=== PATIENT | male | born 1975 | race American Indian/Alaskan Native ===

== ENCOUNTER 2019-08-07 18:35 | Inpatient (IN) | payer OTHER ==
--- NOTE | 2019-08-07 18:54 | Emergency Department Report ---
Blank Doc - Documentation Documentation: 43-year-old male that presents with weakness and dizziness with hypoglycemia. Stated was in the 50s at home. This initial assessment/diagnostic orders/clinical plan/treatment(s) is/are subject to change based on patient's health status, clinical progression and re- assessment by fellow clinical providers in the ED. Further treatment and workup at subsequent clinical providers discretion. Patient/guardians urged not to elope from the ED as their condition may be serious if not clinically assessed and managed. Initial orders include: 1- Patient sent to [facility] for further evaluation and treatment 2- labs 3- UA
[2019-08-07 19:36] LABS: Calcium 8.4 mg/dL (8.4-10.2)
[2019-08-07 19:47] LABS: Hematocrit 33.4 % (35.5-45.6); Mean Corpuscular HGB Conc 33 % (32-34); Mean Corpuscular Volume 84 fl (84-94); Red Blood Count 3.96 M/mm3 (3.65-5.03); Red Cell Distribution Width 13.7 % (13.2-15.2)
[2019-08-07 19:52] LABS: Platelet Count 461 K/mm3 (140-440)
[2019-08-07 20:37] LABS: Band Neutrophils # (Manual) 0.4 K/mm3; Basophils % (Manual) 0 % (0.0-1.8); Eosinophils % (Manual) 0 % (0.0-4.3); Total Cells Counted 100
[2019-08-07 20:38] LABS: Anisocytosis 1+; Large Platelets Few; Platelet Estimate Consistent w Auto; Toxic Vacuolation 3+
[2019-08-07 20:47] LABS: Bilirubin,Urine NEG (Negative); Blood,Urine MOD (Negative); Color,Urine Amber (Yellow)
[2019-08-07] MEDS ORDERED: SODIUM CHLORIDE 0.9% 1000 ML IV SOLN IV ONE (21:31)
[2019-08-07] MEDS ORDERED: metroNIDAZOLE/NS 500 MG/100 ML 500 MG/100 ML BAG IV ONE (21:31)
[2019-08-07] MEDS ORDERED: PIPERACIL/TAZOBACTA 4.5/NS 100 4.5 GM/100 ML VIAL IV ONE (21:31)
--- NOTE | 2019-08-07 21:37 | Emergency Department Report ---
ED General Adult HPI - General Chief complaint: Hypoglycemia Stated complaint: LOW GLUCOSE Time Seen by Provider: 08/07/19 18:53 Source: patient, RN notes reviewed Mode of arrival: Ambulatory Limitations: Physical Limitation - History of Present Illness Initial comments: The patient is a 43-year-old gentleman. This patient is not known to this provider previously. He does not have a primary care doctor, and he has a history of diabetes. He presents to the ER with chronic left-sided lateral plantar foot pain and swelling. This has been going on for 2 weeks. He also states that he had episodes of hypoglycemia yesterday, indicating that his sugar was in the 50s. It is typically in the mid 100s. There is a cough, there is no headache, no neck pain, no chest pain, question shortness of breath, no abdominal pain. On review of systems, he also endorses exercise and occasional rest claudication. Left lower extremity foot pain, swelling and discharge present for 2 weeks. Symptoms constant, pain increases with palpation, decreases with rest, does not radiate anywhere. There is no endorsement of extremity weakness and arm numbness. -: Gradual Location: left, lower extremity Quality: other Consistency: other Improves with: other Worsens with: other - Related Data Home Medications Medication Instructions Recorded Confirmed Last Taken NovoLIN N 30 unit SUB-Q BID 08/07/19 08/07/19 Unknown Novolin R 12 unit SUB-Q BID 08/07/19 08/07/19 Unknown Allergies Allergy/AdvReac Type Severity Reaction Status Date / Time No Known Allergies Allergy Verified 05/26/13 04:48 ED Review of Systems ROS: Stated complaint: LOW GLUCOSE Other details as noted in HPI Constitutional: malaise, weakness Eyes: denies: eye discharge ENT: denies: dental pain Respiratory: denies: wheezing Cardiovascular: denies: chest pain, syncope Gastrointestinal: denies: abdominal pain Genitourinary: denies: dysuria Musculoskeletal: joint swelling, arthralgia, myalgia Skin: rash, lesions Neurological: weakness Hematological/Lymphatic: denies: easy bleeding ED Past Medical Hx - Past Medical History Previous Medical History?: Yes Hx Hypertension: Yes Hx Diabetes: Yes Additional medical history: GERD - Surgical History Past Surgical History?: Yes Additional Surgical History: Surgery on appendix or Pancreas 2004, patient is unsure. - Social History Smoking Status: Never Smoker Substance Use Type: None - Medications Home Medications: Home Medications Medication Instructions Recorded Confirmed Last Taken Type NovoLIN N 30 unit SUB-Q BID 08/07/19 08/07/19 Unknown History Novolin R 12 unit SUB-Q BID 08/07/19 08/07/19 Unknown History ED Physical Exam - General Limitations: No Limitations, Physical Limitation General appearance: alert, anxious - Head Head exam: Present: atraumatic, normocephalic - Eye Eye exam: Present: normal appearance, EOMI. Absent: nystagmus - ENT ENT exam: Present: normal exam, mucous membranes dry, normal external ear exam - Neck Neck exam: Present: normal inspection, full ROM. Absent: tenderness, meningismus - Respiratory Respiratory exam: Present: normal lung sounds bilaterally. Absent: respiratory distress - Cardiovascular Cardiovascular Exam: Present: normal rhythm, tachycardia, normal heart sounds. Absent: systolic murmur, diastolic murmur, rubs, gallop - GI/Abdominal GI/Abdominal exam: Present: soft. Absent: distended, tenderness, guarding, rebound, rigid, pulsatile mass - Rectal Rectal exam: Present: deferred - Extremities Exam Extremities exam: Present: other (2+ pulses noted in the bilateral upper extre mities. The right lower extremity is warm and well perfused. Pulses are difficult to appreciate. There is right lower extremity edema. The left lower extremity, there is edema. The left lateral aspect of the foot has cavernous lesion with what appears to be wet gangrene. Macerated tissue is noted. Uncertain of crepitus is present. Pulses are difficult to appreciate. Sensation is intact to pinch and light touch. There is no sniffing and pain with passive motion of the great toe. The left anterior distal tibial region is tender.). Absent: normal inspection - Back Exam Back exam: Present: normal inspection. Absent: tenderness, CVA tenderness (R), CVA tenderness (L), paraspinal tenderness, vertebral tenderness - Neurological Exam Neurological exam: Present: alert, other (there is no facial droop. Tongue is midline. Extraocular movements are intact bilaterally. Walking with a steady gait. Speaking in full sentences. Normal appropriate thought content. 5 out of 5 strength in 4 extremities. Sensation is intact to light touch in 4 extremities.) - Psychiatric Psychiatric exam: Present: anxious - Skin Skin exam: Present: warm, erythema ED Course Vital Signs 01/08/07/19 08/07/19 18:53 21:37 21:46 Temperature 99.2 F Pulse Rate 104 H 109 H 108 H Respiratory 20 38 H 33 H Rate Blood Pressure 136/90 O2 Sat by Pulse 100 99 100 Oximetry 08/07/19 08/07/19 08/07/19 22:00 22:22 22:30 Temperature Pulse Rate 105 H 104 H 104 H Respiratory 33 H 32 H 27 H Rate Blood Pressure O2 Sat by Pulse 97 99 99 Oximetry 08/07/19 08/07/19 08/07/19 22:46 23:00 23:16 Temperature Pulse Rate 102 H 99 H 99 H Respiratory 35 H 31 H 30 H Rate Blood Pressure O2 Sat by Pulse 98 97 97 Oximetry 08/07/19 08/07/19 08/08/19 23:30 23:46 00:00 Temperature Pulse Rate 99 H 98 H 101 H Respiratory 29 H 32 H 19 Rate Blood Pressure O2 Sat by Pulse 99 97 96 Oximetry 08/08/19 08/08/19 08/08/19 00:15 00:30 00:45 Temperature Pulse Rate 99 H 99 H 98 H Respiratory 30 H 30 H 28 H Rate Blood Pressure 117/80 120/82 119/83 O2 Sat by Pulse Oximetry 08/08/19 01:00 Temperature Pulse Rate Respiratory Rate Blood Pressure 119/83 O2 Sat by Pulse 98 Oximetry - Reevaluation(s) Reevaluation #1: 08/07/19 22:51 Differential diagnosis, including but not limited to: Wet gangrene, myositis, osteomyelitis, cellulitis, hypoglycemia secondary to infection, secondary to sepsis, peripheral artery disease, peripheral artery insufficiency Assessment and plan: 43-year-old gentleman with obviously infected left lower extremity, meeting sepsis criteria, manifest by clinical infection, leukocyto sis, tachycardia, and renal insufficiency. He also endorses claudication on review of systems. Pulses are not able to be appreciated to my direct physical examination. Doppler ultrasonography is performed, and dorsalis pedis and posterior tibial monophasic waveforms are obtained of the left lower extremity. The right lower extremity is not symptomatic. These lesions in the left foot have been present for 2 weeks and they're getting worse. Discussed with general surgery, Dr. Harris, and vascular surgery, Dr. Minor, who agreed to follow in consultation. Patient requires aggressive medical resuscitation, every 1 hour Accu-Cheks, IV fluids, and medical optimization. Discussed plan of care with patient and family, who verbalized understanding, and whom are amenable to hospitalization and admission. Case presented to Hospital physician, , who has accepted the patient to the medical service. Reevaluation #2: 08/07/19 22:55 Both general surgery and vascular surgery aware of gas in the left foot demonstrated on CT scan. Likely to receive open amputation tomorrow, as per vascular surgery. ED Medical Decision Making - Lab Data Result diagrams: 08/07/19 19:02 08/07/19 19:02 Vital Signs 08/07/19 18:53 Temperature 99.2 F Pulse Rate 104 H Respiratory 20 Rate Blood Pressure 136/90 O2 Sat by Pulse 100 Oximetry Lab Results 08/07/19 08/07/19 08/07/19 Range/Units 18:51 19:02 19:02 WBC 41.3 H* (4.5-11.0) K/mm3 RBC 3.96 (3.65-5.03) M/mm3 Hgb 11.0 L (11.8-15.2) gm/dl Hct 33.4 L (35.5-45.6) % MCV 84 (84-94) fl MCH 28 (28-32) pg MCHC 33 (32-34) % RDW 13.7 (13.2-15.2) % Plt Count 461 H (140-440) K/mm3 Add Manual Diff Complete Total Counted 100 Seg Neuts % (Manual) 91.0 H (40.0-70.0) % Band Neutrophils % 1.0 % Lymphocytes % (Manual) 5.0 L (13.4-35.0) % Reactive Lymphs % (Man) 0 % Monocytes % (Manual) 3.0 (0.0-7.3) % Eosinophils % (Manual) 0 (0.0-4.3) % Basophils % (Manual) 0 (0.0-1.8) % Metamyelocytes % 0 % Myelocytes % 0 % Promyelocytes % 0 % Blast Cells % 0 % Nucleated RBC % Not Reportable Seg Neutrophils # Man 37.6 H (1.8-7.7) K/mm3 Band Neutrophils # 0.4 K/mm3 Lymphocytes # (Manual) 2.1 (1.2-5.4) K/mm3 Abs React Lymphs (Man) 0.0 K/mm3 Monocytes # (Manual) 1.2 H (0.0-0.8) K/mm3 Eosinophils # (Manual) 0.0 (0.0-0.4) K/mm3 Basophils # (Manual) 0.0 (0.0-0.1) K/mm3 Metamyelocytes # 0.0 K/mm3 Myelocytes # 0.0 K/mm3 Promyelocytes # 0.0 K/mm3 Blast Cells # 0.0 K/mm3 WBC Morphology Not Reportable Hypersegmented Neuts Not Reportable Hyposegmented Neuts Not Reportable Hypogranular Neuts Not Reportable Smudge Cells Not Reportable Toxic Granulation Not Reportable Toxic Vacuolation 3+ Dohle Bodies Not Reportable Pelger-Huet Anomaly Not Reportable Arlene Rods Not Reportable Platelet Estimate Consistent w auto Clumped Platelets Not Reportable Plt Clumps, EDTA Not Reportable Large Platelets Few Giant Platelets Not Reportable Platelet Satelliting Not Reportable Plt Morphology Comment Not Reportable RBC Morphology Not Reportable Dimorphic RBCs Not Reportable Polychromasia Not Reportable Hypochromasia Not Reportable Poikilocytosis Not Reportable Anisocytosis 1+ Microcytosis Not Reportable Macrocytosis Not Reportable Spherocytes Not Reportable Pappenheimer Bodies Not Reportable Sickle Cells Not Reportable Target Cells Not Reportable Tear Drop Cells Not Reportable Ovalocytes Not Reportable Helmet Cells Not Reportable [place] Bodies Not Reportable [place] Rings Not Reportable Negra Cells Not Reportable Bite Cells Not Reportable Crenated Cell Not Reportable Elliptocytes Not Reportable Acanthocytes (Spur) Not Reportable Rouleaux Not Reportable Hemoglobin C Crystals Not Reportable Schistocytes Not Reportable Malaria parasites Not Reportable Ramos Bodies Not Reportable Hem Pathologist Commnt No PT (12.2-14.9) Sec. INR (0.87-1.13) APTT (24.2-36.6) Sec. Sodium 129 L (137-145) mmol/L Potassium 3.7 (3.6-5.0) mmol/L Chloride 91.3 L (98-107) mmol/L Carbon Dioxide 16 L (22-30) mmol/L Anion Gap 25 mmol/L BUN 33 H (9-20) mg/dL Creatinine 1.8 H (0.8-1.5) mg/dL Estimated GFR 50 ml/min BUN/Creatinine Ratio 18 % Glucose 165 H (75-100) mg/dL POC Glucose 148 H (70-105) Lactic Acid (0.7-2.0) mmol/L Calcium 8.4 (8.4-10.2) mg/dL Total Bilirubin (0.1-1.2) mg/dL Direct Bilirubin (0-0.2) mg/dL Indirect Bilirubin mg/dL AST (5-40) units/L ALT (7-56) units/L Alkaline Phosphatase (35-129) units/L Total Creatine Kinase (55-170) units/L Total Protein (6.3-8.2) g/dL Albumin (3.9-5) g/dL Albumin/Globulin Ratio % Urine Color (Yellow) Urine Turbidity (Clear) Urine pH (5.0-7.0) Ur Specific Leslie (1.003-1.030) Urine Protein (Negative) mg/dL Urine Glucose (UA) (Negative) mg/dL Urine Ketones (Negative) mg/dL Urine Blood (Negative) Urine Nitrite (Negative) Urine Bilirubin (Negative) Urine Urobilinogen (<2.0) mg/dL Ur Leukocyte Esterase (Negative) Urine WBC (Auto) (0.0-6.0) /HPF Urine RBC (Auto) (0.0-6.0) /HPF U Epithel Cells (Auto) (0-13.0) /HPF 08/07/19 08/07/19 08/07/19 Range/Units 20:05 21:45 21:45 WBC (4.5-11.0) K/mm3 RBC (3.65-5.03) M/mm3 Hgb (11.8-15.2) gm/dl Hct (35.5-45.6) % MCV (84-94) fl MCH (28-32) pg MCHC (32-34) % RDW (13.2-15.2) % Plt Count (140-440) K/mm3 Add Manual Diff Total Counted Seg Neuts % (Manual) (40.0-70.0) % Band Neutrophils % % Lymphocytes % (Manual) (13.4-35.0) % Reactive Lymphs % (Man) % Monocytes % (Manual) (0.0-7.3) % Eosinophils % (Manual) (0.0-4.3) % Basophils % (Manual) (0.0-1.8) % Metamyelocytes % % Myelocytes % % Promyelocytes % % Blast Cells % % Nucleated RBC % Seg Neutrophils # Man (1.8-7.7) K/mm3 Band Neutrophils # K/mm3 Lymphocytes # (Manual) (1.2-5.4) K/mm3 Abs React Lymphs (Man) K/mm3 Monocytes # (Manual) (0.0-0.8) K/mm3 Eosinophils # (Manual) (0.0-0.4) K/mm3 Basophils # (Manual) (0.0-0.1) K/mm3 Metamyelocytes # K/mm3 Myelocytes # K/mm3 Promyelocytes # K/mm3 Blast Cells # K/mm3 WBC Morphology Hypersegmented Neuts Hyposegmented Neuts Hypogranular Neuts Smudge Cells Toxic Granulation Toxic Vacuolation Dohle Bodies Pelger-Huet Anomaly Arlene Rods Platelet Estimate Clumped Platelets Plt Clumps, EDTA Large Platelets Giant Platelets Platelet Satelliting Plt Morphology Comment RBC Morphology Dimorphic RBCs Polychromasia Hypochromasia Poikilocytosis Anisocytosis Microcytosis Macrocytosis Spherocytes Pappenheimer Bodies Sickle Cells Target Cells Tear Drop Cells Ovalocytes Helmet Cells [place] Bodies [place] Rings [place] Cells Bite Cells Crenated Cell Elliptocytes Acanthocytes (Spur) Rouleaux Hemoglobin C Crystals Schistocytes Malaria parasites Ramos Bodies Hem Pathologist Commnt PT 18.0 H (12.2-14.9) Sec. INR 1.46 H (0.87-1.13) APTT 39.0 H (24.2-36.6) Sec. Sodium (137-145) mmol/L Potassium (3.6-5.0) mmol/L Chloride (98-107) mmol/L Carbon Dioxide (22-30) mmol/L Anion Gap mmol/L BUN (9-20) mg/dL Creatinine (0.8-1.5) mg/dL Estimated GFR ml/min BUN/Creatinine Ratio % Glucose (75-100) mg/dL POC Glucose (70-105) Lactic Acid (0.7-2.0) mmol/L Calcium (8.4-10.2) mg/dL Total Bilirubin 0.60 (0.1-1.2) mg/dL Direct Bilirubin 0.4 H (0-0.2) mg/dL Indirect Bilirubin 0.2 mg/dL AST 21 (5-40) units/L ALT 16 (7-56) units/L Alkaline Phosphatase 128 (35-129) units/L Total Creatine Kinase 38 L (55-170) units/L Total Protein 6.2 L (6.3-8.2) g/dL Albumin 2.5 L (3.9-5) g/dL Albumin/Globulin Ratio 0.7 % Urine Color Veronika (Yellow) Urine Turbidity Slightly cloudy (Clear) Urine pH 5.0 (5.0-7.0) Ur Specific Leslie 1.018 (1.003-1.030) Urine Protein 100 mg/dl (Negative) mg/dL Urine Glucose (UA) Neg (Negative) mg/dL Urine Ketones Neg (Negative) mg/dL Urine Blood Mod (Negative) Urine Nitrite Neg (Negative) Urine Bilirubin Neg (Negative) Urine Urobilinogen 4.0 (<2.0) mg/dL Ur Leukocyte Esterase Neg (Negative) Urine WBC (Auto) 20.0 H (0.0-6.0) /HPF Urine RBC (Auto) 18.0 (0.0-6.0) /HPF U Epithel Cells (Auto) 2.0 (0-13.0) /HPF 08/07/19 Range/Units 21:45 WBC (4.5-11.0) K/mm3 RBC (3.65-5.03) M/mm3 Hgb (11.8-15.2) gm/dl Hct (35.5-45.6) % MCV (84-94) fl MCH (28-32) pg MCHC (32-34) % RDW (13.2-15.2) % Plt Count (140-440) K/mm3 Add Manual Diff Total Counted Seg Neuts % (Manual) (40.0-70.0) % Band Neutrophils % % Lymphocytes % (Manual) (13.4-35.0) % Reactive Lymphs % (Man) % Monocytes % (Manual) (0.0-7.3) % Eosinophils % (Manual) (0.0-4.3) % Basophils % (Manual) (0.0-1.8) % Metamyelocytes % % Myelocytes % % Promyelocytes % % Blast Cells % % Nucleated RBC % Seg Neutrophils # Man (1.8-7.7) K/mm3 Band Neutrophils # K/mm3 Lymphocytes # (Manual) (1.2-5.4) K/mm3 Abs React Lymphs (Man) K/mm3 Monocytes # (Manual) (0.0-0.8) K/mm3 Eosinophils # (Manual) (0.0-0.4) K/mm3 Basophils # (Manual) (0.0-0.1) K/mm3 Metamyelocytes # K/mm3 Myelocytes # K/mm3 Promyelocytes # K/mm3 Blast Cells # K/mm3 WBC Morphology Hypersegmented Neuts Hyposegmented Neuts Hypogranular Neuts Smudge Cells Toxic Granulation Toxic Vacuolation Dohle Bodies Pelger-Huet Anomaly Arlene Rods Platelet Estimate Clumped Platelets Plt Clumps, EDTA Large Platelets Giant Platelets Platelet Satelliting Plt Morphology Comment RBC Morphology Dimorphic RBCs Polychromasia Hypochromasia Poikilocytosis Anisocytosis Microcytosis Macrocytosis Spherocytes Pappenheimer Bodies Sickle Cells Target Cells Tear Drop Cells Ovalocytes Helmet Cells [place] Bodies [place] Rings Negra Cells Bite Cells Crenated Cell Elliptocytes Acanthocytes (Spur) Rouleaux Hemoglobin C Crystals Schistocytes Malaria parasites Ramos Bodies Hem Pathologist Commnt PT (12.2-14.9) Sec. INR (0.87-1.13) APTT (24.2-36.6) Sec. Sodium (137-145) mmol/L Potassium (3.6-5.0) mmol/L Chloride (98-107) mmol/L Carbon Dioxide (22-30) mmol/L Anion Gap mmol/L BUN (9-20) mg/dL Creatinine (0.8-1.5) mg/dL Estimated GFR ml/min BUN/Creatinine Ratio % Glucose (75-100) mg/dL POC Glucose (70-105) Lactic Acid 2.40 H* (0.7-2.0) mmol/L Calcium (8.4-10.2) mg/dL Total Bilirubin (0.1-1.2) mg/dL Direct Bilirubin (0-0.2) mg/dL Indirect Bilirubin mg/dL AST (5-40) units/L ALT (7-56) units/L Alkaline Phosphatase (35-129) units/L Total Creatine Kinase (55-170) units/L Total Protein (6.3-8.2) g/dL Albumin (3.9-5) g/dL Albumin/Globulin Ratio % Urine Color (Yellow) Urine Turbidity (Clear) Urine pH (5.0-7.0) Ur Specific Leslie (1.003-1.030) Urine Protein (Negative) mg/dL Urine Glucose (UA) (Negative) mg/dL Urine Ketones (Negative) mg/dL Urine Blood (Negative) Urine Nitrite (Negative) Urine Bilirubin (Negative) Urine Urobilinogen (<2.0) mg/dL Ur Leukocyte Esterase (Negative) Urine WBC (Auto) (0.0-6.0) /HPF Urine RBC (Auto) (0.0-6.0) /HPF U Epithel Cells (Auto) (0-13.0) /HPF - EKG Data -: EKG Interpreted by Me EKG shows normal: sinus rhythm Rate: normal - EKG Data 08/07/19 23:20 sinus 99 bpm, normal axis normal intervals qtc 490 not a stemi - Radiology Data Radiology results: pending, report reviewed, image reviewed interpreted by me: X-ray of the chest is negative for acute disease. I do not appreciate an obvious infiltrate. X-ray of the fibula/tibia negative for acute disease. X-ray of the left foot shows question osteomyelitis, obvious gas. Noncontrast CT scan of the foot: Gases noted in the foot, may be associated with the wound. Print Report Referring Physician: SARITA PUGH Patient Name: JOSÉ LUIS REYES Date of : 1975 Sex: Male Report Date: 2019-08-07 Report Status: Finalized Findings [facility] [address] [place] [address] Cat Scan Report Signed Patient: JOSÉ LUIS REYES MR#: [id number] : 1975 Acct:[id number] Age/Sex: 43 / M ADM Date: 08/07/19 Loc: 4A A457-[address]: DONAL EDMONDSON MD Ordering Physician: SARITA PUGH MD Date of Service: 08/07/19 Procedure(s): CT lower extremity LT wo con Accession Number(s): [id number] cc: SARITA PUGH MD CT lower extremity LT wo con INDICATION: lle pain swelling infection. TECHNIQUE: All CT scans at this location are performed using the following dose modulation technique: Automated exposure control. Helical slices were obtained through the left extremity. No contrast is administered. Coronal and sagittal reformatted images were obtained. COMPARISON: None available. FINDINGS: No acute osseous abnormality is seen in the pelvis, femur, knee, and lower leg. There is soft tissue gas noted extensively in the left foot. There is some cortical destruction in air within the proximal phalanx of the fifth toe and the distal aspect of the fifth metatarsal indicating osteomyelitis. There is soft tissue swelling throughout the foot and there is a soft tissue wound in the lateral left foot. There is a fracture of the mid fifth metatarsal with air in the fracture site as well. There is some mild cortical irregularity in the cuboid bone with adjacent air raising possibility of osteomyelitis in this location as well. There is soft tissue swelling in the left lower leg. No discrete fluid collections are seen. Atherosclerotic calcifications are noted in the runoff vessels in the superficial femoral artery and popliteal artery IMPRESSION: 1. There is soft tissue gas and soft tissue wound in the left foot. There is fracture of the mid left fifth metatarsal with air in the fracture site. There is some cortical destruction and air in the distal aspect of the fifth metatarsal and the proximal aspect of the proximal phalanx of the fifth toe indicative of osteomyelitis. There is some mild cortical irregularity of the cuboid bone with adjacent air raising the possibility of osteomyelitis in this location as well. There is atherosclerotic disease. There is soft tissue swelling in the left lower leg and in the left foot.. Signer Name: Milind Harris MD Signed: 08/07/2019 11:32 PM Workstation Name: [id number] Transcribed By: SS Dictated By: Milind Harris MD Electronically Authenticated By: Milind Harris MD Signed Date/Time: 08/07/19 7102 Critical Care Time: Yes Critical care time in (mins) excluding proc time.: 35 Critical care attestation.: If time is entered above; I have spent that time in minutes in the direct care of this critically ill patient, excluding procedure time. ED Disposition Clinical Impression: Sepsis, Diabetic infection of left foot Disposition: [id number] OP ADMIT IP TO THIS HOSP Is pt being admited?: Yes Condition: Serious
[2019-08-07] MEDS ORDERED: VANCOMYCIN 1,500 MG in SODIUM CHLORIDE 0.9% 500 ML 500 ML IV ONE (22:15)
[2019-08-07 22:28] LABS: Albumin 2.5 g/dL (3.9-5); Bilirubin,Direct 0.4 mg/dL (0-0.2); INR 1.46 (0.87-1.13)
--- NOTE | 2019-08-07 23:06 | XRay Report ---
LEFT FOOT 2 VIEWS 2142 INDICATION: lle pain swelling sepsis COMPARISON: None available. FINDINGS: Prominent ulceration is seen in the left lateral mid foot ventrally. Soft tissue gas is ext ensive in the midfoot ventrally extending distally to the level of the metatarsophalangeal joints. Luis ny irregularity is seen in the proximal portions of the fifth metatarsal likely representing osteomye litis and possible irregularity seen in the proximal portion of the third metatarsal. There appears t o be some fracture and fragmentation of the proximal fifth metatarsal but without displacement. Mild medial angulation is noted. No foreign bodies are seen. Arterial calcifications are noted. Moderate t arsal degenerative changes are seen. IMPRESSION: Large soft tissue ulcer with extensive soft tissue gas and probable osteomyelitis as abov e. MR is suggested. LEFT TIBIA FIBULA 2 VIEWS 2141 INDICATION: lle pain swelling sepsis COMPARISON: None available. FINDINGS: No fractures or dislocations are seen. Arterial calcifications are noted. No soft tissue ga s is seen. Diffuse edema is seen at the ankle. Signer Name: Ronn Galvez MD Signed: 08/07/2019 11:01 PM Workstation Name: [id number]
--- NOTE | 2019-08-07 23:17 | XRay Report ---
CHEST 1 VIEW 705 INDICATION / CLINICAL INFORMATION: cough weak sepsis. COMPARISON: None available. FINDINGS: SUPPORT DEVICES: None HEART / MEDIASTINUM: No significant abnormality. LUNGS / PLEURA: Mild asymmetric density is seen in the right base. This may be atelectatic but early pneumonitis is not excluded and follow-up and clinical correlation are suggested. Left lung field is clear. No pneumothorax. ADDITIONAL FINDINGS: No significant additional findings. IMPRESSION: Right basilar density as above Signer Name: Ronn Galvez MD Signed: 08/07/2019 11:13 PM Workstation Name: [id number]
[2019-08-07] MEDS ORDERED: ONDANSETRON 4 MG/2 ML INJ IV PRN (23:29)
[2019-08-07] MEDS ORDERED: MAGNESIUM HYDROXIDE (MOM) ORAL LIQD UDC PO PRN (23:29)
--- NOTE | 2019-08-07 23:36 | Cat Scan Report ---
CT lower extremity LT wo con INDICATION: lle pain swelling infection. TECHNIQUE: All CT scans at this location are performed using the following dose modulation technique: Automated exposure control. Helical slices were obtained through the left extremity. No contrast is administere d. Coronal and sagittal reformatted images were obtained. COMPARISON: None available. FINDINGS: No acute osseous abnormality is seen in the pelvis, femur, knee, and lower leg. There is soft tissue gas noted extensively in the left foot. There is some cortical destruction in ai r within the proximal phalanx of the fifth toe and the distal aspect of the fifth metatarsal indicati ng osteomyelitis. There is soft tissue swelling throughout the foot and there is a soft tissue wound in the lateral left foot. There is a fracture of the mid fifth metatarsal with air in the fracture si te as well. There is some mild cortical irregularity in the cuboid bone with adjacent air raising possibility of osteomyelitis in this location as well. There is soft tissue swelling in the left lower leg. No discr ete fluid collections are seen. Atherosclerotic calcifications are noted in the runoff vessels in the superficial femoral artery and popliteal artery IMPRESSION: 1. There is soft tissue gas and soft tissue wound in the left foot. There is fracture of the mid left fifth metatarsal with air in the fracture site. There is some cortical destruction and air in the di stal aspect of the fifth metatarsal and the proximal aspect of the proximal phalanx of the fifth toe indicative of osteomyelitis. There is some mild cortical irregularity of the cuboid bone with adjacen t air raising the possibility of osteomyelitis in this location as well. There is atherosclerotic disease. There is soft tissue swelling in the left lower leg and in the left foot.. Signer Name: Milind Harris MD Signed: 08/07/2019 11:32 PM Workstation Name: [id number]
--- NOTE | 2019-08-07 23:49 | History and Physical Report ---
History of Present Illness Date of examination: 08/07/19 Date of admission: 08/07/2019 Chief complaint: Left foot wound and swelling History of present illness: 43-year-old -[place] male with known history of diabetes mellitus presenting to the emergency room today complaining of left foot swelling and wound which has been ongoing for about 4 weeks. Patient states that he has had a wound on the left foot and has been dressing the wound over the past few weeks and admits that he has not seek any medical attention for the left foot wound. 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 He denies any fever denies any chills, no chest pain no shortness of breath, no nausea vomiting. States he was not feeling quite well today and felt his sugar was low and decided to check into the emergency room. Upon evaluation in the emergency room patient was found to be tachycardic, work- up reveals dehydration, left foot ulcer with possible gangrene and accompanying sepsis. Patient started on empiric IV antibiotics, general surgeon and vascular surgeon has been consulted by the ER physician. Past History Past Medical History: diabetes Past Surgical History: bowel surgery Social history: alcohol abuse (Drinks alcohol occasionally). denies: smoking Family history: no significant family history Medications and Allergies Allergies Allergy/AdvReac Type Severity Reaction Status Date / Time No Known Allergies Allergy Verified 05/26/13 04:48 Home Medications Medication Instructions Recorded Confirmed Last Taken Type NovoLIN N 30 unit SUB-Q BID 08/07/19 08/07/19 Unknown History Novolin R 12 unit SUB-Q BID 08/07/19 08/07/19 Unknown History Active Meds: Active Medications Acetaminophen (Tylenol) 650 mg PO Q4H PRN PRN Reason: Pain MILD(1-3)/Fever >100.5/MIRANDA Dextrose (D50w (25gm) Syringe) 50 ml IV Q30MIN PRN; Protocol PRN Reason: Hypoglycemia Heparin Sodium (Porcine) (Heparin) 5,000 unit SUB-Q Q8HR [facility] Vancomycin HCl 1,500 mg/ (Sodium Chloride) 530 mls @ 333 mls/hr IV ONCE ONE; Protocol Stop: 08/07/19 23:50 Last Admin: 08/07/19 22:30 Dose: 333 mls/hr Documented by: Sodium Chloride (Nacl 0.9% 1000 Ml) 1,000 mls @ 125 mls/hr IV DIRECT [facility] Piperacillin Sod/Tazobactam Sod (Zosyn/Ns 4.5gm/100ml) 4.5 gm in 100 mls @ 200 mls/hr IV Q8HR [facility]; Protocol Metronidazole (Flagyl 500 Mg/100 Ml) 500 mg in 100 mls @ 100 mls/hr IV Q8HR [facility]; Protocol Insulin Human Lispro (Humalog) 0 unit SUB-Q ACHS [facility]; Protocol Magnesium Hydroxide (Milk Of Magnesia) 30 ml PO Q4H PRN PRN Reason: Constipation Morphine Sulfate (Morphine) 2 mg IV Q4H PRN PRN Reason: Pain, Moderate (4-6) Ondansetron HCl (Zofran) 4 mg IV Q8H PRN PRN Reason: Nausea And Vomiting Sodium Chloride (Sodium Chloride Flush Syringe 10 Ml) 10 ml IV BID [facility] Sodium Chloride (Sodium Chloride Flush Syringe 10 Ml) 10 ml IV PRN PRN PRN Reason: LINE FLUSH Review of Systems Constitutional: chills, no fever, no weakness Ears, nose, mouth and throat: no tinnitis, no nasal congestion Cardiovascular: no chest pain, no palpitations Respiratory: no cough, no shortness of breath Gastrointestinal: no nausea, no vomiting, no diarrhea Genitourinary Male: no dysuria, no hematuria Musculoskeletal: no neck pain, no low back pain Integumentary: wounds (Left foot wound,), darkening of skin (Discoloration of skin over left foot and surrounding wound) Neurological: no headaches, no change in mentation Exam - Constitutional Vitals: Temp Pulse Resp BP Pulse Ox 99.2 F 104 H 20 136/90 100 08/07/19 18:53 08/07/19 18:53 08/07/19 18:53 08/07/19 18:53 08/07/19 18:53 General appearance: Present: no acute distress, well-nourished - EENT Eyes: Present: PERRL, EOM intact ENT: hearing intact, clear oral mucosa, dentition normal - Neck Neck: Present: supple, normal ROM - Respiratory Respiratory effort: normal Respiratory: bilateral: CTA - Cardiovascular Rhythm: regular Heart Sounds: Present: S1 & S2 - Extremities Extremities: no ischemia, Full ROM Extremity abnormal: edema (2+ edema on the left lower extremity), ulceration (Ulcer on the lateral aspect of the left foot, also on the plantar aspect of the left foot, wound is foul-smelling with no obvious discharge), tenderness (Tenderness over left foot) Peripheral Pulses: abnormal (Right foot pedal pulses palpable but faint, left foot pedal pulse not palpable) - Abdominal General gastrointestinal: Present: soft, non-tender, normal bowel sounds, other (Scar of old surgery in the midline) - Integumentary Integumentary: Present: clear, warm, dry - Musculoskeletal Musculoskeletal: strength equal bilaterally - Psychiatric Psychiatric: appropriate mood/affect, intact judgment & insight, cooperative - Neurologic Neurologic: CNII-XII intact, moves all extremities Results - Labs CBC & Chem 7: 08/07/19 19:02 08/07/19 19:02 Labs: Abnormal lab results 08/07/19 08/07/19 08/07/19 Range/Units 18:51 19:02 19:02 WBC 41.3 H* (4.5-11.0) K/mm3 Hgb 11.0 L (11.8-15.2) gm/dl Hct 33.4 L (35.5-45.6) % Plt Count 461 H (140-440) K/mm3 Seg Neuts % (Manual) 91.0 H (40.0-70.0) % Lymphocytes % (Manual) 5.0 L (13.4-35.0) % Seg Neutrophils # Man 37.6 H (1.8-7.7) K/mm3 Monocytes # (Manual) 1.2 H (0.0-0.8) K/mm3 PT (12.2-14.9) Sec. INR (0.87-1.13) APTT (24.2-36.6) Sec. Sodium 129 L (137-145) mmol/L Chloride 91.3 L (98-107) mmol/L Carbon Dioxide 16 L (22-30) mmol/L BUN 33 H (9-20) mg/dL Creatinine 1.8 H (0.8-1.5) mg/dL Glucose 165 H (75-100) mg/dL POC Glucose 148 H (70-105) Lactic Acid (0.7-2.0) mmol/L Direct Bilirubin (0-0.2) mg/dL Total Creatine Kinase (55-170) units/L Total Protein (6.3-8.2) g/dL Albumin (3.9-5) g/dL Urine WBC (Auto) (0.0-6.0) /HPF 08/07/19 08/07/19 08/07/19 Range/Units 20:05 21:45 21:45 WBC (4.5-11.0) K/mm3 Hgb (11.8-15.2) gm/dl Hct (35.5-45.6) % Plt Count (140-440) K/mm3 Seg Neuts % (Manual) (40.0-70.0) % Lymphocytes % (Manual) (13.4-35.0) % Seg Neutrophils # Man (1.8-7.7) K/mm3 Monocytes # (Manual) (0.0-0.8) K/mm3 PT 18.0 H (12.2-14.9) Sec. INR 1.46 H (0.87-1.13) APTT 39.0 H (24.2-36.6) Sec. Sodium (137-145) mmol/L Chloride (98-107) mmol/L Carbon Dioxide (22-30) mmol/L BUN (9-20) mg/dL Creatinine (0.8-1.5) mg/dL Glucose (75-100) mg/dL POC Glucose (70-105) Lactic Acid (0.7-2.0) mmol/L Direct Bilirubin 0.4 H (0-0.2) mg/dL Total Creatine Kinase 38 L (55-170) units/L Total Protein 6.2 L (6.3-8.2) g/dL Albumin 2.5 L (3.9-5) g/dL Urine WBC (Auto) 20.0 H (0.0-6.0) /HPF 08/07/19 08/07/19 Range/Units 21:45 22:48 WBC (4.5-11.0) K/mm3 Hgb (11.8-15.2) gm/dl Hct (35.5-45.6) % Plt Count (140-440) K/mm3 Seg Neuts % (Manual) (40.0-70.0) % Lymphocytes % (Manual) (13.4-35.0) % Seg Neutrophils # Man (1.8-7.7) K/mm3 Monocytes # (Manual) (0.0-0.8) K/mm3 PT (12.2-14.9) Sec. INR (0.87-1.13) APTT (24.2-36.6) Sec. Sodium (137-145) mmol/L Chloride (98-107) mmol/L Carbon Dioxide (22-30) mmol/L BUN (9-20) mg/dL Creatinine (0.8-1.5) mg/dL Glucose (75-100) mg/dL POC Glucose (70-105) Lactic Acid 2.40 H* 2.70 H* (0.7-2.0) mmol/L Direct Bilirubin (0-0.2) mg/dL Total Creatine Kinase (55-170) units/L Total Protein (6.3-8.2) g/dL Albumin (3.9-5) g/dL Urine WBC (Auto) (0.0-6.0) /HPF Assessment and Plan - Patient Problems (1) Diabetic infection of left foot Current Visit: Yes Status: Acute Plan to address problem: Patient started on empiric IV antibiotics. Consult has been placed to general surgeon, vascular surgeon for evaluation and recommendation. We also place consult to wound care team for recommendations. (2) Sepsis Current Visit: Yes Status: Acute Plan to address problem: Patient placed on empiric IV antibiotics and IV fluids. We will await blood culture results. (3) Diabetes mellitus Current Visit: Yes Status: Acute Plan to address problem: We will monitor Accu-Cheks closely. We will resume routine home medications once reconciled. (4) Dehydration Current Visit: No Status: Acute Plan to address problem: Patient placed on IV fluid normal saline. Will monitor BUN and creatinine. (5) DVT prophylaxis Current Visit: Yes Status: Resolved Plan to address problem: Patient placed on subcutaneous heparin. (6) Full code status Current Visit: Yes Status: Acute
[2019-08-08] MEDS: ACETAMINOPHEN 325 MG TAB PO PRN ×2 (01:45→22:18)
[2019-08-08] MEDS: MORPHINE 2 MG/1 ML INJ IV PRN (01:48)
[2019-08-08] MEDS: SODIUM CHLORIDE 0.9% 1000 ML 1,000 ML IV SCH ×2 (04:30→17:29)
[2019-08-08] MEDS: PIPERACIL/TAZOBACTA 4.5/NS 100 4.5 GM/100 ML VIAL IV SCH ×3 (06:00→22:20)
[2019-08-08] MEDS ORDERED: metroNIDAZOLE/NS 500 MG/100 ML 500 MG/100 ML BAG IV SCH (06:00)
[2019-08-08] MEDS ORDERED: HEPARIN 5,000 UNIT/1 ML VIAL SUB-Q SCH (06:00)
[2019-08-08 08:15] LABS: Basophils # (Auto) 0.1 K/mm3 (0.0-0.1); Basophils % (Auto) 0.6 % (0.0-1.8); Eosinophils % (Auto) 0.1 % (0.0-4.3); Lymphocytes # (Auto) 1.1 K/mm3 (1.2-5.4); Lymphocytes % (Auto) 5.6 % (13.4-35.0); Mean Corpuscular HGB Conc 33 % (32-34); Mean Corpuscular Volume 83 fl (84-94); Monocytes # (Auto) 1.6 K/mm3 (0.0-0.8); Monocytes % (Auto) 7.8 % (0.0-7.3); Platelet Count 300 K/mm3 (140-440); Red Blood Count 2.82 M/mm3 (3.65-5.03); Red Cell Distribution Width 13.3 % (13.2-15.2)
[2019-08-08 08:21] LABS: Hematocrit 23.3 % (35.5-45.6); Hemoglobin 7.8 gm/dl (11.8-15.2); INR 1.43 (0.87-1.13)
[2019-08-08 08:22] LABS: Partial Thromboplastin Time 43.4 Sec. (24.2-36.6)
[2019-08-08 08:37] LABS: Calcium 7.5 mg/dL (8.4-10.2)
[2019-08-08] MEDS ORDERED: VANCOMYCIN PHARMACY TO DOSE IV SCH (09:00)
[2019-08-08] MEDS ORDERED: HYDROGEN PEROXIDE 118 ML SOLUTION ONE (09:22)
[2019-08-08] MEDS ORDERED: BUPIVACAINE/PF (0.5%) 5 MG/1 ML 30 ML VIAL INFILTRATI ONE ×2 (09:22→12:53)
--- NOTE | 2019-08-08 09:59 | Consultation ---
History of Present Illness - Reason for Consult Consult date: 08/08/19 - History of Present Illness HPI: 43yo male with IDDM currently hospitalized with bilateral non-healing foot wounds that have been present for the past 4 weeks. The patient denies lower extremity claudication or issues with ambulation prior to this hospitalization. The patient has never smoked. ROS: as per HPI PE: NAD, A&Ox3 RRR non-labored respirations palpable femoral pulses bilat both feet warm, motor/sensory intact wounds on both feet noted Arterial studies reviewed Plan: patient with non-healing wounds to both feet likely related to poorly controlled DM arterial studies reviewed which demonstrate normal perfusion to the right foot with good healing potential the left leg with significant medial wall calcifications with decreased waveforms to the great toe patient likely with small vessel disease below the ankle but would benefit from diagnostic angiogram to confirm given extensive wound will plan for angio today patient explained the risks/benefits and wishes to proceed Past History Past Medical History: diabetes Past Surgical History: bowel surgery Social history: alcohol abuse (Drinks alcohol occasionally). denies: smoking Family history: no significant family history Medications and Allergies Allergies Allergy/AdvReac Type Severity Reaction Status Date / Time No Known Allergies Allergy Verified 05/26/13 04:48 Home Medications Medication Instructions Recorded Confirmed Last Taken Type NovoLIN N 30 unit SUB-Q BID 08/07/19 08/07/19 Unknown History Novolin R 12 unit SUB-Q BID 08/07/19 08/07/19 Unknown History Active Meds: Active Medications Acetaminophen (Tylenol) 650 mg PO Q4H PRN PRN Reason: Pain MILD(1-3)/Fever >100.5/MIRANDA Last Admin: 08/08/19 01:45 Dose: 650 mg Documented by: Dextrose (D50w (25gm) Syringe) 0 ml IV Q30MIN PRN; Protocol PRN Reason: Hypoglycemia Heparin Sodium (Porcine) (Heparin) 5,000 unit SUB-Q Q8HR [facility] Last Admin: 08/08/19 05:06 Dose: 5,000 unit Documented by: Sodium Chloride (Nacl 0.9% 1000 Ml) 1,000 mls @ 125 mls/hr IV DIRECT [facility] Last Admin: 08/08/19 04:30 Dose: 125 mls/hr Documented by: Piperacillin Sod/Tazobactam Sod (Zosyn/Ns 4.5gm/100ml) 4.5 gm in 100 mls @ 200 mls/hr IV Q8HR [facility]; Protocol Last Infusion: 08/08/19 08:14 Dose: Infused Documented by: Metronidazole (Flagyl 500 Mg/100 Ml) 500 mg in 100 mls @ 100 mls/hr IV Q8HR [facility]; Protocol Last Admin: 08/08/19 05:03 Dose: 100 mls/hr Documented by: Insulin Human Lispro (Humalog) 0 unit SUB-Q ACHS [facility]; Protocol Magnesium Hydroxide (Milk Of Magnesia) 30 ml PO Q4H PRN PRN Reason: Constipation Morphine Sulfate (Morphine) 2 mg IV Q4H PRN PRN Reason: Pain, Moderate (4-6) Last Admin: 08/08/19 01:48 Dose: 2 mg Documented by: Ondansetron HCl (Zofran) 4 mg IV Q8H PRN PRN Reason: Nausea And Vomiting Sodium Chloride (Sodium Chloride Flush Syringe 10 Ml) 10 ml IV BID [facility] Sodium Chloride (Sodium Chloride Flush Syringe 10 Ml) 10 ml IV PRN PRN PRN Reason: LINE FLUSH Exam - Constitutional Vitals: Temp Pulse Resp BP Pulse Ox 98.1 F 92 H 20 122/87 94 08/08/19 07:58 08/08/19 07:58 08/08/19 07:58 08/08/19 07:58 08/08/19 07:58 Results - Labs CBC & Chem 7: 08/08/19 06:59 08/08/19 06:59 Labs: Abnormal lab results 08/07/19 08/07/19 08/07/19 Range/Units 18:51 19:02 19:02 WBC 41.3 H* (4.5-11.0) K/mm3 RBC (3.65-5.03) M/mm3 Hgb 11.0 L (11.8-15.2) gm/dl Hct 33.4 L (35.5-45.6) % MCV (84-94) fl Plt Count 461 H (140-440) K/mm3 Lymph % (Auto) (13.4-35.0) % Peach % (Auto) (0.0-7.3) % Lymph # (1.2-5.4) K/mm3 Peach # (0.0-0.8) K/mm3 Seg Neutrophils % (40.0-70.0) % Seg Neuts % (Manual) 91.0 H (40.0-70.0) % Lymphocytes % (Manual) 5.0 L (13.4-35.0) % Seg Neutrophils # (1.8-7.7) K/mm3 Seg Neutrophils # Man 37.6 H (1.8-7.7) K/mm3 Monocytes # (Manual) 1.2 H (0.0-0.8) K/mm3 PT (12.2-14.9) Sec. INR (0.87-1.13) APTT (24.2-36.6) Sec. Sodium 129 L (137-145) mmol/L Chloride 91.3 L (98-107) mmol/L Carbon Dioxide 16 L (22-30) mmol/L BUN 33 H (9-20) mg/dL Creatinine 1.8 H (0.8-1.5) mg/dL Glucose 165 H (75-100) mg/dL POC Glucose 148 H (70-105) Hemoglobin A1c (4-6) % Lactic Acid (0.7-2.0) mmol/L Calcium (8.4-10.2) mg/dL Direct Bilirubin (0-0.2) mg/dL Total Creatine Kinase (55-170) units/L Total Protein (6.3-8.2) g/dL Albumin (3.9-5) g/dL Prealbumin (0.200-0.400) g/L Urine WBC (Auto) (0.0-6.0) /HPF 08/07/19 08/07/19 08/07/19 Range/Units 20:05 21:45 21:45 WBC (4.5-11.0) K/mm3 RBC (3.65-5.03) M/mm3 Hgb (11.8-15.2) gm/dl Hct (35.5-45.6) % MCV (84-94) fl Plt Count (140-440) K/mm3 Lymph % (Auto) (13.4-35.0) % Peach % (Auto) (0.0-7.3) % Lymph # (1.2-5.4) K/mm3 Peach # (0.0-0.8) K/mm3 Seg Neutrophils % (40.0-70.0) % Seg Neuts % (Manual) (40.0-70.0) % Lymphocytes % (Manual) (13.4-35.0) % Seg Neutrophils # (1.8-7.7) K/mm3 Seg Neutrophils # Man (1.8-7.7) K/mm3 Monocytes # (Manual) (0.0-0.8) K/mm3 PT 18.0 H (12.2-14.9) Sec. INR 1.46 H (0.87-1.13) APTT 39.0 H (24.2-36.6) Sec. Sodium (137-145) mmol/L Chloride (98-107) mmol/L Carbon Dioxide (22-30) mmol/L BUN (9-20) mg/dL Creatinine (0.8-1.5) mg/dL Glucose (75-100) mg/dL POC Glucose (70-105) Hemoglobin A1c (4-6) % Lactic Acid (0.7-2.0) mmol/L Calcium (8.4-10.2) mg/dL Direct Bilirubin 0.4 H (0-0.2) mg/dL Total Creatine Kinase 38 L (55-170) units/L Total Protein 6.2 L (6.3-8.2) g/dL Albumin 2.5 L (3.9-5) g/dL Prealbumin (0.200-0.400) g/L Urine WBC (Auto) 20.0 H (0.0-6.0) /HPF 08/07/19 08/07/19 08/07/19 Range/Units 21:45 22:48 23:54 WBC (4.5-11.0) K/mm3 RBC (3.65-5.03) M/mm3 Hgb (11.8-15.2) gm/dl Hct (35.5-45.6) % MCV (84-94) fl Plt Count (140-440) K/mm3 Lymph % (Auto) (13.4-35.0) % Peach % (Auto) (0.0-7.3) % Lymph # (1.2-5.4) K/mm3 Peach # (0.0-0.8) K/mm3 Seg Neutrophils % (40.0-70.0) % Seg Neuts % (Manual) (40.0-70.0) % Lymphocytes % (Manual) (13.4-35.0) % Seg Neutrophils # (1.8-7.7) K/mm3 Seg Neutrophils # Man (1.8-7.7) K/mm3 Monocytes # (Manual) (0.0-0.8) K/mm3 PT (12.2-14.9) Sec. INR (0.87-1.13) APTT (24.2-36.6) Sec. Sodium (137-145) mmol/L Chloride (98-107) mmol/L Carbon Dioxide (22-30) mmol/L BUN (9-20) mg/dL Creatinine (0.8-1.5) mg/dL Glucose (75-100) mg/dL POC Glucose (70-105) Hemoglobin A1c 9.6 H (4-6) % Lactic Acid 2.40 H* 2.70 H* (0.7-2.0) mmol/L Calcium (8.4-10.2) mg/dL Direct Bilirubin (0-0.2) mg/dL Total Creatine Kinase (55-170) units/L Total Protein (6.3-8.2) g/dL Albumin (3.9-5) g/dL Prealbumin (0.200-0.400) g/L Urine WBC (Auto) (0.0-6.0) /HPF 08/08/19 08/08/19 08/08/19 Range/Units 06:59 06:59 06:59 WBC 20.1 H (4.5-11.0) K/mm3 RBC 2.82 L (3.65-5.03) M/mm3 Hgb 7.8 L D (11.8-15.2) gm/dl Hct 23.3 L D (35.5-45.6) % MCV 83 L (84-94) fl Plt Count (140-440) K/mm3 Lymph % (Auto) 5.6 L (13.4-35.0) % Peach % (Auto) 7.8 H (0.0-7.3) % Lymph # 1.1 L (1.2-5.4) K/mm3 Peach # 1.6 H (0.0-0.8) K/mm3 Seg Neutrophils % 85.9 H (40.0-70.0) % Seg Neuts % (Manual) (40.0-70.0) % Lymphocytes % (Manual) (13.4-35.0) % Seg Neutrophils # 17.3 H (1.8-7.7) K/mm3 Seg Neutrophils # Man (1.8-7.7) K/mm3 Monocytes # (Manual) (0.0-0.8) K/mm3 PT 17.7 H (12.2-14.9) Sec. INR 1.43 H (0.87-1.13) APTT 43.4 H (24.2-36.6) Sec. Sodium 135 L (137-145) mmol/L Chloride (98-107) mmol/L Carbon Dioxide 16 L (22-30) mmol/L BUN 35 H (9-20) mg/dL Creatinine 1.9 H (0.8-1.5) mg/dL Glucose 182 H (75-100) mg/dL POC Glucose (70-105) Hemoglobin A1c (4-6) % Lactic Acid (0.7-2.0) mmol/L Calcium 7.5 L (8.4-10.2) mg/dL Direct Bilirubin (0-0.2) mg/dL Total Creatine Kinase (55-170) units/L Total Protein (6.3-8.2) g/dL Albumin (3.9-5) g/dL Prealbumin (0.200-0.400) g/L Urine WBC (Auto) (0.0-6.0) /HPF 08/08/19 Range/Units 06:59 WBC (4.5-11.0) K/mm3 RBC (3.65-5.03) M/mm3 Hgb (11.8-15.2) gm/dl Hct (35.5-45.6) % MCV (84-94) fl Plt Count (140-440) K/mm3 Lymph % (Auto) (13.4-35.0) % Peach % (Auto) (0.0-7.3) % Lymph # (1.2-5.4) K/mm3 Peach # (0.0-0.8) K/mm3 Seg Neutrophils % (40.0-70.0) % Seg Neuts % (Manual) (40.0-70.0) % Lymphocytes % (Manual) (13.4-35.0) % Seg Neutrophils # (1.8-7.7) K/mm3 Seg Neutrophils # Man (1.8-7.7) K/mm3 Monocytes # (Manual) (0.0-0.8) K/mm3 PT (12.2-14.9) Sec. INR (0.87-1.13) APTT (24.2-36.6) Sec. Sodium (137-145) mmol/L Chloride (98-107) mmol/L Carbon Dioxide (22-30) mmol/L BUN (9-20) mg/dL Creatinine (0.8-1.5) mg/dL Glucose (75-100) mg/dL POC Glucose (70-105) Hemoglobin A1c (4-6) % Lactic Acid (0.7-2.0) mmol/L Calcium (8.4-10.2) mg/dL Direct Bilirubin (0-0.2) mg/dL Total Creatine Kinase (55-170) units/L Total Protein (6.3-8.2) g/dL Albumin (3.9-5) g/dL Prealbumin 0.030 L (0.200-0.400) g/L Urine WBC (Auto) (0.0-6.0) /HPF
--- NOTE | 2019-08-08 10:00 | Consultation ---
History of Present Illness Consult date: 08/08/19 Chief complaint: wound - History of present illness History of present illness: 43 yo M with hx of DM who presents with wound of left foot for the last 1 month. The patient states the wound was worse than it is now and he self treated with peroxide to the wound and wraps. He states that he has never had wounds like this before. He has been able to ambulate. He has minimal pain in the foot. His DM is managed by a clinic on [facility]. He states he is on insulin. No f/c, cp, sob, n/v, abd pain, c/d. Past History Past Medical History: diabetes Past Surgical History: bowel surgery Social history: alcohol abuse (Drinks alcohol occasionally). denies: smoking Family history: no significant family history Medications and Allergies Allergies Allergy/AdvReac Type Severity Reaction Status Date / Time No Known Allergies Allergy Verified 05/26/13 04:48 Home Medications Medication Instructions Recorded Confirmed Last Taken Type NovoLIN N 30 unit SUB-Q BID 08/07/19 08/07/19 Unknown History Novolin R 12 unit SUB-Q BID 08/07/19 08/07/19 Unknown History Active Meds: Active Medications Acetaminophen (Tylenol) 650 mg PO Q4H PRN PRN Reason: Pain MILD(1-3)/Fever >100.5/MIRANDA Last Admin: 08/08/19 01:45 Dose: 650 mg Documented by: Dextrose (D50w (25gm) Syringe) 0 ml IV Q30MIN PRN; Protocol PRN Reason: Hypoglycemia Heparin Sodium (Porcine) (Heparin) 5,000 unit SUB-Q Q8HR WILMER Last Admin: 08/08/19 05:06 Dose: 5,000 unit Documented by: Sodium Chloride (Nacl 0.9% 1000 Ml) 1,000 mls @ 125 mls/hr IV DIRECT WILMER Last Admin: 08/08/19 04:30 Dose: 125 mls/hr Documented by: Piperacillin Sod/Tazobactam Sod (Zosyn/Ns 4.5gm/100ml) 4.5 gm in 100 mls @ 200 mls/hr IV Q8HR WILMER; Protocol Last Infusion: 08/08/19 08:14 Dose: Infused Documented by: Metronidazole (Flagyl 500 Mg/100 Ml) 500 mg in 100 mls @ 100 mls/hr IV Q8HR WILMER; Protocol Last Admin: 08/08/19 05:03 Dose: 100 mls/hr Documented by: Insulin Human Lispro (Humalog) 0 unit SUB-Q ACHS [facility]; Protocol Magnesium Hydroxide (Milk Of Magnesia) 30 ml PO Q4H PRN PRN Reason: Constipation Morphine Sulfate (Morphine) 2 mg IV Q4H PRN PRN Reason: Pain, Moderate (4-6) Last Admin: 08/08/19 01:48 Dose: 2 mg Documented by: Ondansetron HCl (Zofran) 4 mg IV Q8H PRN PRN Reason: Nausea And Vomiting Sodium Chloride (Sodium Chloride Flush Syringe 10 Ml) 10 ml IV BID WILMER Sodium Chloride (Sodium Chloride Flush Syringe 10 Ml) 10 ml IV PRN PRN PRN Reason: LINE FLUSH Review of Systems All systems: negative (10 pt ROS performed and negative except for that listed in HPI) Exam Vital Signs Temp Pulse Resp BP Pulse Ox 99.2 F 104 H 20 136/90 100 08/07/19 18:53 08/07/19 18:53 08/07/19 18:53 08/07/19 18:53 08/07/19 18:53 Narrative exam: Gen: AAOx3. NAD ENT: no scleral icterus or conjunctival pallor CV: s1, S2+ Resp: even and unlabored Ext: B/L LE warm. RLE with callus to plantar aspect of great toe without surrounding cellulitis, or underlying induration/fluctuance. R foot with edema to ankle and necrotic, foul smelling wound to lateral aspect of foot. Distal pulses are not palpable. L foot dressing with serous drainage Results - Labs 08/08/19 06:59 08/08/19 06:59 Abnormal lab results 08/07/19 08/07/19 08/07/19 Range/Units 18:51 19:02 19:02 WBC 41.3 H* (4.5-11.0) K/mm3 RBC (3.65-5.03) M/mm3 Hgb 11.0 L (11.8-15.2) gm/dl Hct 33.4 L (35.5-45.6) % MCV (84-94) fl Plt Count 461 H (140-440) K/mm3 Lymph % (Auto) (13.4-35.0) % Churchill % (Auto) (0.0-7.3) % Lymph # (1.2-5.4) K/mm3 Churchill # (0.0-0.8) K/mm3 Seg Neutrophils % (40.0-70.0) % Seg Neuts % (Manual) 91.0 H (40.0-70.0) % Lymphocytes % (Manual) 5.0 L (13.4-35.0) % Seg Neutrophils # (1.8-7.7) K/mm3 Seg Neutrophils # Man 37.6 H (1.8-7.7) K/mm3 Monocytes # (Manual) 1.2 H (0.0-0.8) K/mm3 PT (12.2-14.9) Sec. INR (0.87-1.13) APTT (24.2-36.6) Sec. Sodium 129 L (137-145) mmol/L Chloride 91.3 L (98-107) mmol/L Carbon Dioxide 16 L (22-30) mmol/L BUN 33 H (9-20) mg/dL Creatinine 1.8 H (0.8-1.5) mg/dL Glucose 165 H (75-100) mg/dL POC Glucose 148 H (70-105) Hemoglobin A1c (4-6) % Lactic Acid (0.7-2.0) mmol/L Calcium (8.4-10.2) mg/dL Direct Bilirubin (0-0.2) mg/dL Total Creatine Kinase (55-170) units/L Total Protein (6.3-8.2) g/dL Albumin (3.9-5) g/dL Prealbumin (0.200-0.400) g/L Urine WBC (Auto) (0.0-6.0) /HPF 08/07/19 08/07/19 08/07/19 Range/Units 20:05 21:45 21:45 WBC (4.5-11.0) K/mm3 RBC (3.65-5.03) M/mm3 Hgb (11.8-15.2) gm/dl Hct (35.5-45.6) % MCV (84-94) fl Plt Count (140-440) K/mm3 Lymph % (Auto) (13.4-35.0) % Churchill % (Auto) (0.0-7.3) % Lymph # (1.2-5.4) K/mm3 Churchill # (0.0-0.8) K/mm3 Seg Neutrophils % (40.0-70.0) % Seg Neuts % (Manual) (40.0-70.0) % Lymphocytes % (Manual) (13.4-35.0) % Seg Neutrophils # (1.8-7.7) K/mm3 Seg Neutrophils # Man (1.8-7.7) K/mm3 Monocytes # (Manual) (0.0-0.8) K/mm3 PT 18.0 H (12.2-14.9) Sec. INR 1.46 H (0.87-1.13) APTT 39.0 H (24.2-36.6) Sec. Sodium (137-145) mmol/L Chloride (98-107) mmol/L Carbon Dioxide (22-30) mmol/L BUN (9-20) mg/dL Creatinine (0.8-1.5) mg/dL Glucose (75-100) mg/dL POC Glucose (70-105) Hemoglobin A1c (4-6) % Lactic Acid (0.7-2.0) mmol/L Calcium (8.4-10.2) mg/dL Direct Bilirubin 0.4 H (0-0.2) mg/dL Total Creatine Kinase 38 L (55-170) units/L Total Protein 6.2 L (6.3-8.2) g/dL Albumin 2.5 L (3.9-5) g/dL Prealbumin (0.200-0.400) g/L Urine WBC (Auto) 20.0 H (0.0-6.0) /HPF 08/07/19 08/07/19 08/07/19 Range/Units 21:45 22:48 23:54 WBC (4.5-11.0) K/mm3 RBC (3.65-5.03) M/mm3 Hgb (11.8-15.2) gm/dl Hct (35.5-45.6) % MCV (84-94) fl Plt Count (140-440) K/mm3 Lymph % (Auto) (13.4-35.0) % Churchill % (Auto) (0.0-7.3) % Lymph # (1.2-5.4) K/mm3 Churchill # (0.0-0.8) K/mm3 Seg Neutrophils % (40.0-70.0) % Seg Neuts % (Manual) (40.0-70.0) % Lymphocytes % (Manual) (13.4-35.0) % Seg Neutrophils # (1.8-7.7) K/mm3 Seg Neutrophils # Man (1.8-7.7) K/mm3 Monocytes # (Manual) (0.0-0.8) K/mm3 PT (12.2-14.9) Sec. INR (0.87-1.13) APTT (24.2-36.6) Sec. Sodium (137-145) mmol/L Chloride (98-107) mmol/L Carbon Dioxide (22-30) mmol/L BUN (9-20) mg/dL Creatinine (0.8-1.5) mg/dL Glucose (75-100) mg/dL POC Glucose (70-105) Hemoglobin A1c 9.6 H (4-6) % Lactic Acid 2.40 H* 2.70 H* (0.7-2.0) mmol/L Calcium (8.4-10.2) mg/dL Direct Bilirubin (0-0.2) mg/dL Total Creatine Kinase (55-170) units/L Total Protein (6.3-8.2) g/dL Albumin (3.9-5) g/dL Prealbumin (0.200-0.400) g/L Urine WBC (Auto) (0.0-6.0) /HPF 08/08/19 08/08/19 08/08/19 Range/Units 06:59 06:59 06:59 WBC 20.1 H (4.5-11.0) K/mm3 RBC 2.82 L (3.65-5.03) M/mm3 Hgb 7.8 L D (11.8-15.2) gm/dl Hct 23.3 L D (35.5-45.6) % MCV 83 L (84-94) fl Plt Count (140-440) K/mm3 Lymph % (Auto) 5.6 L (13.4-35.0) % Churchill % (Auto) 7.8 H (0.0-7.3) % Lymph # 1.1 L (1.2-5.4) K/mm3 Churchill # 1.6 H (0.0-0.8) K/mm3 Seg Neutrophils % 85.9 H (40.0-70.0) % Seg Neuts % (Manual) (40.0-70.0) % Lymphocytes % (Manual) (13.4-35.0) % Seg Neutrophils # 17.3 H (1.8-7.7) K/mm3 Seg Neutrophils # Man (1.8-7.7) K/mm3 Monocytes # (Manual) (0.0-0.8) K/mm3 PT 17.7 H (12.2-14.9) Sec. INR 1.43 H (0.87-1.13) APTT 43.4 H (24.2-36.6) Sec. Sodium 135 L (137-145) mmol/L Chloride (98-107) mmol/L Carbon Dioxide 16 L (22-30) mmol/L BUN 35 H (9-20) mg/dL Creatinine 1.9 H (0.8-1.5) mg/dL Glucose 182 H (75-100) mg/dL POC Glucose (70-105) Hemoglobin A1c (4-6) % Lactic Acid (0.7-2.0) mmol/L Calcium 7.5 L (8.4-10.2) mg/dL Direct Bilirubin (0-0.2) mg/dL Total Creatine Kinase (55-170) units/L Total Protein (6.3-8.2) g/dL Albumin (3.9-5) g/dL Prealbumin (0.200-0.400) g/L Urine WBC (Auto) (0.0-6.0) /HPF 08/08/19 Range/Units 06:59 WBC (4.5-11.0) K/mm3 RBC (3.65-5.03) M/mm3 Hgb (11.8-15.2) gm/dl Hct (35.5-45.6) % MCV (84-94) fl Plt Count (140-440) K/mm3 Lymph % (Auto) (13.4-35.0) % Churchill % (Auto) (0.0-7.3) % Lymph # (1.2-5.4) K/mm3 Churchill # (0.0-0.8) K/mm3 Seg Neutrophils % (40.0-70.0) % Seg Neuts % (Manual) (40.0-70.0) % Lymphocytes % (Manual) (13.4-35.0) % Seg Neutrophils # (1.8-7.7) K/mm3 Seg Neutrophils # Man (1.8-7.7) K/mm3 Monocytes # (Manual) (0.0-0.8) K/mm3 PT (12.2-14.9) Sec. INR (0.87-1.13) APTT (24.2-36.6) Sec. Sodium (137-145) mmol/L Chloride (98-107) mmol/L Carbon Dioxide (22-30) mmol/L BUN (9-20) mg/dL Creatinine (0.8-1.5) mg/dL Glucose (75-100) mg/dL POC Glucose (70-105) Hemoglobin A1c (4-6) % Lactic Acid (0.7-2.0) mmol/L Calcium (8.4-10.2) mg/dL Direct Bilirubin (0-0.2) mg/dL Total Creatine Kinase (55-170) units/L Total Protein (6.3-8.2) g/dL Albumin (3.9-5) g/dL Prealbumin 0.030 L (0.200-0.400) g/L Urine WBC (Auto) (0.0-6.0) /HPF Diabetes panel 08/07/19 08/07/19 08/07/19 Range/Units 19:02 21:45 23:54 Sodium 129 L (137-145) mmol/L Potassium 3.7 (3.6-5.0) mmol/L Chloride 91.3 L (98-107) mmol/L Carbon Dioxide 16 L (22-30) mmol/L BUN 33 H (9-20) mg/dL Creatinine 1.8 H (0.8-1.5) mg/dL Glucose 165 H (75-100) mg/dL Hemoglobin A1c 9.6 H (4-6) % Calcium 8.4 (8.4-10.2) mg/dL AST 21 (5-40) units/L ALT 16 (7-56) units/L Alkaline Phosphatase 128 (35-129) units/L Total Protein 6.2 L (6.3-8.2) g/dL Albumin 2.5 L (3.9-5) g/dL 08/08/19 Range/Units 06:59 Sodium 135 L (137-145) mmol/L Potassium 3.6 (3.6-5.0) mmol/L Chloride 100.2 (98-107) mmol/L Carbon Dioxide 16 L (22-30) mmol/L BUN 35 H (9-20) mg/dL Creatinine 1.9 H (0.8-1.5) mg/dL Glucose 182 H (75-100) mg/dL Hemoglobin A1c (4-6) % Calcium 7.5 L (8.4-10.2) mg/dL AST (5-40) units/L ALT (7-56) units/L Alkaline Phosphatase (35-129) units/L Total Protein (6.3-8.2) g/dL Albumin (3.9-5) g/dL Calcium panel 08/07/19 08/07/19 08/08/19 Range/Units 19:02 21:45 06:59 Calcium 8.4 7.5 L (8.4-10.2) mg/dL Albumin 2.5 L (3.9-5) g/dL Pituitary panel 08/07/19 08/08/19 Range/Units 19:02 06:59 Sodium 129 L 135 L (137-145) mmol/L Potassium 3.7 3.6 (3.6-5.0) mmol/L Chloride 91.3 L 100.2 (98-107) mmol/L Carbon Dioxide 16 L 16 L (22-30) mmol/L BUN 33 H 35 H (9-20) mg/dL Creatinine 1.8 H 1.9 H (0.8-1.5) mg/dL Glucose 165 H 182 H (75-100) mg/dL Calcium 8.4 7.5 L (8.4-10.2) mg/dL Adrenal panel 08/07/19 08/07/19 08/08/19 Range/Units 19:02 21:45 06:59 Sodium 129 L 135 L (137-145) mmol/L Potassium 3.7 3.6 (3.6-5.0) mmol/L Chloride 91.3 L 100.2 (98-107) mmol/L Carbon Dioxide 16 L 16 L (22-30) mmol/L BUN 33 H 35 H (9-20) mg/dL Creatinine 1.8 H 1.9 H (0.8-1.5) mg/dL Glucose 165 H 182 H (75-100) mg/dL Calcium 8.4 7.5 L (8.4-10.2) mg/dL Total Bilirubin 0.60 (0.1-1.2) mg/dL AST 21 (5-40) units/L ALT 16 (7-56) units/L Alkaline Phosphatase 128 (35-129) units/L Total Protein 6.2 L (6.3-8.2) g/dL Albumin 2.5 L (3.9-5) g/dL - Imaging Additional studies: CT scan LLE Assessment and Plan 43 yo M with 1. infected diabetic foot wound on LEFT with osteomyelitis 2. poorly controlled DM - Hb A1C 9.6 3. Malnutrition - Prealb 0.03, Albumin 2.5 Plan: 1. NPO 2. IVF 3. IV abx 4. strict glucose control 5. vascular studies pending 6. vascular surgery consulted in ER - plan for angio today 7. Recommend debridement of L foot wound. All risks, benefits, alternatives to surgery discussed with patient and questions answered. Consent obtained. Added to OR schedule for today. 8. ID consult for osteomyelitis and abx recs 9. Pt will likely benefit from HBOT therapy as outpatient. Will discuss this will him prior to dc. 10. pillowcase folder consult for malnutrition 11. offloading! 12. 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
--- NOTE | 2019-08-08 10:15 | Vascular Lab Report ---
DUPLEX DOPPLER LOWER EXTREMITY ARTERIAL, BILATERAL INDICATION: pad with gangrene. Left lower extremity pain with reported ulcers and gangrene, history of diabetes a nd hypertension TECHNIQUE: Arterial duplex examination of both lower extremities performed using B-mode, color flow and spectral Doppler assessment. FINDINGS: RIGHT: Common Femoral Artery: PSV 103 cm/sec. Triphasic waveform. Proximal SFA: PSV 96 cm/sec. Triphasic waveform. Mid SFA: PSV 88 cm/sec. Triphasic waveform. Distal SFA: PSV 96 cm/sec. Triphasic waveform. Popliteal artery: PSV 74 cm/sec. Triphasic waveform. Posterior tibial artery: PSV 86 cm/sec. Triphasic waveform. Dorsalis Pedis Artery: PSV 55 cm/sec. Triphasic waveform. LEFT: Common Femoral Artery: PSV 122 cm/sec. Monophasic waveform. Proximal SFA: PSV 112 cm/sec. Monophasic waveform. Mid SFA: PSV 112 cm/sec. Monophasic waveform. Distal SFA: PSV 88 cm/sec. Monophasic waveform. Popliteal artery: PSV 98 cm/sec. Monophasic waveform. Posterior tibial artery: PSV 111 cm/sec. Monophasic waveform. Dorsalis Pedis Artery: PSV 107 cm/sec. Monophasic waveform. Right YULY: 1.3. Left YULY: Not obtained because of overlying bandaging. IMPRESSION: 1. Grossly abnormal waveforms throughout the entire left lower extremity as outlined above. 2. Left-sided YULY was not obtained because of patient's overlying bandaging. Ankle-Brachial Index (YULY): * Calcified arteries > 1.4 * Normal = 0.9-1.4 * Mild PAD = 0.7-0.89 * Moderate PAD = 0.51-0.69 * Severe PAD < 0.5 Doppler Waveform: * Triphasic is normal. * Biphasic is abnormal if clear transition from triphasic signal along vascular tree. * Monophasic is abnormal. Signer Name: Estiven Rojo MD Signed: 08/08/2019 10:10 AM Workstation Name: [id number]
[2019-08-08] MEDS ORDERED: HEPARIN 10,000 UNITS/10 ML VIAL ONE (10:29)
[2019-08-08] MEDS ORDERED: HEPARIN/NS 5000 UNIT/500ML 1,000 ML IR ONE (10:29)
[2019-08-08] MEDS ORDERED: fentaNYL 100 MCG/2 ML INJ ONE (10:30)
[2019-08-08] MEDS ORDERED: LIDOCAINE (2%) 20 MG/1 ML VIAL 20 ML MDV INFILTRATI ONE (10:30)
[2019-08-08] MEDS ORDERED: MIDAZOLAM 2 MG/2 ML INJ ONE ×2 (10:30→12:32)
--- NOTE | 2019-08-08 10:52 | Progress Note ---
Assessment and Plan Assessment and plan: 43-year-old man with history of diabetes who presents with left foot wound x1 month. He initially tried to self treat with peroxide and wraps. But the wounds only became worse, he has minimal pain in the affected foot, but admits to poor sensation. Vitals, had fever of 100.7 overnight. Labs hemoglobin 7.8, white count is elevated at 20 but reduced from 41 yesterday. Platelet count 300 BUN 35, creatinine 1.9, baseline creatinine unknown, A1c 9.6, lactic acid 2.7, UA had 20 white blood cells and 18 red blood cells. YULY; grossly abnormal waveforms through the entire left lower extremity Chest x-ray right basilar density Duplex scan arterial, lower extremity bilateral Grossly abnormal waveforms through the entire left lower extremity Foot x-ray, left; large soft tissue ulcer with extensive soft tissue gas and probable osteomyelitis, MRI is suggested Lower extremity CT, soft tissue gas and soft tissue wound to the left foot, fracture of the mid left fifth metatarsal with air in the fracture sites. Cortical destruction of distal aspect of fifth metatarsal and proximal aspect of the proximal phalanx of the fifth toe indicative of osteomyelitis. There is also cortical irregularity of the cuboid bone with adjacent area raising the possibility of osteomyelitis in this location as well. Tibia/fibula x-ray; large soft tissue also with extensive soft tissue gas and probable osteomyelitis. Cellulitis/osteomyelitis of left lower extremity with open wound/sepsis Surgery input appreciated, for debridement of the wound today, empiric antibiotics, ID consults For possible HBOT therapy as outpatient per general surgeon Peripheral arterial disease Vascular surgery consult appreciated. "patient likely with small vessel disease below the ankle but would benefit from diagnostic angiogram to confirm given extensive wound will plan for angio today" Uncontrolled diabetes, insulin dependence Consistent carbohydrate diet, sliding scale insulin, A1c 9.6 Suspect chronic kidney failure stage III Presentation is not consistent with DULCE, baseline creatinine is unknown. Nephrology consult, avoid nephrotoxins Severe malnutrition; dietitian consult Dehydration; IV fluids DVT prophylaxis; Lovenox History Interval history: Continues to complain of bilateral lower extremity wounds. With the worse on the left side which is swollen Review of systems Constitutional: No fevers, no malaise, no joint pains CVS: No chest pain, no orthopnea, GI: No abdominal pain, no diarrhea, no vomiting, no constipation Respiratory: , no wheezing, no coughing Hospitalist Physical - Physical exam Narrative exam: General.: Appears well, no distress, nontoxic HEENT: Moist mucous membranes, extraocular muscles intact, no lymphadenopathy Neck: supple Cardiac: S1-S2 heard Lungs: clear to auscultation bilaterally Abdomen: soft , nontender, nondistended, bowel sounds positive Extremities: B/L LE warm. RLE with callus to plantar aspect of great toe without surrounding cellulitis, or underlying induration/fluctuance. R foot with edema to ankle and necrotic, foul smelling wound to lateral aspect of foot. Distal pulses are not palpable. L foot dressing with serous drainage Skin: no rash or lesions Neurologic: no gross focal deficits Psych: calm, and cooperative - Constitutional Vitals: Temp Pulse Resp BP Pulse Ox 98.1 F 92 H 20 122/87 94 08/08/19 07:58 08/08/19 07:58 08/08/19 07:58 08/08/19 07:58 08/08/19 07:58 General appearance: Present: no acute distress, well-nourished Results - Labs CBC & Chem 7: 08/08/19 06:59 08/08/19 06:59 Labs: Laboratory Last Values WBC 20.1 K/mm3 (4.5-11.0) H 08/08/19 06:59 RBC 2.82 M/mm3 (3.65-5.03) L 08/08/19 06:59 Hgb 7.8 gm/dl (11.8-15.2) L D 08/08/19 06:59 Hct 23.3 % (35.5-45.6) L D 08/08/19 06:59 MCV 83 fl (84-94) L 08/08/19 06:59 MCH 28 pg (28-32) 08/08/19 06:59 MCHC 33 % (32-34) 08/08/19 06:59 RDW 13.3 % (13.2-15.2) 08/08/19 06:59 Plt Count 300 K/mm3 (140-440) 08/08/19 06:59 Lymph % (Auto) 5.6 % (13.4-35.0) L 08/08/19 06:59 [place] % (Auto) 7.8 % (0.0-7.3) H 01/27/20 06:59 Eos % (Auto) 0.1 % (0.0-4.3) 08/08/19 06:59 Baso % (Auto) 0.6 % (0.0-1.8) 08/08/19 06:59 Lymph # 1.1 K/mm3 (1.2-5.4) L 08/08/19 06:59 [place] # 1.6 K/mm3 (0.0-0.8) H 08/08/19 06:59 Eos # 0.0 K/mm3 (0.0-0.4) 08/08/19 06:59 Baso # 0.1 K/mm3 (0.0-0.1) 08/08/19 06:59 Add Manual Diff Complete 08/07/19 19:02 Total Counted 100 08/07/19 19:02 Seg Neutrophils % 85.9 % (40.0-70.0) H 08/08/19 06:59 Seg Neuts % (Manual) 91.0 % (40.0-70.0) H 08/07/19 19:02 Band Neutrophils % 1.0 % 08/07/19 19:02 Lymphocytes % (Manual) 5.0 % (13.4-35.0) L 08/07/19 19:02 Reactive Lymphs % (Man) 0 % 08/07/19 19:02 Monocytes % (Manual) 3.0 % (0.0-7.3) 08/07/19 19:02 Eosinophils % (Manual) 0 % (0.0-4.3) 08/07/19 19:02 Basophils % (Manual) 0 % (0.0-1.8) 08/07/19 19:02 Metamyelocytes % 0 % 08/07/19 19:02 Myelocytes % 0 % 08/07/19 19:02 Promyelocytes % 0 % 08/07/19 19:02 Blast Cells % 0 % 08/07/19 19:02 Nucleated RBC % Not Reportable 08/07/19 19:02 Seg Neutrophils # 17.3 K/mm3 (1.8-7.7) H 08/08/19 06:59 Seg Neutrophils # Man 37.6 K/mm3 (1.8-7.7) H 08/07/19 19:02 Band Neutrophils # 0.4 K/mm3 08/07/19 19:02 Lymphocytes # (Manual) 2.1 K/mm3 (1.2-5.4) 08/07/19 19:02 Abs React Lymphs (Man) 0.0 K/mm3 08/07/19 19:02 Monocytes # (Manual) 1.2 K/mm3 (0.0-0.8) H 08/07/19 19:02 Eosinophils # (Manual) 0.0 K/mm3 (0.0-0.4) 08/07/19 19:02 Basophils # (Manual) 0.0 K/mm3 (0.0-0.1) 08/07/19 19:02 Metamyelocytes # 0.0 K/mm3 08/07/19 19:02 Myelocytes # 0.0 K/mm3 08/07/19 19:02 Promyelocytes # 0.0 K/mm3 08/07/19 19:02 Blast Cells # 0.0 K/mm3 08/07/19 19:02 WBC Morphology Not Reportable 08/07/19 19:02 Hypersegmented Neuts Not Reportable 08/07/19 19:02 Hyposegmented Neuts Not Reportable 08/07/19 19:02 Hypogranular Neuts Not Reportable 08/07/19 19:02 Smudge Cells Not Reportable 08/07/19 19:02 Toxic Granulation Not Reportable 08/07/19 19:02 Toxic Vacuolation 3+ 08/07/19 19:02 Dohle Bodies Not Reportable 08/07/19 19:02 Pelger-Huet Anomaly Not Reportable 08/07/19 19:02 Arlene Rods Not Reportable 08/07/19 19:02 Platelet Estimate Consistent w auto 08/07/19 19:02 Clumped Platelets Not Reportable 08/07/19 19:02 Plt Clumps, EDTA Not Reportable 08/07/19 19:02 Large Platelets Few 08/07/19 19:02 Giant Platelets Not Reportable 08/07/19 19:02 Platelet Satelliting Not Reportable 08/07/19 19:02 Plt Morphology Comment Not Reportable 08/07/19 19:02 RBC Morphology Not Reportable 08/07/19 19:02 Dimorphic RBCs Not Reportable 08/07/19 19:02 Polychromasia Not Reportable 08/07/19 19:02 Hypochromasia Not Reportable 08/07/19 19:02 Poikilocytosis Not Reportable 08/07/19 19:02 Anisocytosis 1+ 08/07/19 19:02 Microcytosis Not Reportable 08/07/19 19:02 Macrocytosis Not Reportable 08/07/19 19:02 Spherocytes Not Reportable 08/07/19 19:02 Pappenheimer Bodies Not Reportable 08/07/19 19:02 Sickle Cells Not Reportable 08/07/19 19:02 Target Cells Not Reportable 08/07/19 19:02 Tear Drop Cells Not Reportable 08/07/19 19:02 Ovalocytes Not Reportable 08/07/19 19:02 Helmet Cells Not Reportable 08/07/19 19:02 [place] Bodies Not Reportable 08/07/19 19:02 [place] Rings Not Reportable 08/07/19 19:02 [place]ra Cells Not Reportable 08/07/19 19:02 Bite Cells Not Reportable 08/07/19 19:02 Crenated Cell Not Reportable 08/07/19 19:02 Elliptocytes Not Reportable 08/07/19 19:02 Acanthocytes (Spur) Not Reportable 08/07/19 19:02 Rouleaux Not Reportable 08/07/19 19:02 Hemoglobin C Crystals Not Reportable 08/07/19 19:02 Schistocytes Not Reportable 08/07/19 19:02 Malaria parasites Not Reportable 08/07/19 19:02 Ramos Bodies Not Reportable 08/07/19 19:02 Hem Pathologist Commnt No 08/07/19 19:02 PT 17.7 Sec. (12.2-14.9) H 08/08/19 06:59 INR 1.43 (0.87-1.13) H 08/08/19 06:59 APTT 43.4 Sec. (24.2-36.6) H 08/08/19 06:59 Sodium 135 mmol/L (137-145) L 08/08/19 06:59 Potassium 3.6 mmol/L (3.6-5.0) 08/08/19 06:59 Chloride 100.2 mmol/L (98-107) 08/08/19 06:59 Carbon Dioxide 16 mmol/L (22-30) L 08/08/19 06:59 Anion Gap 22 mmol/L 08/08/19 06:59 BUN 35 mg/dL (9-20) H 08/08/19 06:59 Creatinine 1.9 mg/dL (0.8-1.5) H 08/08/19 06:59 Estimated GFR 47 ml/min 08/08/19 06:59 BUN/Creatinine Ratio 18 % 08/08/19 06:59 Glucose 182 mg/dL (75-100) H 08/08/19 06:59 POC Glucose 162 (70-105) H 08/08/19 09:54 Hemoglobin A1c 9.6 % (4-6) H 08/07/19 23:54 Lactic Acid 2.70 mmol/L (0.7-2.0) H* 08/07/19 22:48 Calcium 7.5 mg/dL (8.4-10.2) L 08/08/19 06:59 Total Bilirubin 0.60 mg/dL (0.1-1.2) 08/07/19 21:45 Direct Bilirubin 0.4 mg/dL (0-0.2) H 08/07/19 21:45 Indirect Bilirubin 0.2 mg/dL 08/07/19 21:45 AST 21 units/L (5-40) 08/07/19 21:45 ALT 16 units/L (7-56) 08/07/19 21:45 Alkaline Phosphatase 128 units/L (35-129) 08/07/19 21:45 Total Creatine Kinase 38 units/L (55-170) L 08/07/19 21:45 Total Protein 6.2 g/dL (6.3-8.2) L 08/07/19 21:45 Albumin 2.5 g/dL (3.9-5) L 08/07/19 21:45 Albumin/Globulin Ratio 0.7 % 08/07/19 21:45 Prealbumin 0.030 g/L (0.200-0.400) L 08/08/19 06:59 Urine Color [place]ika (Yellow) 08/07/19 20:05 Urine Turbidity Slightly cloudy (Clear) 08/07/19 20:05 Urine pH 5.0 (5.0-7.0) 08/07/19 20:05 Ur Specific [place] 1.018 (1.003-1.030) 08/07/19 20:05 Urine Protein 100 mg/dl mg/dL (Negative) 08/07/19 20:05 Urine Glucose (UA) Neg mg/dL (Negative) 08/07/19 20:05 Urine Ketones Neg mg/dL (Negative) 08/07/19 20:05 Urine Blood Mod (Negative) 08/07/19 20:05 Urine Nitrite Neg (Negative) 08/07/19 20:05 Urine Bilirubin Neg (Negative) 08/07/19 20:05 Urine Urobilinogen 4.0 mg/dL (<2.0) 08/07/19 20:05 Ur Leukocyte Esterase Neg (Negative) 08/07/19 20:05 Urine WBC (Auto) 20.0 /HPF (0.0-6.0) H 08/07/19 20:05 Urine RBC (Auto) 18.0 /HPF (0.0-6.0) 08/07/19 20:05 U Epithel Cells (Auto) 2.0 /HPF (0-13.0) 08/07/19 20:05 Blood Type O POSITIVE 08/07/19 00:01 Antibody Screen Negative 08/07/19 00:01 Active Medications - Current Medications Current Medications: Generic Name Dose Route Start Last Admin Trade Name Freq PRN Reason Stop Dose Admin Acetaminophen 650 mg 08/07/19 23:29 08/08/19 01:45 Tylenol PO 650 mg Q4H PRN Administration Pain MILD(1-3)/Fever >100.5/MIRANDA Dextrose 0 ml 08/07/19 23:29 D50w (25gm) Syringe IV Q30MIN PRN Hypoglycemia Protocol Heparin Sodium (Porcine) 5,000 unit 08/08/19 06:00 08/08/19 05:06 Heparin SUB-Q 5,000 unit Q8HR WIL[facility] Administration Sodium Chloride 1,000 mls @ 125 mls/hr 08/07/19 23:30 08/08/19 04:30 Nacl 0.9% 1000 Ml IV 125 mls/hr DIRECT WILMER Administration Piperacillin Sod/Tazobactam Sod 4.5 gm in 100 mls @ 200 mls/hr 08/08/19 06:00 08/08/19 08:14 Zosyn/Ns 4.5gm/100ml IV Infused Q8HR [facility] Infusion Protocol Vancomycin HCl 1,250 mg/ 275 mls @ 166.667 mls/hr 08/08/19 12:00 Sodium Chloride IV Q24H [facility] Insulin Human Lispro 0 unit 08/08/19 07:30 Humalog SUB-Q ACHS [facility] Protocol Magnesium Hydroxide 30 ml 08/07/19 23:29 Milk Of Magnesia PO Q4H PRN Constipation Morphine Sulfate 2 mg 08/07/19 23:29 08/08/19 01:48 Morphine IV 2 mg Q4H PRN Administration Pain, Moderate (4-6) Ondansetron HCl 4 mg 08/07/19 23:29 Zofran IV Q8H PRN Nausea And Vomiting Sodium Chloride 10 ml 08/08/19 10:00 Sodium Chloride Flush Syringe 10 Ml IV BID [facility] Sodium Chloride 10 ml 08/07/19 23:29 Sodium Chloride Flush Syringe 10 Ml IV PRN PRN LINE FLUSH
--- NOTE | 2019-08-08 11:27 | Consultation ---
History of Present Illness - Reason for Consult Consult date: 08/08/19 acute renal failure, chronic renal failure, metabolic acidosis Requesting physician: JAYCE BURNHAM - History of Present Illness The patient is a 43-year-old gentleman. This patient is not known to this provider previously. He does not have a primary care doctor, and he has a history of diabetes. He presents to the ER with chronic left-sided lateral plantar foot pain and swelling. This has been going on for 2 weeks. He also states that he had episodes of hypoglycemia yesterday, indicating that his sugar was in the 50s. It is typically in the mid 100s. There is a cough, there is no headache, no neck pain, no chest pain, question shortness of breath, no abdominal pain. On review of systems, he also endorses exercise and occasional rest claudication. Left lower extremity foot pain, swelling and discharge present for 2 weeks. Symptoms constant, pain increases with palpation, decreases with rest, does not radiate anywhere. There is no endorsement of extremity weakness and arm numbness. ROS: Stated complaint: LOW GLUCOSE Other details as noted in HPI Constitutional: malaise, weakness Eyes: denies: eye discharge ENT: denies: dental pain Respiratory: denies: wheezing Cardiovascular: denies: chest pain, syncope Gastrointestinal: denies: abdominal pain Genitourinary: denies: dysuria Musculoskeletal: joint swelling, arthralgia, myalgia Skin: rash, lesions Neurological: weakness Hematological/Lymphatic: denies: easy bleeding - Past Medical History Previous Medical History?: Yes Hx Hypertension: Yes Hx Diabetes: Yes Additional medical history: GERD - Surgical History Past Surgical History?: Yes Additional Surgical History: Surgery on appendix or Pancreas 2004, patient is unsure. - Social History Smoking Status: Never Smoker Substance Use Type: None Past History Past Medical History: diabetes Past Surgical History: bowel surgery Social history: alcohol abuse (Drinks alcohol occasionally). denies: smoking Family history: no significant family history Medications and Allergies Allergies Allergy/AdvReac Type Severity Reaction Status Date / Time No Known Allergies Allergy Verified 05/26/13 04:48 Home Medications Medication Instructions Recorded Confirmed Last Taken Type NovoLIN N 30 unit SUB-Q BID 08/07/19 08/07/19 Unknown History Novolin R 12 unit SUB-Q BID 08/07/19 08/07/19 Unknown History Active Meds: Active Medications Acetaminophen (Tylenol) 650 mg PO Q4H PRN PRN Reason: Pain MILD(1-3)/Fever >100.5/MIRANDA Last Admin: 08/08/19 01:45 Dose: 650 mg Documented by: Dextrose (D50w (25gm) Syringe) 0 ml IV Q30MIN PRN; Protocol PRN Reason: Hypoglycemia Enoxaparin Sodium (Enoxaparin) 40 mg SUB-Q QDAY@2200 WILMER Sodium Chloride (Nacl 0.9% 1000 Ml) 1,000 mls @ 125 mls/hr IV DIRECT WILMER Last Admin: 08/08/19 04:30 Dose: 125 mls/hr Documented by: Piperacillin Sod/Tazobactam Sod (Zosyn/Ns 4.5gm/100ml) 4.5 gm in 100 mls @ 200 mls/hr IV Q8HR WILMER; Protocol Last Infusion: 08/08/19 08:14 Dose: Infused Documented by: Vancomycin HCl 1,250 mg/ (Sodium Chloride) 275 mls @ 166.667 mls/hr IV Q24H [facility] Insulin Human Isoph/Insulin Regular (Humulin 70/30) 30 unit SUB-Q BIDDIAB [facility] Insulin Human Lispro (Humalog) 0 unit SUB-Q ACHS [facility]; Protocol Magnesium Hydroxide (Milk Of Magnesia) 30 ml PO Q4H PRN PRN Reason: Constipation Morphine Sulfate (Morphine) 2 mg IV Q4H PRN PRN Reason: Pain, Moderate (4-6) Last Admin: 08/08/19 01:48 Dose: 2 mg Documented by: Ondansetron HCl (Zofran) 4 mg IV Q8H PRN PRN Reason: Nausea And Vomiting Sodium Chloride (Sodium Chloride Flush Syringe 10 Ml) 10 ml IV BID [facility] Sodium Chloride (Sodium Chloride Flush Syringe 10 Ml) 10 ml IV PRN PRN PRN Reason: LINE FLUSH Exam - Vital Signs Vital signs: Vital Signs Temp Pulse Resp BP Pulse Ox 99.2 F 104 H 20 136/90 100 08/07/19 18:53 08/07/19 18:53 08/07/19 18:53 08/07/19 18:53 08/07/19 18:53 - Physical Exam Narrative exam: - General Limitations: No Limitations, Physical Limitation General appearance: alert, anxious - Head Head exam: Present: atraumatic, normocephalic - Eye Eye exam: Present: normal appearance, EOMI. Absent: nystagmus - ENT ENT exam: Present: normal exam, mucous membranes dry, normal external ear exam - Neck Neck exam: Present: normal inspection, full ROM. Absent: tenderness, meningismus - Respiratory Respiratory exam: Present: normal lung sounds bilaterally. Absent: respiratory distress - Cardiovascular Cardiovascular Exam: Present: normal rhythm, tachycardia, normal heart sounds. Absent: systolic murmur, diastolic murmur, rubs, gallop - GI/Abdominal GI/Abdominal exam: Present: soft. Absent: distended, tenderness, guarding, rebound, rigid, pulsatile mass - Rectal Rectal exam: Present: deferred - Extremities Exam Extremities exam: Present: other (2+ pulses noted in the bilateral upper extremities. The right lower extremity is warm and well perfused. Pulses are difficult to appreciate. There is right lower extremity edema. The left lower extremity, there is edema. The left lateral aspect of the foot has cavernous lesion with what appears to be wet gangrene. Macerated tissue is noted. Uncertain of crepitus is present. Pulses are difficult to appreciate. Sensation is intact to pinch and light touch. There is no sniffing and pain with passive motion of the great toe. The left anterior distal tibial region is tender.). Absent: normal inspection - Back Exam Back exam: Present: normal inspection. Absent: tenderness, CVA tenderness (R), CVA tenderness (L), paraspinal tenderness, vertebral tenderness - Neurological Exam Neurological exam: Present: alert, other (there is no facial droop. Tongue is midline. Extraocular movements are intact bilaterally. Walking with a steady gait. Speaking in full sentences. Normal appropriate thought content. 5 out of 5 strength in 4 extremities. Sensation is intact to light touch in 4 extremities.) - Psychiatric Psychiatric exam: Present: anxious - Skin Skin exam: Present: warm, erythema Results - Lab Results 08/08/19 06:59 08/08/19 06:59 Most recent lab results Calcium 7.5 mg/dL (8.4-10.2) L 08/08/19 06:59 Assessment and Plan Impression: * DULCE on likely CKD due to HTN/DM * DM foot ulcer * acidosis * Pyuria * Microscopic hematuria * HTN * TYpe 2 DM Plan: * agree with ivfs, continue * vascular plans noted, iv contrast exposure plans noted * vasculitis workup with hematuria * iv abx per primary team, follow up vanco levels * daily lytes * strict i/os * renal us with pvr * no indication for assurance 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
[2019-08-08] MEDS ORDERED: VANCOMYCIN 1,250 MG in SODIUM CHLORIDE 0.9% 250ML 250 ML IV SCH (12:00)
[2019-08-08] MEDS ORDERED: SODIUM HYPOCHLORITE, DAKIN'S 1/2 STRENGTH (0.25%) 473 ML TOPICAL SOLN ONE (12:01)
--- NOTE | 2019-08-08 12:11 | Anesthesia Consultation ---
Anesthesia Consult and Med Hx Date of service: 08/08/19 - Airway Anesthetic Teeth Evaluation: Good ROM Head & Neck: Adequate Mental/Hyoid Distance: Adequate Mallampati Class: Class II Intubation Access Assessment: Probably Good - Pulmonary Exam CTA: Yes - Cardiac Exam Cardiac Exam: RRR - Pre-Operative Health Status ASA Pre-Surgery Classification: ASA3 Proposed Anesthetic Plan: MAC - Cardiovascular System Hx Hypertension: Yes - Gastrointestinal Hx Gastroesophageal Reflux Disease: Yes - Endocrine Hx Insulin Dependent Diabetes: Yes - Additional Comments Anesthesia Medical History Comments: Pt has WBC 20,000 but decreasing with lactic acid greater than 2. Will use ankle block with sedation.
--- NOTE | 2019-08-08 12:12 | Anesthesia Day of Surgery ---
Anesthesia Day of Surgery - Day of Surgery Patient Examined: Yes Patient H&P Reviewed: Yes Patient is NPO: Yes
[2019-08-08] MEDS ORDERED: KETAMINE/STERILE WATER 50 MG/ML SYRINGE ONE (12:36)
[2019-08-08] MEDS ORDERED: PROPOFOL 200 MG/20 ML VIAL IV ONE (12:36)
[2019-08-08] MEDS ORDERED: SODIUM CHLORIDE 0.9% IRRIG SOLN 2000 ML IR ONE (12:53)
--- NOTE | 2019-08-08 13:17 | Post Operative Note ---
Date of procedure: 08/08/19 Pre-op diagnosis: infected diabetic foot wound LEFT Post-op diagnosis: other (necrotizing fasciitis of left foot) Findings: 1. Large amount of necrotic subcutaneous tissue, fascia extending deep to fascia and to bone 2. Bony destruction of 5th metatarsal Procedure: Debridement of necrotizing fasciitis of left foot Anesthesia: MAC, local Surgeon: HERBERT GARCES Estimated blood loss: minimal Pathology: list (deep wound cultures) Specimen disposition: to lab Condition: stable Disposition: PACU
[2019-08-08] MEDS ORDERED: SODIUM HYPOCHLORITE, DAKIN'S 1/2 STRENGTH (0.25%) 473 ML TOPICAL SOLN TP PRN (13:19)
--- NOTE | 2019-08-08 13:30 | Post Operative Note ---
Pre-op diagnosis: Left Lower Extremity Critical Limb Ischemia Post-op diagnosis: same Findings: Aorto-iliac widely patent bilaterally, Left Common femoral, superficial femoral, profunda femoral and popliteal artery all widely patent, Origin of the Anterior Tibial and TP Trunk widely patent, the AT, PT and peroneal all widely patent to the ankle with complete occlusions of the AT and PT without reconstitution in the foot, multiple small collaterals noted in the foot Procedure: 1. Right Common Femoral Arterial Access under ultrasound guidance 2. Diagnostic Aortogram with Radiologic Supervision and Interpretation 3. Left Lower Extremity Diagnostic Angiogram with 3rd Order Catheter Cannulation 4. Radiologic Supervision and Interpretation 5. Monitored Conscious Sedation for 15 minutes Anesthesia: MAC, local Surgeon: VÍCTOR CORRIGAN Estimated blood loss: minimal Pathology: none Condition: stable Disposition: floor
--- NOTE | 2019-08-08 14:10 | Post Anesthesia Evaluation ---
- Post Anesthesia Evaluation Patient Participated: Yes Airway Patent: Yes Stable Respiratory Function: Yes Nausea/Vomiting: No Temp > 96.8F: Yes Pain Manageable: Yes Adequeate Hydration: Yes Anesthesia Complications: No Block Receding Appropriately: Not Applicable Patient on Ventilator: No
--- NOTE | 2019-08-08 14:19 | Operative Report ---
STAFF SURGEON: Dr. Antonio Rodriguez. PREOPERATIVE DIAGNOSIS: Left lower extremity critical limb ischemia. POSTOPERATIVE DIAGNOSIS: Left lower extremity critical limb ischemia. PROCEDURE PERFORMED: 1. Percutaneous access of the right common femoral artery under ultrasound guidance. 2. Diagnostic aortogram with radiologic supervision and interpretation. 3. Left lower extremity diagnostic angiogram with third order catheter cannulation. 4. Radiologic supervision and interpretation. 5. Monitored conscious sedation for 15 minutes. COMPLICATIONS: None. ESTIMATED BLOOD LOSS: Less than 10 mL. ANESTHESIA: Local MAC. ANGIOGRAPHIC FINDINGS: The aortoiliac system was widely patent bilaterally. Left common femoral, superficial femoral, profunda femoral and popliteal arteries were all widely patent. The origin of the anterior tibial and tibioperoneal trunk was also widely patent. The anterior tibial, posterior tibial and peroneal arteries were widely patent to the ankle with complete occlusion of the anterior tibial and posterior tibial arteries at the ankle without reconstitution in the foot. Multiple small collaterals were noted in the foot. INDICATIONS FOR PROCEDURE: This is a 43-year-old gentleman with insulin-dependent diabetes mellitus who presented with nonhealing wounds to the left foot. The patient had noninvasive testing that demonstrated evidence of arterial insufficiency. Therefore, it was felt benefit to perform diagnostic imaging to determine ability for limb salvage. The patient was explained the risks, benefits and alternatives to the procedure, expressed understanding and wished to proceed. DESCRIPTION OF THE PROCEDURE: After appropriate consent was obtained, the patient was brought back to the engineer geophysical laboratory, placed on table in supine position. Both groins were prepped and draped in the usual sterile fashion with ChloraPrep. Appropriate time-out performed indicating correct patient, procedure, and site of procedure. I then began the intervention by obtaining percutaneous access of the right common femoral artery using micropuncture technique under ultrasound guidance. Once we obtained access, needle was exchanged for a micropuncture sheath. Using Seldinger technique, then proceeded to upsize to a 5-British sheath over a stiff J wire. An Omniflush catheter was then advanced into the infrarenal aorta. A diagnostic aortogram was performed, which demonstrated the findings noted above. With this, we then proceeded to cannulate the left iliac system. With a combination of the Omniflush catheter and Glidewire, we then proceeded to advance. Due to the patient's angulation of the aortic bifurcation, a vertebral catheter was used to be advanced over the bifurcation into the distal external iliac artery. Once complete, a series of diagnostic imaging of the left lower extremity was performed, which demonstrated the findings noted above. To get better imaging of the patient's tibial runoff, Glidewire and vertebral catheter were advanced into the P3 segment of the popliteal artery and then again a series of diagnostic imaging of the left lower extremity were performed, which demonstrated the findings noted above. With this, the vertebral catheter was removed over the Glidewire and 5-British sheath was removed and digital compression was held at the access site for hemostasis. Once we were satisfied with hemostasis, appropriate dressing was placed. The patient tolerated the procedure well, emerged from the conscious sedation and was sent to recovery in stable condition. JOB# [id number] HUMBLE/GÉNESIS WEEKS
[2019-08-08] MEDS ORDERED: SODIUM CHLORIDE 0.9% 1000 ML 1,000 ML ONE (14:21)
[2019-08-08] MEDS ORDERED: LIDOCAINE MPF (2%) 20 MG/1 ML VIAL 5 ML ONE (14:30)
[2019-08-08] MEDS: INSULIN LISPRO 100 UNIT/ML SUB-Q SCH ×3 (16:21→22:19)
[2019-08-08] MEDS: SODIUM BICARBONATE 650 MG TAB PO SCH ×2 (16:22→22:15)
--- NOTE | 2019-08-08 16:41 | Event Note ---
Date: 08/08/19 Received consult for infected foot, osteomyelitis. Patient off the floor. Continue empiric broad spectrum abx. Will try to see him again tomorrow.
[2019-08-08] MEDS: INSULIN NPH/REGULAR 70/30 INJ SUB-Q SCH (17:31)
[2019-08-08] MEDS: ENOXAPARIN 40 MG/0.4 ML INJ SUB-Q SCH (22:15)
[2019-08-08] MEDS ORDERED: hydrALAZINE 20 MG/1 ML INJ IV ONE (22:30)
[2019-08-09 05:09] LABS: Basophils # (Auto) 0.1 K/mm3 (0.0-0.1); Basophils % (Auto) 0.7 % (0.0-1.8); Eosinophils # (Auto) 0.1 K/mm3 (0.0-0.4); Eosinophils % (Auto) 0.6 % (0.0-4.3); Hematocrit 27.1 % (35.5-45.6); Hemoglobin 8.9 gm/dl (11.8-15.2); Lymphocytes # (Auto) 1.2 K/mm3 (1.2-5.4); Lymphocytes % (Auto) 7.1 % (13.4-35.0); Mean Corpuscular HGB Conc 33 % (32-34); Mean Corpuscular Volume 82 fl (84-94); Monocytes # (Auto) 1.1 K/mm3 (0.0-0.8); Monocytes % (Auto) 6.4 % (0.0-7.3); Platelet Count 344 K/mm3 (140-440); Red Blood Count 3.31 M/mm3 (3.65-5.03); Red Cell Distribution Width 13.8 % (13.2-15.2)
[2019-08-09 05:29] LABS: Calcium 7.6 mg/dL (8.4-10.2)
[2019-08-09] MEDS: SODIUM CHLORIDE 0.9% 1000 ML 1,000 ML IV SCH (06:13)
[2019-08-09] MEDS: PIPERACIL/TAZOBACTA 4.5/NS 100 4.5 GM/100 ML VIAL IV SCH (06:13)
[2019-08-09] MEDS: ACETAMINOPHEN 325 MG TAB PO PRN (06:13)
--- NOTE | 2019-08-09 08:11 | Operative Report ---
PREOPERATIVE DIAGNOSIS: Infected diabetic foot wound, left. POSTOPERATIVE DIAGNOSIS: Necrotizing fasciitis of the left foot. FINDINGS: 1. Large amount of necrotic subcutaneous tissue and fascia extending deep to the fascia and to the bone. 2. Bony destruction of the fifth metatarsal. PROCEDURE: Debridement of necrotizing fasciitis of left foot. ANESTHESIA: MAC local. SURGEON: Kristine Harris DO ESTIMATED BLOOD LOSS: Minimal. PATHOLOGY: Deep wound culture. SPECIMEN DISPOSITION: To lab. CONDITION ON DISCHARGE: The patient is stable to PACU. HISTORY OF PRESENT ILLNESS AND INDICATION: The patient is a 43-year-old male with a past medical history of poorly controlled diabetes, presented to the Emergency Room with a 1-month history of a progressively worsening left-sided foot wound. The patient was found to have a white blood cell count of 40 and foul smelling necrotic wound of his left foot. He was admitted for IV antibiotics and further management. The patient did undergo a vascular workup, which included vascular ultrasound and angiography. Left lower extremity angiography showed that there was adequate blood flow to the ankle; however, only multiple small collaterals noted in the foot in the area of the wound. It was recommended the patient undergo debridement of his wound. All risks, benefits, alternatives to surgery were discussed with the patient and questions answered. Consent was obtained. PROCEDURE IN DETAIL: The patient was identified in the preoperative area, taken back to the operating room and placed on the operating room table in supine position. After anesthesia was induced, the left foot was prepped and draped in the usual sterile fashion. A timeout performed. Local anesthetic was infiltrated into the skin and subcutaneous tissue around the wound. A nerve block was also performed in the fifth webspace as well as at the ankle at the lateral malleolus. All necrotic skin, subcutaneous tissue and fascia was debrided using a combination of electrocautery, forceps, scissors and a #10 blade. There was a large amount of necrotic tissue and some purulent drainage. There were subcutaneous tunnels with necrotic subcutaneous tissue that were unroofed and debrided. Deep wound cultures were obtained. The total wound measured approximately 12 x 10 x 2.5 cm at the end of the debridement. There was evidence of bony destruction and erosion of the fifth metatarsal. Ligament, tendon and fascia were exposed on the plantar and lateral aspect of the foot. The wound extended deep to the fascia and to the bones of the plantar foot. There was very minimal bleeding seen from the wound bed. The wound was then irrigated with saline and hemostasis carefully ensured with a combination of pressure, electrocautery and 2-0 Vicryl suture LigaSure. Once hemostasis was ensured, the wound was packed with 1 piece of Dakin moistened Kerlix. This was covered with dry 4 x 4 gauze, ABD pads, and wrapped with Kerlix. At the end of the case, all sponge, instrument, sharp counts were correct x 2. The patient was awoken from anesthesia and taken to PACU in stable condition. JOB# [id number] JAVIER/GÉNESIS WEEKS
[2019-08-09] MEDS: INSULIN LISPRO 100 UNIT/ML SUB-Q SCH ×4 (09:49→21:24)
[2019-08-09] MEDS: INSULIN NPH/REGULAR 70/30 INJ SUB-Q SCH (09:49)
[2019-08-09] MEDS: SODIUM BICARBONATE 650 MG TAB PO SCH ×2 (09:50→21:24)
[2019-08-09] MEDS ORDERED: VANCOMYCIN 1,250 MG in SODIUM CHLORIDE 0.9% 250ML 250 ML IV SCH (10:00)
--- NOTE | 2019-08-09 10:34 | Progress Note ---
Assessment and Plan 43 yo M s/p Debridement of necrotizing fasciitis of left foot POD 1 1. infected diabetic foot wound on LEFT with osteomyelitis 2. poorly controlled DM - Hb A1C 9.6 3. Malnutrition - Prealb 0.03, Albumin 2.5 4. PAD Plan: 1. continue broad spectrum abx 2. ID consult pending 3. cultures pending 4. strict glucose control 5. local wound care with dakins BID 6. optimize nutrition 7. I had a long discussion with the patient. I explained to him the condition of his wound and the extent of the infection. I explained that there is very low likelihood that his wound will heal due to poor blood flow to the foot, severity of the infection, malnutrition. I strongly recommend that he consider below the knee amputation which will improve his overall outcome. 8. Vascular surgery on board - Discussed with Dr. Minor. Will follow. Thank you, please call with questions. Subjective Date of service: 08/09/19 Narrative: Patient seen and examined. No acute complaints. No overnight events. Objective Vital Signs - 12hr 08/08/19 08/08/19 08/08/19 23:00 23:29 23:45 Temperature 101.7 F H 101.7 F H Pulse Rate 108 H 108 H 119 H Respiratory 18 18 Rate Blood Pressure 119/69 Blood Pressure 119/69 [Left] O2 Sat by Pulse 96 96 Oximetry 08/09/19 08/09/19 03:56 07:47 Temperature 100.8 F H 99.1 F Pulse Rate 101 H 95 H Respiratory 18 18 Rate Blood Pressure 139/88 99/65 Blood Pressure [Left] O2 Sat by Pulse 98 98 Oximetry - General physical appearance Narrative Exam: General: Awake, alert, oriented 3. No apparent distress CV: S1, S2 present Respiratory: No audible wheezes Extremities: Left lower extremity with 4+ pitting edema. L Foot dressing removed and all packing removed from wound. The wound bed is largely covered in necrotic tissue with foul smelling drainage. There is exposed bone, tendon, and fascia. The 5th metatarsal is fractured. There is minimal sensation in the foot. The dorsal aspect of the foot is erythematous. Wound cleansed and packed with dakins moistened gauze. Covered with ABD pads and wrapped with kerlex - Labs 08/09/19 04:09 08/09/19 04:09 Diabetes panel 08/09/19 Range/Units 04:09 Sodium 138 (137-145) mmol/L Potassium 3.2 L (3.6-5.0) mmol/L Chloride 103.0 (98-107) mmol/L Carbon Dioxide 17 L (22-30) mmol/L BUN 37 H (9-20) mg/dL Creatinine 1.9 H (0.8-1.5) mg/dL Glucose 101 H (75-100) mg/dL Calcium 7.6 L (8.4-10.2) mg/dL Calcium panel 08/09/19 Range/Units 04:09 Calcium 7.6 L (8.4-10.2) mg/dL Pituitary panel 08/09/19 Range/Units 04:09 Sodium 138 (137-145) mmol/L Potassium 3.2 L (3.6-5.0) mmol/L Chloride 103.0 (98-107) mmol/L Carbon Dioxide 17 L (22-30) mmol/L BUN 37 H (9-20) mg/dL Creatinine 1.9 H (0.8-1.5) mg/dL Glucose 101 H (75-100) mg/dL Calcium 7.6 L (8.4-10.2) mg/dL Adrenal panel 08/09/19 Range/Units 04:09 Sodium 138 (137-145) mmol/L Potassium 3.2 L (3.6-5.0) mmol/L Chloride 103.0 (98-107) mmol/L Carbon Dioxide 17 L (22-30) mmol/L BUN 37 H (9-20) mg/dL Creatinine 1.9 H (0.8-1.5) mg/dL Glucose 101 H (75-100) mg/dL Calcium 7.6 L (8.4-10.2) mg/dL
--- NOTE | 2019-08-09 10:48 | Progress Note ---
Assessment and Plan Impression: * DULCE on likely CKD due to HTN/DM * DM foot ulcer * acidosis * Pyuria * Microscopic hematuria * HTN * TYpe 2 DM Plan: * agree with ivfs, continue * vascular intervention noted, iv contrast exposure noted * vasculitis workup with hematuria * iv abx per primary team, follow up vanco levels * daily lytes * strict i/os * renal us with pvr * no indication for shelter case manager today * added sodium bicarb Subjective Date of service: 08/09/19 Principal diagnosis: pvd Interval history: resting well in bed today Objective - Exam Narrative Exam: - General Limitations: No Limitations, Physical Limitation General appearance: alert, anxious - Head Head exam: Present: atraumatic, normocephalic - Eye Eye exam: Present: normal appearance, EOMI. Absent: nystagmus - ENT ENT exam: Present: normal exam, mucous membranes dry, normal external ear exam - Neck Neck exam: Present: normal inspection, full ROM. Absent: tenderness, meningismus - Respiratory Respiratory exam: Present: normal lung sounds bilaterally. Absent: respiratory distress - Cardiovascular Cardiovascular Exam: Present: normal rhythm, tachycardia, normal heart sounds. Absent: systolic murmur, diastolic murmur, rubs, gallop - GI/Abdominal GI/Abdominal exam: Present: soft. Absent: distended, tenderness, guarding, rebound, rigid, pulsatile mass - Rectal Rectal exam: Present: deferred - Extremities Exam Extremities exam: Present: other (2+ pulses noted in the bilateral upper extremities. The right lower extremity is warm and well perfused. Pulses are difficult to appreciate. There is right lower extremity edema. The left lower extremity, there is edema. The left lateral aspect of the foot has cavernous lesion with what appears to be wet gangrene. Macerated tissue is noted. Uncertain of crepitus is present. Pulses are difficult to appreciate. Sensation is intact to pinch and light touch. There is no sniffing and pain with passive motion of the great toe. The left anterior distal tibial region is tender.). Absent: normal inspection - Back Exam Back exam: Present: normal inspection. Absent: tenderness, CVA tenderness (R), CVA tenderness (L), paraspinal tenderness, vertebral tenderness - Neurological Exam Neurological exam: Present: alert, other (there is no facial droop. Tongue is midline. Extraocular movements are intact bilaterally. Walking with a steady gait. Speaking in full sentences. Normal appropriate thought content. 5 out of 5 strength in 4 extremities. Sensation is intact to light touch in 4 extremities.) - Psychiatric Psychiatric exam: Present: anxious - Skin Skin exam: Present: warm, erythema - Vital Signs Vital signs: Vital Signs - 12hr 08/08/19 08/08/19 08/08/19 23:00 23:29 23:45 Temperature 101.7 F H 101.7 F H Pulse Rate 108 H 108 H 119 H Respiratory 18 18 Rate Blood Pressure 119/69 Blood Pressure 119/69 [Left] O2 Sat by Pulse 96 96 Oximetry 08/09/19 08/09/19 03:56 07:47 Temperature 100.8 F H 99.1 F Pulse Rate 101 H 95 H Respiratory 18 18 Rate Blood Pressure 139/88 99/65 Blood Pressure [Left] O2 Sat by Pulse 98 98 Oximetry - Lab 08/09/19 04:09 08/09/19 04:09 Most recent lab results Calcium 7.6 mg/dL (8.4-10.2) L 08/09/19 04:09 Medications & Allergies - Medications Allergies/Adverse Reactions: Allergies No Known Allergies Allergy (Verified 05/26/13 04:48) Home Medications: Home Medications Medication Instructions Recorded Confirmed Last Taken Type NovoLIN N 30 unit SUB-Q BID 08/07/19 08/07/19 Unknown History Novolin R 12 unit SUB-Q BID 08/07/19 08/07/19 Unknown History Active Medications: Generic Name Dose Route Start Last Admin Trade Name Freq PRN Reason Stop Dose Admin Acetaminophen 650 mg 08/07/19 23:29 08/09/19 06:13 Tylenol PO 650 mg Q4H PRN Administration Pain MILD(1-3)/Fever >100.5/MIRANDA Dextrose 0 ml 08/07/19 23:29 D50w (25gm) Syringe IV Q30MIN PRN Hypoglycemia Protocol Enoxaparin Sodium 40 mg 08/08/19 22:00 08/08/19 22:15 Enoxaparin SUB-Q 40 mg QDAY@2200 WILMER Administration Sodium Chloride 1,000 mls @ 125 mls/hr 08/07/19 23:30 08/09/19 06:13 Nacl 0.9% 1000 Ml IV 125 mls/hr DIRECT WILMER Administration Piperacillin Sod/Tazobactam Sod 4.5 gm in 100 mls @ 200 mls/hr 08/08/19 06:00 08/09/19 09:49 Zosyn/Ns 4.5gm/100ml IV Infused Q8HR [facility] Infusion Protocol Vancomycin HCl 1,250 mg/ 275 mls @ 166.667 mls/hr 08/09/19 10:00 Sodium Chloride IV Q24HR [facility] Insulin Human Isoph/Insulin Regular 30 unit 08/08/19 17:00 08/09/19 09:49 Humulin 70/30 SUB-Q Not Given BIDDIAB [facility] Insulin Human Lispro 0 unit 08/08/19 07:30 08/09/19 09:49 Humalog SUB-Q Not Given ACHS [facility] Protocol Morphine Sulfate 2 mg 08/07/19 23:29 08/08/19 01:48 Morphine IV 2 mg Q4H PRN Administration Pain, Moderate (4-6) Ondansetron HCl 4 mg 08/07/19 23:29 Zofran IV Q8H PRN Nausea And Vomiting Sodium Bicarbonate 1,300 mg 08/08/19 12:00 08/09/19 09:50 Sodium Bicarbonate PO 1,300 mg BID WILMER Administration Sodium Chloride 10 ml 08/08/19 10:00 08/09/19 09:50 Sodium Chloride Flush Syringe 10 Ml IV 10 ml BID WILMER Administration Sodium Chloride 10 ml 08/07/19 23:29 Sodium Chloride Flush Syringe 10 Ml IV PRN PRN LINE FLUSH Sodium Hypochlorite 1 applic 08/08/19 13:19 Dakin's Half Strength TP Q12H PRN Wound Care
[2019-08-09] MEDS ORDERED: POTASSIUM CHLORIDE ER 20 MEQ TAB PO SCH (11:00)
--- NOTE | 2019-08-09 14:10 | Progress Note ---
Assessment and Plan 43 year old male with PVD and necrotizing fascitis of left foot with significant tissue loss and poor salvagability. Discussed with Dr. Harris about the wound. Explained the situation to the patient and how it appears the foot is not salvagable. Recommended BKA if not salvageable. Patient may be agreeable to procedures tomorrow. Explained the right foot has a significant deep tissue injury and toe has a focal lesion. Recommend need for diabetic shoewear and offloading the injury. Explained if need for diabetic management and PCP management and how these issues are related to diabetic neuropathy. Patient understands. Subjective Date of service: 08/09/19 Principal diagnosis: pvd Interval history: Neuropathy of the feet. Has significant neuropathic deep tissue injuries to the right foot. Showed patient. Explained need for diabetic shoewear. Left foot dressing intact. Discussed with Dr. Mendiola. Right DP palpable, Right PT nonpalpable. Objective - Constitutional Vitals: Vital Signs - 12hr 08/09/19 08/09/19 03:56 07:47 Temperature 100.8 F H 99.1 F Pulse Rate 101 H 95 H Respiratory 18 18 Rate Blood Pressure 139/88 99/65 O2 Sat by Pulse 98 98 Oximetry General appearance: Present: no acute distress - EENT Eyes: EOM intact ENT: hearing intact - Respiratory Respiratory effort: normal Extremities: abnormal (see subjective) - Gastrointestinal General gastrointestinal: Present: soft - Psychiatric Psychiatric: appropriate mood/affect, cooperative - Labs CBC & Chem 7: 08/09/19 04:09 08/09/19 04:09 Labs: Abnormal lab results 08/08/19 08/08/19 08/08/19 Range/Units 12:29 14:13 16:30 WBC (4.5-11.0) K/mm3 RBC (3.65-5.03) M/mm3 Hgb (11.8-15.2) gm/dl Hct (35.5-45.6) % MCV (84-94) fl MCH (28-32) pg Lymph % (Auto) (13.4-35.0) % Kendall # (0.0-0.8) K/mm3 Seg Neutrophils % (40.0-70.0) % Seg Neutrophils # (1.8-7.7) K/mm3 Potassium (3.6-5.0) mmol/L Carbon Dioxide (22-30) mmol/L BUN (9-20) mg/dL Creatinine (0.8-1.5) mg/dL Glucose (75-100) mg/dL POC Glucose 205 H 187 H 189 H (70-105) Calcium (8.4-10.2) mg/dL 08/08/19 08/09/19 08/09/19 Range/Units 20:33 04:09 04:09 WBC 17.4 H (4.5-11.0) K/mm3 RBC 3.31 L (3.65-5.03) M/mm3 Hgb 8.9 L (11.8-15.2) gm/dl Hct 27.1 L (35.5-45.6) % MCV 82 L (84-94) fl MCH 27 L (28-32) pg Lymph % (Auto) 7.1 L (13.4-35.0) % Kendall # 1.1 H (0.0-0.8) K/mm3 Seg Neutrophils % 85.2 H (40.0-70.0) % Seg Neutrophils # 14.8 H (1.8-7.7) K/mm3 Potassium 3.2 L (3.6-5.0) mmol/L Carbon Dioxide 17 L (22-30) mmol/L BUN 37 H (9-20) mg/dL Creatinine 1.9 H (0.8-1.5) mg/dL Glucose 101 H (75-100) mg/dL POC Glucose 303 H (70-105) Calcium 7.6 L (8.4-10.2) mg/dL 08/09/19 08/09/19 Range/Units 08:01 12:06 WBC (4.5-11.0) K/mm3 RBC (3.65-5.03) M/mm3 Hgb (11.8-15.2) gm/dl Hct (35.5-45.6) % MCV (84-94) fl MCH (28-32) pg Lymph % (Auto) (13.4-35.0) % Kendall # (0.0-0.8) K/mm3 Seg Neutrophils % (40.0-70.0) % Seg Neutrophils # (1.8-7.7) K/mm3 Potassium (3.6-5.0) mmol/L Carbon Dioxide (22-30) mmol/L BUN (9-20) mg/dL Creatinine (0.8-1.5) mg/dL Glucose (75-100) mg/dL POC Glucose 115 H 220 H (70-105) Calcium (8.4-10.2) mg/dL Medications & Allergies - Medications Allergies/Adverse Reactions: Allergies No Known Allergies Allergy (Verified 05/26/13 04:48) Home Medications: Home Medications Medication Instructions Recorded Confirmed Last Taken Type NovoLIN N 30 unit SUB-Q BID 08/07/19 08/07/19 Unknown History Novolin R 12 unit SUB-Q BID 08/07/19 08/07/19 Unknown History Active Medications: Generic Name Dose Route Start Last Admin Trade Name Freq PRN Reason Stop Dose Admin Acetaminophen 650 mg 08/07/19 23:29 08/09/19 06:13 Tylenol PO 650 mg Q4H PRN Administration Pain MILD(1-3)/Fever >100.5/MIRANDA Dextrose 0 ml 08/07/19 23:29 D50w (25gm) Syringe IV Q30MIN PRN Hypoglycemia Protocol Enoxaparin Sodium 40 mg 08/08/19 22:00 08/08/19 22:15 Enoxaparin SUB-Q 40 mg QDAY@2200 WILMER Administration Sodium Chloride 1,000 mls @ 125 mls/hr 08/07/19 23:30 08/09/19 06:13 Nacl 0.9% 1000 Ml IV 125 mls/hr DIRECT WILMER Administration Piperacillin Sod/Tazobactam Sod 4.5 gm in 100 mls @ 200 mls/hr 08/08/19 06:00 08/09/19 09:49 Zosyn/Ns 4.5gm/100ml IV Infused Q8HR [facility] Infusion Protocol Vancomycin HCl 1,250 mg/ 275 mls @ 166.667 mls/hr 08/09/19 10:00 08/09/19 11:33 Sodium Chloride IV 166.667 mls/hr Q24HR [facility] Administration Insulin Human Isoph/Insulin Regular 30 unit 08/08/19 17:00 08/09/19 09:49 Humulin 70/30 SUB-Q Not Given BIDDIAB [facility] Insulin Human Lispro 0 unit 08/08/19 07:30 08/09/19 09:49 Humalog SUB-Q Not Given ACHS [facility] Protocol Morphine Sulfate 2 mg 08/07/19 23:29 08/08/19 01:48 Morphine IV 2 mg Q4H PRN Administration Pain, Moderate (4-6) Ondansetron HCl 4 mg 08/07/19 23:29 Zofran IV Q8H PRN Nausea And Vomiting Potassium Chloride 40 meq 08/09/19 11:00 K-Dur PO 08/09/19 15:00 ONCE WILMER Sodium Bicarbonate 1,300 mg 08/08/19 12:00 08/09/19 09:50 Sodium Bicarbonate PO 1,300 mg BID WILMER Administration Sodium Chloride 10 ml 08/08/19 10:00 08/09/19 09:50 Sodium Chloride Flush Syringe 10 Ml IV 10 ml BID WILMER Administration Sodium Chloride 10 ml 08/07/19 23:29 Sodium Chloride Flush Syringe 10 Ml IV PRN PRN LINE FLUSH Sodium Hypochlorite 1 applic 08/08/19 13:19 Dakin's Half Strength TP Q12H PRN Wound Care
--- NOTE | 2019-08-09 15:29 | Consultation ---
History of Present Illness - Reason for Consult Consult date: 08/09/19 Left diabetic foot Requesting physician: HERBERT GARCES - History of Present Illness The patient is a 43-year-old male with diabetes mellitus since the 1980s came into the emergency room with complaints of left foot swelling and wound that has been present since [place]. It was getting worse over time and hence he was admitted. Was noted to have severe diabetic left foot infection with necrotic areas. Empiric antibiotics were started and surgical consults were obtained. CT showed soft tissue gas and 5th metatarsal destruction. On 08/08/2019, he underwent a I&D by general surgery which included debridement of a large amount of necrotic subcutaneous tissue and fascia extended deep to the fascia and to the bone. Also was found to have bony destruction of the fifth metatarsal. Patient was also seen by vascular surgery. His left foot does not appear to be salvageable and BKA was recommended which he is currently agreeable to. Continues to have low grade fevers, pain and hiccups. Review of Systems: General: fever HEENT: no new visual disturbance Respiratory: No cough, sputum, hemoptysis or shortness of breath Cardiovascular: No chest pain, syncope Gastrointestinal: nausea +, no vomiting or diarrhea Genitourinary: No dysuria or hematuria Musculoskeletal: No new or worsening neck pain or back pain Neurologic: No headaches, seizures Hematologic: No easy bruising or bleeding Endocrine: No night sweats or acute weight loss Skin: negative for rash, jaundice Psychiatric: No suicidal or homicidal ideation Past History Past Medical History: diabetes Past Surgical History: bowel surgery Social history: alcohol abuse (Drinks alcohol occasionally). denies: smoking Family history: no significant family history Medications and Allergies Allergies Allergy/AdvReac Type Severity Reaction Status Date / Time No Known Allergies Allergy Verified 05/26/13 04:48 Home Medications Medication Instructions Recorded Confirmed Last Taken Type NovoLIN N 30 unit SUB-Q BID 08/07/19 08/07/19 Unknown History Novolin R 12 unit SUB-Q BID 08/07/19 08/07/19 Unknown History Active Meds: Active Medications Acetaminophen (Tylenol) 650 mg PO Q4H PRN PRN Reason: Pain MILD(1-3)/Fever >100.5/MIRANDA Last Admin: 08/09/19 06:13 Dose: 650 mg Documented by: Dextrose (D50w (25gm) Syringe) 0 ml IV Q30MIN PRN; Protocol PRN Reason: Hypoglycemia Enoxaparin Sodium (Enoxaparin) 40 mg SUB-Q QDAY@2200 [facility] Last Admin: 08/08/19 22:15 Dose: 40 mg Documented by: Sodium Chloride (Nacl 0.9% 1000 Ml) 1,000 mls @ 125 mls/hr IV DIRECT [facility] Last Admin: 08/09/19 06:13 Dose: 125 mls/hr Documented by: Piperacillin Sod/Tazobactam Sod (Zosyn/Ns 4.5gm/100ml) 4.5 gm in 100 mls @ 200 mls/hr IV Q8HR [facility]; Protocol Last Infusion: 08/09/19 09:49 Dose: Infused Documented by: Vancomycin HCl 1,250 mg/ (Sodium Chloride) 275 mls @ 166.667 mls/hr IV Q24HR [facility] Last Infusion: 08/09/19 15:25 Dose: Infused Documented by: Insulin Human Isoph/Insulin Regular (Humulin 70/30) 30 unit SUB-Q BIDDIAB [facility] Last Admin: 08/09/19 09:49 Dose: Not Given Documented by: Insulin Human Lispro (Humalog) 0 unit SUB-Q ACHS [facility]; Protocol Last Admin: 08/09/19 09:49 Dose: Not Given Documented by: Morphine Sulfate (Morphine) 2 mg IV Q4H PRN PRN Reason: Pain, Moderate (4-6) Last Admin: 08/08/19 01:48 Dose: 2 mg Documented by: Ondansetron HCl (Zofran) 4 mg IV Q8H PRN PRN Reason: Nausea And Vomiting Sodium Bicarbonate (Sodium Bicarbonate) 1,300 mg PO BID [facility] Last Admin: 08/09/19 09:50 Dose: 1,300 mg Documented by: Sodium Chloride (Sodium Chloride Flush Syringe 10 Ml) 10 ml IV BID [facility] Last Admin: 08/09/19 09:50 Dose: 10 ml Documented by: Sodium Chloride (Sodium Chloride Flush Syringe 10 Ml) 10 ml IV PRN PRN PRN Reason: LINE FLUSH Sodium Hypochlorite (Dakin's Half Strength) 1 applic TP Q12H PRN PRN Reason: Wound Care Physical Examination - Physical Exam Narrative exam: Physical Exam: Constitutional: Alert, cooperative. No acute distress Head, Ears, Nose: Normocephalic, atraumatic. External ears, nose normal Eyes: Conjunctivae/corneas clear. No icterus. No ptosis. Neck: Supple, no meningeal signs Oral: no thrush Cardiovascular: S1, S2 normal. Respiratory: Good air entry, clear to auscultation bilaterally GI: Soft, non-tender; bowel sounds normal. No peritoneal signs Musculoskeletal: left leg with swelling, foul smell, dressing +. Right foot with superficial wounds on 2nd toe and a plantar callus at the ball of the great toe. Skin: No rash or abscess Hem/Lymphatic: No palpable cervical or supraclavicular nodes. No lymphangitis Psych: Mood ok. Affect normal Neurological: Awake, alert, oriented. No gross abnormality - Constitutional Vitals: Vital Signs Temp Pulse Resp BP Pulse Ox 99.1 F 95 H 18 99/65 98 08/09/19 07:47 08/09/19 07:47 08/09/19 07:47 08/09/19 07:47 08/09/19 07:47 Temperature -Last 24 Hours Temperature 99.1 F Temperature 100.8 F Temperature 101.7 F Temperature 101.7 F Temperature 102.5 F Temperature 100.0 F Results - Labs CBC & Chem 7: 08/09/19 04:09 08/09/19 04:09 Labs: Abnormal lab results 08/08/19 08/08/19 08/08/19 Range/Units 12:29 16:30 20:33 WBC (4.5-11.0) K/mm3 RBC (3.65-5.03) M/mm3 Hgb (11.8-15.2) gm/dl Hct (35.5-45.6) % MCV (84-94) fl MCH (28-32) pg Lymph % (Auto) (13.4-35.0) % [place] # (0.0-0.8) K/mm3 Seg Neutrophils % (40.0-70.0) % Seg Neutrophils # (1.8-7.7) K/mm3 Potassium (3.6-5.0) mmol/L Carbon Dioxide (22-30) mmol/L BUN (9-20) mg/dL Creatinine (0.8-1.5) mg/dL Glucose (75-100) mg/dL POC Glucose 205 H 189 H 303 H (70-105) Calcium (8.4-10.2) mg/dL 08/09/19 08/09/19 08/09/19 Range/Units 04:09 04:09 08:01 WBC 17.4 H (4.5-11.0) K/mm3 RBC 3.31 L (3.65-5.03) M/mm3 Hgb 8.9 L (11.8-15.2) gm/dl Hct 27.1 L (35.5-45.6) % MCV 82 L (84-94) fl MCH 27 L (28-32) pg Lymph % (Auto) 7.1 L (13.4-35.0) % [place] # 1.1 H (0.0-0.8) K/mm3 Seg Neutrophils % 85.2 H (40.0-70.0) % Seg Neutrophils # 14.8 H (1.8-7.7) K/mm3 Potassium 3.2 L (3.6-5.0) mmol/L Carbon Dioxide 17 L (22-30) mmol/L BUN 37 H (9-20) mg/dL Creatinine 1.9 H (0.8-1.5) mg/dL Glucose 101 H (75-100) mg/dL POC Glucose 115 H (70-105) Calcium 7.6 L (8.4-10.2) mg/dL 08/09/19 Range/Units 12:06 WBC (4.5-11.0) K/mm3 RBC (3.65-5.03) M/mm3 Hgb (11.8-15.2) gm/dl Hct (35.5-45.6) % MCV (84-94) fl MCH (28-32) pg Lymph % (Auto) (13.4-35.0) % [place] # (0.0-0.8) K/mm3 Seg Neutrophils % (40.0-70.0) % Seg Neutrophils # (1.8-7.7) K/mm3 Potassium (3.6-5.0) mmol/L Carbon Dioxide (22-30) mmol/L BUN (9-20) mg/dL Creatinine (0.8-1.5) mg/dL Glucose (75-100) mg/dL POC Glucose 220 H (70-105) Calcium (8.4-10.2) mg/dL - Imaging and Cardiology Chest x-ray: report reviewed, image reviewed (no pneumonia) Assessment and Plan Cultures: 08/07/2019 urine culture: In progress 08/07/2019 blood culture: No growth 08/08/2019 surgical culture: In process A/P: 43-year-old male with longstanding diabetes mellitus admitted with: #Sepsis, leukemoid reaction, secondary to left foot necrotic wound and underlying osteomyelitis: s/p debridement of soft tissue. #Diabetes mellitus type 2, uncontrolled #Peripheral vascular disease: vascular following. #DULCE on CKD Recs: avoid zosyn, vancomycin combination in the setting of DULCE Zosyn switched to Cefepime, Flagyl continue IV Vancomycin till MRSA is ruled out from surgical cultures agree with plans for amputation, plan to d/c abx 48 hours post amputation Moustapha Caicedo MD, FACP [facility] ([facility] C: [phone] O: [phone] F: [phone]
--- NOTE | 2019-08-09 16:31 | Ultrasound Report ---
ULTRASOUND RENAL INDICATION / CLINICAL INFORMATION: renal failure. COMPARISON: No recent comparison available FINDINGS: RIGHT KIDNEY: Length = 9.5 cm. [normal > 9 cm] - Parenchymal Thickness = 1.6 cm. [normal > 1.5 cm] - Echogenicity: Increased - Hydronephrosis: None. - Cyst or mass: No significant abnormality. - Stones: None seen. LEFT KIDNEY: Length = 11.7 cm. [normal > 9 cm] - Parenchymal Thickness = 2.0 cm. [normal > 1.5 cm] - Echogenicity: None. - Hydronephrosis: None. - Cyst or mass: No significant abnormality. - Stones: None seen. URINARY BLADDER: Prevoid bladder volume is 155 mL and post void volume is 14 mL. No appreciable bladd er wall thickening or focal mass. FREE FLUID: None. ADDITIONAL FINDINGS: There is a small left-sided pleural effusion. IMPRESSION: 1. Size discrepancy involving the kidneys as outlined above but otherwise nothing acute. There is mil dly increased echogenicity in the right kidney which can be seen with medical renal disease. 2. No significant post void residual in the bladder. 3. Small left-sided pleural effusion. Signer Name: Estiven Rojo MD Signed: 08/09/2019 4:26 PM Workstation Name: [id number]
--- NOTE | 2019-08-09 20:22 | Progress Note ---
Assessment and Plan Assessment and plan: 43-year-old man with history of diabetes was admitted with nonhealing left foot wound . Patient was evaluated by surgery , underwent surgical debridement evaluated by vascular , osteomyelitis of the left lower extremity , sepsis on IV antibiotics . Scheduled for left BKA for tomorrow --Hypokalemia; replenish per protocol and monitor electrolytes --Leukocytosis; secondary to sepsis due to osteomyelitis --Cellulitis/osteomyelitis left lower extremity/sepsis Status post surgical debridement, vascular evaluated, IV Vanco cefepime and Flagyl ID following, wound care, evaluated by general surgeon Recommended left BKA, possible surgery tomorrow if patient is willing --Peripheral arterial disease; Vascular following, continue current management --Type 2 diabetes mellitus; uncontrolled Secondary to sepsis, Accu-Chek sliding scale coverage ADA diet Adjust insulin dose as needed. A1c 9.6 Diabetic education, nutrition consult --Acute on chronic kidney disease stage III; Vasomotor nephropathy, closely monitor renal function Avoid nephrotoxins, nephrology following --Severe malnutrition; nutrition supplements Nutrition consult, supportive care --DVT prophylaxis; Lovenox Monitor closely and adjust management as needed Possible left BKA tomorrow Plan of care reviewed with the patient and his nurse Discussed with surgeon Dr. Harris, possible left BKA if patient is willing. History Interval history: Patient seen and examined medical records reviewed Patient is concerned about his left leg BKA tomorrow Patient states that he is still deciding to undergo the procedure Alert awake oriented Vital signs reviewed Hospitalist Physical - Constitutional Vitals: Temp Pulse Resp BP Pulse Ox 101.1 F H 108 H 18 148/91 93 08/09/19 19:00 08/09/19 19:00 08/09/19 19:00 08/09/19 19:00 08/09/19 19:00 General appearance: Present: no acute distress, well-nourished - EENT Eyes: Present: PERRL, EOM intact - Neck Neck: Present: supple, normal ROM - Respiratory Respiratory effort: normal Respiratory: bilateral: diminished, negative: rales, rhonchi, wheezing - Cardiovascular Rhythm: regular Heart Sounds: Present: S1 & S2 - Extremities Extremities: No edema, abnormal (Surgical dressing in place left foot) - Abdominal General gastrointestinal: soft, non-tender, non-distended, normal bowel sounds - Integumentary Integumentary: Present: clear, warm - Psychiatric Psychiatric: appropriate mood/affect, cooperative - Neurologic Neurologic: CNII-XII intact, moves all extremities Results - Labs CBC & Chem 7: 08/09/19 04:09 08/09/19 04:09 Labs: Laboratory Last Values WBC 17.4 K/mm3 (4.5-11.0) H 08/09/19 04:09 RBC 3.31 M/mm3 (3.65-5.03) L 08/09/19 04:09 Hgb 8.9 gm/dl (11.8-15.2) L 08/09/19 04:09 Hct 27.1 % (35.5-45.6) L 08/09/19 04:09 MCV 82 fl (84-94) L 08/09/19 04:09 MCH 27 pg (28-32) L 08/09/19 04:09 MCHC 33 % (32-34) 08/09/19 04:09 RDW 13.8 % (13.2-15.2) 08/09/19 04:09 Plt Count 344 K/mm3 (140-440) 08/09/19 04:09 Lymph % (Auto) 7.1 % (13.4-35.0) L 08/09/19 04:09 [place] % (Auto) 6.4 % (0.0-7.3) 08/09/19 04:09 Eos % (Auto) 0.6 % (0.0-4.3) 08/09/19 04:09 Baso % (Auto) 0.7 % (0.0-1.8) 08/09/19 04:09 Lymph # 1.2 K/mm3 (1.2-5.4) 08/09/19 04:09 [place] # 1.1 K/mm3 (0.0-0.8) H 08/09/19 04:09 Eos # 0.1 K/mm3 (0.0-0.4) 08/09/19 04:09 Baso # 0.1 K/mm3 (0.0-0.1) 08/09/19 04:09 Add Manual Diff Complete 08/07/19 19:02 Total Counted 100 08/07/19 19:02 Seg Neutrophils % 85.2 % (40.0-70.0) H 08/09/19 04:09 Seg Neuts % (Manual) 91.0 % (40.0-70.0) H 08/07/19 19:02 Band Neutrophils % 1.0 % 08/07/19 19:02 Lymphocytes % (Manual) 5.0 % (13.4-35.0) L 08/07/19 19:02 Reactive Lymphs % (Man) 0 % 08/07/19 19:02 Monocytes % (Manual) 3.0 % (0.0-7.3) 08/07/19 19:02 Eosinophils % (Manual) 0 % (0.0-4.3) 08/07/19 19:02 Basophils % (Manual) 0 % (0.0-1.8) 08/07/19 19:02 Metamyelocytes % 0 % 08/07/19 19:02 Myelocytes % 0 % 08/07/19 19:02 Promyelocytes % 0 % 08/07/19 19:02 Blast Cells % 0 % 08/07/19 19:02 Nucleated RBC % Not Reportable 08/07/19 19:02 Seg Neutrophils # 14.8 K/mm3 (1.8-7.7) H 08/09/19 04:09 Seg Neutrophils # Man 37.6 K/mm3 (1.8-7.7) H 08/07/19 19:02 Band Neutrophils # 0.4 K/mm3 08/07/19 19:02 Lymphocytes # (Manual) 2.1 K/mm3 (1.2-5.4) 08/07/19 19:02 Abs React Lymphs (Man) 0.0 K/mm3 08/07/19 19:02 Monocytes # (Manual) 1.2 K/mm3 (0.0-0.8) H 08/07/19 19:02 Eosinophils # (Manual) 0.0 K/mm3 (0.0-0.4) 08/07/19 19:02 Basophils # (Manual) 0.0 K/mm3 (0.0-0.1) 08/07/19 19:02 Metamyelocytes # 0.0 K/mm3 08/07/19 19:02 Myelocytes # 0.0 K/mm3 08/07/19 19:02 Promyelocytes # 0.0 K/mm3 08/07/19 19:02 Blast Cells # 0.0 K/mm3 08/07/19 19:02 WBC Morphology Not Reportable 08/07/19 19:02 Hypersegmented Neuts Not Reportable 08/07/19 19:02 Hyposegmented Neuts Not Reportable 08/07/19 19:02 Hypogranular Neuts Not Reportable 08/07/19 19:02 Smudge Cells Not Reportable 08/07/19 19:02 Toxic Granulation Not Reportable 08/07/19 19:02 Toxic Vacuolation 3+ 08/07/19 19:02 Dohle Bodies Not Reportable 08/07/19 19:02 Pelger-Huet Anomaly Not Reportable 08/07/19 19:02 Arlene Rods Not Reportable 08/07/19 19:02 Platelet Estimate Consistent w auto 08/07/19 19:02 Clumped Platelets Not Reportable 08/07/19 19:02 Plt Clumps, EDTA Not Reportable 08/07/19 19:02 Large Platelets Few 08/07/19 19:02 Giant Platelets Not Reportable 08/07/19 19:02 Platelet Satelliting Not Reportable 08/07/19 19:02 Plt Morphology Comment Not Reportable 08/07/19 19:02 RBC Morphology Not Reportable 08/07/19 19:02 Dimorphic RBCs Not Reportable 08/07/19 19:02 Polychromasia Not Reportable 08/07/19 19:02 Hypochromasia Not Reportable 08/07/19 19:02 Poikilocytosis Not Reportable 08/07/19 19:02 Anisocytosis 1+ 08/07/19 19:02 Microcytosis Not Reportable 08/07/19 19:02 Macrocytosis Not Reportable 08/07/19 19:02 Spherocytes Not Reportable 08/07/19 19:02 Pappenheimer Bodies Not Reportable 08/07/19 19:02 Sickle Cells Not Reportable 08/07/19 19:02 Target Cells Not Reportable 08/07/19 19:02 Tear Drop Cells Not Reportable 08/07/19 19:02 Ovalocytes Not Reportable 08/07/19 19:02 Helmet Cells Not Reportable 08/07/19 19:02 [place] Bodies Not Reportable 08/07/19 19:02 [place] Rings Not Reportable 08/07/19 19:02 [place] Cells Not Reportable 08/07/19 19:02 Bite Cells Not Reportable 08/07/19 19:02 Crenated Cell Not Reportable 08/07/19 19:02 Elliptocytes Not Reportable 08/07/19 19:02 Acanthocytes (Spur) Not Reportable 08/07/19 19:02 Rouleaux Not Reportable 08/07/19 19:02 Hemoglobin C Crystals Not Reportable 08/07/19 19:02 Schistocytes Not Reportable 08/07/19 19:02 Malaria parasites Not Reportable 08/07/19 19:02 Ramos Bodies Not Reportable 08/07/19 19:02 Hem Pathologist Commnt No 08/07/19 19:02 PT 17.7 Sec. (12.2-14.9) H 08/08/19 06:59 INR 1.43 (0.87-1.13) H 08/08/19 06:59 APTT 43.4 Sec. (24.2-36.6) H 08/08/19 06:59 Sodium 138 mmol/L (137-145) 08/09/19 04:09 Potassium 3.2 mmol/L (3.6-5.0) L 08/09/19 04:09 Chloride 103.0 mmol/L (98-107) 08/09/19 04:09 Carbon Dioxide 17 mmol/L (22-30) L 08/09/19 04:09 Anion Gap 21 mmol/L 08/09/19 04:09 BUN 37 mg/dL (9-20) H 08/09/19 04:09 Creatinine 1.9 mg/dL (0.8-1.5) H 08/09/19 04:09 Estimated GFR 47 ml/min 08/09/19 04:09 BUN/Creatinine Ratio 19 % 08/09/19 04:09 Glucose 101 mg/dL (75-100) H 08/09/19 04:09 POC Glucose 164 (70-105) H 08/09/19 16:53 Hemoglobin A1c 9.6 % (4-6) H 08/07/19 23:54 Lactic Acid 2.70 mmol/L (0.7-2.0) H* 08/07/19 22:48 Calcium 7.6 mg/dL (8.4-10.2) L 08/09/19 04:09 Total Bilirubin 0.60 mg/dL (0.1-1.2) 08/07/19 21:45 Direct Bilirubin 0.4 mg/dL (0-0.2) H 08/07/19 21:45 Indirect Bilirubin 0.2 mg/dL 08/07/19 21:45 AST 21 units/L (5-40) 08/07/19 21:45 ALT 16 units/L (7-56) 08/07/19 21:45 Alkaline Phosphatase 128 units/L (35-129) 08/07/19 21:45 Total Creatine Kinase 38 units/L (55-170) L 08/07/19 21:45 Total Protein 6.2 g/dL (6.3-8.2) L 08/07/19 21:45 Albumin 2.5 g/dL (3.9-5) L 08/07/19 21:45 Albumin/Globulin Ratio 0.7 % 08/07/19 21:45 Prealbumin 0.030 g/L (0.200-0.400) L 08/08/19 06:59 Urine Color [place] (Yellow) 08/07/19 20:05 Urine Turbidity Slightly cloudy (Clear) 08/07/19 20:05 Urine pH 5.0 (5.0-7.0) 08/07/19 20:05 Ur Specific [place] 1.018 (1.003-1.030) 08/07/19 20:05 Urine Protein 100 mg/dl mg/dL (Negative) 08/07/19 20:05 Urine Glucose (UA) Neg mg/dL (Negative) 08/07/19 20:05 Urine Ketones Neg mg/dL (Negative) 08/07/19 20:05 Urine Blood Mod (Negative) 08/07/19 20:05 Urine Nitrite Neg (Negative) 08/07/19 20:05 Urine Bilirubin Neg (Negative) 08/07/19 20:05 Urine Urobilinogen 4.0 mg/dL (<2.0) 08/07/19 20:05 Ur Leukocyte Esterase Neg (Negative) 08/07/19 20:05 Urine WBC (Auto) 20.0 /HPF (0.0-6.0) H 08/07/19 20:05 Urine RBC (Auto) 18.0 /HPF (0.0-6.0) 08/07/19 20:05 U Epithel Cells (Auto) 2.0 /HPF (0-13.0) 08/07/19 20:05 Hep Bs Antigen Non-reactive (Negative) 08/08/19 16:13 Hepatitis C Antibody Non-reactive (NonReactive) 08/08/19 16:13 Blood Type O POSITIVE 08/07/19 00:01 Antibody Screen Negative 08/07/19 00:01 Active Medications - Current Medications Current Medications: Generic Name Dose Route Start Last Admin Trade Name Freq PRN Reason Stop Dose Admin Acetaminophen 650 mg 08/07/19 23:29 08/09/19 06:13 Tylenol PO 650 mg Q4H PRN Administration Pain MILD(1-3)/Fever >100.5/MIRANDA Dextrose 0 ml 08/07/19 23:29 D50w (25gm) Syringe IV Q30MIN PRN Hypoglycemia Protocol Enoxaparin Sodium 40 mg 08/08/19 22:00 08/08/19 22:15 Enoxaparin SUB-Q 40 mg QDAY@2200 [facility] Administration Sodium Chloride 1,000 mls @ 125 mls/hr 08/07/19 23:30 08/09/19 06:13 Nacl 0.9% 1000 Ml IV 125 mls/hr DIRECT [facility] Administration Vancomycin HCl 1,250 mg/ 275 mls @ 166.667 mls/hr 08/09/19 10:00 08/09/19 15:25 Sodium Chloride IV Infused Q24HR [facility] Infusion Cefepime HCl 1 gm in 100 mls @ 200 mls/hr 08/09/19 16:00 Cefepime/Ns 1 Gm/100 Ml IV Q12HR [facility] Protocol Metronidazole 500 mg in 100 mls @ 100 mls/hr 08/09/19 16:00 Flagyl 500 Mg/100 Ml IV Q8HR [facility] Protocol Insulin Human Isoph/Insulin Regular 30 unit 08/08/19 17:00 08/09/19 09:49 Humulin 70/30 SUB-Q Not Given BIDDIAB [facility] Insulin Human Lispro 0 unit 08/08/19 07:30 08/09/19 18:34 Humalog SUB-Q 2 unit ACHS [facility] Administration Protocol Morphine Sulfate 2 mg 08/07/19 23:29 08/08/19 01:48 Morphine IV 2 mg Q4H PRN Administration Pain, Moderate (4-6) Ondansetron HCl 4 mg 08/07/19 23:29 Zofran IV Q8H PRN Nausea And Vomiting Sodium Bicarbonate 1,300 mg 08/08/19 12:00 08/09/19 09:50 Sodium Bicarbonate PO 1,300 mg BID [facility] Administration Sodium Chloride 10 ml 08/08/19 10:00 08/09/19 09:50 Sodium Chloride Flush Syringe 10 Ml IV 10 ml BID [facility] Administration Sodium Chloride 10 ml 08/07/19 23:29 Sodium Chloride Flush Syringe 10 Ml IV PRN PRN LINE FLUSH Sodium Hypochlorite 1 applic 08/08/19 13:19 Dakin's Half Strength TP Q12H PRN Wound Care Nutrition/Malnutrition Assess - Dietary Evaluation Nutrition/Malnutrition Findings: Nutrition Notes Start: 08/09/19 11:59 Freq: Status: Active Protocol: Document 08/09/19 11:59 AP (Rec: 08/09/19 12:32 AP [email or web address]) Co-Sign 08/09/19 11:59 LP Nutrition Notes Need for Assessment generated from: MD Order,MST Current Diagnosis Acute Kidney Injury,CKD(stage I-IV),Diabetes,Sepsis, Hypertension Other Pertinent Diagnosis GERD Current Diet Renal Labs/Tests K 3.2 Cr 1.9 BUN 37 BG 101 A1c 9.6 Pertinent Medications NS at 125ml/hr Humalog, insulin Height 5 ft 8 in Weight 79.9 kg [place] Body Weight (kg) 70.00 BMI 26.7 Intake Prior to Admission Good Weight Status Overweight Subjective/Other Information MD consult for MST. Pt states has been diabetic since the s. Pt kindly expressed not needing DM education, however discussed the 1515 rule for pt in regards to hypoglycemia. Noted pt drank half of a glucerna this am. Pt chart states pt eats 70-100% of meals, pt states no recent weight loss and good appetite. Burn Absent Trauma Absent GI Symptoms None Current % PO Good (75-100%) Minimum of two criteria No physical signs of malnutrition #2 Nutrition Diagnosis Increased nutrient needs ( specify in comment below) Comments: PRO Etiology Pt in need of wound healing As Evidenced by Signs and Symptoms Bilat foot wounds. #1 Nutrition Diagnosis Limited adherence to nutrition -related recommendations Etiology Pt noncompliant w/previous DM education. Not interested in further DM education/ counseling. As Evidenced by Signs and Symptoms Pt has DM infection left foot w/wounds and wounds on right foot. Is patient on ventilator? No Is Patient Ambulatory and/or Out of Bed Yes REE-([facility]-ambulatory/OOB) [ 2156.050 [id number]] Calculation Used for Recommendations [facility] Additional Notes PRO needs: 63-99 g/day (0.8-1. 25g) CKD/Wound healing Fluid needs: 1ml/kcal or per MD Nutrition Intervention Change Diet Order: Continue current Teaching Recipient Patient Learning Readiness Poor Teaching Methods Discussion,Handout Response to Teaching Reinforcement needed Education Handouts Provided Hypoglycemia, consistent carb Barriers to Learning Motivation RD phone number provided Yes Patient aware of follow up options Yes Goal #1 Wound healing Goal #2 Pt follow renal diet Anticipated Discharge Needs: Renal/CC diet Follow-Up By: 08/11/19 Additional Comments F/U for PO intakes.
[2019-08-09] MEDS: metroNIDAZOLE/NS 500 MG/100 ML 500 MG/100 ML BAG IV SCH ×2 (21:22→22:43)
[2019-08-09] MEDS: CEFEPIME/NS 1 GM/100 ML 1 GM/100 ML BAG IV SCH ×2 (21:22→22:42)
[2019-08-09] MEDS: ENOXAPARIN 40 MG/0.4 ML INJ SUB-Q SCH (21:23)
[2019-08-10] MEDS: ACETAMINOPHEN 325 MG TAB PO PRN ×4 (00:05→21:49)
[2019-08-10] MEDS: metroNIDAZOLE/NS 500 MG/100 ML 500 MG/100 ML BAG IV SCH ×3 (06:26→21:51)
[2019-08-10] MEDS: SODIUM CHLORIDE 0.9% 1000 ML 1,000 ML IV SCH (06:27)
[2019-08-10 06:47] LABS: Hematocrit 25.4 % (35.5-45.6); Hemoglobin 8.3 gm/dl (11.8-15.2); Mean Corpuscular HGB Conc 33 % (32-34); Mean Corpuscular Volume 84 fl (84-94); Platelet Count 335 K/mm3 (140-440); Red Blood Count 3.04 M/mm3 (3.65-5.03); Red Cell Distribution Width 13.9 % (13.2-15.2)
[2019-08-10 07:16] LABS: Calcium 7.8 mg/dL (8.4-10.2)
[2019-08-10 07:50] LABS: Basophils % (Manual) 0 % (0.0-1.8); Total Cells Counted 100
[2019-08-10 07:51] LABS: Anisocytosis Few; Large Platelets Rare; Platelet Estimate Consistent w Auto
[2019-08-10] MEDS: INSULIN NPH/REGULAR 70/30 INJ SUB-Q SCH ×3 (08:25→17:09)
[2019-08-10] MEDS: INSULIN LISPRO 100 UNIT/ML SUB-Q SCH ×4 (08:41→21:51)
[2019-08-10] MEDS: CEFEPIME/NS 1 GM/100 ML 1 GM/100 ML BAG IV SCH ×2 (10:06→21:50)
[2019-08-10] MEDS: SODIUM BICARBONATE 650 MG TAB PO SCH ×2 (10:07→21:50)
--- NOTE | 2019-08-10 10:36 | Progress Note ---
Assessment and Plan Impression: * DULCE on likely CKD due to HTN/DM * DM foot ulcer * acidosis * sepsis * Pyuria * Microscopic hematuria * HTN * metabolic acidosis * TYpe 2 DM Plan: * agree with ivfs, add bicarb and kcl * appears septic with worsening acidosis * vascular intervention noted, iv contrast exposure noted * plans for bka noted * vasculitis workup with hematuria * iv abx per primary team, follow up vanco levels * daily lytes * strict i/os * renal us with pvr noted * no indication for kettle firer today * added sodium bicarb Subjective Date of service: 08/10/19 Principal diagnosis: pvd Interval history: resting well in bed today Objective - Exam Narrative Exam: - General Limitations: No Limitations, Physical Limitation General appearance: alert, anxious - Head Head exam: Present: atraumatic, normocephalic - Eye Eye exam: Present: normal appearance, EOMI. Absent: nystagmus - ENT ENT exam: Present: normal exam, mucous membranes dry, normal external ear exam - Neck Neck exam: Present: normal inspection, full ROM. Absent: tenderness, meningismus - Respiratory Respiratory exam: Present: normal lung sounds bilaterally. Absent: respiratory distress - Cardiovascular Cardiovascular Exam: Present: normal rhythm, tachycardia, normal heart sounds. Absent: systolic murmur, diastolic murmur, rubs, gallop - GI/Abdominal GI/Abdominal exam: Present: soft. Absent: distended, tenderness, guarding, rebound, rigid, pulsatile mass - Rectal Rectal exam: Present: deferred - Extremities Exam Extremities exam: Present: other (2+ pulses noted in the bilateral upper extremities. The right lower extremity is warm and well perfused. Pulses are difficult to appreciate. There is right lower extremity edema. The left lower extremity, there is edema. The left lateral aspect of the foot has cavernous lesion with what appears to be wet gangrene. Macerated tissue is noted. Uncertain of crepitus is present. Pulses are difficult to appreciate. Sensation is intact to pinch and light touch. There is no sniffing and pain with passive motion of the great toe. The left anterior distal tibial region is tender.). Absent: normal inspection - Back Exam Back exam: Present: normal inspection. Absent: tenderness, CVA tenderness (R), CVA tenderness (L), paraspinal tenderness, vertebral tenderness - Neurological Exam Neurological exam: Present: alert, other (there is no facial droop. Tongue is midline. Extraocular movements are intact bilaterally. Walking with a steady gait. Speaking in full sentences. Normal appropriate thought content. 5 out of 5 strength in 4 extremities. Sensation is intact to light touch in 4 extremities.) - Psychiatric Psychiatric exam: Present: anxious - Skin Skin exam: Present: warm, erythema - Vital Signs Vital signs: Vital Signs - 12hr 08/09/19 08/09/19 08/10/19 23:00 23:11 03:56 Temperature 101.7 F H 99.3 F Pulse Rate 102 H 104 H 94 H Respiratory 18 19 Rate Blood Pressure 144/85 142/90 Blood Pressure [Left] O2 Sat by Pulse 96 97 Oximetry 08/10/19 08/10/19 08:07 08:11 Temperature 99.1 F 99.1 F Pulse Rate 95 H 90 Respiratory 20 18 Rate Blood Pressure 139/90 Blood Pressure 129/90 [Left] O2 Sat by Pulse 95 100 Oximetry - Lab 08/10/19 05:29 08/10/19 05:29 Most recent lab results Calcium 7.8 mg/dL (8.4-10.2) L 08/10/19 05:29 Medications & Allergies - Medications Allergies/Adverse Reactions: Allergies No Known Allergies Allergy (Verified 05/26/13 04:48) Home Medications: Home Medications Medication Instructions Recorded Confirmed Last Taken Type NovoLIN N 30 unit SUB-Q BID 08/07/19 08/07/19 Unknown History Novolin R 12 unit SUB-Q BID 08/07/19 08/07/19 Unknown History Active Medications: Generic Name Dose Route Start Last Admin Trade Name Freq PRN Reason Stop Dose Admin Acetaminophen 650 mg 08/07/19 23:29 08/10/19 06:27 Tylenol PO 650 mg Q4H PRN Administration Pain MILD(1-3)/Fever >100.5/MIRANDA Dextrose 0 ml 08/07/19 23:29 D50w (25gm) Syringe IV Q30MIN PRN Hypoglycemia Protocol Enoxaparin Sodium 40 mg 08/08/19 22:00 08/09/19 21:23 Enoxaparin SUB-Q 40 mg QDAY@2200 WILMER Administration Sodium Chloride 1,000 mls @ 125 mls/hr 08/07/19 23:30 08/10/19 06:27 Nacl 0.9% 1000 Ml IV 125 mls/hr DIRECT WILMER Administration Cefepime HCl 1 gm in 100 mls @ 200 mls/hr 08/09/19 16:00 08/10/19 10:06 Cefepime/Ns 1 Gm/100 Ml IV 200 mls/hr Q12HR WILMER Administration Protocol Metronidazole 500 mg in 100 mls @ 100 mls/hr 08/09/19 16:00 08/10/19 06:26 Flagyl 500 Mg/100 Ml IV 100 mls/hr Q8HR WILMER Administration Protocol Insulin Human Isoph/Insulin Regular 30 unit 08/08/19 17:00 08/10/19 10:07 Humulin 70/30 SUB-Q 30 unit BIDDIAB WILMER Administration Insulin Human Lispro 0 unit 08/08/19 07:30 08/10/19 08:41 Humalog SUB-Q Not Given ACHS WILMER Protocol Morphine Sulfate 2 mg 08/07/19 23:29 08/08/19 01:48 Morphine IV 2 mg Q4H PRN Administration Pain, Moderate (4-6) Ondansetron HCl 4 mg 08/07/19 23:29 08/09/19 21:34 Zofran IV 4 mg Q8H PRN Administration Nausea And Vomiting Sodium Bicarbonate 1,300 mg 08/08/19 12:00 08/10/19 10:07 Sodium Bicarbonate PO 1,300 mg BID WILMER Administration Sodium Chloride 10 ml 08/08/19 10:00 08/10/19 10:07 Sodium Chloride Flush Syringe 10 Ml IV 10 ml BID WILMER Administration Sodium Chloride 10 ml 08/07/19 23:29 Sodium Chloride Flush Syringe 10 Ml IV PRN PRN LINE FLUSH Sodium Hypochlorite 1 applic 08/08/19 13:19 Dakin's Half Strength TP Q12H PRN Wound Care
--- NOTE | 2019-08-10 10:55 | Progress Note ---
Assessment and Plan 43 yo M s/p Debridement of necrotizing fasciitis of left foot POD 2 1. infected diabetic foot wound on LEFT with osteomyelitis 2. poorly controlled DM - Hb A1C 9.6 3. Malnutrition - Prealb 0.03, Albumin 2.5 4. PAD Plan: 1. continue broad spectrum abx 2. ID on board 3. cultures pending 4. strict glucose control 5. local wound care with dakins BID 6. optimize nutrition 7. I had a long discussion with the patient yesterday regarding continued aggressive wound care/debridements vs amputation. Due to the poor blood flow to the foot, severity of the infection, malnutrition, and poorly controlled diabetes there is a low likelihood that the wound will heal. I strongly recommend that he consider below the knee amputation which will improve his overall outcome. 8. Patient requests second opinion re: amputation. I have consulted Dr. Juares and discussed the case with him. If patient agrees to BKA, will defer to vascula r surgery and Dr. Juares 8. Vascular surgery on board - Discussed with Dr. Minor. Thank you, please call with questions. Subjective Date of service: 08/10/19 Narrative: Pt seen and examined. No acute complaints or overnight events. Objective Vital Signs - 12hr 08/09/19 08/09/19 08/10/19 23:00 23:11 03:56 Temperature 101.7 F H 99.3 F Pulse Rate 102 H 104 H 94 H Respiratory 18 19 Rate Blood Pressure 144/85 142/90 Blood Pressure [Left] O2 Sat by Pulse 96 97 Oximetry 08/10/19 08/10/19 08/10/19 07:00 08:07 08:11 Temperature 99.1 F 99.1 F Pulse Rate 91 H 95 H 90 Respiratory 20 18 Rate Blood Pressure 139/90 Blood Pressure 129/90 [Left] O2 Sat by Pulse 95 100 Oximetry - General physical appearance Narrative Exam: Gen: AAOx3. NAD CV: s1, S2+ Resp: even and unlabored Ext: LLE with dressing in place - Labs 08/10/19 05:29 08/10/19 05:29 Diabetes panel 08/10/19 Range/Units 05:29 Sodium 136 L (137-145) mmol/L Potassium 3.4 L (3.6-5.0) mmol/L Chloride 104.0 (98-107) mmol/L Carbon Dioxide 13 L (22-30) mmol/L BUN 34 H (9-20) mg/dL Creatinine 2.1 H (0.8-1.5) mg/dL Glucose 149 H (75-100) mg/dL Calcium 7.8 L (8.4-10.2) mg/dL Calcium panel 08/10/19 Range/Units 05:29 Calcium 7.8 L (8.4-10.2) mg/dL Pituitary panel 08/10/19 Range/Units 05:29 Sodium 136 L (137-145) mmol/L Potassium 3.4 L (3.6-5.0) mmol/L Chloride 104.0 (98-107) mmol/L Carbon Dioxide 13 L (22-30) mmol/L BUN 34 H (9-20) mg/dL Creatinine 2.1 H (0.8-1.5) mg/dL Glucose 149 H (75-100) mg/dL Calcium 7.8 L (8.4-10.2) mg/dL Adrenal panel 08/10/19 Range/Units 05:29 Sodium 136 L (137-145) mmol/L Potassium 3.4 L (3.6-5.0) mmol/L Chloride 104.0 (98-107) mmol/L Carbon Dioxide 13 L (22-30) mmol/L BUN 34 H (9-20) mg/dL Creatinine 2.1 H (0.8-1.5) mg/dL Glucose 149 H (75-100) mg/dL Calcium 7.8 L (8.4-10.2) mg/dL
[2019-08-10] MEDS ORDERED: POTASSIUM CHLORIDE IV SCH (11:00)
[2019-08-10] MEDS ORDERED: DEXTROSE 5% IV SCH (11:00)
[2019-08-10] MEDS ORDERED: WATER IV SCH (11:00)
[2019-08-10] MEDS ORDERED: SODIUM BICARBONATE IV SCH (11:00)
--- NOTE | 2019-08-10 11:32 | Consultation ---
History of Present Illness Consult date: 08/10/19 - History of present illness History of present illness: 43 yo diabetic male with a severe infection of his left foot. This was debrided by Dr. Mendiola. Angiogram reveals occluded AT and PT arteries below the ankle with distal fill only by collaterals. CT of left foot reveals osteo of the left 5th metatarsal. BKA has been rec'd by Dr.'s Mendiola and Iván. Pt requests a 3rd opinion. Past History Past Medical History: diabetes Past Surgical History: bowel surgery Social history: alcohol abuse (Drinks alcohol occasionally). denies: smoking Family history: no significant family history Medications and Allergies Allergies Allergy/AdvReac Type Severity Reaction Status Date / Time No Known Allergies Allergy Verified 05/26/13 04:48 Home Medications Medication Instructions Recorded Confirmed Last Taken Type NovoLIN N 30 unit SUB-Q BID 08/07/19 08/07/19 Unknown History Novolin R 12 unit SUB-Q BID 08/07/19 08/07/19 Unknown History Active Meds: Active Medications Acetaminophen (Tylenol) 650 mg PO Q4H PRN PRN Reason: Pain MILD(1-3)/Fever >100.5/MIRANDA Last Admin: 08/10/19 06:27 Dose: 650 mg Documented by: Dextrose (D50w (25gm) Syringe) 0 ml IV Q30MIN PRN; Protocol PRN Reason: Hypoglycemia Enoxaparin Sodium (Enoxaparin) 40 mg SUB-Q QDAY@2200 WILMER Last Admin: 08/09/19 21:23 Dose: 40 mg Documented by: Cefepime HCl (Cefepime/Ns 1 Gm/100 Ml) 1 gm in 100 mls @ 200 mls/hr IV Q12HR WILMER; Protocol Last Admin: 08/10/19 10:06 Dose: 200 mls/hr Documented by: Metronidazole (Flagyl 500 Mg/100 Ml) 500 mg in 100 mls @ 100 mls/hr IV Q8HR WILMER; Protocol Last Admin: 08/10/19 06:26 Dose: 100 mls/hr Documented by: Sodium Bicarbonate 150 meq/Potassium Chloride 40 meq/Dextrose 1,170 mls @ 84 mls/hr IV DIRECT WILMER Insulin Human Isoph/Insulin Regular (Humulin 70/30) 30 unit SUB-Q BIDDIAB WILMER Last Admin: 08/10/19 10:07 Dose: 30 unit Documented by: Insulin Human Lispro (Humalog) 0 unit SUB-Q ACHS [facility]; Protocol Last Admin: 08/10/19 08:41 Dose: Not Given Documented by: Morphine Sulfate (Morphine) 2 mg IV Q4H PRN PRN Reason: Pain, Moderate (4-6) Last Admin: 08/08/19 01:48 Dose: 2 mg Documented by: Ondansetron HCl (Zofran) 4 mg IV Q8H PRN PRN Reason: Nausea And Vomiting Last Admin: 08/09/19 21:34 Dose: 4 mg Documented by: Sodium Bicarbonate (Sodium Bicarbonate) 1,300 mg PO BID [facility] Last Admin: 08/10/19 10:07 Dose: 1,300 mg Documented by: Sodium Chloride (Sodium Chloride Flush Syringe 10 Ml) 10 ml IV BID [facility] Last Admin: 08/10/19 10:07 Dose: 10 ml Documented by: Sodium Chloride (Sodium Chloride Flush Syringe 10 Ml) 10 ml IV PRN PRN PRN Reason: LINE FLUSH Sodium Hypochlorite (Dakin's Half Strength) 1 applic TP Q12H PRN PRN Reason: Wound Care Review of Systems All systems: negative (none) Exam Vital Signs Temp Pulse Resp BP Pulse Ox 99.2 F 104 H 20 136/90 100 08/07/19 18:53 08/07/19 18:53 08/07/19 18:53 08/07/19 18:53 08/07/19 18:53 - General physical appearance Positive: well developed, well nourished, no distress - Eyes Positive: PERRL, normal occular movement - ENT Positive: normal pinna, normal nares, normal mucosa, no hearing loss, no congestion - Neck Positive: no masses, no bruits, trachea midline, no venous distension - Respiratory Positive: normal expansion, normal respiratory effort, clear to auscultation - Cardiovascular Rhythm: regular Heart Sounds: Present: S1 & S2. Absent: rub, click - Extremities Extremity abnormal: other (Left foot exam reveals an extensive deep wound secondary to his debridement. The left 5th metarsal shaft is exposed and fractured. The remaining left foot soft tissue appears ischemic.) - Breasts Breasts: deferred - Abdomen Abdomen: Present: soft, bowel sounds normal. Absent: tender, distended Hernia: none - Genitourinary Male Genitourinary: deferred - Neurologic Neurologic: alert and oriented to time, place and person, motor strength and sensation are grossly intact - Psychiatric Psychiatric: appropriate mood/affect, intact judgment & insight Results - Labs 08/10/19 05:29 08/10/19 05:29 Abnormal lab results 08/09/19 08/09/19 08/09/19 Range/Units 12:06 16:53 20:47 WBC (4.5-11.0) K/mm3 RBC (3.65-5.03) M/mm3 Hgb (11.8-15.2) gm/dl Hct (35.5-45.6) % MCH (28-32) pg Seg Neuts % (Manual) (40.0-70.0) % Lymphocytes % (Manual) (13.4-35.0) % Seg Neutrophils # Man (1.8-7.7) K/mm3 Monocytes # (Manual) (0.0-0.8) K/mm3 Sodium (137-145) mmol/L Potassium (3.6-5.0) mmol/L Carbon Dioxide (22-30) mmol/L BUN (9-20) mg/dL Creatinine (0.8-1.5) mg/dL Glucose (75-100) mg/dL POC Glucose 220 H 164 H 260 H (70-105) Calcium (8.4-10.2) mg/dL 08/10/19 08/10/19 08/10/19 Range/Units 05:29 05:29 08:16 WBC 17.5 H (4.5-11.0) K/mm3 RBC 3.04 L (3.65-5.03) M/mm3 Hgb 8.3 L (11.8-15.2) gm/dl Hct 25.4 L (35.5-45.6) % MCH 27 L (28-32) pg Seg Neuts % (Manual) 85.0 H (40.0-70.0) % Lymphocytes % (Manual) 8.0 L (13.4-35.0) % Seg Neutrophils # Man 14.9 H (1.8-7.7) K/mm3 Monocytes # (Manual) 1.1 H (0.0-0.8) K/mm3 Sodium 136 L (137-145) mmol/L Potassium 3.4 L (3.6-5.0) mmol/L Carbon Dioxide 13 L (22-30) mmol/L BUN 34 H (9-20) mg/dL Creatinine 2.1 H (0.8-1.5) mg/dL Glucose 149 H (75-100) mg/dL POC Glucose 140 H (70-105) Calcium 7.8 L (8.4-10.2) mg/dL Diabetes panel 08/10/19 Range/Units 05:29 Sodium 136 L (137-145) mmol/L Potassium 3.4 L (3.6-5.0) mmol/L Chloride 104.0 (98-107) mmol/L Carbon Dioxide 13 L (22-30) mmol/L BUN 34 H (9-20) mg/dL Creatinine 2.1 H (0.8-1.5) mg/dL Glucose 149 H (75-100) mg/dL Calcium 7.8 L (8.4-10.2) mg/dL Calcium panel 08/10/19 Range/Units 05:29 Calcium 7.8 L (8.4-10.2) mg/dL Pituitary panel 08/10/19 Range/Units 05:29 Sodium 136 L (137-145) mmol/L Potassium 3.4 L (3.6-5.0) mmol/L Chloride 104.0 (98-107) mmol/L Carbon Dioxide 13 L (22-30) mmol/L BUN 34 H (9-20) mg/dL Creatinine 2.1 H (0.8-1.5) mg/dL Glucose 149 H (75-100) mg/dL Calcium 7.8 L (8.4-10.2) mg/dL Adrenal panel 08/10/19 Range/Units 05:29 Sodium 136 L (137-145) mmol/L Potassium 3.4 L (3.6-5.0) mmol/L Chloride 104.0 (98-107) mmol/L Carbon Dioxide 13 L (22-30) mmol/L BUN 34 H (9-20) mg/dL Creatinine 2.1 H (0.8-1.5) mg/dL Glucose 149 H (75-100) mg/dL Calcium 7.8 L (8.4-10.2) mg/dL - Imaging Additional studies: Recent A1c was 9.6. See recent angio and CT of LLE. Assessment and Plan - Patient Problems (1) Diabetic infection of left foot Current Visit: Yes Status: Acute Plan to address problem: 1) Left BKA. Pt agrees. He is on the schedule for 1:30 tomorrow. 2) Continue Cefipime and Flagyl 3) Hold insulin per Hospitalist 4) NPO after MN
--- NOTE | 2019-08-10 12:28 | Event Note ---
Date: 08/10/19 Dr. Juares's consult note reviewed, recommendations discussed and greatly appreciated. Patient is agreeable to L BKA which has been scheduled with Dr. Juares for tomorrow 08/11/19. I will defer further surgical management of wound to Dr. Juares. Will s/o Thank you, please call with questions.
--- NOTE | 2019-08-10 13:23 | Progress Note ---
Assessment and Plan Cultures: 08/07/2019 urine culture: In progress 08/07/2019 blood culture: No growth 08/08/2019 surgical culture: In process A/P: 43-year-old male with longstanding diabetes mellitus admitted with: #Sepsis, leukemoid reaction, secondary to left foot necrotic wound and underlying osteomyelitis: s/p debridement of soft tissue. #Diabetes mellitus type 2, uncontrolled #Peripheral vascular disease: vascular following. #DULCE on CKD Recs: continue Cefepime, Flagyl, IV Vancomycin till MRSA is ruled out from surgical cultures agree with plans for amputation, plan to d/c abx 48 hours post amputation Moustapha Caicedo MD, FACP [facility] ([facility]) C: [phone] O: [phone] F: [phone] Subjective Date of service: 08/10/19 Principal diagnosis: pvd Interval history: Denies any complaints. Awaiting surgery tomorrow. Objective - Exam Narrative Exam: Physical Exam: Constitutional: Alert, cooperative. No acute distress Head, Ears, Nose: Normocephalic, atraumatic. External ears, nose normal Eyes: Conjunctivae/corneas clear. No icterus. No ptosis. Neck: Supple, no meningeal signs Oral: no thrush Cardiovascular: S1, S2 normal Respiratory: Good air entry, clear to auscultation bilaterally GI: Soft, non-tender; bowel sounds normal. No peritoneal signs Musculoskeletal: left leg with swelling, foul smell, dressing +. Right foot with superficial wounds on 2nd toe and a plantar callus at the ball of the great toe. Skin: No rash or abscess Hem/Lymphatic: No palpable cervical or supraclavicular nodes. No lymphangitis. Psych: Mood ok. Affect normal Neurological: Awake, alert, oriented. No gross abnormality - Constitutional Vitals: Vital Signs Temp Pulse Resp BP Pulse Ox 98.9 F 93 H 20 142/90 95 08/10/19 11:16 08/10/19 11:16 08/10/19 11:16 08/10/19 11:16 08/10/19 11:16 Temperature -Last 24 Hours Temperature 98.9 F Temperature 99.1 F Temperature 99.1 F Temperature 99.3 F Temperature 101.7 F Temperature 101.1 F Temperature 98.6 F - Labs CBC & Chem 7: 08/10/19 05:29 08/10/19 05:29 Labs: Abnormal lab results 08/09/19 08/09/19 08/10/19 Range/Units 16:53 20:47 05:29 WBC 17.5 H (4.5-11.0) K/mm3 RBC 3.04 L (3.65-5.03) M/mm3 Hgb 8.3 L (11.8-15.2) gm/dl Hct 25.4 L (35.5-45.6) % MCH 27 L (28-32) pg Seg Neuts % (Manual) 85.0 H (40.0-70.0) % Lymphocytes % (Manual) 8.0 L (13.4-35.0) % Seg Neutrophils # Man 14.9 H (1.8-7.7) K/mm3 Monocytes # (Manual) 1.1 H (0.0-0.8) K/mm3 Sodium (137-145) mmol/L Potassium (3.6-5.0) mmol/L Carbon Dioxide (22-30) mmol/L BUN (9-20) mg/dL Creatinine (0.8-1.5) mg/dL Glucose (75-100) mg/dL POC Glucose 164 H 260 H (70-105) Calcium (8.4-10.2) mg/dL 08/10/19 08/10/19 08/10/19 Range/Units 05:29 08:16 11:26 WBC (4.5-11.0) K/mm3 RBC (3.65-5.03) M/mm3 Hgb (11.8-15.2) gm/dl Hct (35.5-45.6) % MCH (28-32) pg Seg Neuts % (Manual) (40.0-70.0) % Lymphocytes % (Manual) (13.4-35.0) % Seg Neutrophils # Man (1.8-7.7) K/mm3 Monocytes # (Manual) (0.0-0.8) K/mm3 Sodium 136 L (137-145) mmol/L Potassium 3.4 L (3.6-5.0) mmol/L Carbon Dioxide 13 L (22-30) mmol/L BUN 34 H (9-20) mg/dL Creatinine 2.1 H (0.8-1.5) mg/dL Glucose 149 H (75-100) mg/dL POC Glucose 140 H 234 H (70-105) Calcium 7.8 L (8.4-10.2) mg/dL
--- NOTE | 2019-08-10 17:53 | Event Note ---
Date: 08/10/19 Patient scheduled for Left BKA tomorrow. He had a diagnostic arteriogram that revealed he has adequate flow to heal a BKA. No need for vascular surgery intervention.
--- NOTE | 2019-08-10 20:24 | Progress Note ---
Assessment and Plan Assessment and plan: 43-year-old -[place] male patient with history of diabetes was admitted with nonhealing left foot wound . Patient was evaluated by surgery , underwent surgical debridement evaluated by vascular , osteomyelitis of the left lower extremity , sepsis on IV antibiotics . Scheduled for left BKA for tomorrow --Cellulitis/osteomyelitis left lower extremity/sepsis Status post surgical debridement, vascular evaluated, IV Vanco cefepime and Flagyl ID following, wound care, evaluated by general surgeon Recommended left BKA, possible surgery tomorrow if patient is willing --Peripheral arterial disease; Vascular following, continue current management --Hypokalemia; replenish per protocol and monitor electrolytes --Leukocytosis; secondary to sepsis due to osteomyelitis --Type 2 diabetes mellitus; uncontrolled Secondary to sepsis, Accu-Chek sliding scale coverage ADA diet Adjust insulin dose as needed. A1c 9.6 Diabetic education, nutrition consult --Acute on chronic kidney disease stage III; Vasomotor nephropathy, closely monitor renal function Avoid nephrotoxins, nephrology following --Severe malnutrition; nutrition supplements Nutrition consult, supportive care --DVT prophylaxis; Lovenox Monitor closely and adjust management as needed Possible left BKA tomorrow Plan of care reviewed with the patient and his nurse Consults and recommendations noted and appreciated Left BKA tomorrow per surgery History Interval history: Patient seen and examined medical records reviewed Patient has no new complaints scheduled for left BKA tomorrow Vital signs noted Hospitalist Physical - Constitutional Vitals: Temp Pulse Resp BP Pulse Ox 101.0 F H 102 H 18 179/101 97 08/10/19 19:29 08/10/19 19:29 08/10/19 19:29 08/10/19 19:29 08/10/19 19:29 General appearance: Present: no acute distress, well-nourished - EENT Eyes: Present: PERRL, EOM intact - Neck Neck: Present: supple, normal ROM - Respiratory Respiratory effort: normal Respiratory: negative: rales, rhonchi, wheezing - Cardiovascular Rhythm: regular Heart Sounds: Present: S1 & S2 - Extremities Extremities: abnormal (Left foot infection) - Abdominal General gastrointestinal: soft, non-tender, non-distended, normal bowel sounds - Integumentary Integumentary: Present: clear, warm - Psychiatric Psychiatric: appropriate mood/affect, cooperative - Neurologic Neurologic: CNII-XII intact, moves all extremities Results - Labs CBC & Chem 7: 08/10/19 05:29 08/10/19 05:29 Labs: Laboratory Last Values WBC 17.5 K/mm3 (4.5-11.0) H 08/10/19 05:29 RBC 3.04 M/mm3 (3.65-5.03) L 08/10/19 05:29 Hgb 8.3 gm/dl (11.8-15.2) L 08/10/19 05:29 Hct 25.4 % (35.5-45.6) L 08/10/19 05:29 MCV 84 fl (84-94) 08/10/19 05: MCH 27 pg (28-32) L 08/10/19 05: MCHC 33 % (32-34) 08/10/19 05: RDW 13.9 % (13.2-15.2) 08/10/19 05:29 Plt Count 335 K/mm3 (140-440) 08/10/19 05:29 Lymph % (Auto) 7.1 % (13.4-35.0) L 08/09/19 04:09 [place] % (Auto) 6.4 % (0.0-7.3) 08/09/19 04:09 Eos % (Auto) 0.6 % (0.0-4.3) 08/09/19 04:09 Baso % (Auto) 0.7 % (0.0-1.8) 08/09/19 04:09 Lymph # 1.2 K/mm3 (1.2-5.4) 08/09/19 04:09 [place] # 1.1 K/mm3 (0.0-0.8) H 08/09/19 04:09 Eos # 0.1 K/mm3 (0.0-0.4) 08/09/19 04:09 Baso # 0.1 K/mm3 (0.0-0.1) 08/09/19 04:09 Add Manual Diff Complete 08/10/19 05:29 Total Counted 100 08/10/19 05:29 Seg Neutrophils % 85.2 % (40.0-70.0) H 08/09/19 04:09 Seg Neuts % (Manual) 85.0 % (40.0-70.0) H 08/10/19 05:29 Band Neutrophils % 0 % 08/10/19 05:29 Lymphocytes % (Manual) 8.0 % (13.4-35.0) L 08/10/19 05:29 Reactive Lymphs % (Man) 0 % 08/10/19 05:29 Monocytes % (Manual) 6.0 % (0.0-7.3) 08/10/19 05:29 Eosinophils % (Manual) 1.0 % (0.0-4.3) 08/10/19 05:29 Basophils % (Manual) 0 % (0.0-1.8) 08/10/19 05: Metamyelocytes % 0 % 08/10/19 05: Myelocytes % 0 % 08/10/19 05: Promyelocytes % 0 % 08/10/19 05: Blast Cells % 0 % 08/10/19 05:29 Nucleated RBC % Not Reportable 08/10/19 05:29 Seg Neutrophils # 14.8 K/mm3 (1.8-7.7) H 08/09/19 04:09 Seg Neutrophils # Man 14.9 K/mm3 (1.8-7.7) H 08/10/19 05:29 Band Neutrophils # 0.0 K/mm3 08/10/19 05:29 Lymphocytes # (Manual) 1.4 K/mm3 (1.2-5.4) 08/10/19 05:29 Abs React Lymphs (Man) 0.0 K/mm3 08/10/19 05:29 Monocytes # (Manual) 1.1 K/mm3 (0.0-0.8) H 08/10/19 05:29 Eosinophils # (Manual) 0.2 K/mm3 (0.0-0.4) 08/10/19 05:29 Basophils # (Manual) 0.0 K/mm3 (0.0-0.1) 08/10/19 05:29 Metamyelocytes # 0.0 K/mm3 08/10/19 05:29 Myelocytes # 0.0 K/mm3 08/10/19 05:29 Promyelocytes # 0.0 K/mm3 08/10/19 05:29 Blast Cells # 0.0 K/mm3 08/10/19 05:29 WBC Morphology Not Reportable 08/10/19 05:29 Hypersegmented Neuts Not Reportable 08/10/19 05:29 Hyposegmented Neuts Not Reportable 08/10/19 05:29 Hypogranular Neuts Not Reportable 08/10/19 05:29 Smudge Cells Not Reportable 08/10/19 05:29 Toxic Granulation Not Reportable 08/10/19 05:29 Toxic Vacuolation Not Reportable 08/10/19 05:29 Dohle Bodies Not Reportable 08/10/19 05:29 Pelger-Huet Anomaly Not Reportable 08/10/19 05:29 Arlene Rods Not Reportable 08/10/19 05:29 Platelet Estimate Consistent w auto 08/10/19 05:29 Clumped Platelets Not Reportable 08/10/19 05:29 Plt Clumps, EDTA Not Reportable 08/10/19 05:29 Large Platelets Rare 08/10/19 05:29 Giant Platelets Not Reportable 08/10/19 05:29 Platelet Satelliting Not Reportable 08/10/19 05:29 Plt Morphology Comment Not Reportable 08/10/19 05:29 RBC Morphology Not Reportable 08/10/19 05:29 Dimorphic RBCs Not Reportable 08/10/19 05:29 Polychromasia Not Reportable 08/10/19 05:29 Hypochromasia Not Reportable 08/10/19 05:29 Poikilocytosis Not Reportable 08/10/19 05:29 Anisocytosis Few 08/10/19 05:29 Microcytosis Not Reportable 08/10/19 05:29 Macrocytosis Not Reportable 08/10/19 05:29 Spherocytes Not Reportable 08/10/19 05:29 Pappenheimer Bodies Not Reportable 08/10/19 05:29 Sickle Cells Not Reportable 08/10/19 05:29 Target Cells Not Reportable 08/10/19 05:29 Tear Drop Cells Not Reportable 08/10/19 05:29 Ovalocytes Not Reportable 08/10/19 05:29 Helmet Cells Not Reportable 08/10/19 05:29 [place] Bodies Not Reportable 08/10/19 05:29 Jay Rings Not Reportable 08/10/19 05:29 [place] Cells Not Reportable 08/10/19 05:29 Bite Cells Not Reportable 08/10/19 05:29 Crenated Cell Not Reportable 08/10/19 05:29 Elliptocytes Not Reportable 08/10/19 05:29 Acanthocytes (Spur) Not Reportable 08/10/19 05:29 Rouleaux Not Reportable 08/10/19 05:29 Hemoglobin C Crystals Not Reportable 08/10/19 05:29 Schistocytes Not Reportable 08/10/19 05:29 Malaria parasites Not Reportable 08/10/19 05:29 Ramos Bodies Not Reportable 08/10/19 05:29 Hem Pathologist Commnt No 08/10/19 05:29 PT 17.7 Sec. (12.2-14.9) H 08/08/19 06:59 INR 1.43 (0.87-1.13) H 08/08/19 06:59 APTT 43.4 Sec. (24.2-36.6) H 08/08/19 06:59 Sodium 136 mmol/L (137-145) L 08/10/19 05:29 Potassium 3.4 mmol/L (3.6-5.0) L 08/10/19 05:29 Chloride 104.0 mmol/L (98-107) 08/10/19 05:29 Carbon Dioxide 13 mmol/L (22-30) L 08/10/19 05:29 Anion Gap 22 mmol/L 08/10/19 05:29 BUN 34 mg/dL (9-20) H 08/10/19 05:29 Creatinine 2.1 mg/dL (0.8-1.5) H 08/10/19 05:29 Estimated GFR 42 ml/min 08/10/19 05:29 BUN/Creatinine Ratio 16 % 08/10/19 05:29 Glucose 149 mg/dL (75-100) H 08/10/19 05:29 POC Glucose 169 (70-105) H 08/10/19 16:16 Hemoglobin A1c 9.6 % (4-6) H 08/07/19 23:54 Lactic Acid 2.70 mmol/L (0.7-2.0) H* 08/07/19 22:48 Calcium 7.8 mg/dL (8.4-10.2) L 08/10/19 05:29 Total Bilirubin 0.60 mg/dL (0.1-1.2) 08/07/19 21:45 Direct Bilirubin 0.4 mg/dL (0-0.2) H 08/07/19 21:45 Indirect Bilirubin 0.2 mg/dL 08/07/19 21:45 AST 21 units/L (5-40) 08/07/19 21:45 ALT 16 units/L (7-56) 08/07/19 21:45 Alkaline Phosphatase 128 units/L (35-129) 08/07/19 21:45 Total Creatine Kinase 38 units/L (55-170) L 08/07/19 21:45 Total Protein 6.2 g/dL (6.3-8.2) L 08/07/19 21:45 Albumin 2.5 g/dL (3.9-5) L 08/07/19 21:45 Albumin/Globulin Ratio 0.7 % 08/07/19 21:45 Prealbumin 0.030 g/L (0.200-0.400) L 08/08/19 06:59 Urine Color Veronika (Yellow) 08/07/19 20:05 Urine Turbidity Slightly cloudy (Clear) 08/07/19 20:05 Urine pH 5.0 (5.0-7.0) 08/07/19 20:05 Ur Specific [place] 1.018 (1.003-1.030) 08/07/19 20:05 Urine Protein 100 mg/dl mg/dL (Negative) 08/07/19 20:05 Urine Glucose (UA) Neg mg/dL (Negative) 08/07/19 20:05 Urine Ketones Neg mg/dL (Negative) 08/07/19 20:05 Urine Blood Mod (Negative) 08/07/19 20:05 Urine Nitrite Neg (Negative) 08/07/19 20:05 Urine Bilirubin Neg (Negative) 08/07/19 20:05 Urine Urobilinogen 4.0 mg/dL (<2.0) 08/07/19 20:05 Ur Leukocyte Esterase Neg (Negative) 08/07/19 20:05 Urine WBC (Auto) 20.0 /HPF (0.0-6.0) H 08/07/19 20:05 Urine RBC (Auto) 18.0 /HPF (0.0-6.0) 08/07/19 20:05 U Epithel Cells (Auto) 2.0 /HPF (0-13.0) 08/07/19 20:05 Hep Bs Antigen Non-reactive (Negative) 08/08/19 16:13 Hepatitis C Antibody Non-reactive (NonReactive) 08/08/19 16:13 Blood Type O POSITIVE 08/07/19 00:01 Antibody Screen Negative 08/07/19 00:01 Active Medications - Current Medications Current Medications: Generic Name Dose Route Start Last Admin Trade Name Freq PRN Reason Stop Dose Admin Acetaminophen 650 mg 08/07/19 23:29 08/10/19 17:08 Tylenol PO 650 mg Q4H PRN Administration Pain MILD(1-3)/Fever >100.5/MIRANDA Dextrose 0 ml 08/07/19 23:29 D50w (25gm) Syringe IV Q30MIN PRN Hypoglycemia Protocol Enoxaparin Sodium 40 mg 08/08/19 22:00 08/09/19 21:23 Enoxaparin SUB-Q 40 mg QDAY@2200 WILMER Administration Cefepime HCl 1 gm in 100 mls @ 200 mls/hr 08/09/19 16:00 08/10/19 10:06 Cefepime/Ns 1 Gm/100 Ml IV 200 mls/hr Q12HR WILMER Administration Protocol Metronidazole 500 mg in 100 mls @ 100 mls/hr 08/09/19 16:00 08/10/19 15:09 Flagyl 500 Mg/100 Ml IV 100 mls/hr Q8HR WILMER Administration Protocol Sodium Bicarbonate 150 meq/ 1,170 mls @ 84 mls/hr 08/10/19 11:00 Potassium Chloride 40 meq/ IV Dextrose DIRECT WILMER Insulin Human Isoph/Insulin Regular 30 unit 08/08/19 17:00 08/10/19 17:09 Humulin 70/30 SUB-Q 30 unit BIDDIAB WILMER Administration Insulin Human Lispro 0 unit 08/08/19 07:30 08/10/19 17:09 Humalog SUB-Q 2 unit ACHS WILMER Administration Protocol Morphine Sulfate 2 mg 08/07/19 23:29 08/08/19 01:48 Morphine IV 2 mg Q4H PRN Administration Pain, Moderate (4-6) Ondansetron HCl 4 mg 08/07/19 23:29 08/09/19 21:34 Zofran IV 4 mg Q8H PRN Administration Nausea And Vomiting Sodium Bicarbonate 1,300 mg 08/08/19 12:00 08/10/19 10:07 Sodium Bicarbonate PO 1,300 mg BID WILMER Administration Sodium Chloride 10 ml 08/08/19 10:00 08/10/19 10:07 Sodium Chloride Flush Syringe 10 Ml IV 10 ml BID WILMER Administration Sodium Chloride 10 ml 08/07/19 23:29 Sodium Chloride Flush Syringe 10 Ml IV PRN PRN LINE FLUSH Sodium Hypochlorite 1 applic 08/08/19 13:19 Dakin's Half Strength TP Q12H PRN Wound Care Nutrition/Malnutrition Assess - Dietary Evaluation Nutrition/Malnutrition Findings: Nutrition Notes Start: 08/09/19 11:59 Freq: Status: Active Protocol: Document 08/09/19 11:59 AP (Rec: 08/09/19 12:32 AP [email or web address]) Co-Sign 08/09/19 11:59 LP Nutrition Notes Need for Assessment generated from: MD Order,MST Current Diagnosis Acute Kidney Injury,CKD(stage I-IV),Diabetes,Sepsis, Hypertension Other Pertinent Diagnosis GERD Current Diet Renal Labs/Tests K 3.2 Cr 1.9 BUN 37 BG 101 A1c 9.6 Pertinent Medications NS at 125ml/hr Humalog, insulin Height 5 ft 8 in Weight 79.9 kg [place] Body Weight (kg) 70.00 BMI 26.7 Intake Prior to Admission Good Weight Status Overweight Subjective/Other Information MD consult for MST. Pt states has been diabetic since the s. Pt kindly expressed not needing DM education, however discussed the 1515 rule for pt in regards to hypoglycemia. Noted pt drank half of a glucerna this am. Pt chart states pt eats 70-100% of meals, pt states no recent weight loss and good appetite. Burn Absent Trauma Absent GI Symptoms None Current % PO Good (75-100%) Minimum of two criteria No physical signs of malnutrition #2 Nutrition Diagnosis Increased nutrient needs ( specify in comment below) Comments: PRO Etiology Pt in need of wound healing As Evidenced by Signs and Symptoms Bilat foot wounds. #1 Nutrition Diagnosis Limited adherence to nutrition -related recommendations Etiology Pt noncompliant w/previous DM education. Not interested in further DM education/ counseling. As Evidenced by Signs and Symptoms Pt has DM infection left foot w/wounds and wounds on right foot. Is patient on ventilator? No Is Patient Ambulatory and/or Out of Bed Yes [facility] [ 2426.050 [id number]] Calculation Used for Recommendations Suellen Steele Additional Notes PRO needs: 63-99 g/day (0.8-1. 25g) CKD/Wound healing Fluid needs: 1ml/kcal or per MD Nutrition Intervention Change Diet Order: Continue current Teaching Recipient Patient Learning Readiness Poor Teaching Methods Discussion,Handout Response to Teaching Reinforcement needed Education Handouts Provided Hypoglycemia, consistent carb Barriers to Learning Motivation RD phone number provided Yes Patient aware of follow up options Yes Goal #1 Wound healing Goal #2 Pt follow renal diet Anticipated Discharge Needs: Renal/CC diet Follow-Up By: 08/11/19 Additional Comments F/U for PO intakes.
[2019-08-10] MEDS: ENOXAPARIN 40 MG/0.4 ML INJ SUB-Q SCH (21:49)
[2019-08-11 05:30] LABS: Hematocrit 25.6 % (35.5-45.6); Hemoglobin 8.4 gm/dl (11.8-15.2); Mean Corpuscular HGB Conc 33 % (32-34); Mean Corpuscular Volume 83 fl (84-94); Platelet Count 362 K/mm3 (140-440); Red Blood Count 3.09 M/mm3 (3.65-5.03); Red Cell Distribution Width 14.2 % (13.2-15.2)
[2019-08-11 05:58] LABS: Calcium 7.7 mg/dL (8.4-10.2)
[2019-08-11] MEDS: ACETAMINOPHEN 325 MG TAB PO PRN (06:38)
[2019-08-11] MEDS: metroNIDAZOLE/NS 500 MG/100 ML 500 MG/100 ML BAG IV SCH ×3 (06:38→22:17)
--- NOTE | 2019-08-11 06:38 | Event Note ---
Date: 08/11/19 Potassium 2.9 this a.m. ordered IV potassium 20 mEq. Patient is on sodium bicarb with 10 mEq of potassium. Continue to follow up on potassium labs
[2019-08-11 06:54] LABS: Anisocytosis 1+; Basophils % (Manual) 0 % (0.0-1.8); Total Cells Counted 100
[2019-08-11 06:55] LABS: Platelet Estimate Consistent w Auto
[2019-08-11] MEDS: INSULIN LISPRO 100 UNIT/ML SUB-Q SCH ×4 (08:04→22:18)
[2019-08-11] MEDS: INSULIN NPH/REGULAR 70/30 INJ SUB-Q SCH (08:04)
[2019-08-11] MEDS: DEXTROSE 50% IN WATER (25GM) 50 ML SYRINGE IV PRN ×3 (09:06→12:20)
[2019-08-11] MEDS: POTASSIUM CHLORIDE 10 MEQ 10 MEQ/100 ML BAG IV SCH ×4 (09:07→15:29)
--- NOTE | 2019-08-11 10:31 | Progress Note ---
Assessment and Plan Impression: * DULCE on likely CKD due to HTN/DM * DM foot ulcer * acidosis * sepsis * hypokalemia * Pyuria * Microscopic hematuria * HTN * metabolic acidosis * TYpe 2 DM Plan: * agree with ivfs * will need to increase kcl, hold iv bicarb until k corrected * appears septic with worsening acidosis, likely related to inf and ischemia * vascular intervention noted, iv contrast exposure noted * plans for bka noted * vasculitis workup with hematuria * iv abx per primary team, follow up vanco levels * daily lytes * strict i/os * renal us with pvr noted * no indication for tile presser today * continue po sodium bicarb Subjective Date of service: 08/11/19 Principal diagnosis: pvd Interval history: resting well in bed today Objective - Exam Narrative Exam: - General Limitations: No Limitations, Physical Limitation General appearance: alert, anxious - Head Head exam: Present: atraumatic, normocephalic - Eye Eye exam: Present: normal appearance, EOMI. Absent: nystagmus - ENT ENT exam: Present: normal exam, mucous membranes dry, normal external ear exam - Neck Neck exam: Present: normal inspection, full ROM. Absent: tenderness, meningismus - Respiratory Respiratory exam: Present: normal lung sounds bilaterally. Absent: respiratory distress - Cardiovascular Cardiovascular Exam: Present: normal rhythm, tachycardia, normal heart sounds. Absent: systolic murmur, diastolic murmur, rubs, gallop - GI/Abdominal GI/Abdominal exam: Present: soft. Absent: distended, tenderness, guarding, rebound, rigid, pulsatile mass - Rectal Rectal exam: Present: deferred - Extremities Exam Extremities exam: Present: other (2+ pulses noted in the bilateral upper extremities. The right lower extremity is warm and well perfused. Pulses are difficult to appreciate. There is right lower extremity edema. The left lower extremity, there is edema. The left lateral aspect of the foot has cavernous lesion with what appears to be wet gangrene. Macerated tissue is noted. Uncertain of crepitus is present. Pulses are difficult to appreciate. Sensation is intact to pinch and light touch. There is no sniffing and pain with passive motion of the great toe. The left anterior distal tibial region is tender.). Absent: normal inspection - Back Exam Back exam: Present: normal inspection. Absent: tenderness, CVA tenderness (R), CVA tenderness (L), paraspinal tenderness, vertebral tenderness - Neurological Exam Neurological exam: Present: alert, other (there is no facial droop. Tongue is midline. Extraocular movements are intact bilaterally. Walking with a steady gait. Speaking in full sentences. Normal appropriate thought content. 5 out of 5 strength in 4 extremities. Sensation is intact to light touch in 4 extremities.) - Psychiatric Psychiatric exam: Present: anxious - Skin Skin exam: Present: warm, erythema - Vital Signs Vital signs: Vital Signs - 12hr 08/10/19 08/11/19 08/11/19 23:10 04:06 07:51 Temperature 99.4 F 101.3 F H 99.8 F H Pulse Rate 111 H 96 H 97 H Respiratory 18 18 18 Rate Blood Pressure 142/86 153/93 150/91 O2 Sat by Pulse 95 95 97 Oximetry - Lab 08/11/19 04:24 08/11/19 04:24 Most recent lab results Calcium 7.7 mg/dL (8.4-10.2) L 08/11/19 04:24 Medications & Allergies - Medications Allergies/Adverse Reactions: Allergies No Known Allergies Allergy (Verified 05/26/13 04:48) Home Medications: Home Medications Medication Instructions Recorded Confirmed Last Taken Type NovoLIN N 30 unit SUB-Q BID 08/07/19 08/07/19 Unknown History Novolin R 12 unit SUB-Q BID 08/07/19 08/07/19 Unknown History Active Medications: Generic Name Dose Route Start Last Admin Trade Name Freq PRN Reason Stop Dose Admin Acetaminophen 650 mg 08/07/19 23:29 08/11/19 06:38 Tylenol PO 650 mg Q4H PRN Administration Pain MILD(1-3)/Fever >100.5/MIRANDA Dextrose 0 ml 08/07/19 23:29 08/11/19 09:06 D50w (25gm) Syringe IV 15 ml Q30MIN PRN Administration Hypoglycemia Protocol Enoxaparin Sodium 40 mg 08/08/19 22:00 08/10/19 21:49 Enoxaparin SUB-Q 40 mg QDAY@2200 WILMER Administration Cefepime HCl 1 gm in 100 mls @ 200 mls/hr 08/09/19 16:00 08/10/19 21:50 Cefepime/Ns 1 Gm/100 Ml IV 200 mls/hr Q12HR WILMER Administration Protocol Metronidazole 500 mg in 100 mls @ 100 mls/hr 08/09/19 16:00 08/11/19 08:05 Flagyl 500 Mg/100 Ml IV Infused Q8HR WILMER Infusion Protocol Sodium Bicarbonate 150 meq/ 1,170 mls @ 84 mls/hr 08/10/19 11:00 08/10/19 21:50 Potassium Chloride 40 meq/ IV 84 mls/hr Dextrose DIRECT WILMER Administration Insulin Human Isoph/Insulin Regular 30 unit 08/08/19 17:00 08/11/19 08:04 Humulin 70/30 SUB-Q Not Given BIDDIAB WILMER Insulin Human Lispro 0 unit 08/08/19 07:30 08/11/19 08:04 Humalog SUB-Q Not Given ACHS [facility] Protocol Morphine Sulfate 2 mg 08/07/19 23:29 08/08/19 01:48 Morphine IV 2 mg Q4H PRN Administration Pain, Moderate (4-6) Ondansetron HCl 4 mg 08/07/19 23:29 08/09/19 21:34 Zofran IV 4 mg Q8H PRN Administration Nausea And Vomiting Sodium Bicarbonate 1,300 mg 08/08/19 12:00 08/10/19 21:50 Sodium Bicarbonate PO 1,300 mg BID WILMER Administration Sodium Chloride 10 ml 08/08/19 10:00 08/10/19 21:51 Sodium Chloride Flush Syringe 10 Ml IV 10 ml BID WILMER Administration Sodium Chloride 10 ml 08/07/19 23:29 Sodium Chloride Flush Syringe 10 Ml IV PRN PRN LINE FLUSH Sodium Hypochlorite 1 applic 08/08/19 13:19 Dakin's Half Strength TP Q12H PRN Wound Care
[2019-08-11] MEDS ORDERED: MAGNESIUM SULFATE 2 GM/50 ML BAG IV ONE (10:32)
[2019-08-11] MEDS: SODIUM BICARBONATE 650 MG TAB PO SCH ×2 (10:50→22:17)
[2019-08-11] MEDS ORDERED: DEXTROSE 10% IN WATER 1,000 ML IV SCH (11:00)
[2019-08-11] MEDS ORDERED: hydrALAZINE 20 MG/1 ML INJ IV ONE (12:19)
[2019-08-11] MEDS ORDERED: hydrALAZINE 20 MG/1 ML INJ ONE (12:20)
[2019-08-11] MEDS ORDERED: VANCOMYCIN 1,250 MG in SODIUM CHLORIDE 0.9% 250ML 250 ML IV ONE (13:00)
--- NOTE | 2019-08-11 13:11 | Progress Note ---
Assessment and Plan - Patient Problems (1) Diabetic infection of left foot Current Visit: Yes Status: Acute Plan to address problem: 1) Unfortunately, I will be out of town until late August 15. I asked the pt if he would like me to ask the Vascular surgeons or even orthopedics if they could do his left BKA tomorrow or maybe Thursday. He and his responded that they would rather wait until I return and can do his surgery. I have there fore put the pt as an "add on" for Friday, August 16, 2019 with a requested time of 12:00. I will go ahead and order a regular diabetic diet. Subjective Date of service: 08/11/19 Patient Reports: Positive: no new complaints (Surgery cancelled today b/o hypoglycemia, hypokalemia and no IV access.) Objective Vital Signs - 12hr 08/11/19 08/11/19 08/11/19 04:06 07:51 12:15 Temperature 101.3 F H 99.8 F H 99.1 F Pulse Rate 96 H 97 H 103 H Respiratory 18 18 18 Rate Blood Pressure 153/93 150/91 209/109 O2 Sat by Pulse 95 97 96 Oximetry 08/11/19 12:28 Temperature Pulse Rate 103 H Respiratory Rate Blood Pressure 209/109 O2 Sat by Pulse Oximetry - Labs 08/11/19 04:24 08/11/19 04:24 Diabetes panel 08/11/19 Range/Units 04:24 Sodium 135 L (137-145) mmol/L Potassium 2.9 L* (3.6-5.0) mmol/L Chloride 103.7 (98-107) mmol/L Carbon Dioxide 15 L (22-30) mmol/L BUN 31 H (9-20) mg/dL Creatinine 1.9 H (0.8-1.5) mg/dL Glucose 76 (75-100) mg/dL Calcium 7.7 L (8.4-10.2) mg/dL Calcium panel 08/11/19 Range/Units 04:24 Calcium 7.7 L (8.4-10.2) mg/dL Pituitary panel 08/11/19 Range/Units 04:24 Sodium 135 L (137-145) mmol/L Potassium 2.9 L* (3.6-5.0) mmol/L Chloride 103.7 (98-107) mmol/L Carbon Dioxide 15 L (22-30) mmol/L BUN 31 H (9-20) mg/dL Creatinine 1.9 H (0.8-1.5) mg/dL Glucose 76 (75-100) mg/dL Calcium 7.7 L (8.4-10.2) mg/dL Adrenal panel 08/11/19 Range/Units 04:24 Sodium 135 L (137-145) mmol/L Potassium 2.9 L* (3.6-5.0) mmol/L Chloride 103.7 (98-107) mmol/L Carbon Dioxide 15 L (22-30) mmol/L BUN 31 H (9-20) mg/dL Creatinine 1.9 H (0.8-1.5) mg/dL Glucose 76 (75-100) mg/dL Calcium 7.7 L (8.4-10.2) mg/dL
[2019-08-11] MEDS ORDERED: hydrALAZINE 20 MG/1 ML INJ IV SCH (14:00)
--- NOTE | 2019-08-11 15:08 | Progress Note ---
Assessment and Plan Cultures: 08/07/2019 urine culture: no growth 08/07/2019 blood culture: GPC in 1 set 08/08/2019 surgical culture: in process, no growth thus far A/P: 43-year-old male with longstanding diabetes mellitus admitted with: #Sepsis, leukemoid reaction, secondary to left foot necrotic wound and underlying osteomyelitis: s/p debridement of soft tissue. #GPC bacteremia: 1/2 sets positive. #Diabetes mellitus type 2, uncontrolled #Peripheral vascular disease: vascular following. #DULCE on CKD Recs: repeat blood cultures and TTE orderd continue Cefepime, Flagyl, IV Vancomycin awaiting amputation Moustapha Caicedo MD, FACP [facility] ([facility]) C: [phone] O: [phone] F: [phone] Subjective Date of service: 08/11/19 Principal diagnosis: pvd Interval history: Fevers +. Surgery delayed to early next week. No other complaints. Tolerating abx well. Objective - Exam Narrative Exam: Physical Exam: Constitutional: Alert, cooperative. No acute distress Head, Ears, Nose: Normocephalic, atraumatic. External ears, nose normal Eyes: Conjunctivae/corneas clear. No icterus. No ptosis. Neck: Supple, no meningeal signs Oral: no thrush Cardiovascular: S1, S2 normal Respiratory: Good air entry, clear to auscultation bilaterally GI: Soft, non-tender; bowel sounds normal. No peritoneal signs Musculoskeletal: left leg with swelling, foul smell, dressing +. Skin: No rash or abscess Hem/Lymphatic: No palpable cervical or supraclavicular nodes. No lymphangitis. Psych: Mood ok. Affect normal Neurological: Awake, alert, oriented. No gross abnormality - Constitutional Vitals: Vital Signs Temp Pulse Resp BP Pulse Ox 99.1 F 103 H 18 209/109 96 08/11/19 12:15 08/11/19 12:28 08/11/19 12:15 08/11/19 12:28 08/11/19 12:15 Temperature -Last 24 Hours Temperature 99.1 F Temperature 99.8 F Temperature 101.3 F Temperature 99.4 F Temperature 101.0 F Temperature 101.1 F - Labs CBC & Chem 7: 08/11/19 04:24 08/11/19 13:33 Labs: Abnormal lab results 08/08/19 08/10/19 08/10/19 Range/Units 16:13 16:16 20:42 WBC (4.5-11.0) K/mm3 RBC (3.65-5.03) M/mm3 Hgb (11.8-15.2) gm/dl Hct (35.5-45.6) % MCV (84-94) fl MCH (28-32) pg Seg Neuts % (Manual) (40.0-70.0) % Lymphocytes % (Manual) (13.4-35.0) % Seg Neutrophils # Man (1.8-7.7) K/mm3 Monocytes # (Manual) (0.0-0.8) K/mm3 Sodium (137-145) mmol/L Potassium (3.6-5.0) mmol/L Carbon Dioxide (22-30) mmol/L BUN (9-20) mg/dL Creatinine (0.8-1.5) mg/dL POC Glucose 169 H 47 L (70-105) Calcium (8.4-10.2) mg/dL Magnesium (1.7-2.3) mg/dL Complement C3 206 H (82-185) mg/dL 08/10/19 08/10/19 08/11/19 Range/Units 21:24 23:26 04:24 WBC 19.8 H (4.5-11.0) K/mm3 RBC 3.09 L (3.65-5.03) M/mm3 Hgb 8.4 L (11.8-15.2) gm/dl Hct 25.6 L (35.5-45.6) % MCV 83 L (84-94) fl MCH 27 L (28-32) pg Seg Neuts % (Manual) 81.0 H (40.0-70.0) % Lymphocytes % (Manual) 11.0 L (13.4-35.0) % Seg Neutrophils # Man 16.0 H (1.8-7.7) K/mm3 Monocytes # (Manual) 1.2 H (0.0-0.8) K/mm3 Sodium (137-145) mmol/L Potassium (3.6-5.0) mmol/L Carbon Dioxide (22-30) mmol/L BUN (9-20) mg/dL Creatinine (0.8-1.5) mg/dL POC Glucose 67 L 112 H (70-105) Calcium (8.4-10.2) mg/dL Magnesium (1.7-2.3) mg/dL Complement C3 (82-185) mg/dL 08/11/19 08/11/19 08/11/19 Range/Units 04:24 04:24 08:00 WBC (4.5-11.0) K/mm3 RBC (3.65-5.03) M/mm3 Hgb (11.8-15.2) gm/dl Hct (35.5-45.6) % MCV (84-94) fl MCH (28-32) pg Seg Neuts % (Manual) (40.0-70.0) % Lymphocytes % (Manual) (13.4-35.0) % Seg Neutrophils # Man (1.8-7.7) K/mm3 Monocytes # (Manual) (0.0-0.8) K/mm3 Sodium 135 L (137-145) mmol/L Potassium 2.9 L* (3.6-5.0) mmol/L Carbon Dioxide 15 L (22-30) mmol/L BUN 31 H (9-20) mg/dL Creatinine 1.9 H (0.8-1.5) mg/dL POC Glucose 64 L (70-105) Calcium 7.7 L (8.4-10.2) mg/dL Magnesium 1.30 L (1.7-2.3) mg/dL Complement C3 (82-185) mg/dL 08/11/19 08/11/19 08/11/19 Range/Units 10:49 12:21 13:33 WBC (4.5-11.0) K/mm3 RBC (3.65-5.03) M/mm3 Hgb (11.8-15.2) gm/dl Hct (35.5-45.6) % MCV (84-94) fl MCH (28-32) pg Seg Neuts % (Manual) (40.0-70.0) % Lymphocytes % (Manual) (13.4-35.0) % Seg Neutrophils # Man (1.8-7.7) K/mm3 Monocytes # (Manual) (0.0-0.8) K/mm3 Sodium (137-145) mmol/L Potassium 3.4 L (3.6-5.0) mmol/L Carbon Dioxide (22-30) mmol/L BUN (9-20) mg/dL Creatinine (0.8-1.5) mg/dL POC Glucose 65 L 52 L (70-105) Calcium (8.4-10.2) mg/dL Magnesium (1.7-2.3) mg/dL Complement C3 (82-185) mg/dL
[2019-08-11] MEDS: CEFEPIME/NS 1 GM/100 ML 1 GM/100 ML BAG IV SCH ×2 (16:11→20:59)
--- NOTE | 2019-08-11 16:16 | Progress Note ---
Assessment and Plan Assessment and plan: --Mild hypoglycemia; Patient received D50, if no improvement Start D10 W, close monitoring blood sugars every hour was 4 --Hypokalemia; replenished per protocol IV KCl. KCl and IV fluids, monitor levels Nephrology following --Hypomagnesemia; Magnesium sulfate, monitor electrolytes --Cellulitis/osteomyelitis left lower extremity/sepsis Possible left BKA today, patient is status Status post surgical debridement, vascular evaluated, IV Vanco cefepime and Flagyl ID following, wound care, surgery following --Peripheral arterial disease; Vascular following, continue current management --Leukocytosis; secondary to sepsis due to osteomyelitis --Type 2 diabetes mellitus; uncontrolled Secondary to sepsis, Accu-Chek sliding scale coverage ADA diet Adjust insulin dose as needed. A1c 9.6 Diabetic education, nutrition consult --Acute on chronic kidney disease stage III; Vasomotor nephropathy, closely monitor renal function Avoid nephrotoxins, nephrology following --Severe malnutrition; nutrition supplements Nutrition consult, supportive care --DVT prophylaxis; Lovenox Monitor closely and adjust management as needed Possible left BKA tomorrow Plan of care reviewed with the patient and his nurse Consults and recommendations noted and appreciated Left BKA tomorrow per surgery History Interval history: Patient seen and examined this morning medical records reviewed Patient was scheduled for left BKA today Patient has mild hypoglycemia, hypokalemia, hypomagnesemia Patient has no new complaints Anxious Visit signs reviewed Hospitalist Physical - Constitutional Vitals: Temp Pulse Resp BP Pulse Ox 99.1 F 113 H 18 178/92 97 08/11/19 12:15 08/11/19 16:05 08/11/19 12:42 08/11/19 16:05 08/11/19 12:42 General appearance: Present: no acute distress, well-nourished - EENT Eyes: Present: PERRL, EOM intact - Neck Neck: Present: supple, normal ROM - Respiratory Respiratory effort: normal Respiratory: bilateral: diminished, negative: rales, rhonchi, wheezing - Cardiovascular Rhythm: regular Heart Sounds: Present: S1 & S2 - Extremities Extremities: abnormal (left diabetic foot wound) - Abdominal General gastrointestinal: soft, non-tender, non-distended, normal bowel sounds - Integumentary Integumentary: Present: clear, warm - Psychiatric Psychiatric: appropriate mood/affect, cooperative - Neurologic Neurologic: CNII-XII intact, moves all extremities Results - Labs CBC & Chem 7: 08/11/19 04:24 08/11/19 13:33 Labs: Laboratory Last Values WBC 19.8 K/mm3 (4.5-11.0) H 08/11/19 04:24 RBC 3.09 M/mm3 (3.65-5.03) L 08/11/19 04:24 Hgb 8.4 gm/dl (11.8-15.2) L 08/11/19 04:24 Hct 25.6 % (35.5-45.6) L 08/11/19 04:24 MCV 83 fl (84-94) L 08/11/19 04:24 MCH 27 pg (28-32) L 08/11/19 04:24 MCHC 33 % (32-34) 08/11/19 04:24 RDW 14.2 % (13.2-15.2) 08/11/19 04:24 Plt Count 362 K/mm3 (140-440) 08/11/19 04:24 Lymph % (Auto) 7.1 % (13.4-35.0) L 08/09/19 04:09 [place] % (Auto) 6.4 % (0.0-7.3) 08/09/19 04:09 Eos % (Auto) 0.6 % (0.0-4.3) 08/09/19 04:09 Baso % (Auto) 0.7 % (0.0-1.8) 08/09/19 04:09 Lymph # 1.2 K/mm3 (1.2-5.4) 08/09/19 04:09 [place] # 1.1 K/mm3 (0.0-0.8) H 08/09/19 04:09 Eos # 0.1 K/mm3 (0.0-0.4) 08/09/19 04:09 Baso # 0.1 K/mm3 (0.0-0.1) 08/09/19 04:09 Add Manual Diff Complete 08/11/19 04:24 Total Counted 100 08/11/19 04:24 Seg Neutrophils % 85.2 % (40.0-70.0) H 08/09/19 04:09 Seg Neuts % (Manual) 81.0 % (40.0-70.0) H 08/11/19 04:24 Band Neutrophils % 0 % 08/11/19 04:24 Lymphocytes % (Manual) 11.0 % (13.4-35.0) L 08/11/19 04:24 Reactive Lymphs % (Man) 0 % 08/11/19 04:24 Monocytes % (Manual) 6.0 % (0.0-7.3) 08/11/19 04:24 Eosinophils % (Manual) 2.0 % (0.0-4.3) 08/11/19 04:24 Basophils % (Manual) 0 % (0.0-1.8) 08/11/19 04:24 Metamyelocytes % 0 % 08/11/19 04:24 Myelocytes % 0 % 08/11/19 04:24 Promyelocytes % 0 % 08/11/19 04:24 Blast Cells % 0 % 08/11/19 04:24 Nucleated RBC % Not Reportable 08/11/19 04:24 Seg Neutrophils # 14.8 K/mm3 (1.8-7.7) H 08/09/19 04:09 Seg Neutrophils # Man 16.0 K/mm3 (1.8-7.7) H 08/11/19 04:24 Band Neutrophils # 0.0 K/mm3 08/11/19 04:24 Lymphocytes # (Manual) 2.2 K/mm3 (1.2-5.4) 08/11/19 04:24 Abs React Lymphs (Man) 0.0 K/mm3 08/11/19 04:24 Monocytes # (Manual) 1.2 K/mm3 (0.0-0.8) H 08/11/19 04:24 Eosinophils # (Manual) 0.4 K/mm3 (0.0-0.4) 08/11/19 04:24 Basophils # (Manual) 0.0 K/mm3 (0.0-0.1) 08/11/19 04:24 Metamyelocytes # 0.0 K/mm3 08/11/19 04:24 Myelocytes # 0.0 K/mm3 08/11/19 04:24 Promyelocytes # 0.0 K/mm3 08/11/19 04:24 Blast Cells # 0.0 K/mm3 08/11/19 04:24 WBC Morphology Not Reportable 08/11/19 04:24 Hypersegmented Neuts Not Reportable 08/11/19 04:24 Hyposegmented Neuts Not Reportable 08/11/19 04:24 Hypogranular Neuts Not Reportable 08/11/19 04:24 Smudge Cells Not Reportable 08/11/19 04:24 Toxic Granulation Not Reportable 08/11/19 04:24 Toxic Vacuolation Not Reportable 08/11/19 04:24 Dohle Bodies Not Reportable 08/11/19 04:24 Pelger-Huet Anomaly Not Reportable 08/11/19 04:24 Arlene Rods Not Reportable 08/11/19 04:24 Platelet Estimate Consistent w auto 08/11/19 04:24 Clumped Platelets Not Reportable 08/11/19 04:24 Plt Clumps, EDTA Not Reportable 08/11/19 04:24 Large Platelets Not Reportable 08/11/19 04:24 Giant Platelets Not Reportable 08/11/19 04:24 Platelet Satelliting Not Reportable 08/11/19 04:24 Plt Morphology Comment Not Reportable 08/11/19 04:24 RBC Morphology Not Reportable 08/11/19 04:24 Dimorphic RBCs Not Reportable 08/11/19 04:24 Polychromasia Not Reportable 08/11/19 04:24 Hypochromasia Not Reportable 08/11/19 04:24 Poikilocytosis Not Reportable 08/11/19 04:24 Anisocytosis 1+ 08/11/19 04:24 Microcytosis Not Reportable 08/11/19 04:24 Macrocytosis Not Reportable 08/11/19 04:24 Spherocytes Not Reportable 08/11/19 04:24 Pappenheimer Bodies Not Reportable 08/11/19 04:24 Sickle Cells Not Reportable 08/11/19 04:24 Target Cells Not Reportable 08/11/19 04:24 Tear Drop Cells Not Reportable 08/11/19 04:24 Ovalocytes Not Reportable 08/11/19 04:24 Helmet Cells Not Reportable 08/11/19 04:24 [place] Bodies Not Reportable 08/11/19 04:24 [place] Rings Not Reportable 08/11/19 04:24 [place] Cells Not Reportable 08/11/19 04:24 Bite Cells Not Reportable 08/11/19 04:24 Crenated Cell Not Reportable 08/11/19 04:24 Elliptocytes Not Reportable 08/11/19 04:24 Acanthocytes (Spur) Not Reportable 08/11/19 04:24 Rouleaux Not Reportable 08/11/19 04:24 Hemoglobin C Crystals Not Reportable 08/11/19 04:24 Schistocytes Not Reportable 08/11/19 04:24 Malaria parasites Not Reportable 08/11/19 04:24 [place] Bodies Not Reportable 08/11/19 04:24 Hem Pathologist Commnt No 08/11/19 04:24 PT 17.7 Sec. (12.2-14.9) H 08/08/19 06:59 INR 1.43 (0.87-1.13) H 08/08/19 06:59 APTT 43.4 Sec. (24.2-36.6) H 08/08/19 06:59 Sodium 135 mmol/L (137-145) L 08/11/19 04:24 Potassium 3.4 mmol/L (3.6-5.0) L 08/11/19 13:33 Chloride 103.7 mmol/L (98-107) 08/11/19 04:24 Carbon Dioxide 15 mmol/L (22-30) L 08/11/19 04:24 Anion Gap 19 mmol/L 08/11/19 04:24 BUN 31 mg/dL (9-20) H 08/11/19 04:24 Creatinine 1.9 mg/dL (0.8-1.5) H 08/11/19 04:24 Estimated GFR 47 ml/min 08/11/19 04:24 BUN/Creatinine Ratio 16 % 08/11/19 04:24 Glucose 76 mg/dL (75-100) 08/11/19 04:24 POC Glucose 101 (70-105) 08/11/19 12:52 Hemoglobin A1c 9.6 % (4-6) H 08/07/19 23:54 Lactic Acid 2.70 mmol/L (0.7-2.0) H* 08/07/19 22:48 Calcium 7.7 mg/dL (8.4-10.2) L 08/11/19 04:24 Magnesium 1.30 mg/dL (1.7-2.3) L 08/11/19 04:24 Total Bilirubin 0.60 mg/dL (0.1-1.2) 08/07/19 21:45 Direct Bilirubin 0.4 mg/dL (0-0.2) H 08/07/19 21:45 Indirect Bilirubin 0.2 mg/dL 08/07/19 21:45 AST 21 units/L (5-40) 08/07/19 21:45 ALT 16 units/L (7-56) 08/07/19 21:45 Alkaline Phosphatase 128 units/L (35-129) 08/07/19 21:45 Total Creatine Kinase 38 units/L (55-170) L 08/07/19 21:45 Total Protein 6.2 g/dL (6.3-8.2) L 08/07/19 21:45 Albumin 2.5 g/dL (3.9-5) L 08/07/19 21:45 Albumin/Globulin Ratio 0.7 % 08/07/19 21:45 Prealbumin 0.030 g/L (0.200-0.400) L 08/08/19 06:59 Urine Color [place] (Yellow) 08/07/19 20:05 Urine Turbidity Slightly cloudy (Clear) 08/07/19 20:05 Urine pH 5.0 (5.0-7.0) 08/07/19 20:05 Ur Specific [place] 1.018 (1.003-1.030) 08/07/19 20:05 Urine Protein 100 mg/dl mg/dL (Negative) 08/07/19 20:05 Urine Glucose (UA) Neg mg/dL (Negative) 08/07/19 20:05 Urine Ketones Neg mg/dL (Negative) 08/07/19 20:05 Urine Blood Mod (Negative) 08/07/19 20:05 Urine Nitrite Neg (Negative) 08/07/19 20:05 Urine Bilirubin Neg (Negative) 08/07/19 20:05 Urine Urobilinogen 4.0 mg/dL (<2.0) 08/07/19 20:05 Ur Leukocyte Esterase Neg (Negative) 08/07/19 20:05 Urine WBC (Auto) 20.0 /HPF (0.0-6.0) H 08/07/19 20:05 Urine RBC (Auto) 18.0 /HPF (0.0-6.0) 08/07/19 20:05 U Epithel Cells (Auto) 2.0 /HPF (0-13.0) 08/07/19 20:05 Random Vancomycin 9.7 ug/mL (0-40.0) 08/11/19 04:24 Complement C3 206 mg/dL (82-185) H 08/08/19 16:13 Complement C4 46 mg/dL (15-53) 08/08/19 16:13 Hep Bs Antigen Non-reactive (Negative) 08/08/19 16:13 Hepatitis C Antibody Non-reactive (NonReactive) 08/08/19 16:13 Blood Type O POSITIVE 08/07/19 00:01 Antibody Screen Negative 08/07/19 00:01 Active Medications - Current Medications Current Medications: Generic Name Dose Route Start Last Admin Trade Name Freq PRN Reason Stop Dose Admin Acetaminophen 650 mg 08/07/19 23:29 08/11/19 06:38 Tylenol PO 650 mg Q4H PRN Administration Pain MILD(1-3)/Fever >100.5/MIRANDA Dextrose 0 ml 08/07/19 23:29 08/11/19 12:20 D50w (25gm) Syringe IV 20 ml Q30MIN PRN Administration Hypoglycemia Protocol Enoxaparin Sodium 40 mg 08/08/19 22:00 08/10/19 21:49 Enoxaparin SUB-Q 40 mg QDAY@2200 WILMER Administration Hydralazine HCl 20 mg 08/11/19 14:00 08/11/19 16:05 Apresoline IV 20 mg Q4HR WILMER Administration Cefepime HCl 1 gm in 100 mls @ 200 mls/hr 08/09/19 16:00 08/11/19 16:11 Cefepime/Ns 1 Gm/100 Ml IV 200 mls/hr Q12HR WILMER Administration Protocol Metronidazole 500 mg in 100 mls @ 100 mls/hr 08/09/19 16:00 08/11/19 08:05 Flagyl 500 Mg/100 Ml IV Infused Q8HR WILMER Infusion Protocol Potassium Chloride 20 meq/ 1,010 mls @ 84 mls/hr 08/11/19 10:45 Sodium Chloride IV DIRECT WILMER Insulin Human Lispro 0 unit 08/08/19 07:30 08/11/19 12:52 Humalog SUB-Q Not Given ACHS WILMER Protocol Morphine Sulfate 2 mg 08/07/19 23:29 08/08/19 01:48 Morphine IV 2 mg Q4H PRN Administration Pain, Moderate (4-6) Ondansetron HCl 4 mg 08/07/19 23:29 08/09/19 21:34 Zofran IV 4 mg Q8H PRN Administration Nausea And Vomiting Sodium Bicarbonate 1,300 mg 08/08/19 12:00 08/11/19 10:50 Sodium Bicarbonate PO Not Given BID WILMER Sodium Chloride 10 ml 08/08/19 10:00 08/11/19 12:48 Sodium Chloride Flush Syringe 10 Ml IV 10 ml BID WILMER Administration Sodium Chloride 10 ml 08/07/19 23:29 Sodium Chloride Flush Syringe 10 Ml IV PRN PRN LINE FLUSH Sodium Hypochlorite 1 applic 08/08/19 13:19 Dakin's Half Strength TP Q12H PRN Wound Care Nutrition/Malnutrition Assess - Dietary Evaluation Nutrition/Malnutrition Findings: Nutrition Notes Start: 08/09/19 11:5 9 Freq: Status: Active Protocol: Document 08/11/19 11:55 AP (Rec: 08/11/19 12:04 AP [id number]) Co-Sign 08/11/19 11:55 LP Nutrition Notes Need for Assessment generated from: MD Order,MST Initial or Follow up Reassessment Current Diagnosis Acute Kidney Injury,CKD(stage I-IV),Diabetes,Sepsis, Hypertension Other Pertinent Diagnosis GERD Current Diet NPO Labs/Tests K 2.9 BUN 31 Cr 1.9 Pertinent Medications zofran Height 5 ft 8 in Weight 80.3 kg [place] Body Weight (kg) 70.00 BMI 26.9 Intake Prior to Admission Good Weight Status Overweight Subjective/Other Information F/U for intakes. Pt currently NPO for LBKA. Burn Absent Trauma Absent GI Symptoms None Current % PO Negligible Minimum of two criteria No physical signs of malnutrition #2 Nutrition Diagnosis Increased nutrient needs ( specify in comment below) Diagnosis Progress(for reassessment Continues documentation) #1 Nutrition Diagnosis Limited adherence to nutrition -related recommendations Diagnosis Progress(for reassessment Continues documentation) Is patient on ventilator? No Is Patient Ambulatory and/or Out of Bed Yes REE-([place]-. or-ambulatory/OOB) [ [id number] [id number]] Calculation Used for Recommendations [facility] Additional Notes PRO needs: 63-99 g/day (0.8-1. 25g) CKD/Wound healing Fluid needs: 1ml/kcal or per MD Nutrition Intervention Change Diet Order: Advance diet when medically feasible Goal #1 Diet advancement Goal #2 wound healing Anticipated Discharge Needs: Renal/CC diet Follow-Up By: 08/12/19 Additional Comments F/U for diet advancement
--- NOTE | 2019-08-11 16:28 | Event Note ---
Date: 08/11/19 Surgeon evaluated the patient, Patient is not stable for surgical procedure And re scheduled Lt.BKA for Thursday08/16/19
[2019-08-11] MEDS: PANTOPRAZOLE 40 MG TAB PO SCH (20:51)
[2019-08-11] MEDS: SODIUM CHLORIDE 0.9% 1000 ML 1,000 ML with POTASSIUM CHLORIDE 20 MEQ IV SCH (22:15)
[2019-08-11] MEDS: hydrALAZINE 25 MG TAB PO SCH (22:17)
[2019-08-11] MEDS: ENOXAPARIN 40 MG/0.4 ML INJ SUB-Q SCH (22:18)
[2019-08-12] MEDS: ACETAMINOPHEN 325 MG TAB PO PRN ×3 (00:58→18:52)
[2019-08-12 05:08] LABS: Hemoglobin 8.3 gm/dl (11.8-15.2); Mean Corpuscular HGB Conc 33 % (32-34); Mean Corpuscular Volume 83 fl (84-94); Platelet Count 352 K/mm3 (140-440); Red Blood Count 3.03 M/mm3 (3.65-5.03); Red Cell Distribution Width 14.2 % (13.2-15.2)
[2019-08-12 05:32] LABS: Calcium 7.6 mg/dL (8.4-10.2)
[2019-08-12] MEDS: hydrALAZINE 25 MG TAB PO SCH ×3 (05:37→21:55)
[2019-08-12] MEDS: metroNIDAZOLE/NS 500 MG/100 ML 500 MG/100 ML BAG IV SCH ×3 (05:37→21:55)
[2019-08-12 06:28] LABS: Basophils % (Manual) 0 % (0.0-1.8); Total Cells Counted 100
[2019-08-12 06:29] LABS: Platelet Estimate Consistent w Auto; Schistocytes Rare
[2019-08-12] MEDS: INSULIN LISPRO 100 UNIT/ML SUB-Q SCH ×4 (08:55→22:05)
[2019-08-12] MEDS ORDERED: MAGNESIUM SULFATE 3 GM in SODIUM CHLORIDE 0.9% 100 ML IV ONE (09:30)
[2019-08-12] MEDS ORDERED: VANCOMYCIN 1,250 MG in SODIUM CHLORIDE 0.9% 250ML 250 ML IV SCH (10:00)
[2019-08-12] MEDS: SODIUM BICARBONATE 650 MG TAB PO SCH ×2 (10:22→21:54)
[2019-08-12] MEDS: CEFEPIME/NS 1 GM/100 ML 1 GM/100 ML BAG IV SCH (10:23)
[2019-08-12] MEDS: PANTOPRAZOLE 40 MG TAB PO SCH (10:23)
--- NOTE | 2019-08-12 11:05 | Progress Note ---
Assessment and Plan Impression: * DULCE on likely CKD due to HTN/DM * DM foot ulcer * acidosis * sepsis * hypokalemia * Pyuria * Microscopic hematuria * HTN * metabolic acidosis * TYpe 2 DM Plan: * agree with ivfs * cr is stable at this time * will need to increase kcl, hold iv bicarb until k corrected * appears septic with worsening acidosis, likely related to inf and ischemia * vascular intervention noted, iv contrast exposure noted * plans for bka noted * vasculitis workup with hematuria * iv abx per primary team, follow up vanco levels * daily lytes * strict i/os * renal us with pvr noted * 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 Absent: nystagmus - ENT ENT exam: Present: normal exam, mucous membranes dry, normal external ear exam - Neck Neck exam: Present: normal inspection, full ROM. Absent: tenderness, meningismus - Respiratory Respiratory exam: Present: normal lung sounds bilaterally. Absent: respiratory distress - Cardiovascular Cardiovascular Exam: Present: normal rhythm, tachycardia, normal heart sounds. Absent: systolic murmur, diastolic murmur, rubs, gallop - GI/Abdominal GI/Abdominal exam: Present: soft. Absent: distended, tenderness, guarding, rebound, rigid, pulsatile mass - Rectal Rectal exam: Present: deferred - Extremities Exam Extremities exam: Present: other (2+ pulses noted in the bilateral upper extremities. The right lower extremity is warm and well perfused. Pulses are difficult to appreciate. There is right lower extremity edema. The left lower extremity, there is edema. The left lateral aspect of the foot has cavernous lesion with what appears to be wet gangrene. Macerated tissue is noted. Uncertain of crepitus is present. Pulses are difficult to appreciate. Sensation is intact to pinch and light touch. There is no sniffing and pain with passive motion of the great toe. The left anterior distal tibial region is tender.). Absent: normal inspection - Back Exam Back exam: Present: normal inspection. Absent: tenderness, CVA tenderness (R), CVA tenderness (L), paraspinal tenderness, vertebral tenderness - Neurological Exam Neurological exam: Present: alert, other (there is no facial droop. Tongue is midline. Extraocular movements are intact bilaterally. Walking with a steady gait. Speaking in full sentences. Normal appropriate thought content. 5 out of 5 strength in 4 extremities. Sensation is intact to light touch in 4 extremities.) - Psychiatric Psychiatric exam: Present: anxious - Skin Skin exam: Present: warm, erythema - Vital Signs Vital signs: Vital Signs - 12hr 08/12/19 08/12/19 08/12/19 00:06 03:39 05:38 Temperature 100.3 F H 101.2 F H 99.4 F Pulse Rate 113 H 97 H Respiratory 18 20 Rate Blood Pressure 125/78 110/69 O2 Sat by Pulse 99 97 Oximetry 08/12/19 08/12/19 07:38 08:49 Temperature 99.8 F H Pulse Rate 101 H 97 H Respiratory 18 Rate Blood Pressure 117/77 O2 Sat by Pulse 98 Oximetry - Lab 08/12/19 04:03 08/12/19 04:03 Most recent lab results Calcium 7.6 mg/dL (8.4-10.2) L 08/12/19 04:03 Magnesium 1.40 mg/dL (1.7-2.3) L 08/12/19 04:03 Medications & Allergies - Medications Allergies/Adverse Reactions: Allergies No Known Allergies Allergy (Verified 05/26/13 04:48) Home Medications: Home Medications Medication Instructions Recorded Confirmed Last Taken Type NovoLIN N 30 unit SUB-Q BID 08/07/19 08/07/19 Unknown History Novolin R 12 unit SUB-Q BID 08/07/19 08/07/19 Unknown History Active Medications: Generic Name Dose Route Start Last Admin Trade Name Freq PRN Reason Stop Dose Admin Acetaminophen 650 mg 08/07/19 23:29 08/12/19 10:22 Tylenol PO 650 mg Q4H PRN Administration Pain MILD(1-3)/Fever >100.5/MIRANDA Chlorpromazine HCl 10 mg 08/11/19 16:34 08/11/19 22:16 Thorazine PO 10 mg Q4H PRN Administration Hiccups Dextrose 0 ml 08/07/19 23:29 08/11/19 12:20 D50w (25gm) Syringe IV 20 ml Q30MIN PRN Administration Hypoglycemia Protocol Enoxaparin Sodium 40 mg 08/08/19 22:00 08/11/19 22:18 Enoxaparin SUB-Q 40 mg QDAY@2200 WILMER Administration Hydralazine HCl 25 mg 08/11/19 22:00 08/12/19 05:37 Apresoline PO 25 mg Q8HR WILMER Administration Hydralazine HCl 20 mg 08/11/19 16:31 Apresoline IV Q4HR PRN Hypertension Cefepime HCl 1 gm in 100 mls @ 200 mls/hr 08/09/19 16:00 08/12/19 10:23 Cefepime/Ns 1 Gm/100 Ml IV 200 mls/hr Q12HR WILMER Administration Protocol Metronidazole 500 mg in 100 mls @ 100 mls/hr 08/09/19 16:00 08/12/19 05:37 Flagyl 500 Mg/100 Ml IV 100 mls/hr Q8HR WILMER Administration Protocol Potassium Chloride 20 meq/ 1,010 mls @ 84 mls/hr 08/11/19 10:45 08/11/19 22:15 Sodium Chloride IV 84 mls/hr DIRECT WILMER Administration Vancomycin HCl 1,250 mg/ 275 mls @ 166.667 mls/hr 08/12/19 10:00 Sodium Chloride IV Q24HR WILMER Magnesium Sulfate 3 gm/ Sodium 106 mls @ 35.333 mls/hr 08/12/19 09:30 08/12/19 10:31 Chloride IV 08/12/19 12:29 35.333 mls/hr ONCE ONE Administration Insulin Human Lispro 0 unit 08/08/19 07:30 08/12/19 08:55 Humalog SUB-Q Not Given ACHS [facility] Protocol Morphine Sulfate 2 mg 08/07/19 23:29 08/08/19 01:48 Morphine IV 2 mg Q4H PRN Administration Pain, Moderate (4-6) Ondansetron HCl 4 mg 08/07/19 23:29 08/09/19 21:34 Zofran IV 4 mg Q8H PRN Administration Nausea And Vomiting Pantoprazole Sodium 40 mg 08/11/19 20:00 08/12/19 10:23 Protonix PO 40 mg QDAY WILMER Administration Sodium Bicarbonate 1,300 mg 08/08/19 12:00 08/12/19 10:22 Sodium Bicarbonate PO 1,300 mg BID WILMER Administration Sodium Chloride 10 ml 08/08/19 10:00 08/11/19 21:01 Sodium Chloride Flush Syringe 10 Ml IV 10 ml BID WILMER Administration Sodium Chloride 10 ml 08/07/19 23:29 Sodium Chloride Flush Syringe 10 Ml IV PRN PRN LINE FLUSH Sodium Hypochlorite 1 applic 08/08/19 13:19 Dakin's Half Strength TP Q12H PRN Wound Care
[2019-08-12] MEDS ORDERED: POTASSIUM CHLORIDE 10 MEQ 10 MEQ/100 ML BAG IV SCH (12:00)
--- NOTE | 2019-08-12 14:31 | Progress Note ---
Assessment and Plan Cultures: 08/07/2019 urine culture: no growth 08/07/2019 blood culture: Streptococcus anginosus 08/08/2019 surgical culture: in process, no growth thus far 08/11/2019 blood culture: in process A/P: 43-year-old male with longstanding diabetes mellitus admitted with: #Sepsis, leukemoid reaction, secondary to left foot necrotic wound and underlying osteomyelitis: s/p debridement of soft tissue. #Streptococcus anginosus bacteremia: secondary to above. TTE unremarkable for vegetations. Follow up repeat cultures. #Diabetes mellitus type 2, uncontrolled #Peripheral vascular disease: vascular following. #DULCE on CKD Recs: discontinued Cefepime and Vancomycin started IV Ceftriaxone 2 gm daily continue Flagyl awaiting amputation, plan to d/c Flagyl post amputation. Continue Ceftriaxone to complete total 14 days Moustapha Caicedo MD, FACP [facility] C: [phone] O: [phone] F: [phone] Subjective Date of service: 08/12/19 Principal diagnosis: pvd Interval history: Remains febrile. No new complaints. Objective - Exam Narrative Exam: Physical Exam: Constitutional: Alert, cooperative. No acute distress Head, Ears, Nose: Normocephalic, atraumatic. External ears, nose normal Eyes: Conjunctivae/corneas clear. No icterus. No ptosis. Cardiovascular: S1, S2 normal Respiratory: Good air entry, clear to auscultation bilaterally GI: Soft, non-tender; bowel sounds normal. No peritoneal signs Musculoskeletal: left leg with swelling, foul smell, dressing +. Skin: No rash or abscess Hem/Lymphatic: No palpable cervical or supraclavicular nodes. No lymphangitis. Psych: Mood ok. Affect normal Neurological: Awake, alert, oriented. No gross abnormality - Constitutional Vitals: Vital Signs Temp Pulse Resp BP Pulse Ox 97.6 F 99 H 18 110/66 96 08/12/19 11:59 08/12/19 11:59 08/12/19 11:59 08/12/19 11:59 08/12/19 11:59 Temperature -Last 24 Hours Temperature 97.6 F Temperature 99.8 F Temperature 99.4 F Temperature 101.2 F Temperature 100.3 F Temperature 99.6 F Temperature 102.2 F - Labs CBC & Chem 7: 08/12/19 04:03 08/12/19 04:03 Labs: Abnormal lab results 08/11/19 08/11/19 08/12/19 Range/Units 13:33 15:51 04:03 WBC 22.1 H (4.5-11.0) K/mm3 RBC 3.03 L (3.65-5.03) M/mm3 Hgb 8.3 L (11.8-15.2) gm/dl Hct 25.0 L (35.5-45.6) % MCV 83 L (84-94) fl MCH 27 L (28-32) pg Seg Neuts % (Manual) 82.0 H (40.0-70.0) % Lymphocytes % (Manual) 7.0 L (13.4-35.0) % Seg Neutrophils # Man 18.1 H (1.8-7.7) K/mm3 Monocytes # (Manual) 1.5 H (0.0-0.8) K/mm3 Sodium (137-145) mmol/L Potassium 3.4 L (3.6-5.0) mmol/L Carbon Dioxide (22-30) mmol/L BUN (9-20) mg/dL Creatinine (0.8-1.5) mg/dL Glucose (75-100) mg/dL POC Glucose 176 H (70-105) Calcium (8.4-10.2) mg/dL Magnesium (1.7-2.3) mg/dL 08/12/19 Range/Units 04:03 WBC (4.5-11.0) K/mm3 RBC (3.65-5.03) M/mm3 Hgb (11.8-15.2) gm/dl Hct (35.5-45.6) % MCV (84-94) fl MCH (28-32) pg Seg Neuts % (Manual) (40.0-70.0) % Lymphocytes % (Manual) (13.4-35.0) % Seg Neutrophils # Man (1.8-7.7) K/mm3 Monocytes # (Manual) (0.0-0.8) K/mm3 Sodium 134 L (137-145) mmol/L Potassium 3.2 L (3.6-5.0) mmol/L Carbon Dioxide 15 L (22-30) mmol/L BUN 28 H (9-20) mg/dL Creatinine 1.9 H (0.8-1.5) mg/dL Glucose 117 H (75-100) mg/dL POC Glucose (70-105) Calcium 7.6 L (8.4-10.2) mg/dL Magnesium 1.40 L (1.7-2.3) mg/dL
--- NOTE | 2019-08-12 15:55 | Progress Note ---
Assessment and Plan Assessment and plan: --Mild hypoglycemia; resolved Accu-Chek sliding scale coverage ADA diet Avoid hypoglycemia, D50 as needed Long-acting insulin --Hypokalemia; replenished per protocol Oral KCl and monitor the electrolytes --Hypomagnesemia; Will manage with IV Magnesium sulfate, monitor electrolytes --Cellulitis/osteomyelitis left lower extremity/sepsis Status post surgical debridement, vascular evaluated, IV Vanco cefepime DC'd by ID, continue Flagyl ID started Rocephin 2 g daily, total 14 days TTE, no vegitations, wound care, surgery following BKA is scheduled for Thursday08/16/19 --Peripheral arterial disease; Vascular following, continue current management --Leukocytosis; secondary to sepsis due to osteomyelitis --Type 2 diabetes mellitus; uncontrolled Secondary to sepsis, Accu-Chek sliding scale coverage ADA diet Adjust insulin dose as needed. A1c 9.6 Diabetic education, nutrition consult --Acute on chronic kidney disease stage III; Vasomotor nephropathy, closely monitor renal function Avoid nephrotoxins, nephrology following --Severe malnutrition; nutrition supplements Nutrition consult, supportive care --DVT prophylaxis; Lovenox Monitor closely and adjust management as needed Consults and recommendations noted and appreciated Left BKA on Thursday08/16/19 Plan of care reviewed with the patient and his nurse History Interval history: Patient examined exam and medical records reviewed Patient with diabetic foot, osteomyelitis, on multiple antibiotics Schedule for DKA on 08/16/19 Patient complains of some pain Febrile MAXIMUM TEMPERATURE 101.2F Vital Signs reviewed Hospitalist Physical - Constitutional Vitals: Temp Pulse Resp BP Pulse Ox 97.6 F 95 H 18 108/61 96 08/12/19 11:59 08/12/19 14:39 08/12/19 11:59 08/12/19 14:39 08/12/19 11:59 General appearance: Present: no acute distress, well-nourished, other (febrile) - EENT Eyes: Present: PERRL, EOM intact - Neck Neck: Present: supple, normal ROM - Respiratory Respiratory effort: normal Respiratory: bilateral: diminished, negative: rales, rhonchi, wheezing - Cardiovascular Rhythm: regular Heart Sounds: Present: S1 & S2 - Extremities Extremities: abnormal (left foot osteomyelitis swelling) - Abdominal General gastrointestinal: soft, non-tender, non-distended, normal bowel sounds - Integumentary Integumentary: Present: clear, warm - Psychiatric Psychiatric: appropriate mood/affect, cooperative - Neurologic Neurologic: moves all extremities Results - Labs CBC & Chem 7: 08/12/19 04:03 08/12/19 04:03 Labs: Laboratory Last Values WBC 22.1 K/mm3 (4.5-11.0) H 08/12/19 04:03 RBC 3.03 M/mm3 (3.65-5.03) L 08/12/19 04:03 Hgb 8.3 gm/dl (11.8-15.2) L 08/12/19 04:03 Hct 25.0 % (35.5-45.6) L 08/12/19 04:03 MCV 83 fl (84-94) L 08/12/19 04:03 MCH 27 pg (28-32) L 08/12/19 04:03 MCHC 33 % (32-34) 08/12/19 04:03 RDW 14.2 % (13.2-15.2) 08/12/19 04:03 Plt Count 352 K/mm3 (140-440) 08/12/19 04:03 Lymph % (Auto) 7.1 % (13.4-35.0) L 08/09/19 04:09 [place] % (Auto) 6.4 % (0.0-7.3) 08/09/19 04:09 Eos % (Auto) 0.6 % (0.0-4.3) 08/09/19 04:09 Baso % (Auto) 0.7 % (0.0-1.8) 08/09/19 04:09 Lymph # 1.2 K/mm3 (1.2-5.4) 08/09/19 04:09 [place] # 1.1 K/mm3 (0.0-0.8) H 08/09/19 04:09 Eos # 0.1 K/mm3 (0.0-0.4) 08/09/19 04:09 Baso # 0.1 K/mm3 (0.0-0.1) 08/09/19 04:09 Add Manual Diff Complete 08/12/19 04:03 Total Counted 100 08/12/19 04:03 Seg Neutrophils % 85.2 % (40.0-70.0) H 08/09/19 04:09 Seg Neuts % (Manual) 82.0 % (40.0-70.0) H 08/12/19 04:03 Band Neutrophils % 0 % 08/12/19 04:03 Lymphocytes % (Manual) 7.0 % (13.4-35.0) L 08/12/19 04:03 Reactive Lymphs % (Man) 0 % 08/12/19 04:03 Monocytes % (Manual) 7.0 % (0.0-7.3) 08/12/19 04:03 Eosinophils % (Manual) 2.0 % (0.0-4.3) 08/12/19 04:03 Basophils % (Manual) 0 % (0.0-1.8) 08/12/19 04:03 Metamyelocytes % 2.0 % 08/12/19 04:03 Myelocytes % 0 % 08/12/19 04:03 Promyelocytes % 0 % 08/12/19 04:03 Blast Cells % 0 % 08/12/19 04:03 Nucleated RBC % Not Reportable 08/12/19 04:03 Seg Neutrophils # 14.8 K/mm3 (1.8-7.7) H 08/09/19 04:09 Seg Neutrophils # Man 18.1 K/mm3 (1.8-7.7) H 08/12/19 04:03 Band Neutrophils # 0.0 K/mm3 08/12/19 04:03 Lymphocytes # (Manual) 1.5 K/mm3 (1.2-5.4) 08/12/19 04:03 Abs React Lymphs (Man) 0.0 K/mm3 08/12/19 04:03 Monocytes # (Manual) 1.5 K/mm3 (0.0-0.8) H 08/12/19 04:03 Eosinophils # (Manual) 0.4 K/mm3 (0.0-0.4) 08/12/19 04:03 Basophils # (Manual) 0.0 K/mm3 (0.0-0.1) 08/12/19 04:03 Metamyelocytes # 0.4 K/mm3 08/12/19 04:03 Myelocytes # 0.0 K/mm3 08/12/19 04:03 Promyelocytes # 0.0 K/mm3 08/12/19 04:03 Blast Cells # 0.0 K/mm3 08/12/19 04:03 WBC Morphology Not Reportable 08/12/19 04:03 Hypersegmented Neuts Not Reportable 08/12/19 04:03 Hyposegmented Neuts Not Reportable 08/12/19 04:03 Hypogranular Neuts Not Reportable 08/12/19 04:03 Smudge Cells Not Reportable 08/12/19 04:03 Toxic Granulation Not Reportable 08/12/19 04:03 Toxic Vacuolation Not Reportable 08/12/19 04:03 Dohle Bodies Not Reportable 08/12/19 04:03 Pelger-Huet Anomaly Not Reportable 08/12/19 04:03 Arlene Rods Not Reportable 08/12/19 04:03 Platelet Estimate Consistent w auto 08/12/19 04:03 Clumped Platelets Not Reportable 08/12/19 04:03 Plt Clumps, EDTA Not Reportable 08/12/19 04:03 Large Platelets Not Reportable 08/12/19 04:03 Giant Platelets Not Reportable 08/12/19 04:03 Platelet Satelliting Not Reportable 08/12/19 04:03 Plt Morphology Comment Not Reportable 08/12/19 04:03 RBC Morphology Not Reportable 08/12/19 04:03 Dimorphic RBCs Not Reportable 08/12/19 04:03 Polychromasia Not Reportable 08/12/19 04:03 Hypochromasia Not Reportable 08/12/19 04:03 Poikilocytosis Not Reportable 08/12/19 04:03 Anisocytosis Not Reportable 08/12/19 04:03 Microcytosis Not Reportable 08/12/19 04:03 Macrocytosis Not Reportable 08/12/19 04:03 Spherocytes Not Reportable 08/12/19 04:03 Pappenheimer Bodies Not Reportable 08/12/19 04:03 Sickle Cells Not Reportable 08/12/19 04:03 Target Cells Not Reportable 08/12/19 04:03 Tear Drop Cells Not Reportable 08/12/19 04:03 Ovalocytes Not Reportable 08/12/19 04:03 Helmet Cells Not Reportable 08/12/19 04:03 Del Valle-Towson Bodies Not Reportable 08/12/19 04:03 [place] Rings Not Reportable 08/12/19 04:03 Negra Cells Not Reportable 08/12/19 04:03 Bite Cells Not Reportable 08/12/19 04:03 Crenated Cell Not Reportable 08/12/19 04:03 Elliptocytes Not Reportable 08/12/19 04:03 Acanthocytes (Spur) Not Reportable 08/12/19 04:03 Rouleaux Not Reportable 08/12/19 04:03 Hemoglobin C Crystals Not Reportable 08/12/19 04:03 Schistocytes Rare 08/12/19 04:03 Malaria parasites Not Reportable 08/12/19 04:03 Ramos Bodies Not Reportable 08/12/19 04:03 Hem Pathologist Commnt No 08/12/19 04:03 PT 17.7 Sec. (12.2-14.9) H 08/08/19 06:59 INR 1.43 (0.87-1.13) H 08/08/19 06:59 APTT 43.4 Sec. (24.2-36.6) H 08/08/19 06:59 Sodium 134 mmol/L (137-145) L 08/12/19 04:03 Potassium 3.2 mmol/L (3.6-5.0) L 08/12/19 04:03 Chloride 104.5 mmol/L (98-107) 08/12/19 04:03 Carbon Dioxide 15 mmol/L (22-30) L 08/12/19 04:03 Anion Gap 18 mmol/L 08/12/19 04:03 BUN 28 mg/dL (9-20) H 08/12/19 04:03 Creatinine 1.9 mg/dL (0.8-1.5) H 08/12/19 04:03 Estimated GFR 47 ml/min 08/12/19 04:03 BUN/Creatinine Ratio 15 % 08/12/19 04:03 Glucose 117 mg/dL (75-100) H 08/12/19 04:03 POC Glucose 183 (70-105) H 08/12/19 12:07 Hemoglobin A1c 9.6 % (4-6) H 08/07/19 23:54 Lactic Acid 2.70 mmol/L (0.7-2.0) H* 08/07/19 22:48 Calcium 7.6 mg/dL (8.4-10.2) L 08/12/19 04:03 Magnesium 1.40 mg/dL (1.7-2.3) L 08/12/19 04:03 Total Bilirubin 0.60 mg/dL (0.1-1.2) 08/07/19 21:45 Direct Bilirubin 0.4 mg/dL (0-0.2) H 08/07/19 21:45 Indirect Bilirubin 0.2 mg/dL 08/07/19 21:45 AST 21 units/L (5-40) 08/07/19 21:45 ALT 16 units/L (7-56) 08/07/19 21:45 Alkaline Phosphatase 128 units/L (35-129) 08/07/19 21:45 Total Creatine Kinase 38 units/L (55-170) L 08/07/19 21:45 Total Protein 6.2 g/dL (6.3-8.2) L 08/07/19 21:45 Albumin 2.5 g/dL (3.9-5) L 08/07/19 21:45 Albumin/Globulin Ratio 0.7 % 08/07/19 21:45 Prealbumin 0.030 g/L (0.200-0.400) L 08/08/19 06:59 Urine Color [place] (Yellow) 08/07/19 20:05 Urine Turbidity Slightly cloudy (Clear) 08/07/19 20:05 Urine pH 5.0 (5.0-7.0) 08/07/19 20:05 Ur Specific [place] 1.018 (1.003-1.030) 08/07/19 20:05 Urine Protein 100 mg/dl mg/dL (Negative) 08/07/19 20:05 Urine Glucose (UA) Neg mg/dL (Negative) 08/07/19 20:05 Urine Ketones Neg mg/dL (Negative) 08/07/19 20:05 Urine Blood Mod (Negative) 08/07/19 20:05 Urine Nitrite Neg (Negative) 08/07/19 20:05 Urine Bilirubin Neg (Negative) 08/07/19 20:05 Urine Urobilinogen 4.0 mg/dL (<2.0) 08/07/19 20:05 Ur Leukocyte Esterase Neg (Negative) 08/07/19 20:05 Urine WBC (Auto) 20.0 /HPF (0.0-6.0) H 08/07/19 20:05 Urine RBC (Auto) 18.0 /HPF (0.0-6.0) 08/07/19 20:05 U Epithel Cells (Auto) 2.0 /HPF (0-13.0) 08/07/19 20:05 Random Vancomycin 9.7 ug/mL (0-40.0) 08/11/19 04:24 Complement C3 206 mg/dL (82-185) H 08/08/19 16:13 Complement C4 46 mg/dL (15-53) 08/08/19 16:13 Hep Bs Antigen Non-reactive (Negative) 08/08/19 16:13 Hepatitis C Antibody Non-reactive (NonReactive) 08/08/19 16:13 Blood Type O POSITIVE 08/07/19 00:01 Antibody Screen Negative 08/07/19 00:01 Active Medications - Current Medications Current Medications: Generic Name Dose Route Start Last Admin Trade Name Freq PRN Reason Stop Dose Admin Acetaminophen 650 mg 08/07/19 23:29 08/12/19 10:22 Tylenol PO 650 mg Q4H PRN Administration Pain MILD(1-3)/Fever >100.5/MIRANDA Chlorpromazine HCl 10 mg 08/11/19 16:34 08/11/19 22:16 Thorazine PO 10 mg Q4H PRN Administration Hiccups Dextrose 0 ml 08/07/19 23:29 08/11/19 12:20 D50w (25gm) Syringe IV 20 ml Q30MIN PRN Administration Hypoglycemia Protocol Enoxaparin Sodium 40 mg 08/08/19 22:00 08/11/19 22:18 Enoxaparin SUB-Q 40 mg QDAY@2200 WILMER Administration Hydralazine HCl 25 mg 08/11/19 22:00 08/12/19 14:39 Apresoline PO 25 mg Q8HR WILMER Administration Hydralazine HCl 20 mg 08/11/19 16:31 Apresoline IV Q4HR PRN Hypertension Metronidazole 500 mg in 100 mls @ 100 mls/hr 08/09/19 16:00 08/12/19 15:28 Flagyl 500 Mg/100 Ml IV 100 mls/hr Q8HR WILMER Administration Protocol Potassium Chloride 20 meq/ 1,010 mls @ 84 mls/hr 08/11/19 10:45 08/11/19 22:15 Sodium Chloride IV 84 mls/hr DIRECT WILMER Administration Potassium Chloride 10 meq in 100 mls @ 100 mls/hr 08/12/19 15:00 Kcl 10meq/100ml IV 08/12/19 16:59 Q1H WILMER Ceftriaxone Sodium 2 gm in 100 mls @ 200 mls/hr 08/12/19 15:00 Rocephin/Ns 2 Gm/100 Ml IV Q24HR WILMER Protocol Insulin Human Lispro 0 unit 08/08/19 07:30 08/12/19 12:58 Humalog SUB-Q 2 unit ACHS WILMER Administration Protocol Morphine Sulfate 2 mg 08/07/19 23:29 08/08/19 01:48 Morphine IV 2 mg Q4H PRN Administration Pain, Moderate (4-6) Ondansetron HCl 4 mg 08/07/19 23:29 08/09/19 21:34 Zofran IV 4 mg Q8H PRN Administration Nausea And Vomiting Pantoprazole Sodium 40 mg 08/11/19 20:00 08/12/19 10:23 Protonix PO 40 mg QDAY WILMER Administration Sodium Bicarbonate 1,300 mg 08/08/19 12:00 08/12/19 10:22 Sodium Bicarbonate PO 1,300 mg BID WILMER Administration Sodium Chloride 10 ml 08/08/19 10:00 08/12/19 11:09 Sodium Chloride Flush Syringe 10 Ml IV 10 ml BID WILMER Administration Sodium Chloride 10 ml 08/07/19 23:29 Sodium Chloride Flush Syringe 10 Ml IV PRN PRN LINE FLUSH Sodium Hypochlorite 1 applic 08/08/19 13:19 Dakin's Half Strength TP Q12H PRN Wound Care Nutrition/Malnutrition Assess - Dietary Evaluation Nutrition/Malnutrition Findings: Nutrition Notes Start: 08/09/19 11:59 Freq: Status: Active Protocol: Document 08/12/19 12:34 AP (Rec: 08/12/19 12:42 AP [id number]) Co-Sign 08/12/19 12:34 LP Nutrition Notes Initial or Follow up Reassessment Current Diagnosis Acute Kidney Injury,CKD(stage I-IV),Diabetes,Sepsis, Hypertension Other Pertinent Diagnosis GERD Current Diet Cardiac/CC Labs/Tests Na 134 Cr 1.9 BUN 28 Pertinent Medications Reviewed Height 5 ft 8 in Weight 85.3 kg [place] Body Weight (kg) 70.00 BMI 28.5 Intake Prior to Admission Good Weight change and time frame Wt change noted. Noted slight edema in leg in pt chart. Weight Status Overweight Subjective/Other Information F/U for intakes. Pt ate 50% of dinner and 50% bfast. Noted pt did not drink glucerna, asked for a different flavor. Percent of energy/protein needs met: 47%/53% Burn Absent Trauma Absent GI Symptoms None Current % PO Fair (50-74%) Minimum of two criteria No physical signs of malnutrition #2 Nutrition Diagnosis Increased nutrient needs ( specify in comment below) Diagnosis Progress(for reassessment Continues documentation) #1 Nutrition Diagnosis Limited adherence to nutrition -related recommendations Diagnosis Progress(for reassessment Continues documentation) Is patient on ventilator? No Is Patient Ambulatory and/or Out of Bed Yes REE-(Wilkinson-St. Jeor-ambulatory/OOB) [ 2226.250 [id number]] [facility] Additional Notes PRO needs: 63-99 g/day (0.8-1. 25g) CKD/Wound healing Fluid needs: 1ml/kcal or per MD Nutrition Intervention Change Diet Order: Continue cardiac/cc. Add Supplement/Snack (indicate name/kcal Glucerna chocolate once a day /protein ) Provides kCal: 220 Provides Protein (gm) 10 Goal #1 Pt meet >80% of kcal/PRO needs via PO/ONS. Goal #2 wound healing Anticipated Discharge Needs: Cardiac/CC Follow-Up By: 08/17/19 Additional Comments F/U for stable PO/ONS intakes.
[2019-08-12] MEDS: cefTRIAXone/NS 2 GM/100 ML 2 GM/100 ML BAG IV SCH (17:04)
[2019-08-12] MEDS: POTASSIUM CHLORIDE 10 MEQ 10 MEQ/100 ML BAG IV SCH ×2 (18:06→18:53)
[2019-08-12] MEDS: ENOXAPARIN 40 MG/0.4 ML INJ SUB-Q SCH (21:55)
[2019-08-13] MEDS: SODIUM CHLORIDE 0.9% 1000 ML 1,000 ML with POTASSIUM CHLORIDE 20 MEQ IV SCH (00:23)
[2019-08-13 05:17] LABS: Calcium 7.5 mg/dL (8.4-10.2)
[2019-08-13] MEDS: ACETAMINOPHEN 325 MG TAB PO PRN ×2 (05:22→21:42)
[2019-08-13] MEDS: hydrALAZINE 25 MG TAB PO SCH ×3 (05:22→21:42)
[2019-08-13] MEDS: metroNIDAZOLE/NS 500 MG/100 ML 500 MG/100 ML BAG IV SCH ×3 (05:23→21:42)
[2019-08-13] MEDS: INSULIN LISPRO 100 UNIT/ML SUB-Q SCH ×4 (08:02→21:49)
[2019-08-13] MEDS ORDERED: POTASSIUM CHLORIDE ER 10 MEQ TAB PO ONE (08:11)
--- NOTE | 2019-08-13 08:13 | Progress Note ---
Assessment and Plan Assessment and plan: --Cellulitis/osteomyelitis left lower extremity/sepsis Status post surgical debridement, vascular evaluated, IV Vanco cefepime DC'd by ID, continue Flagyl ID started Rocephin 2 g daily, total 14 days TTE, no vegitations, wound care, surgery following BKA is scheduled for Thursday08/16/19 --Hypokalemia; replenished per protocol Oral KCl and monitor the electrolytes --Hypomagnesemia; Will manage with IV Magnesium sulfate, monitor electrolytes --Peripheral arterial disease; Vascular following, continue current management --Leukocytosis; secondary to sepsis due to osteomyelitis --Type 2 diabetes mellitus; uncontrolled Secondary to sepsis, Accu-Chek sliding scale coverage ADA diet Novolin 70/30 insulin 8 units twice a day A1c 9.6 Diabetic education, nutrition consult --Acute on chronic kidney disease stage III; Vasomotor nephropathy, closely monitor renal function Avoid nephrotoxins, nephrology following --Severe malnutrition; nutrition supplements Nutrition consult, supportive care --DVT prophylaxis; Lovenox Monitor closely and adjust management as needed Consults and recommendations noted and appreciated Left BKA on Thursday08/16/19 Plan of care reviewed with the patient and his nurse History Interval history: Patient seen and examined medical records reviewed Patient has persistent fevers, on IV antibiotics, ID following Tolerating BKA on Thursday08/16/2019 Vital signs noted Hospitalist Physical - Constitutional Vitals: Temp Pulse Resp BP Pulse Ox 97.8 F 95 H 18 137/80 96 08/13/19 08:10 08/13/19 08:10 08/13/19 08:10 08/13/19 08:10 08/13/19 08:10 General appearance: Present: no acute distress, well-nourished, other (febrile) - EENT Eyes: Present: PERRL, EOM intact - Neck Neck: Present: supple, normal ROM - Respiratory Respiratory effort: normal Respiratory: bilateral: diminished, negative: rales, rhonchi, wheezing - Cardiovascular Rhythm: regular Heart Sounds: Present: S1 & S2 - Extremities Extremities: no ischemia, Full ROM (foot dressing in place) - Abdominal General gastrointestinal: soft, non-tender, non-distended - Integumentary Integumentary: Present: clear, warm - Psychiatric Psychiatric: appropriate mood/affect, cooperative - Neurologic Neurologic: CNII-XII intact, moves all extremities Results - Labs CBC & Chem 7: 08/12/19 04:03 08/13/19 04:36 Labs: Laboratory Last Values WBC 22.1 K/mm3 (4.5-11.0) H 08/12/19 04:03 RBC 3.03 M/mm3 (3.65-5.03) L 08/12/19 04:03 Hgb 8.3 gm/dl (11.8-15.2) L 08/12/19 04:03 Hct 25.0 % (35.5-45.6) L 08/12/19 04:03 MCV 83 fl (84-94) L 08/12/19 04:03 MCH 27 pg (28-32) L 08/12/19 04:03 MCHC 33 % (32-34) 08/12/19 04:03 RDW 14.2 % (13.2-15.2) 08/12/19 04:03 Plt Count 352 K/mm3 (140-440) 08/12/19 04:03 Lymph % (Auto) 7.1 % (13.4-35.0) L 08/09/19 04:09 [place] % (Auto) 6.4 % (0.0-7.3) 08/09/19 04:09 Eos % (Auto) 0.6 % (0.0-4.3) 08/09/19 04:09 Baso % (Auto) 0.7 % (0.0-1.8) 08/09/19 04:09 Lymph # 1.2 K/mm3 (1.2-5.4) 08/09/19 04:09 [place] # 1.1 K/mm3 (0.0-0.8) H 08/09/19 04:09 Eos # 0.1 K/mm3 (0.0-0.4) 08/09/19 04:09 Baso # 0.1 K/mm3 (0.0-0.1) 08/09/19 04:09 Add Manual Diff Complete 08/12/19 04:03 Total Counted 100 08/12/19 04:03 Seg Neutrophils % 85.2 % (40.0-70.0) H 08/09/19 04:09 Seg Neuts % (Manual) 82.0 % (40.0-70.0) H 08/12/19 04:03 Band Neutrophils % 0 % 08/12/19 04:03 Lymphocytes % (Manual) 7.0 % (13.4-35.0) L 08/12/19 04:03 Reactive Lymphs % (Man) 0 % 08/12/19 04:03 Monocytes % (Manual) 7.0 % (0.0-7.3) 08/12/19 04:03 Eosinophils % (Manual) 2.0 % (0.0-4.3) 08/12/19 04:03 Basophils % (Manual) 0 % (0.0-1.8) 08/12/19 04:03 Metamyelocytes % 2.0 % 08/12/19 04:03 Myelocytes % 0 % 08/12/19 04:03 Promyelocytes % 0 % 08/12/19 04:03 Blast Cells % 0 % 08/12/19 04:03 Nucleated RBC % Not Reportable 08/12/19 04:03 Seg Neutrophils # 14.8 K/mm3 (1.8-7.7) H 08/09/19 04:09 Seg Neutrophils # Man 18.1 K/mm3 (1.8-7.7) H 08/12/19 04:03 Band Neutrophils # 0.0 K/mm3 08/12/19 04:03 Lymphocytes # (Manual) 1.5 K/mm3 (1.2-5.4) 08/12/19 04:03 Abs React Lymphs (Man) 0.0 K/mm3 08/12/19 04:03 Monocytes # (Manual) 1.5 K/mm3 (0.0-0.8) H 08/12/19 04:03 Eosinophils # (Manual) 0.4 K/mm3 (0.0-0.4) 08/12/19 04:03 Basophils # (Manual) 0.0 K/mm3 (0.0-0.1) 08/12/19 04:03 Metamyelocytes # 0.4 K/mm3 08/12/19 04:03 Myelocytes # 0.0 K/mm3 08/12/19 04:03 Promyelocytes # 0.0 K/mm3 08/12/19 04:03 Blast Cells # 0.0 K/mm3 08/12/19 04:03 WBC Morphology Not Reportable 08/12/19 04:03 Hypersegmented Neuts Not Reportable 08/12/19 04:03 Hyposegmented Neuts Not Reportable 08/12/19 04:03 Hypogranular Neuts Not Reportable 08/12/19 04:03 Smudge Cells Not Reportable 08/12/19 04:03 Toxic Granulation Not Reportable 08/12/19 04:03 Toxic Vacuolation Not Reportable 08/12/19 04:03 Dohle Bodies Not Reportable 08/12/19 04:03 Pelger-Huet Anomaly Not Reportable 08/12/19 04:03 Arlene Rods Not Reportable 08/12/19 04:03 Platelet Estimate Consistent w auto 08/12/19 04:03 Clumped Platelets Not Reportable 08/12/19 04:03 Plt Clumps, EDTA Not Reportable 08/12/19 04:03 Large Platelets Not Reportable 08/12/19 04:03 Giant Platelets Not Reportable 08/12/19 04:03 Platelet Satelliting Not Reportable 08/12/19 04:03 Plt Morphology Comment Not Reportable 08/12/19 04:03 RBC Morphology Not Reportable 08/12/19 04:03 Dimorphic RBCs Not Reportable 08/12/19 04:03 Polychromasia Not Reportable 08/12/19 04:03 Hypochromasia Not Reportable 08/12/19 04:03 Poikilocytosis Not Reportable 08/12/19 04:03 Anisocytosis Not Reportable 08/12/19 04:03 Microcytosis Not Reportable 08/12/19 04:03 Macrocytosis Not Reportable 08/12/19 04:03 Spherocytes Not Reportable 08/12/19 04:03 Pappenheimer Bodies Not Reportable 08/12/19 04:03 Sickle Cells Not Reportable 08/12/19 04:03 Target Cells Not Reportable 08/12/19 04:03 Tear Drop Cells Not Reportable 08/12/19 04:03 Ovalocytes Not Reportable 08/12/19 04:03 Helmet Cells Not Reportable 08/12/19 04:03 [place] Bodies Not Reportable 08/12/19 04:03 [place] Rings Not Reportable 08/12/19 04:03 [place] Cells Not Reportable 08/12/19 04:03 Bite Cells Not Reportable 08/12/19 04:03 Crenated Cell Not Reportable 08/12/19 04:03 Elliptocytes Not Reportable 08/12/19 04:03 Acanthocytes (Spur) Not Reportable 08/12/19 04:03 Rouleaux Not Reportable 08/12/19 04:03 Hemoglobin C Crystals Not Reportable 08/12/19 04:03 Schistocytes Rare 08/12/19 04:03 Malaria parasites Not Reportable 08/12/19 04:03 Ramos Bodies Not Reportable 08/12/19 04:03 Hem Pathologist Commnt No 08/12/19 04:03 PT 17.7 Sec. (12.2-14.9) H 08/08/19 06:59 INR 1.43 (0.87-1.13) H 08/08/19 06:59 APTT 43.4 Sec. (24.2-36.6) H 08/08/19 06:59 Sodium 134 mmol/L (137-145) L 08/13/19 04:36 Potassium 3.5 mmol/L (3.6-5.0) L 08/13/19 04:36 Chloride 105.8 mmol/L (98-107) 08/13/19 04:36 Carbon Dioxide 14 mmol/L (22-30) L 08/13/19 04:36 Anion Gap 18 mmol/L 08/13/19 04:36 BUN 28 mg/dL (9-20) H 08/13/19 04:36 Creatinine 1.9 mg/dL (0.8-1.5) H 08/13/19 04:36 Estimated GFR 47 ml/min 08/13/19 04:36 BUN/Creatinine Ratio 15 % 08/13/19 04:36 Glucose 279 mg/dL (75-100) H 08/13/19 04:36 POC Glucose 265 (70-105) H 08/12/19 22:09 Hemoglobin A1c 9.6 % (4-6) H 08/07/19 23:54 Lactic Acid 2.70 mmol/L (0.7-2.0) H* 08/07/19 22:48 Calcium 7.5 mg/dL (8.4-10.2) L 08/13/19 04:36 Magnesium 1.40 mg/dL (1.7-2.3) L 08/12/19 04:03 Total Bilirubin 0.60 mg/dL (0.1-1.2) 08/07/19 21:45 Direct Bilirubin 0.4 mg/dL (0-0.2) H 08/07/19 21:45 Indirect Bilirubin 0.2 mg/dL 08/07/19 21:45 AST 21 units/L (5-40) 08/07/19 21:45 ALT 16 units/L (7-56) 08/07/19 21:45 Alkaline Phosphatase 128 units/L (35-129) 08/07/19 21:45 Total Creatine Kinase 38 units/L (55-170) L 08/07/19 21:45 Total Protein 6.2 g/dL (6.3-8.2) L 08/07/19 21:45 Albumin 2.5 g/dL (3.9-5) L 08/07/19 21:45 Albumin/Globulin Ratio 0.7 % 08/07/19 21:45 Prealbumin 0.030 g/L (0.200-0.400) L 08/08/19 06:59 Urine Color Veronika (Yellow) 08/07/19 20:05 Urine Turbidity Slightly cloudy (Clear) 08/07/19 20:05 Urine pH 5.0 (5.0-7.0) 08/07/19 20:05 Ur Specific [place] 1.018 (1.003-1.030) 08/07/19 20:05 Urine Protein 100 mg/dl mg/dL (Negative) 08/07/19 20:05 Urine Glucose (UA) Neg mg/dL (Negative) 08/07/19 20:05 Urine Ketones Neg mg/dL (Negative) 08/07/19 20:05 Urine Blood Mod (Negative) 08/07/19 20:05 Urine Nitrite Neg (Negative) 08/07/19 20:05 Urine Bilirubin Neg (Negative) 08/07/19 20:05 Urine Urobilinogen 4.0 mg/dL (<2.0) 08/07/19 20:05 Ur Leukocyte Esterase Neg (Negative) 08/07/19 20:05 Urine WBC (Auto) 20.0 /HPF (0.0-6.0) H 08/07/19 20:05 Urine RBC (Auto) 18.0 /HPF (0.0-6.0) 08/07/19 20:05 U Epithel Cells (Auto) 2.0 /HPF (0-13.0) 08/07/19 20:05 Random Vancomycin 9.7 ug/mL (0-40.0) 08/11/19 04:24 Complement C3 206 mg/dL (82-185) H 08/08/19 16:13 Complement C4 46 mg/dL (15-53) 08/08/19 16:13 Hep Bs Antigen Non-reactive (Negative) 08/08/19 16:13 Hepatitis C Antibody Non-reactive (NonReactive) 08/08/19 16:13 Blood Type O POSITIVE 08/07/19 00:01 Antibody Screen Negative 08/07/19 00:01 Active Medications - Current Medications Current Medications: Generic Name Dose Route Start Last Admin Trade Name Freq PRN Reason Stop Dose Admin Acetaminophen 650 mg 08/07/19 23:29 08/13/19 05:22 Tylenol PO 650 mg Q4H PRN Administration Pain MILD(1-3)/Fever >100.5/MIRANDA Chlorpromazine HCl 10 mg 08/11/19 16:34 08/11/19 22:16 Thorazine PO 10 mg Q4H PRN Administration Hiccups Dextrose 0 ml 08/07/19 23:29 08/11/19 12:20 D50w (25gm) Syringe IV 20 ml Q30MIN PRN Administration Hypoglycemia Protocol Enoxaparin Sodium 40 mg 08/08/19 22:00 08/12/19 21:55 Enoxaparin SUB-Q 40 mg QDAY@2200 WILMER Administration Hydralazine HCl 25 mg 08/11/19 22:00 08/13/19 05:22 Apresoline PO 25 mg Q8HR WILMER Administration Hydralazine HCl 20 mg 08/11/19 16:31 Apresoline IV Q4HR PRN Hypertension Metronidazole 500 mg in 100 mls @ 100 mls/hr 08/09/19 16:00 08/13/19 05:23 Flagyl 500 Mg/100 Ml IV 100 mls/hr Q8HR WILMER Administration Protocol Potassium Chloride 20 meq/ 1,010 mls @ 84 mls/hr 08/11/19 10:45 08/13/19 00:23 Sodium Chloride IV 84 mls/hr DIRECT WILMER Administration Ceftriaxone Sodium 2 gm in 100 mls @ 200 mls/hr 08/12/19 15:00 08/12/19 17:04 Rocephin/Ns 2 Gm/100 Ml IV 200 mls/hr Q24HR WILMER Administration Protocol Insulin Human Lispro 0 unit 08/08/19 07:30 08/12/19 22:05 Humalog SUB-Q 4 unit ACHS WILMER Administration Protocol Morphine Sulfate 2 mg 08/07/19 23:29 08/08/19 01:48 Morphine IV 2 mg Q4H PRN Administration Pain, Moderate (4-6) Ondansetron HCl 4 mg 08/07/19 23:29 08/09/19 21:34 Zofran IV 4 mg Q8H PRN Administration Nausea And Vomiting Pantoprazole Sodium 40 mg 08/11/19 20:00 08/12/19 10:23 Protonix PO 40 mg QDAY WILMER Administration Potassium Chloride 30 meq 08/13/19 08:11 K-Dur PO 08/13/19 08:12 ONCE ONE Sodium Bicarbonate 1,300 mg 08/08/19 12:00 08/12/19 21:54 Sodium Bicarbonate PO 1,300 mg BID WILMER Administration Sodium Chloride 10 ml 08/08/19 10:00 08/13/19 00:56 Sodium Chloride Flush Syringe 10 Ml IV Not Given BID WILMER Sodium Chloride 10 ml 08/07/19 23:29 Sodium Chloride Flush Syringe 10 Ml IV PRN PRN LINE FLUSH Sodium Hypochlorite 1 applic 08/08/19 13:19 Dakin's Half Strength TP Q12H PRN Wound Care Nutrition/Malnutrition Assess - Dietary Evaluation Nutrition/Malnutrition Findings: Nutrition Notes Start: 08/09/19 11:59 Freq: Status: Active Protocol: Document 08/12/19 12:34 AP (Rec: 08/12/19 12:42 AP [id number]) Co-Sign 08/12/19 12:34 LP Nutrition Notes Initial or Follow up Reassessment Current Diagnosis Acute Kidney Injury,CKD(stage I-IV),Diabetes,Sepsis, Hypertension Other Pertinent Diagnosis GERD Current Diet Cardiac/CC Labs/Tests Na 134 Cr 1.9 BUN 28 Pertinent Medications Reviewed Height 5 ft 8 in Weight 85.3 kg [place] Body Weight (kg) 70.00 BMI 28.5 Intake Prior to Admission Good Weight change and time frame Wt change noted. Noted slight edema in leg in pt chart. Weight Status Overweight Subjective/Other Information F/U for intakes. Pt ate 50% of dinner and 50% bfast. Noted pt did not drink glucerna, asked for a different flavor. Percent of energy/protein needs met: 47%/53% Burn Absent Trauma Absent GI Symptoms None Current % PO Fair (50-74%) Minimum of two criteria No physical signs of malnutrition #2 Nutrition Diagnosis Increased nutrient needs ( specify in comment below) Diagnosis Progress(for reassessment Continues documentation) #1 Nutrition Diagnosis Limited adherence to nutrition -related recommendations Diagnosis Progress(for reassessment Continues documentation) Is patient on ventilator? No Is Patient Ambulatory and/or Out of Bed Yes REE-([place]-St. Jeor-ambulatory/OOB) [ 2226.250 [id number]] Calculation Used for Recommendations [place]-St Jeor Additional Notes PRO needs: 63-99 g/day (0.8-1. 25g) CKD/Wound healing Fluid needs: 1ml/kcal or per MD Nutrition Intervention Change Diet Order: Continue cardiac/cc. Add Supplement/Snack (indicate name/kcal Glucerna chocolate once a day /protein ) Provides kCal: 220 Provides Protein (gm) 10 Goal #1 Pt meet >80% of kcal/PRO needs via PO/ONS. Goal #2 wound healing Anticipated Discharge Needs: Cardiac/CC Follow-Up By: 08/17/19 Additional Comments F/U for stable PO/ONS intakes.
[2019-08-13] MEDS: cefTRIAXone/NS 2 GM/100 ML 2 GM/100 ML BAG IV SCH (10:36)
[2019-08-13] MEDS: SODIUM BICARBONATE 650 MG TAB PO SCH ×2 (10:36→21:42)
[2019-08-13] MEDS: PANTOPRAZOLE 40 MG TAB PO SCH (10:36)
--- NOTE | 2019-08-13 12:51 | Progress Note ---
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 Absent: nystagmus - ENT ENT exam: Present: normal exam, mucous membranes dry, normal external ear exam - Neck Neck exam: Present: normal inspection, full ROM. Absent: tenderness, meningismus - Respiratory Respiratory exam: Present: normal lung sounds bilaterally. Absent: respiratory distress - Cardiovascular Cardiovascular Exam: Present: normal rhythm, tachycardia, normal heart sounds. Absent: systolic murmur, diastolic murmur, rubs, gallop - GI/Abdominal GI/Abdominal exam: Present: soft. Absent: distended, tenderness, guarding, rebound, rigid, pulsatile mass - Rectal Rectal exam: Present: deferred - Extremities Exam Extremities exam: Present: other (2+ pulses noted in the bilateral upper extremities. The right lower extremity is warm and well perfused. Pulses are difficult to appreciate. There is right lower extremity edema. The left lower extremity, there is edema. The left lateral aspect of the foot has cavernous lesion with what appears to be wet gangrene. Macerated tissue is noted. Uncertain of crepitus is present. Pulses are difficult to appreciate. Sensation is intact to pinch and light touch. There is no sniffing and pain with passive motion of the great toe. The left anterior distal tibial region is tender.). Absent: normal inspection - Back Exam Back exam: Present: normal inspection. Absent: tenderness, CVA tenderness (R), CVA tenderness (L), paraspinal tenderness, vertebral tenderness - Neurological Exam Neurological exam: Present: alert, other (there is no facial droop. Tongue is midline. Extraocular movements are intact bilaterally. Walking with a steady gait. Speaking in full sentences. Normal appropriate thought content. 5 out of 5 strength in 4 extremities. Sensation is intact to light touch in 4 extremities.) - Psychiatric Psychiatric exam: Present: anxious - Skin Skin exam: Present: warm, erythema - Vital Signs Vital signs: Vital Signs - 12hr 08/13/19 08/13/19 08/13/19 05:00 08:10 12:05 Temperature 100.1 F H 97.8 F 98.2 F Pulse Rate 98 H 95 H 100 H Respiratory 20 18 18 Rate Blood Pressure 136/86 137/80 155/91 O2 Sat by Pulse 96 96 95 Oximetry - Lab 08/12/19 04:03 08/13/19 04:36 Most recent lab results Calcium 7.5 mg/dL (8.4-10.2) L 08/13/19 04:36 Magnesium 1.90 mg/dL (1.7-2.3) 08/13/19 08:58 Medications & Allergies - Medications Allergies/Adverse Reactions: Allergies No Known Allergies Allergy (Verified 05/26/13 04:48) Home Medications: Home Medications Medication Instructions Recorded Confirmed Last Taken Type NovoLIN N 30 unit SUB-Q BID 08/07/19 08/07/19 Unknown History Novolin R 12 unit SUB-Q BID 08/07/19 08/07/19 Unknown History Active Medications: Generic Name Dose Route Start Last Admin Trade Name Freq PRN Reason Stop Dose Admin Acetaminophen 650 mg 08/07/19 23:29 08/13/19 05:22 Tylenol PO 650 mg Q4H PRN Administration Pain MILD(1-3)/Fever >100.5/MIRANDA Chlorpromazine HCl 10 mg 08/11/19 16:34 08/11/19 22:16 Thorazine PO 10 mg Q4H PRN Administration Hiccups Dextrose 0 ml 08/07/19 23:29 08/11/19 12:20 D50w (25gm) Syringe IV 20 ml Q30MIN PRN Administration Hypoglycemia Protocol Enoxaparin Sodium 40 mg 08/08/19 22:00 08/12/19 21:55 Enoxaparin SUB-Q 40 mg QDAY@2200 WILMER Administration Hydralazine HCl 25 mg 08/11/19 22:00 08/13/19 05:22 Apresoline PO 25 mg Q8HR WILMER Administration Hydralazine HCl 20 mg 08/11/19 16:31 Apresoline IV Q4HR PRN Hypertension Metronidazole 500 mg in 100 mls @ 100 mls/hr 08/09/19 16:00 08/13/19 05:23 Flagyl 500 Mg/100 Ml IV 100 mls/hr Q8HR WILMER Administration Protocol Potassium Chloride 20 meq/ 1,010 mls @ 84 mls/hr 08/11/19 10:45 08/13/19 00:23 Sodium Chloride IV 84 mls/hr DIRECT WILMER Administration Ceftriaxone Sodium 2 gm in 100 mls @ 200 mls/hr 08/12/19 15:00 08/13/19 10:36 Rocephin/Ns 2 Gm/100 Ml IV 200 mls/hr Q24HR WILMER Administration Protocol Insulin Human Lispro 0 unit 08/08/19 07:30 08/12/19 22:05 Humalog SUB-Q 4 unit ACHS WILMER Administration Protocol Morphine Sulfate 2 mg 08/07/19 23:29 08/08/19 01:48 Morphine IV 2 mg Q4H PRN Administration Pain, Moderate (4-6) Ondansetron HCl 4 mg 08/07/19 23:29 08/09/19 21:34 Zofran IV 4 mg Q8H PRN Administration Nausea And Vomiting Pantoprazole Sodium 40 mg 08/11/19 20:00 08/13/19 10:36 Protonix PO 40 mg QDAY WILMER Administration Sodium Bicarbonate 1,300 mg 08/08/19 12:00 08/13/19 10:36 Sodium Bicarbonate PO 1,300 mg BID WILMER Administration Sodium Chloride 10 ml 08/08/19 10:00 08/13/19 00:56 Sodium Chloride Flush Syringe 10 Ml IV Not Given BID WILMER Sodium Chloride 10 ml 08/07/19 23:29 Sodium Chloride Flush Syringe 10 Ml IV PRN PRN LINE FLUSH Sodium Hypochlorite 1 applic 08/08/19 13:19 Dakin's Half Strength TP Q12H PRN Wound Care
[2019-08-13] MEDS: DEXTROSE 5% IV SCH (14:55)
[2019-08-13] MEDS: SODIUM BICARBONATE IV SCH (14:55)
[2019-08-13] MEDS: POTASSIUM CHLORIDE IV SCH (14:55)
[2019-08-13] MEDS: WATER IV SCH (14:55)
[2019-08-13] MEDS: ENOXAPARIN 40 MG/0.4 ML INJ SUB-Q SCH (21:42)
[2019-08-14 01:45] LABS: Albumin 1.8 g/dL (3.8-4.8); Gamma Globulin 1.2 g/dL (0.8-1.7)
[2019-08-14] MEDS: ACETAMINOPHEN 325 MG TAB PO PRN ×2 (05:16→16:52)
[2019-08-14] MEDS: metroNIDAZOLE/NS 500 MG/100 ML 500 MG/100 ML BAG IV SCH ×3 (05:17→23:22)
[2019-08-14] MEDS: hydrALAZINE 25 MG TAB PO SCH ×3 (05:17→23:23)
[2019-08-14] MEDS: INSULIN NPH/REGULAR 70/30 INJ SUB-Q SCH ×2 (08:00→16:49)
[2019-08-14] MEDS: DEXTROSE 5% IV SCH ×2 (08:07→14:29)
[2019-08-14] MEDS: WATER IV SCH ×2 (08:07→14:29)
[2019-08-14] MEDS: POTASSIUM CHLORIDE IV SCH ×2 (08:07→14:29)
[2019-08-14] MEDS: SODIUM BICARBONATE IV SCH ×2 (08:07→14:29)
[2019-08-14] MEDS: INSULIN LISPRO 100 UNIT/ML SUB-Q SCH ×4 (08:08→23:24)
--- NOTE | 2019-08-14 10:44 | Progress Note ---
Assessment and Plan Impression: * DULCE on likely CKD due to HTN/DM * DM foot ulcer * acidosis * sepsis * hypokalemia * Pyuria * Microscopic hematuria * HTN * metabolic acidosis * TYpe 2 DM Plan: * agree with ivfs * cr is stable at this time * biacrb gtt with kcl, co2 is better today * acidosis, likely related to inf and ischemia * vascular intervention noted, iv contrast exposure noted * plans for bka noted on thursday * vasculitis workup with hematuria * iv abx per primary team, follow up vanco levels * daily lytes * strict i/os * renal us with pvr noted * no indication for pocket marker today * continue po sodium bicarb Subjective Date of service: 08/14/19 Principal diagnosis: pvd Interval history: resting well in bed today Objective - Exam Narrative Exam: - General Limitations: No Limitations, Physical Limitation General appearance: alert, anxious - Head Head exam: Present: atraumatic, normocephalic - Eye Eye exam: Present: normal appearance, EOMI. Absent: nystagmus - ENT ENT exam: Present: normal exam, mucous membranes dry, normal external ear exam - Neck Neck exam: Present: normal inspection, full ROM. Absent: tenderness, meningismus - Respiratory Respiratory exam: Present: normal lung sounds bilaterally. Absent: respiratory distress - Cardiovascular Cardiovascular Exam: Present: normal rhythm, tachycardia, normal heart sounds. Absent: systolic murmur, diastolic murmur, rubs, gallop - GI/Abdominal GI/Abdominal exam: Present: soft. Absent: distended, tenderness, guarding, rebound, rigid, pulsatile mass - Rectal Rectal exam: Present: deferred - Extremities Exam Extremities exam: Present: other (2+ pulses noted in the bilateral upper extremities. The right lower extremity is warm and well perfused. Pulses are difficult to appreciate. There is right lower extremity edema. The left lower extremity, there is edema. The left lateral aspect of the foot has cavernous lesion with what appears to be wet gangrene. Macerated tissue is noted. Uncertain of crepitus is present. Pulses are difficult to appreciate. Sensation is intact to pinch and light touch. There is no sniffing and pain with passive motion of the great toe. The left anterior distal tibial region is tender.). Absent: normal inspection - Back Exam Back exam: Present: normal inspection. Absent: tenderness, CVA tenderness (R), CVA tenderness (L), paraspinal tenderness, vertebral tenderness - Neurological Exam Neurological exam: Present: alert, other (there is no facial droop. Tongue is midline. Extraocular movements are intact bilaterally. Walking with a steady gait. Speaking in full sentences. Normal appropriate thought content. 5 out of 5 strength in 4 extremities. Sensation is intact to light touch in 4 extr emities.) - Psychiatric Psychiatric exam: Present: anxious - Skin Skin exam: Present: warm, erythema - Vital Signs Vital signs: Vital Signs - 12hr 08/14/19 08/14/19 08/14/19 00:04 04:57 06:00 Temperature 99.4 F 101.7 F H 99.4 F Pulse Rate 98 H 104 H Respiratory 18 18 Rate Blood Pressure 138/84 158/96 O2 Sat by Pulse 99 96 Oximetry 08/14/19 08:59 Temperature 99.3 F Pulse Rate 100 H Respiratory 18 Rate Blood Pressure 145/94 O2 Sat by Pulse 99 Oximetry - Lab 08/12/19 04:03 08/14/19 05:10 Most recent lab results Calcium 8.0 mg/dL (8.4-10.2) L 08/14/19 05:10 Magnesium 1.80 mg/dL (1.7-2.3) 08/14/19 05:10 Medications & Allergies - Medications Allergies/Adverse Reactions: Allergies No Known Allergies Allergy (Verified 05/26/13 04:48) Home Medications: Home Medications Medication Instructions Recorded Confirmed Last Taken Type NovoLIN N 30 unit SUB-Q BID 08/07/19 08/07/19 Unknown History Novolin R 12 unit SUB-Q BID 08/07/19 08/07/19 Unknown History Active Medications: Generic Name Dose Route Start Last Admin Trade Name Freq PRN Reason Stop Dose Admin Acetaminophen 650 mg 08/07/19 23:29 08/14/19 05:16 Tylenol PO 650 mg Q4H PRN Administration Pain MILD(1-3)/Fever >100.5/MIRANDA Chlorpromazine HCl 10 mg 08/11/19 16:34 08/11/19 22:16 Thorazine PO 10 mg Q4H PRN Administration Hiccups Dextrose 0 ml 08/07/19 23:29 08/11/19 12:20 D50w (25gm) Syringe IV 20 ml Q30MIN PRN Administration Hypoglycemia Protocol Enoxaparin Sodium 40 mg 08/08/19 22:00 08/13/19 21:42 Enoxaparin SUB-Q 40 mg QDAY@2200 WILMER Administration Hydralazine HCl 25 mg 08/11/19 22:00 08/14/19 05:17 Apresoline PO 25 mg Q8HR WILMER Administration Hydralazine HCl 20 mg 08/11/19 16:31 Apresoline IV Q4HR PRN Hypertension Metronidazole 500 mg in 100 mls @ 100 mls/hr 08/09/19 16:00 08/14/19 05:17 Flagyl 500 Mg/100 Ml IV 100 mls/hr Q8HR WILMER Administration Protocol Potassium Chloride 20 meq/ 1,010 mls @ 84 mls/hr 08/11/19 10:45 08/13/19 00:23 Sodium Chloride IV 84 mls/hr DIRECT WILMER Administration Ceftriaxone Sodium 2 gm in 100 mls @ 200 mls/hr 08/12/19 15:00 08/13/19 10:36 Rocephin/Ns 2 Gm/100 Ml IV 200 mls/hr Q24HR WILMER Administration Protocol Sodium Bicarbonate 75 meq/ 1,095 mls @ 75 mls/hr 08/13/19 14:00 08/14/19 08:07 Potassium Chloride 40 meq/ IV 75 mls/hr Dextrose DIRECT WILMER Administration Insulin Human Isoph/Insulin Regular 8 unit 08/14/19 08:00 08/14/19 08:00 Humulin 70/30 SUB-Q 8 unit BIDDIAB WILMER Administration Insulin Human Lispro 0 unit 08/08/19 07:30 08/14/19 08:08 Humalog SUB-Q Not Given ACHS [facility] Protocol Morphine Sulfate 2 mg 08/07/19 23:29 08/08/19 01:48 Morphine IV 2 mg Q4H PRN Administration Pain, Moderate (4-6) Ondansetron HCl 4 mg 08/07/19 23:29 08/09/19 21:34 Zofran IV 4 mg Q8H PRN Administration Nausea And Vomiting Pantoprazole Sodium 40 mg 08/11/19 20:00 08/13/19 10:36 Protonix PO 40 mg QDAY WILMER Administration Sodium Bicarbonate 1,300 mg 08/08/19 12:00 08/13/19 21:42 Sodium Bicarbonate PO 1,300 mg BID WILMER Administration Sodium Chloride 10 ml 08/08/19 10:00 08/13/19 21:49 Sodium Chloride Flush Syringe 10 Ml IV Not Given BID WILMER Sodium Chloride 10 ml 08/07/19 23:29 Sodium Chloride Flush Syringe 10 Ml IV PRN PRN LINE FLUSH Sodium Hypochlorite 1 applic 08/08/19 13:19 08/13/19 17:57 Dakin's Half Strength TP 1 applicatio Q12H PRN Administration Wound Care
[2019-08-14] MEDS: SODIUM BICARBONATE 650 MG TAB PO SCH ×2 (10:51→23:23)
[2019-08-14] MEDS: PANTOPRAZOLE 40 MG TAB PO SCH (10:52)
[2019-08-14] MEDS: MORPHINE 2 MG/1 ML INJ IV PRN ×3 (10:53→18:26)
--- NOTE | 2019-08-14 10:53 | Progress Note ---
Assessment and Plan Assessment and plan: --Osteomyelitis left foot; s/p surgical debridement on 08/08/2019 Antibiotics per ID, patient is on Flagyl and Rocephin Possible left BKA on 08/16/2019 TTE, no vegetation --Sepsis secondary to left foot osteomyelitis; Continue current antibiotics follow cultures --Hypokalemia; corrected --Hypomagnesemia; corrected --Peripheral arterial disease; Vascular following, continue current management --Leukocytosis; secondary to sepsis due to osteomyelitis --Type 2 diabetes mellitus; uncontrolled Secondary to sepsis, Accu-Chek sliding scale coverage ADA diet Novolin 70/30 insulin 8 units twice a day A1c 9.6 Diabetic education, nutrition consult --Acute on chronic kidney disease stage III; Vasomotor nephropathy, closely monitor renal function Avoid nephrotoxins, nephrology following --Severe malnutrition; nutrition supplements Nutrition consult, supportive care --DVT prophylaxis; Lovenox Monitor closely and adjust management as needed Consults and recommendations noted and appreciated Left BKA on Thursday08/16/19 Plan of care reviewed with the patient and his nurse History Interval history: I examined the patient this morning in his room Patient's chart, medications, overnight events reviewed Patient complains of some swelling in the leg and upper extremity Probably secondary to IV fluids as he is receiving for acute renal failure Patient denies any chest pain or shortness of breath Vital signs reviewed Hospitalist Physical - Constitutional Vitals: Temp Pulse Resp BP Pulse Ox 99.3 F 100 H 18 145/94 99 08/14/19 08:59 08/14/19 08:59 08/14/19 08:59 08/14/19 08:59 08/14/19 08:59 General appearance: Present: no acute distress, well-nourished, other (febrile) - EENT Eyes: Present: PERRL, EOM intact - Neck Neck: Present: supple, normal ROM - Respiratory Respiratory effort: normal Respiratory: bilateral: diminished, negative: rales, rhonchi, wheezing - Cardiovascular Rhythm: regular Heart Sounds: Present: S1 & S2 - Extremities Extremities: no ischemia, No edema - Abdominal General gastrointestinal: soft, non-tender, non-distended, normal bowel sounds - Integumentary Integumentary: Present: clear, warm - Psychiatric Psychiatric: appropriate mood/affect, cooperative - Neurologic Neurologic: moves all extremities Results - Labs CBC & Chem 7: 08/12/19 04:03 08/14/19 05:10 Labs: Laboratory Last Values WBC 22.1 K/mm3 (4.5-11.0) H 08/12/19 04:03 RBC 3.03 M/mm3 (3.65-5.03) L 08/12/19 04:03 Hgb 8.3 gm/dl (11.8-15.2) L 08/12/19 04:03 Hct 25.0 % (35.5-45.6) L 08/12/19 04:03 MCV 83 fl (84-94) L 08/12/19 04:03 MCH 27 pg (28-32) L 08/12/19 04:03 MCHC 33 % (32-34) 08/12/19 04:03 RDW 14.2 % (13.2-15.2) 08/12/19 04:03 Plt Count 352 K/mm3 (140-440) 08/12/19 04:03 Lymph % (Auto) 7.1 % (13.4-35.0) L 08/09/19 04:09 Glenn % (Auto) 6.4 % (0.0-7.3) 08/09/19 04:09 Eos % (Auto) 0.6 % (0.0-4.3) 08/09/19 04:09 Baso % (Auto) 0.7 % (0.0-1.8) 08/09/19 04:09 Lymph # 1.2 K/mm3 (1.2-5.4) 08/09/19 04:09 Glenn # 1.1 K/mm3 (0.0-0.8) H 08/09/19 04:09 Eos # 0.1 K/mm3 (0.0-0.4) 08/09/19 04:09 Baso # 0.1 K/mm3 (0.0-0.1) 08/09/19 04:09 Add Manual Diff Complete 08/12/19 04:03 Total Counted 100 08/12/19 04:03 Seg Neutrophils % 85.2 % (40.0-70.0) H 08/09/19 04:09 Seg Neuts % (Manual) 82.0 % (40.0-70.0) H 08/12/19 04:03 Band Neutrophils % 0 % 08/12/19 04:03 Lymphocytes % (Manual) 7.0 % (13.4-35.0) L 08/12/19 04:03 Reactive Lymphs % (Man) 0 % 08/12/19 04:03 Monocytes % (Manual) 7.0 % (0.0-7.3) 08/12/19 04:03 Eosinophils % (Manual) 2.0 % (0.0-4.3) 08/12/19 04:03 Basophils % (Manual) 0 % (0.0-1.8) 08/12/19 04:03 Metamyelocytes % 2.0 % 08/12/19 04:03 Myelocytes % 0 % 08/12/19 04:03 Promyelocytes % 0 % 08/12/19 04:03 Blast Cells % 0 % 08/12/19 04:03 Nucleated RBC % Not Reportable 08/12/19 04:03 Seg Neutrophils # 14.8 K/mm3 (1.8-7.7) H 08/09/19 04:09 Seg Neutrophils # Man 18.1 K/mm3 (1.8-7.7) H 08/12/19 04:03 Band Neutrophils # 0.0 K/mm3 08/12/19 04:03 Lymphocytes # (Manual) 1.5 K/mm3 (1.2-5.4) 08/12/19 04:03 Abs React Lymphs (Man) 0.0 K/mm3 08/12/19 04:03 Monocytes # (Manual) 1.5 K/mm3 (0.0-0.8) H 08/12/19 04:03 Eosinophils # (Manual) 0.4 K/mm3 (0.0-0.4) 08/12/19 04:03 Basophils # (Manual) 0.0 K/mm3 (0.0-0.1) 08/12/19 04:03 Metamyelocytes # 0.4 K/mm3 08/12/19 04:03 Myelocytes # 0.0 K/mm3 08/12/19 04:03 Promyelocytes # 0.0 K/mm3 08/12/19 04:03 Blast Cells # 0.0 K/mm3 08/12/19 04:03 WBC Morphology Not Reportable 08/12/19 04:03 Hypersegmented Neuts Not Reportable 08/12/19 04:03 Hyposegmented Neuts Not Reportable 08/12/19 04:03 Hypogranular Neuts Not Reportable 08/12/19 04:03 Smudge Cells Not Reportable 08/12/19 04:03 Toxic Granulation Not Reportable 08/12/19 04:03 Toxic Vacuolation Not Reportable 08/12/19 04:03 Dohle Bodies Not Reportable 08/12/19 04:03 Pelger-Huet Anomaly Not Reportable 08/12/19 04:03 Arlene Rods Not Reportable 08/12/19 04:03 Platelet Estimate Consistent w auto 08/12/19 04:03 Clumped Platelets Not Reportable 08/12/19 04:03 Plt Clumps, EDTA Not Reportable 08/12/19 04:03 Large Platelets Not Reportable 08/12/19 04:03 Giant Platelets Not Reportable 08/12/19 04:03 Platelet Satelliting Not Reportable 08/12/19 04:03 Plt Morphology Comment Not Reportable 08/12/19 04:03 RBC Morphology Not Reportable 08/12/19 04:03 Dimorphic RBCs Not Reportable 08/12/19 04:03 Polychromasia Not Reportable 08/12/19 04:03 Hypochromasia Not Reportable 08/12/19 04:03 Poikilocytosis Not Reportable 08/12/19 04:03 Anisocytosis Not Reportable 08/12/19 04:03 Microcytosis Not Reportable 08/12/19 04:03 Macrocytosis Not Reportable 08/12/19 04:03 Spherocytes Not Reportable 08/12/19 04:03 Pappenheimer Bodies Not Reportable 08/12/19 04:03 Sickle Cells Not Reportable 08/12/19 04:03 Target Cells Not Reportable 08/12/19 04:03 Tear Drop Cells Not Reportable 08/12/19 04:03 Ovalocytes Not Reportable 08/12/19 04:03 Helmet Cells Not Reportable 08/12/19 04:03 [place] Bodies Not Reportable 08/12/19 04:03 [place] Rings Not Reportable 08/12/19 04:03 [place] Cells Not Reportable 08/12/19 04:03 Bite Cells Not Reportable 08/12/19 04:03 Crenated Cell Not Reportable 08/12/19 04:03 Elliptocytes Not Reportable 08/12/19 04:03 Acanthocytes (Spur) Not Reportable 08/12/19 04:03 Rouleaux Not Reportable 08/12/19 04:03 Hemoglobin C Crystals Not Reportable 08/12/19 04:03 Schistocytes Rare 08/12/19 04:03 Malaria parasites Not Reportable 08/12/19 04:03 Ramos Bodies Not Reportable 08/12/19 04:03 Hem Pathologist Commnt No 08/12/19 04:03 PT 17.7 Sec. (12.2-14.9) H 08/08/19 06:59 INR 1.43 (0.87-1.13) H 08/08/19 06:59 APTT 43.4 Sec. (24.2-36.6) H 08/08/19 06:59 Sodium 135 mmol/L (137-145) L 08/14/19 05:10 Potassium 4.1 mmol/L (3.6-5.0) 08/14/19 05:10 Chloride 108.1 mmol/L (98-107) H 08/14/19 05:10 Carbon Dioxide 17 mmol/L (22-30) L 08/14/19 05:10 Anion Gap 14 mmol/L 08/14/19 05:10 BUN 23 mg/dL (9-20) H 08/14/19 05:10 Creatinine 1.6 mg/dL (0.8-1.5) H 08/14/19 05:10 Estimated GFR 57 ml/min 08/14/19 05:10 BUN/Creatinine Ratio 14 % 08/14/19 05:10 Glucose 237 mg/dL (75-100) H 08/14/19 05:10 POC Glucose 198 (70-105) H 08/14/19 08:01 Hemoglobin A1c 9.6 % (4-6) H 08/07/19 23:54 Lactic Acid 2.70 mmol/L (0.7-2.0) H* 08/07/19 22:48 Calcium 8.0 mg/dL (8.4-10.2) L 08/14/19 05:10 Magnesium 1.80 mg/dL (1.7-2.3) 08/14/19 05:10 Total Bilirubin 0.60 mg/dL (0.1-1.2) 08/07/19 21:45 Direct Bilirubin 0.4 mg/dL (0-0.2) H 08/07/19 21:45 Indirect Bilirubin 0.2 mg/dL 08/07/19 21:45 AST 21 units/L (5-40) 08/07/19 21:45 ALT 16 units/L (7-56) 08/07/19 21:45 Alkaline Phosphatase 128 units/L (35-129) 08/07/19 21:45 Total Creatine Kinase 38 units/L (55-170) L 08/07/19 21:45 Serum Total Protein 5.9 g/dL (6.1-8.1) L 08/08/19 16:13 Total Protein 6.2 g/dL (6.3-8.2) L 08/07/19 21:45 Albumin 1.8 g/dL (3.8-4.8) L 08/08/19 16:13 Albumin/Globulin Ratio 0.7 % 08/07/19 21:45 Prealbumin 0.030 g/L (0.200-0.400) L 08/08/19 06:59 Ahjyv-2-Drobxaqqt 0.8 g/dL (0.2-0.3) H 08/08/19 16:13 Fkiqu-2-Hfoufenvs 1.2 g/dL (0.5-0.9) H 08/08/19 16:13 Beta Globulins 0.5 g/dL (0.2-0.5) 08/08/19 16:13 Gamma Globulins 1.2 g/dL (0.8-1.7) 08/08/19 16:13 Abnorm Protein Band 1 see below 08/08/19 16:13 Abnorm Protein Band 2 see below 08/08/19 16:13 PEP Interpretation see below H 08/08/19 16:13 Urine Color Veronika (Yellow) 08/07/19 20:05 Urine Turbidity Slightly cloudy (Clear) 08/07/19 20:05 Urine pH 5.0 (5.0-7.0) 08/07/19 20:05 Ur Specific [place] 1.018 (1.003-1.030) 08/07/19 20:05 Urine Protein 100 mg/dl mg/dL (Negative) 08/07/19 20:05 Urine Glucose (UA) Neg mg/dL (Negative) 08/07/19 20:05 Urine Ketones Neg mg/dL (Negative) 08/07/19 20:05 Urine Blood Mod (Negative) 08/07/19 20:05 Urine Nitrite Neg (Negative) 08/07/19 20:05 Urine Bilirubin Neg (Negative) 08/07/19 20:05 Urine Urobilinogen 4.0 mg/dL (<2.0) 08/07/19 20:05 Ur Leukocyte Esterase Neg (Negative) 08/07/19 20:05 Urine WBC (Auto) 20.0 /HPF (0.0-6.0) H 08/07/19 20:05 Urine RBC (Auto) 18.0 /HPF (0.0-6.0) 08/07/19 20:05 U Epithel Cells (Auto) 2.0 /HPF (0-13.0) 08/07/19 20:05 Random Vancomycin 9.7 ug/mL (0-40.0) 08/11/19 04:24 Complement C3 206 mg/dL (82-185) H 08/08/19 16:13 Complement C4 46 mg/dL (15-53) 08/08/19 16:13 Hep Bs Antigen Non-reactive (Negative) 08/08/19 16:13 Hepatitis C Antibody Non-reactive (NonReactive) 08/08/19 16:13 Blood Type O POSITIVE 08/07/19 00:01 Antibody Screen Negative 08/07/19 00:01 Active Medications - Current Medications Current Medications: Generic Name Dose Route Start Last Admin Trade Name Freq PRN Reason Stop Dose Admin Acetaminophen 650 mg 08/07/19 23:29 08/14/19 05:16 Tylenol PO 650 mg Q4H PRN Administration Pain MILD(1-3)/Fever >100.5/MIRANDA Chlorpromazine HCl 10 mg 08/11/19 16:34 08/11/19 22:16 Thorazine PO 10 mg Q4H PRN Administration Hiccups Dextrose 0 ml 08/07/19 23:29 08/11/19 12:20 D50w (25gm) Syringe IV 20 ml Q30MIN PRN Administration Hypoglycemia Protocol Enoxaparin Sodium 40 mg 08/08/19 22:00 08/13/19 21:42 Enoxaparin SUB-Q 40 mg QDAY@2200 WILMER Administration Hydralazine HCl 25 mg 08/11/19 22:00 08/14/19 05:17 Apresoline PO 25 mg Q8HR WILMER Administration Hydralazine HCl 20 mg 08/11/19 16:31 Apresoline IV Q4HR PRN Hypertension Metronidazole 500 mg in 100 mls @ 100 mls/hr 08/09/19 16:00 08/14/19 05:17 Flagyl 500 Mg/100 Ml IV 100 mls/hr Q8HR WILMER Administration Protocol Potassium Chloride 20 meq/ 1,010 mls @ 84 mls/hr 08/11/19 10:45 08/13/19 00:23 Sodium Chloride IV 84 mls/hr DIRECT WILMER Administration Ceftriaxone Sodium 2 gm in 100 mls @ 200 mls/hr 08/12/19 15:00 08/13/19 10:36 Rocephin/Ns 2 Gm/100 Ml IV 200 mls/hr Q24HR WILMER Administration Protocol Sodium Bicarbonate 75 meq/ 1,095 mls @ 75 mls/hr 08/13/19 14:00 08/14/19 08:07 Potassium Chloride 40 meq/ IV 75 mls/hr Dextrose DIRECT WILMER Administration Insulin Human Isoph/Insulin Regular 8 unit 08/14/19 08:00 08/14/19 08:00 Humulin 70/30 SUB-Q 8 unit BIDDIAB WILMER Administration Insulin Human Lispro 0 unit 08/08/19 07:30 08/14/19 08:08 Humalog SUB-Q Not Given ACHS WILMER Protocol Morphine Sulfate 2 mg 08/07/19 23:29 08/08/19 01:48 Morphine IV 2 mg Q4H PRN Administration Pain, Moderate (4-6) Ondansetron HCl 4 mg 08/07/19 23:29 08/09/19 21:34 Zofran IV 4 mg Q8H PRN Administration Nausea And Vomiting Pantoprazole Sodium 40 mg 08/11/19 20:00 08/13/19 10:36 Protonix PO 40 mg QDAY WILMER Administration Sodium Bicarbonate 1,300 mg 08/08/19 12:00 08/13/19 21:42 Sodium Bicarbonate PO 1,300 mg BID WILMER Administration Sodium Chloride 10 ml 08/08/19 10:00 08/13/19 21:49 Sodium Chloride Flush Syringe 10 Ml IV Not Given BID WILMER Sodium Chloride 10 ml 08/07/19 23:29 Sodium Chloride Flush Syringe 10 Ml IV PRN PRN LINE FLUSH Sodium Hypochlorite 1 applic 08/08/19 13:19 08/13/19 17:57 Dakin's Half Strength TP 1 applicatio Q12H PRN Administration Wound Care Nutrition/Malnutrition Assess - Dietary Evaluation Nutrition/Malnutrition Findings: Nutrition Notes Start: 08/09/19 11:59 Freq: Status: Active Protocol: Document 08/12/19 12:34 AP (Rec: 08/12/19 12:42 AP [id number]) Co-Sign 08/12/19 12:34 LP Nutrition Notes Initial or Follow up Reassessment Current Diagnosis Acute Kidney Injury,CKD(stage I-IV),Diabetes,Sepsis, Hypertension Other Pertinent Diagnosis GERD Current Diet Cardiac/CC Labs/Tests Na 134 Cr 1.9 BUN 28 Pertinent Medications Reviewed Height 5 ft 8 in Weight 85.3 kg [place] Body Weight (kg) 70.00 BMI 28.5 Intake Prior to Admission Good Weight change and time frame Wt change noted. Noted slight edema in leg in pt chart. Weight Status Overweight Subjective/Other Information F/U for intakes. Pt ate 50% of dinner and 50% bfast. Noted pt did not drink glucerna, asked for a different flavor. Percent of energy/protein needs met: 47%/53% Burn Absent Trauma Absent GI Symptoms None Current % PO Fair (50-74%) Minimum of two criteria No physical signs of malnutrition #2 Nutrition Diagnosis Increased nutrient needs ( specify in comment below) Diagnosis Progress(for reassessment Continues documentation) #1 Nutrition Diagnosis Limited adherence to nutrition -related recommendations Diagnosis Progress(for reassessment Continues documentation) Is patient on ventilator? No Is Patient Ambulatory and/or Out of Bed Yes REE-([place]-St. Jeor-ambulatory/OOB) [ [id number] [id number]] Calculation Used for Recommendations [place]-St Jeor Additional Notes PRO needs: 63-99 g/day (0.8-1. 25g) CKD/Wound healing Fluid needs: 1ml/kcal or per MD Nutrition Intervention Change Diet Order: Continue cardiac/cc. Add Supplement/Snack (indicate name/kcal Glucerna chocolate once a day /protein ) Provides kCal: 220 Provides Protein (gm) 10 Goal #1 Pt meet >80% of kcal/PRO needs via PO/ONS. Goal #2 wound healing Anticipated Discharge Needs: Cardiac/CC Follow-Up By: 08/17/19 Additional Comments F/U for stable PO/ONS intakes.
[2019-08-14] MEDS: cefTRIAXone/NS 2 GM/100 ML 2 GM/100 ML BAG IV SCH (11:06)
[2019-08-14] MEDS: hydrALAZINE 20 MG/1 ML INJ IV PRN (13:33)
[2019-08-14 20:50] LABS: Myeloperoxidase Antibody <1.0 AI (<1.0)
[2019-08-14] MEDS: ENOXAPARIN 40 MG/0.4 ML INJ SUB-Q SCH (23:24)
[2019-08-15 05:07] LABS: Basophils # (Auto) 0.1 K/mm3 (0.0-0.1); Basophils % (Auto) 0.6 % (0.0-1.8); Eosinophils # (Auto) 0.5 K/mm3 (0.0-0.4); Eosinophils % (Auto) 2.5 % (0.0-4.3); Hematocrit 23.4 % (35.5-45.6); Hemoglobin 7.8 gm/dl (11.8-15.2); Lymphocytes # (Auto) 2.1 K/mm3 (1.2-5.4); Lymphocytes % (Auto) 10.6 % (13.4-35.0); Mean Corpuscular HGB Conc 33 % (32-34); Mean Corpuscular Volume 82 fl (84-94); Monocytes # (Auto) 1.4 K/mm3 (0.0-0.8); Monocytes % (Auto) 6.9 % (0.0-7.3); Platelet Count 404 K/mm3 (140-440); Red Blood Count 2.84 M/mm3 (3.65-5.03); Red Cell Distribution Width 14.8 % (13.2-15.2)
[2019-08-15] MEDS: metroNIDAZOLE/NS 500 MG/100 ML 500 MG/100 ML BAG IV SCH ×3 (05:26→21:41)
[2019-08-15] MEDS: hydrALAZINE 25 MG TAB PO SCH ×3 (05:27→21:54)
[2019-08-15 05:32] LABS: Calcium 7.9 mg/dL (8.4-10.2)
[2019-08-15] MEDS: MORPHINE 2 MG/1 ML INJ IV PRN ×2 (06:59→21:34)
[2019-08-15] MEDS: INSULIN LISPRO 100 UNIT/ML SUB-Q SCH ×4 (08:15→23:24)
[2019-08-15] MEDS ORDERED: MAGNESIUM SULFATE 2 GM/50 ML BAG IV ONE (10:00)
[2019-08-15] MEDS: SODIUM BICARBONATE 650 MG TAB PO SCH ×2 (10:40→21:45)
[2019-08-15] MEDS: INSULIN NPH/REGULAR 70/30 INJ SUB-Q SCH (10:40)
[2019-08-15] MEDS: SODIUM BICARBONATE 150 MEQ in DEXTROSE 5% IN WATER 1,000 ML IV SCH (10:45)
[2019-08-15] MEDS: PANTOPRAZOLE 40 MG TAB PO SCH (10:46)
[2019-08-15] MEDS: cefTRIAXone/NS 2 GM/100 ML 2 GM/100 ML BAG IV SCH (12:53)
--- NOTE | 2019-08-15 14:48 | Progress Note ---
Assessment and Plan Cultures: 08/07/2019 urine culture: no growth 08/07/2019 blood culture: Streptococcus anginosus 08/08/2019 surgical culture: in process, no growth thus far 08/11/2019 blood culture: in process A/P: 43-year-old male with longstanding diabetes mellitus admitted with: #Sepsis, leukemoid reaction, secondary to left foot necrotic wound and underlying osteomyelitis: s/p debridement of soft tissue. Pending BKA tomorrow. #Streptococcus anginosus bacteremia: secondary to above. TTE unremarkable for vegetations. Follow up repeat cultures. #Diabetes mellitus type 2, uncontrolled #Peripheral vascular disease: vascular following. #DULCE on CKD Recs: Continue IV Ceftriaxone 2 gm daily continue Flagyl awaiting amputation, plan to d/c Flagyl post amputation. Continue Ceftriaxone to complete total 14 days Mahsa Dupree MD [facility] ([facility]) M: [phone] O: [phone] F: [phone] Subjective Date of service: 08/15/19 Principal diagnosis: pvd Interval history: Some ongoing fevers, no new issues. Objective - Exam Narrative Exam: Constitutional: Alert, cooperative. No acute distress Head, Ears, Nose: Normocephalic, atraumatic. External ears, nose normal Eyes: Conjunctivae/corneas clear. No icterus. No ptosis. Cardiovascular: S1, S2 normal Respiratory: Good air entry, clear to auscultation bilaterally GI: Soft, non-tender; bowel sounds normal. No peritoneal signs Musculoskeletal: left leg with swelling, foul smell, dressing +. Skin: No rash or abscess Hem/Lymphatic: No palpable cervical or supraclavicular nodes. No lymphangitis. Psych: Mood ok. Affect normal Neurological: Awake, alert, oriented. No gross abnormality - Constitutional Vitals: Vital Signs Temp Pulse Resp BP Pulse Ox 100.0 F H 95 H 15 115/80 97 08/15/19 07:44 08/15/19 08:18 08/15/19 07:44 08/15/19 07:44 08/15/19 10:00 Temperature -Last 24 Hours Temperature 100.0 F Temperature 97.8 F Temperature 97.8 F Temperature 97.8 F Temperature 101.1 F Temperature 101.7 F - Labs CBC & Chem 7: 08/15/19 04:42 08/15/19 04:42 Labs: Abnormal lab results 08/14/19 08/14/19 08/15/19 Range/Units 16:49 21:26 04:42 WBC (4.5-11.0) K/mm3 RBC (3.65-5.03) M/mm3 Hgb (11.8-15.2) gm/dl Hct (35.5-45.6) % MCV (84-94) fl MCH (28-32) pg Lymph % (Auto) (13.4-35.0) % Emanuel # (0.0-0.8) K/mm3 Eos # (0.0-0.4) K/mm3 Seg Neutrophils % (40.0-70.0) % Seg Neutrophils # (1.8-7.7) K/mm3 Sodium 136 L (137-145) mmol/L Carbon Dioxide 18 L (22-30) mmol/L Creatinine 1.6 H (0.8-1.5) mg/dL Glucose 118 H (75-100) mg/dL POC Glucose 150 H 179 H (70-105) Calcium 7.9 L (8.4-10.2) mg/dL Magnesium (1.7-2.3) mg/dL 08/15/19 08/15/19 08/15/19 Range/Units 04:42 04:42 07:53 WBC 19.7 H (4.5-11.0) K/mm3 RBC 2.84 L (3.65-5.03) M/mm3 Hgb 7.8 L (11.8-15.2) gm/dl Hct 23.4 L (35.5-45.6) % MCV 82 L (84-94) fl MCH 27 L (28-32) pg Lymph % (Auto) 10.6 L (13.4-35.0) % Emanuel # 1.4 H (0.0-0.8) K/mm3 Eos # 0.5 H (0.0-0.4) K/mm3 Seg Neutrophils % 79.4 H (40.0-70.0) % Seg Neutrophils # 15.7 H (1.8-7.7) K/mm3 Sodium (137-145) mmol/L Carbon Dioxide (22-30) mmol/L Creatinine (0.8-1.5) mg/dL Glucose (75-100) mg/dL POC Glucose 116 H (70-105) Calcium (8.4-10.2) mg/dL Magnesium 1.60 L (1.7-2.3) mg/dL 08/15/19 08/15/19 Range/Units 11:14 12:15 WBC (4.5-11.0) K/mm3 RBC (3.65-5.03) M/mm3 Hgb (11.8-15.2) gm/dl Hct (35.5-45.6) % MCV (84-94) fl MCH (28-32) pg Lymph % (Auto) (13.4-35.0) % Emanuel # (0.0-0.8) K/mm3 Eos # (0.0-0.4) K/mm3 Seg Neutrophils % (40.0-70.0) % Seg Neutrophils # (1.8-7.7) K/mm3 Sodium (137-145) mmol/L Carbon Dioxide (22-30) mmol/L Creatinine (0.8-1.5) mg/dL Glucose (75-100) mg/dL POC Glucose 182 H 168 H (70-105) Calcium (8.4-10.2) mg/dL Magnesium (1.7-2.3) mg/dL
--- NOTE | 2019-08-15 19:11 | Progress Note ---
Assessment and Plan Assessment and plan: --Osteomyelitis left foot; s/p surgical debridement on 08/08/2019 Antibiotics per ID, patient is on Flagyl and Rocephin Possible left BKA on 08/16/2019/tomorrow. Hold tonight long-acting insulin, NPO midnight --Persistent fevers due to osteomyelitis, ID following, continue current antibiotics,Follow cultures, --Sepsis secondary to left foot osteomyelitis; Continue current antibiotics follow cultures TTE, no vegetation --Hypokalemia; corrected --Hypomagnesemia; corrected --Peripheral arterial disease; Vascular following, continue current management --Leukocytosis; secondary to sepsis due to osteomyelitis --Type 2 diabetes mellitus; uncontrolled Secondary to sepsis, Accu-Chek sliding scale coverage ADA diet Novolin 70/30 insulin 8 units twice a day A1c 9.6 Diabetic education, nutrition consult --Acute on chronic kidney disease stage III; Vasomotor nephropathy, closely monitor renal function Avoid nephrotoxins, nephrology following --Severe malnutrition; nutrition supplements Nutrition consult, supportive care --DVT prophylaxis; Lovenox Monitor closely and adjust management as needed Consults and recommendations noted and appreciated Disposition :Left BKA on Thursday08/16/19 Plan of care reviewed with the patient and his nurse History Interval history: Patient seen and examined medical chart and medications reviewed Persistent fevers secondary to osteomyelitis Possible left BKA tomorrow for surgery Patient complains of some pain Vital signs noted Hospitalist Physical - Constitutional Vitals: Temp Pulse Resp BP Pulse Ox 100.4 F H 98 H 15 146/88 96 08/15/19 15:16 08/15/19 15:16 08/15/19 15:16 08/15/19 15:16 08/15/19 15:16 General appearance: Present: no acute distress, well-nourished, other (febrile) - EENT Eyes: Present: PERRL, EOM intact - Neck Neck: Present: supple, normal ROM - Respiratory Respiratory effort: normal Respiratory: bilateral: diminished, negative: rales, rhonchi, wheezing - Cardiovascular Rhythm: regular Heart Sounds: Present: S1 & S2 - Extremities Extremities: no ischemia, No edema, abnormal (osteomyelitis left foot) - Abdominal General gastrointestinal: soft, non-tender, non-distended, normal bowel sounds - Integumentary Integumentary: Present: clear, warm - Psychiatric Psychiatric: appropriate mood/affect, cooperative - Neurologic Neurologic: CNII-XII intact, moves all extremities Results - Labs CBC & Chem 7: 08/15/19 04:42 08/15/19 04:42 Labs: Laboratory Last Values WBC 19.7 K/mm3 (4.5-11.0) H 08/15/19 04:42 RBC 2.84 M/mm3 (3.65-5.03) L 08/15/19 04:42 Hgb 7.8 gm/dl (11.8-15.2) L 08/15/19 04:42 Hct 23.4 % (35.5-45.6) L 08/15/19 04:42 MCV 82 fl (84-94) L 08/15/19 04:42 MCH 27 pg (28-32) L 08/15/19 04:42 MCHC 33 % (32-34) 08/15/19 04:42 RDW 14.8 % (13.2-15.2) 08/15/19 04:42 Plt Count 404 K/mm3 (140-440) 08/15/19 04:42 Lymph % (Auto) 10.6 % (13.4-35.0) L 08/15/19 04:42 Gem % (Auto) 6.9 % (0.0-7.3) 08/15/19 04:42 Eos % (Auto) 2.5 % (0.0-4.3) 08/15/19 04:42 Baso % (Auto) 0.6 % (0.0-1.8) 08/15/19 04:42 Lymph # 2.1 K/mm3 (1.2-5.4) 08/15/19 04:42 Gem # 1.4 K/mm3 (0.0-0.8) H 08/15/19 04:42 Eos # 0.5 K/mm3 (0.0-0.4) H 08/15/19 04:42 Baso # 0.1 K/mm3 (0.0-0.1) 08/15/19 04:42 Add Manual Diff Complete 08/12/19 04:03 Total Counted 100 08/12/19 04:03 Seg Neutrophils % 79.4 % (40.0-70.0) H 08/15/19 04:42 Seg Neuts % (Manual) 82.0 % (40.0-70.0) H 08/12/19 04:03 Band Neutrophils % 0 % 08/12/19 04:03 Lymphocytes % (Manual) 7.0 % (13.4-35.0) L 08/12/19 04:03 Reactive Lymphs % (Man) 0 % 08/12/19 04:03 Monocytes % (Manual) 7.0 % (0.0-7.3) 08/12/19 04:03 Eosinophils % (Manual) 2.0 % (0.0-4.3) 08/12/19 04:03 Basophils % (Manual) 0 % (0.0-1.8) 08/12/19 04:03 Metamyelocytes % 2.0 % 08/12/19 04:03 Myelocytes % 0 % 08/12/19 04:03 Promyelocytes % 0 % 08/12/19 04:03 Blast Cells % 0 % 08/12/19 04:03 Nucleated RBC % Not Reportable 08/12/19 04:03 Seg Neutrophils # 15.7 K/mm3 (1.8-7.7) H 08/15/19 04:42 Seg Neutrophils # Man 18.1 K/mm3 (1.8-7.7) H 08/12/19 04:03 Band Neutrophils # 0.0 K/mm3 08/12/19 04:03 Lymphocytes # (Manual) 1.5 K/mm3 (1.2-5.4) 08/12/19 04:03 Abs React Lymphs (Man) 0.0 K/mm3 08/12/19 04:03 Monocytes # (Manual) 1.5 K/mm3 (0.0-0.8) H 08/12/19 04:03 Eosinophils # (Manual) 0.4 K/mm3 (0.0-0.4) 08/12/19 04:03 Basophils # (Manual) 0.0 K/mm3 (0.0-0.1) 08/12/19 04:03 Metamyelocytes # 0.4 K/mm3 08/12/19 04:03 Myelocytes # 0.0 K/mm3 08/12/19 04:03 Promyelocytes # 0.0 K/mm3 08/12/19 04:03 Blast Cells # 0.0 K/mm3 08/12/19 04:03 WBC Morphology Not Reportable 08/12/19 04:03 Hypersegmented Neuts Not Reportable 08/12/19 04:03 Hyposegmented Neuts Not Reportable 08/12/19 04:03 Hypogranular Neuts Not Reportable 08/12/19 04:03 Smudge Cells Not Reportable 08/12/19 04:03 Toxic Granulation Not Reportable 08/12/19 04:03 Toxic Vacuolation Not Reportable 08/12/19 04:03 Dohle Bodies Not Reportable 08/12/19 04:03 Pelger-Huet Anomaly Not Reportable 08/12/19 04:03 Arlene Rods Not Reportable 08/12/19 04:03 Platelet Estimate Consistent w auto 08/12/19 04:03 Clumped Platelets Not Reportable 08/12/19 04:03 Plt Clumps, EDTA Not Reportable 08/12/19 04:03 Large Platelets Not Reportable 08/12/19 04:03 Giant Platelets Not Reportable 08/12/19 04:03 Platelet Satelliting Not Reportable 08/12/19 04:03 Plt Morphology Comment Not Reportable 08/12/19 04:03 RBC Morphology Not Reportable 08/12/19 04:03 Dimorphic RBCs Not Reportable 08/12/19 04:03 Polychromasia Not Reportable 08/12/19 04:03 Hypochromasia Not Reportable 08/12/19 04:03 Poikilocytosis Not Reportable 08/12/19 04:03 Anisocytosis Not Reportable 08/12/19 04:03 Microcytosis Not Reportable 08/12/19 04:03 Macrocytosis Not Reportable 08/12/19 04:03 Spherocytes Not Reportable 08/12/19 04:03 Pappenheimer Bodies Not Reportable 08/12/19 04:03 Sickle Cells Not Reportable 08/12/19 04:03 Target Cells Not Reportable 08/12/19 04:03 Tear Drop Cells Not Reportable 08/12/19 04:03 Ovalocytes Not Reportable 08/12/19 04:03 Helmet Cells Not Reportable 08/12/19 04:03 Del Valle-Fries Bodies Not Reportable 08/12/19 04:03 [place] Rings Not Reportable 08/12/19 04:03 Leonard Cells Not Reportable 08/12/19 04:03 Bite Cells Not Reportable 08/12/19 04:03 Crenated Cell Not Reportable 08/12/19 04:03 Elliptocytes Not Reportable 08/12/19 04:03 Acanthocytes (Spur) Not Reportable 08/12/19 04:03 Rouleaux Not Reportable 08/12/19 04:03 Hemoglobin C Crystals Not Reportable 08/12/19 04:03 Schistocytes Rare 08/12/19 04:03 Malaria parasites Not Reportable 08/12/19 04:03 Ramos Bodies Not Reportable 08/12/19 04:03 Hem Pathologist Commnt No 08/12/19 04:03 PT 17.7 Sec. (12.2-14.9) H 08/08/19 06:59 INR 1.43 (0.87-1.13) H 08/08/19 06:59 APTT 43.4 Sec. (24.2-36.6) H 08/08/19 06:59 Sodium 136 mmol/L (137-145) L 08/15/19 04:42 Potassium 4.4 mmol/L (3.6-5.0) 08/15/19 04:42 Chloride 105.3 mmol/L (98-107) 08/15/19 04:42 Carbon Dioxide 18 mmol/L (22-30) L 08/15/19 04:42 Anion Gap 17 mmol/L 08/15/19 04:42 BUN 20 mg/dL (9-20) 08/15/19 04:42 Creatinine 1.6 mg/dL (0.8-1.5) H 08/15/19 04:42 Estimated GFR 57 ml/min 08/15/19 04:42 BUN/Creatinine Ratio 13 % 08/15/19 04:42 Glucose 118 mg/dL (75-100) H 08/15/19 04:42 POC Glucose 137 (70-105) H 08/15/19 16:54 Hemoglobin A1c 9.6 % (4-6) H 08/07/19 23:54 Lactic Acid 2.70 mmol/L (0.7-2.0) H* 08/07/19 22:48 Calcium 7.9 mg/dL (8.4-10.2) L 08/15/19 04:42 Magnesium 1.60 mg/dL (1.7-2.3) L 08/15/19 04:42 Total Bilirubin 0.60 mg/dL (0.1-1.2) 08/07/19 21:45 Direct Bilirubin 0.4 mg/dL (0-0.2) H 08/07/19 21:45 Indirect Bilirubin 0.2 mg/dL 08/07/19 21:45 AST 21 units/L (5-40) 08/07/19 21:45 ALT 16 units/L (7-56) 08/07/19 21:45 Alkaline Phosphatase 128 units/L (35-129) 08/07/19 21:45 Total Creatine Kinase 38 units/L (55-170) L 08/07/19 21:45 Serum Total Protein 5.9 g/dL (6.1-8.1) L 08/08/19 16:13 Total Protein 6.2 g/dL (6.3-8.2) L 08/07/19 21:45 Albumin 1.8 g/dL (3.8-4.8) L 08/08/19 16:13 Albumin/Globulin Ratio 0.7 % 08/07/19 21:45 Prealbumin 0.030 g/L (0.200-0.400) L 08/08/19 06:59 Qhher-0-Lzdxaojfi 0.8 g/dL (0.2-0.3) H 08/08/19 16:13 Ylgfn-3-Kzlxaureq 1.2 g/dL (0.5-0.9) H 08/08/19 16:13 Beta Globulins 0.5 g/dL (0.2-0.5) 08/08/19 16:13 Gamma Globulins 1.2 g/dL (0.8-1.7) 08/08/19 16:13 Abnorm Protein Band 1 see below 08/08/19 16:13 Abnorm Protein Band 2 see below 08/08/19 16:13 PEP Interpretation see below H 08/08/19 16:13 Urine Color Veronika (Yellow) 08/07/19 20:05 Urine Turbidity Slightly cloudy (Clear) 08/07/19 20:05 Urine pH 5.0 (5.0-7.0) 08/07/19 20:05 Ur Specific [place] 1.018 (1.003-1.030) 08/07/19 20:05 Urine Protein 100 mg/dl mg/dL (Negative) 08/07/19 20:05 Urine Glucose (UA) Neg mg/dL (Negative) 08/07/19 20:05 Urine Ketones Neg mg/dL (Negative) 08/07/19 20:05 Urine Blood Mod (Negative) 08/07/19 20:05 Urine Nitrite Neg (Negative) 08/07/19 20:05 Urine Bilirubin Neg (Negative) 08/07/19 20:05 Urine Urobilinogen 4.0 mg/dL (<2.0) 08/07/19 20:05 Ur Leukocyte Esterase Neg (Negative) 08/07/19 20:05 Urine WBC (Auto) 20.0 /HPF (0.0-6.0) H 08/07/19 20:05 Urine RBC (Auto) 18.0 /HPF (0.0-6.0) 08/07/19 20:05 U Epithel Cells (Auto) 2.0 /HPF (0-13.0) 08/07/19 20:05 Random Vancomycin 9.7 ug/mL (0-40.0) 08/11/19 04:24 Proteinase 3 (PR3) Ab <1.0 AI (<1.0) 08/08/19 16:13 Myeloperoxidase Ab <1.0 AI (<1.0) 08/08/19 16:13 Complement C3 206 mg/dL (82-185) H 08/08/19 16:13 Complement C4 46 mg/dL (15-53) 08/08/19 16:13 Hep Bs Antigen Non-reactive (Negative) 08/08/19 16:13 Hepatitis C Antibody Non-reactive (NonReactive) 08/08/19 16:13 Blood Type O POSITIVE 08/07/19 00:01 Antibody Screen Negative 08/07/19 00:01 Active Medications - Current Medications Current Medications: Generic Name Dose Route Start Last Admin Trade Name Freq PRN Reason Stop Dose Admin Acetaminophen 650 mg 08/07/19 23:29 08/14/19 16:52 Tylenol PO 650 mg Q4H PRN Administration Pain MILD(1-3)/Fever >100.5/MIRANDA Chlorpromazine HCl 10 mg 08/11/19 16:34 08/11/19 22:16 Thorazine PO 10 mg Q4H PRN Administration Hiccups Dextrose 0 ml 08/07/19 23:29 08/11/19 12:20 D50w (25gm) Syringe IV 20 ml Q30MIN PRN Administration Hypoglycemia Protocol Enoxaparin Sodium 40 mg 08/08/19 22:00 08/14/19 23:24 Enoxaparin SUB-Q 40 mg QDAY@2200 WILMER Administration Hydralazine HCl 25 mg 08/11/19 22:00 08/15/19 14:14 Apresoline PO 25 mg Q8HR WILMER Administration Hydralazine HCl 20 mg 08/11/19 16:31 08/14/19 13:33 Apresoline IV 20 mg Q4HR PRN Administration Hypertension Metronidazole 500 mg in 100 mls @ 100 mls/hr 08/09/19 16:00 08/15/19 14:14 Flagyl 500 Mg/100 Ml IV 100 mls/hr Q8HR WILMER Administration Protocol Ceftriaxone Sodium 2 gm in 100 mls @ 200 mls/hr 08/12/19 15:00 08/15/19 12:53 Rocephin/Ns 2 Gm/100 Ml IV 200 mls/hr Q24HR WILMER Administration Protocol Sodium Bicarbonate 150 meq/ 1,150 mls @ 75 mls/hr 08/15/19 09:00 08/15/19 10:45 Dextrose IV 75 mls/hr DIRECT WILMER Administration Insulin Human Lispro 0 unit 08/08/19 07:30 08/15/19 08:15 Humalog SUB-Q Not Given ACHS WILMER Protocol Morphine Sulfate 2 mg 08/07/19 23:29 08/15/19 06:59 Morphine IV 2 mg Q4H PRN Administration Pain, Moderate (4-6) Ondansetron HCl 4 mg 08/07/19 23:29 08/09/19 21:34 Zofran IV 4 mg Q8H PRN Administration Nausea And Vomiting Pantoprazole Sodium 40 mg 08/11/19 20:00 08/15/19 10:46 Protonix PO 40 mg QDAY WILMER Administration Sodium Bicarbonate 1,300 mg 08/08/19 12:00 08/15/19 10:40 Sodium Bicarbonate PO 1,300 mg BID WILMER Administration Sodium Chloride 10 ml 08/08/19 10:00 08/15/19 12:15 Sodium Chloride Flush Syringe 10 Ml IV Not Given BID WILMER Sodium Chloride 10 ml 08/07/19 23:29 Sodium Chloride Flush Syringe 10 Ml IV PRN PRN LINE FLUSH Sodium Hypochlorite 1 applic 08/08/19 13:19 08/13/19 17:57 Dakin's Half Strength TP 1 applicatio Q12H PRN Administration Wound Care Nutrition/Malnutrition Assess - Dietary Evaluation Nutrition/Malnutrition Findings: Nutrition Notes Start: 08/09/19 11:59 Freq: Status: Active Protocol: Document 08/12/19 12:34 AP (Rec: 08/12/19 12:42 AP [id number]) Co-Sign 08/12/19 12:34 LP Nutrition Notes Initial or Follow up Reassessment Current Diagnosis Acute Kidney Injury,CKD(stage I-IV),Diabetes,Sepsis, Hypertension Other Pertinent Diagnosis GERD Current Diet Cardiac/CC Labs/Tests Na 134 Cr 1.9 BUN 28 Pertinent Medications Reviewed Height 5 ft 8 in Weight 85.3 kg [place] Body Weight (kg) 70.00 BMI 28.5 Intake Prior to Admission Good Weight change and time frame Wt change noted. Noted slight edema in leg in pt chart. Weight Status Overweight Subjective/Other Information F/U for intakes. Pt ate 50% of dinner and 50% bfast. Noted pt did not drink glucerna, asked for a different flavor. Percent of energy/protein needs met: 47%/53% Burn Absent Trauma Absent GI Symptoms None Current % PO Fair (50-74%) Minimum of two criteria No physical signs of malnutrition #2 Nutrition Diagnosis Increased nutrient needs ( specify in comment below) Diagnosis Progress(for reassessment Continues documentation) #1 Nutrition Diagnosis Limited adherence to nutrition -related recommendations Diagnosis Progress(for reassessment Continues documentation) Is patient on ventilator? No Is Patient Ambulatory and/or Out of Bed Yes REE-([place]quitt-St. Jeor-ambulatory/OOB) [ 2226.250 [id number]] Calculation Used for Recommendations [place]-St Jeor Additional Notes PRO needs: 63-99 g/day (0.8-1. 25g) CKD/Wound healing Fluid needs: 1ml/kcal or per MD Nutrition Intervention Change Diet Order: Continue cardiac/cc. Add Supplement/Snack (indicate name/kcal Glucerna chocolate once a day /protein ) Provides kCal: 220 Provides Protein (gm) 10 Goal #1 Pt meet >80% of kcal/PRO needs via PO/ONS. Goal #2 wound healing Anticipated Discharge Needs: Cardiac/CC Follow-Up By: 08/17/19 Additional Comments F/U for stable PO/ONS intakes.
--- NOTE | 2019-08-15 19:16 | Progress Note ---
Assessment and Plan - Patient Problems (1) Acute kidney failure Current Visit: Yes Status: Acute Plan to address problem: DULCE - BASELINE CREATININE : 1.0MG/DL CURRENT CREATININE : 1.6MG/DL - MONOCLONAL SPIKE - OBTAIN IMMUNOFIXATON RECENT UA WITH HEMATURIA (2) Monoclonal (M) protein disease, multiple 'M' protein Current Visit: Yes Status: Acute Plan to address problem: MONOCLONAL PROTEIN - NEEDS ONCOLOGY FOLLOW UP ON DISCHARGE - OBTAIN IMMUNOFIXATON. (3) HTN (hypertension) Current Visit: Yes Status: Acute Qualifiers: Hypertension type: essential hypertension Qualified Code(s): I10 - Essential (primary) hypertension Plan to address problem: hTN : controlled. continue current medications. (4) Diabetes mellitus Current Visit: Yes Status: Acute Plan to address problem: Diabetes Mellitus continue current medications (5) HTN (hypertension) Current Visit: Yes Status: Acute Plan to address problem: HTN; CONTINUE CURRENT MEDICATIONS. Subjective Principal diagnosis: pvd Interval history: 43 year old with medical history signficant for HTn and Dm type II admitted with acute kidney injury patient seen today complains of arm swelling denies any shortness of breath Objective - Vital Signs Vital signs: Vital Signs - 12hr 08/15/19 08/15/19 08/15/19 07:44 08:18 10:00 Temperature 100.0 F H Pulse Rate 95 H Respiratory 15 Rate Blood Pressure 115/80 O2 Sat by Pulse 93 97 Oximetry 08/15/19 08/15/19 12:01 15:16 Temperature 99.8 F H 100.4 F H Pulse Rate 97 H 98 H Respiratory 20 15 Rate Blood Pressure 127/81 146/88 O2 Sat by Pulse 95 96 Oximetry - General Appearance General appearance: well-developed, well-nourished EENT: ATNC, PERRL Neck: no JVD Respiratory: Present: Clear to Ascultation Cardiology: regular, S1S2 Gastrointestinal: normal, normoactive bowel sounds Integumentary: no rash Neurologic: alert and oriented x3, CN 3-12 intact Psychiatric: mood/affect appropriate - Lab 08/15/19 04:42 08/15/19 04:42 Most recent lab results Calcium 7.9 mg/dL (8.4-10.2) L 08/15/19 04:42 Magnesium 1.60 mg/dL (1.7-2.3) L 08/15/19 04:42 Medications & Allergies - Medications Allergies/Adverse Reactions: Allergies No Known Allergies Allergy (Verified 05/26/13 04:48) Home Medications: Home Medications Medication Instructions Recorded Confirmed Last Taken Type NovoLIN N 30 unit SUB-Q BID 08/07/19 08/07/19 Unknown History Novolin R 12 unit SUB-Q BID 08/07/19 08/07/19 Unknown History Active Medications: Generic Name Dose Route Start Last Admin Trade Name Freq PRN Reason Stop Dose Admin Acetaminophen 650 mg 08/07/19 23:29 08/14/19 16:52 Tylenol PO 650 mg Q4H PRN Administration Pain MILD(1-3)/Fever >100.5/MIRANDA Chlorpromazine HCl 10 mg 08/11/19 16:34 08/11/19 22:16 Thorazine PO 10 mg Q4H PRN Administration Hiccups Dextrose 0 ml 08/07/19 23:29 08/11/19 12:20 D50w (25gm) Syringe IV 20 ml Q30MIN PRN Administration Hypoglycemia Protocol Enoxaparin Sodium 40 mg 08/08/19 22:00 08/14/19 23:24 Enoxaparin SUB-Q 40 mg QDAY@2200 WILMER Administration Hydralazine HCl 25 mg 08/11/19 22:00 08/15/19 14:14 Apresoline PO 25 mg Q8HR WILMER Administration Hydralazine HCl 20 mg 08/11/19 16:31 08/14/19 13:33 Apresoline IV 20 mg Q4HR PRN Administration Hypertension Metronidazole 500 mg in 100 mls @ 100 mls/hr 08/09/19 16:00 08/15/19 14:14 Flagyl 500 Mg/100 Ml IV 100 mls/hr Q8HR WILMER Administration Protocol Ceftriaxone Sodium 2 gm in 100 mls @ 200 mls/hr 08/12/19 15:00 08/15/19 12:53 Rocephin/Ns 2 Gm/100 Ml IV 200 mls/hr Q24HR WILMER Administration Protocol Sodium Bicarbonate 150 meq/ 1,150 mls @ 75 mls/hr 08/15/19 09:00 08/15/19 10:45 Dextrose IV 75 mls/hr DIRECT WILMER Administration Insulin Human Lispro 0 unit 08/08/19 07:30 02/03/20 08:15 Humalog SUB-Q Not Given ACHS [facility] Protocol Morphine Sulfate 2 mg 08/07/19 23:29 08/15/19 06:59 Morphine IV 2 mg Q4H PRN Administration Pain, Moderate (4-6) Ondansetron HCl 4 mg 08/07/19 23:29 08/09/19 21:34 Zofran IV 4 mg Q8H PRN Administration Nausea And Vomiting Pantoprazole Sodium 40 mg 08/11/19 20:00 08/15/19 10:46 Protonix PO 40 mg QDAY WILMER Administration Sodium Bicarbonate 1,300 mg 08/08/19 12:00 08/15/19 10:40 Sodium Bicarbonate PO 1,300 mg BID WILMER Administration Sodium Chloride 10 ml 08/08/19 10:00 08/15/19 12:15 Sodium Chloride Flush Syringe 10 Ml IV Not Given BID WILMER Sodium Chloride 10 ml 08/07/19 23:29 Sodium Chloride Flush Syringe 10 Ml IV PRN PRN LINE FLUSH Sodium Hypochlorite 1 applic 08/08/19 13:19 08/13/19 17:57 Dakin's Half Strength TP 1 applicatio Q12H PRN Administration Wound Care
[2019-08-15] MEDS: ENOXAPARIN 40 MG/0.4 ML INJ SUB-Q SCH (21:51)
[2019-08-15 22:13] LABS: ANA Screen, IFA Negative (Negative)
[2019-08-16] MEDS: hydrALAZINE 25 MG TAB PO SCH ×3 (06:18→21:35)
[2019-08-16] MEDS: metroNIDAZOLE/NS 500 MG/100 ML 500 MG/100 ML BAG IV SCH ×3 (06:18→21:36)
[2019-08-16] MEDS: INSULIN LISPRO 100 UNIT/ML SUB-Q SCH ×4 (08:15→22:00)
--- NOTE | 2019-08-16 08:53 | Anesthesia Consultation ---
Anesthesia Consult and Med Hx Date of service: 08/16/19 - Airway Anesthetic Teeth Evaluation: Good, Caps ROM Head & Neck: Adequate Mental/Hyoid Distance: Adequate Mallampati Class: Class II Intubation Access Assessment: Probably Good - Pulmonary Exam CTA: Yes - Cardiac Exam Cardiac Exam: RRR - Pre-Operative Health Status ASA Pre-Surgery Classification: ASA3 Proposed Anesthetic Plan: General - Cardiovascular System Hx Hypertension: Yes - Gastrointestinal Hx Gastroesophageal Reflux Disease: Yes (Controlled) - Endocrine Hx Insulin Dependent Diabetes: Yes (PM dose insulin held, AM glucose 152) - Hematic Hx Anemia: Yes (7.8/23.4)
--- NOTE | 2019-08-16 08:53 | Anesthesia Day of Surgery ---
Anesthesia Day of Surgery - Day of Surgery Patient Examined: Yes Patient H&P Reviewed: Yes Patient is NPO: Yes
[2019-08-16] MEDS ORDERED: SODIUM CHLORIDE 0.9% 500 ML 500 ML IV SCH (09:00)
[2019-08-16 10:11] LABS: BUN/Creatinine Ratio 13; Blood Urea Nitrogen 19 mg/dL (9-20); Calcium 7.9 mg/dL (8.4-10.2); Hemolysis Index 0
[2019-08-16] MEDS: cefTRIAXone/NS 2 GM/100 ML 2 GM/100 ML BAG IV SCH (10:36)
[2019-08-16] MEDS ORDERED: ONDANSETRON 4 MG/2 ML INJ IV PRN (11:11)
[2019-08-16] MEDS ORDERED: PROPOFOL 200 MG/20 ML VIAL IV ONE (11:44)
[2019-08-16] MEDS ORDERED: LIDOCAINE MPF (2%) 20 MG/1 ML VIAL 5 ML ONE (11:44)
[2019-08-16] MEDS ORDERED: fentaNYL 250 MCG/5 ML INJ ONE (11:44)
[2019-08-16] MEDS ORDERED: ROCURONIUM 50 MG/5 ML INJ IV ONE (11:44)
[2019-08-16] MEDS: LACTATED RINGERS 1,000 ML IV SCH (11:50)
[2019-08-16] MEDS: SODIUM BICARBONATE 650 MG TAB PO SCH ×3 (12:05→21:36)
[2019-08-16] MEDS ORDERED: dexAMETHasone 20 MG/5 ML VIAL ONE (13:11)
[2019-08-16] MEDS ORDERED: ONDANSETRON 4 MG/2 ML INJ ONE (13:11)
[2019-08-16] MEDS ORDERED: MIDAZOLAM 2 MG/2 ML INJ ONE (13:13)
[2019-08-16] MEDS ORDERED: SODIUM CHLORIDE 0.9% IRR 1,500 ML BOTTLE IR ONE (13:13)
[2019-08-16] MEDS ORDERED: GLYCOPYRROLATE 0.4 MG/2 ML INJ ONE (13:55)
[2019-08-16] MEDS ORDERED: NEOSTIGMINE 10MG/10 ML INJ MDV ONE (13:58)
[2019-08-16] MEDS: PANTOPRAZOLE 40 MG TAB PO SCH (14:00)
--- NOTE | 2019-08-16 14:47 | Progress Note ---
Assessment and Plan Cultures: 08/07/2019 urine culture: no growth 08/07/2019 blood culture: Streptococcus anginosus 08/08/2019 surgical culture: in process, no growth thus far 08/11/2019 blood culture: in process A/P: 43-year-old male with longstanding diabetes mellitus admitted with: #Sepsis, leukemoid reaction, secondary to left foot necrotic wound and underlying osteomyelitis: s/p debridement of soft tissue. Pending BKA tomorrow. #Streptococcus anginosus bacteremia: secondary to above. TTE unremarkable for vegetations. Follow up repeat cultures. #Diabetes mellitus type 2, uncontrolled #Peripheral vascular disease: vascular following. #DULCE on CKD Recs: Continue IV Ceftriaxone 2 gm daily continue Flagyl awaiting amputation, plan to d/c Flagyl post amputation. Continue Ceftriaxone to complete total 14 days Will follow. Mahsa Dupree MD [facility] ([facility]) M: [phone] O: [phone] F: [phone] Subjective Date of service: 08/16/19 Principal diagnosis: pvd Interval history: Some ongoing fevers, for amputation today. Objective - Exam Narrative Exam: Constitutional: Alert, cooperative. No acute distress Head, Ears, Nose: Normocephalic, atraumatic. External ears, nose normal Eyes: Conjunctivae/corneas clear. Cardiovascular: S1, S2 normal Respiratory: Good air entry, clear to auscultation bilaterally GI: Soft, non-tender; bowel sounds normal. No peritoneal signs Musculoskeletal: left leg with swelling, foul smell, dressing +. Skin: No rash or abscess Hem/Lymphatic: No palpable cervical or supraclavicular nodes. No lymphangitis. Psych: Mood ok. Affect normal Neurological: Awake, alert, oriented. No gross abnormality - Constitutional Vitals: Vital Signs Temp Pulse Resp BP Pulse Ox 99.1 F 97 H 22 164/93 95 08/16/19 11:58 08/16/19 11:58 08/16/19 11:58 08/16/19 11:58 08/16/19 11:58 Temperature -Last 24 Hours Temperature 99.1 F Temperature 99.1 F Temperature 99.1 F Temperature 99.1 F Temperature 98.0 F Temperature 98.0 F Temperature 99.2 F Temperature 100.4 F - Labs CBC & Chem 7: 08/15/19 04:42 08/16/19 09:25 Labs: Abnormal lab results 08/15/19 08/16/19 08/16/19 Range/Units 16:54 07:54 09:25 Sodium 134 L (137-145) mmol/L Carbon Dioxide 20 L (22-30) mmol/L Glucose 191 H (75-100) mg/dL POC Glucose 137 H 152 H (70-105) Calcium 7.9 L (8.4-10.2) mg/dL Crossmatch 08/16/19 08/16/19 Range/Units 09:32 11:16 Sodium (137-145) mmol/L Carbon Dioxide (22-30) mmol/L Glucose (75-100) mg/dL POC Glucose 190 H (70-105) Calcium (8.4-10.2) mg/dL Crossmatch See Detail
--- NOTE | 2019-08-16 15:06 | Post Operative Note ---
Pre-op diagnosis: Diabetic infection, left foot with osteomyelitis Post-op diagnosis: same Anesthesia: GETA Surgeon: GEOVANI GOSS Estimated blood loss: other (150 ml) Pathology: list (Left leg and foot) Specimen disposition: to lab Condition: stable Disposition: PACU
[2019-08-16] MEDS: HYDROmorphone 1 MG/1 ML INJ IV PRN ×6 (15:21→21:36)
[2019-08-16] MEDS: hydrALAZINE 20 MG/1 ML INJ IV PRN (16:10)
[2019-08-16] MEDS ORDERED: MIDAZOLAM 2 MG/2 ML INJ IV ONE (16:28)
[2019-08-16] MEDS: SODIUM BICARBONATE 150 MEQ in DEXTROSE 5% IN WATER 1,000 ML IV SCH (17:35)
[2019-08-16] MEDS: MORPHINE 2 MG/1 ML INJ IV PRN (17:35)
--- NOTE | 2019-08-16 17:45 | Progress Note ---
Assessment and Plan - Patient Problems (1) Acute kidney failure Current Visit: Yes Status: Acute Plan to address problem: DULCE - BASELINE CREATININE : 1.0MG/DL CURRENT CREATININE : 1.5MG/DL - MONOCLONAL SPIKE - OBTAIN IMMUNOFIXATON RECENT UA WITH HEMATURIA renal function is fairly stable needs oncology follow up and Chronic kidney disease follow up on discharge. . (2) Monoclonal (M) protein disease, multiple 'M' protein Current Visit: Yes Status: Acute Plan to address problem: MONOCLONAL PROTEIN - NEEDS ONCOLOGY FOLLOW UP ON DISCHARGE - OBTAIN IMMUNOFIXATON. (3) HTN (hypertension) Current Visit: Yes Status: Acute Qualifiers: Hypertension type: essential hypertension Qualified Code(s): I10 - Essential (primary) hypertension Plan to address problem: hTN : controlled. continue current medications. (4) Diabetes mellitus Current Visit: Yes Status: Acute Plan to address problem: Diabetes Mellitus continue current medications (5) HTN (hypertension) Current Visit: Yes Status: Acute Plan to address problem: HTN; CONTINUE CURRENT MEDICATIONS. Subjective Principal diagnosis: pvd Interval history: 43 year old with medical history signficant for HTn and Dm type II admitted with acute kidney injury patient seen today complains of arm swelling denies any shortness of breath has left leg swelling. Objective - Vital Signs Vital signs: Vital Signs - 12hr 08/16/19 08/16/19 08/16/19 06:18 10:50 11:10 Temperature 99.1 F 99.1 F Pulse Rate 98 H 98 H Respiratory 22 22 Rate Blood Pressure 145/84 157/92 157/92 O2 Sat by Pulse 95 95 Oximetry 08/16/19 08/16/19 08/16/19 11:43 11:58 15:11 Temperature 99.1 F 99.1 F 97.9 F Pulse Rate 98 H 97 H 96 H Respiratory 22 22 18 Rate Blood Pressure 157/92 164/93 178/106 O2 Sat by Pulse 95 95 95 Oximetry 08/16/19 08/16/19 08/16/19 15:15 15:20 15:21 Temperature Pulse Rate 98 H 96 H Respiratory 21 13 18 Rate Blood Pressure 173/107 176/98 O2 Sat by Pulse 95 94 Oximetry 08/16/19 08/16/19 08/16/19 15:25 15:29 15:30 Temperature Pulse Rate 94 H 95 H Respiratory 23 22 18 Rate Blood Pressure 172/97 180/101 O2 Sat by Pulse 92 97 Oximetry 08/16/19 08/16/19 08/16/19 15:37 15:45 16:00 Temperature Pulse Rate 94 H 96 H Respiratory 21 17 18 Rate Blood Pressure 174/98 170/105 O2 Sat by Pulse 96 96 Oximetry 08/16/19 08/16/19 08/16/19 16:10 16:15 16:30 Temperature Pulse Rate 95 H 98 H 100 H Respiratory 21 24 Rate Blood Pressure 170/105 154/88 151/66 O2 Sat by Pulse 96 93 Oximetry 08/16/19 08/16/19 08/16/19 16:32 16:46 17:12 Temperature 98.5 F 98.2 F Pulse Rate 100 H 101 H Respiratory 23 15 16 Rate Blood Pressure 131/75 135/76 O2 Sat by Pulse 94 93 Oximetry - General Appearance General appearance: well-developed, well-nourished EENT: ATNC, PERRL Neck: no JVD Respiratory: Present: Clear to Ascultation Cardiology: regular, S1S2 Gastrointestinal: normal, normoactive bowel sounds Integumentary: no rash Neurologic: alert and oriented x3, CN 3-12 intact Musculoskeletal: other (left leg swelling, dressing over ankle. ) Psychiatric: mood/affect appropriate - Lab 08/15/19 04:42 08/16/19 09:25 Most recent lab results Calcium 7.9 mg/dL (8.4-10.2) L 08/16/19 09:25 Magnesium 1.60 mg/dL (1.7-2.3) L 08/15/19 04:42 - Imaging Chest x-ray: image reviewed Medications & Allergies - Medications Allergies/Adverse Reactions: Allergies No Known Allergies Allergy (Verified 05/26/13 04:48) Home Medications: Home Medications Medication Instructions Recorded Confirmed Last Taken Type NovoLIN N 30 unit SUB-Q BID 08/07/19 08/07/19 Unknown History Novolin R 12 unit SUB-Q BID 08/07/19 08/07/19 Unknown History Active Medications: Generic Name Dose Route Start Last Admin Trade Name Freq PRN Reason Stop Dose Admin Acetaminophen 650 mg 08/07/19 23:29 08/14/19 16:52 Tylenol PO 650 mg Q4H PRN Administration Pain MILD(1-3)/Fever >100.5/MIRANDA Chlorpromazine HCl 10 mg 08/11/19 16:34 08/11/19 22:16 Thorazine PO 10 mg Q4H PRN Administration Hiccups Dextrose 0 ml 08/07/19 23:29 08/11/19 12:20 D50w (25gm) Syringe IV 20 ml Q30MIN PRN Administration Hypoglycemia Protocol Enoxaparin Sodium 40 mg 08/08/19 22:00 08/15/19 21:51 Enoxaparin SUB-Q 40 mg QDAY@2200 WILMER Administration Hydralazine HCl 25 mg 08/11/19 22:00 08/16/19 06:18 Apresoline PO 25 mg Q8HR WILMER Administration Hydralazine HCl 20 mg 08/11/19 16:31 08/16/19 16:10 Apresoline IV 20 mg Q4HR PRN Administration Hypertension Hydromorphone HCl 0.5 mg 08/16/19 16:25 08/16/19 16:32 Dilaudid IV 0.5 mg Q10MIN PRN Administration Pain , Severe (7-10) Metronidazole 500 mg in 100 mls @ 100 mls/hr 08/09/19 16:00 08/16/19 06:18 Flagyl 500 Mg/100 Ml IV 100 mls/hr Q8HR WILMER Administration Protocol Ceftriaxone Sodium 2 gm in 100 mls @ 200 mls/hr 08/12/19 15:00 08/16/19 10:36 Rocephin/Ns 2 Gm/100 Ml IV 08/25/19 10:29 200 mls/hr Q24HR WILMER Administration Protocol Sodium Bicarbonate 150 meq/ 1,150 mls @ 75 mls/hr 08/15/19 09:00 08/16/19 17:35 Dextrose IV 75 mls/hr DIRECT WILMER Administration Lactated Ringer's 1,000 mls @ 125 mls/hr 08/16/19 12:00 08/16/19 11:50 Lactated Ringers IV 125 mls/hr DIRECT WILMER Administration Insulin Human Lispro 0 unit 08/08/19 07:30 08/16/19 12:05 Humalog SUB-Q Not Given ACHS WILMER Protocol Morphine Sulfate 2 mg 08/07/19 23:29 08/16/19 17:35 Morphine IV 2 mg Q4H PRN Administration Pain, Moderate (4-6) Ondansetron HCl 4 mg 08/07/19 23:29 08/09/19 21:34 Zofran IV 4 mg Q8H PRN Administration Nausea And Vomiting Ondansetron HCl 4 mg 08/16/19 11:11 Zofran IV ONCE PRN Nausea And Vomiting Pantoprazole Sodium 40 mg 08/11/19 20:00 08/16/19 14:00 Protonix PO Not Given QDAY WILMER Sodium Bicarbonate 1,300 mg 08/08/19 12:00 08/16/19 12:05 Sodium Bicarbonate PO Not Given BID WILMER Sodium Chloride 10 ml 08/08/19 10:00 08/15/19 21:35 Sodium Chloride Flush Syringe 10 Ml IV 10 ml BID WILMER Administration Sodium Chloride 10 ml 08/07/19 23:29 Sodium Chloride Flush Syringe 10 Ml IV PRN PRN LINE FLUSH Sodium Hypochlorite 1 applic 08/08/19 13:19 08/13/19 17:57 Dakin's Half Strength TP 1 applicatio Q12H PRN Administration Wound Care
--- NOTE | 2019-08-16 18:27 | Progress Note ---
Assessment and Plan Assessment and plan: --Osteomyelitis left foot; scheduled for left BKA today. s/p surgical debridement on 08/08/2019 Antibiotics per ID, patient is on Flagyl and Rocephin Dr. Juares wanted 2 units of blood transfusion Transfusing first unit of PRBC --Persistent fevers due to osteomyelitis, ID following, continue current antibiotics,Follow cultures, --Sepsis secondary to left foot osteomyelitis; Continue current antibiotics follow cultures TTE, no vegetation --Peripheral arterial disease; Vascular following, continue current management --Leukocytosis; secondary to sepsis due to osteomyelitis --Type 2 diabetes mellitus; uncontrolled Secondary to sepsis, Accu-Chek sliding scale coverage ADA diet Novolin 70/30 insulin 8 units twice a day A1c 9.6 Diabetic education, nutrition consult --Acute on chronic kidney disease stage III; Vasomotor nephropathy, closely monitor renal function Avoid nephrotoxins, nephrology following --Severe malnutrition; nutrition supplements Nutrition consult, supportive care --DVT prophylaxis; Lovenox Monitor closely and adjust management as needed Consults and recommendations noted and appreciated Disposition : Follow left BKA , physical therapy occupational therapy Discharge when medically stable History Interval history: Patient seen and examined medical records reviewed Scheduled for left BKA today Hemoglobin 7.8, surgery requested transfusion of 2 units PRBC Patient has no new complaints Vital signs noted Hospitalist Physical - Constitutional Vitals: Temp Pulse Resp BP Pulse Ox 98.2 F 101 H 16 135/76 93 08/16/19 17:12 08/16/19 17:12 08/16/19 17:12 08/16/19 17:12 08/16/19 17:12 General appearance: Present: no acute distress, well-nourished, other (Anxious) - EENT Eyes: Present: PERRL, EOM intact - Neck Neck: Present: supple, normal ROM - Respiratory Respiratory effort: normal Respiratory: bilateral: diminished, negative: rales, rhonchi, wheezing - Cardiovascular Rhythm: regular Heart Sounds: Present: S1 & S2 - Extremities Extremities: abnormal (Osteomyelitis left foot) - Abdominal General gastrointestinal: soft, non-tender, non-distended, normal bowel sounds - Integumentary Integumentary: Present: clear, warm - Psychiatric Psychiatric: cooperative, other (Anxious) - Neurologic Neurologic: moves all extremities Results - Labs CBC & Chem 7: 08/15/19 04:42 08/16/19 09:25 Labs: Laboratory Last Values WBC 19.7 K/mm3 (4.5-11.0) H 08/15/19 04:42 RBC 2.84 M/mm3 (3.65-5.03) L 08/15/19 04:42 Hgb 7.8 gm/dl (11.8-15.2) L 08/15/19 04:42 Hct 23.4 % (35.5-45.6) L 08/15/19 04:42 MCV 82 fl (84-94) L 08/15/19 04:42 MCH 27 pg (28-32) L 08/15/19 04:42 MCHC 33 % (32-34) 08/15/19 04:42 RDW 14.8 % (13.2-15.2) 08/15/19 04:42 Plt Count 404 K/mm3 (140-440) 08/15/19 04:42 Lymph % (Auto) 10.6 % (13.4-35.0) L 08/15/19 04:42 Teller % (Auto) 6.9 % (0.0-7.3) 08/15/19 04:42 Eos % (Auto) 2.5 % (0.0-4.3) 08/15/19 04:42 Baso % (Auto) 0.6 % (0.0-1.8) 08/15/19 04:42 Lymph # 2.1 K/mm3 (1.2-5.4) 08/15/19 04:42 Teller # 1.4 K/mm3 (0.0-0.8) H 08/15/19 04:42 Eos # 0.5 K/mm3 (0.0-0.4) H 08/15/19 04:42 Baso # 0.1 K/mm3 (0.0-0.1) 08/15/19 04:42 Add Manual Diff Complete 08/12/19 04:03 Total Counted 100 08/12/19 04:03 Seg Neutrophils % 79.4 % (40.0-70.0) H 08/15/19 04:42 Seg Neuts % (Manual) 82.0 % (40.0-70.0) H 08/12/19 04:03 Band Neutrophils % 0 % 08/12/19 04:03 Lymphocytes % (Manual) 7.0 % (13.4-35.0) L 08/12/19 04:03 Reactive Lymphs % (Man) 0 % 08/12/19 04:03 Monocytes % (Manual) 7.0 % (0.0-7.3) 08/12/19 04:03 Eosinophils % (Manual) 2.0 % (0.0-4.3) 08/12/19 04:03 Basophils % (Manual) 0 % (0.0-1.8) 08/12/19 04:03 Metamyelocytes % 2.0 % 08/12/19 04:03 Myelocytes % 0 % 08/12/19 04:03 Promyelocytes % 0 % 08/12/19 04:03 Blast Cells % 0 % 08/12/19 04:03 Nucleated RBC % Not Reportable 08/12/19 04:03 Seg Neutrophils # 15.7 K/mm3 (1.8-7.7) H 08/15/19 04:42 Seg Neutrophils # Man 18.1 K/mm3 (1.8-7.7) H 08/12/19 04:03 Band Neutrophils # 0.0 K/mm3 08/12/19 04:03 Lymphocytes # (Manual) 1.5 K/mm3 (1.2-5.4) 08/12/19 04:03 Abs React Lymphs (Man) 0.0 K/mm3 08/12/19 04:03 Monocytes # (Manual) 1.5 K/mm3 (0.0-0.8) H 08/12/19 04:03 Eosinophils # (Manual) 0.4 K/mm3 (0.0-0.4) 08/12/19 04:03 Basophils # (Manual) 0.0 K/mm3 (0.0-0.1) 08/12/19 04:03 Metamyelocytes # 0.4 K/mm3 08/12/19 04:03 Myelocytes # 0.0 K/mm3 08/12/19 04:03 Promyelocytes # 0.0 K/mm3 08/12/19 04:03 Blast Cells # 0.0 K/mm3 08/12/19 04:03 WBC Morphology Not Reportable 08/12/19 04:03 Hypersegmented Neuts Not Reportable 08/12/19 04:03 Hyposegmented Neuts Not Reportable 08/12/19 04:03 Hypogranular Neuts Not Reportable 08/12/19 04:03 Smudge Cells Not Reportable 08/12/19 04:03 Toxic Granulation Not Reportable 08/12/19 04:03 Toxic Vacuolation Not Reportable 08/12/19 04:03 Dohle Bodies Not Reportable 08/12/19 04:03 Pelger-Huet Anomaly Not Reportable 08/12/19 04:03 Arlene Rods Not Reportable 08/12/19 04:03 Platelet Estimate Consistent w auto 08/12/19 04:03 Clumped Platelets Not Reportable 08/12/19 04:03 Plt Clumps, EDTA Not Reportable 08/12/19 04:03 Large Platelets Not Reportable 08/12/19 04:03 Giant Platelets Not Reportable 08/12/19 04:03 Platelet Satelliting Not Reportable 08/12/19 04:03 Plt Morphology Comment Not Reportable 08/12/19 04:03 RBC Morphology Not Reportable 08/12/19 04:03 Dimorphic RBCs Not Reportable 08/12/19 04:03 Polychromasia Not Reportable 08/12/19 04:03 Hypochromasia Not Reportable 08/12/19 04:03 Poikilocytosis Not Reportable 08/12/19 04:03 Anisocytosis Not Reportable 08/12/19 04:03 Microcytosis Not Reportable 08/12/19 04:03 Macrocytosis Not Reportable 08/12/19 04:03 Spherocytes Not Reportable 08/12/19 04:03 Pappenheimer Bodies Not Reportable 08/12/19 04:03 Sickle Cells Not Reportable 08/12/19 04:03 Target Cells Not Reportable 08/12/19 04:03 Tear Drop Cells Not Reportable 08/12/19 04:03 Ovalocytes Not Reportable 08/12/19 04:03 Helmet Cells Not Reportable 08/12/19 04:03 [place] Bodies Not Reportable 08/12/19 04:03 Proctor Rings Not Reportable 08/12/19 04:03 [place] Cells Not Reportable 08/12/19 04:03 Bite Cells Not Reportable 08/12/19 04:03 Crenated Cell Not Reportable 08/12/19 04:03 Elliptocytes Not Reportable 08/12/19 04:03 Acanthocytes (Spur) Not Reportable 08/12/19 04:03 Rouleaux Not Reportable 08/12/19 04:03 Hemoglobin C Crystals Not Reportable 08/12/19 04:03 Schistocytes Rare 08/12/19 04:03 Malaria parasites Not Reportable 08/12/19 04:03 Ramos Bodies Not Reportable 08/12/19 04:03 Hem Pathologist Commnt No 08/12/19 04:03 PT 17.7 Sec. (12.2-14.9) H 08/08/19 06:59 INR 1.43 (0.87-1.13) H 08/08/19 06:59 APTT 43.4 Sec. (24.2-36.6) H 08/08/19 06:59 Sodium 134 mmol/L (137-145) L 08/16/19 09:25 Potassium 4.3 mmol/L (3.6-5.0) 08/16/19 09:25 Chloride 101.8 mmol/L (98-107) 08/16/19 09:25 Carbon Dioxide 20 mmol/L (22-30) L 08/16/19 09:25 Anion Gap 17 mmol/L 08/16/19 09:25 BUN 19 mg/dL (9-20) 08/16/19 09:25 Creatinine 1.5 mg/dL (0.8-1.5) 08/16/19 09:25 Estimated GFR > 60 ml/min 08/16/19 09:25 BUN/Creatinine Ratio 13 % 08/16/19 09:25 Glucose 191 mg/dL (75-100) H 08/16/19 09:25 POC Glucose 207 (70-105) H 08/16/19 15:54 Hemoglobin A1c 9.6 % (4-6) H 08/07/19 23:54 Lactic Acid 2.70 mmol/L (0.7-2.0) H* 08/07/19 22:48 Calcium 7.9 mg/dL (8.4-10.2) L 08/16/19 09:25 Magnesium 1.60 mg/dL (1.7-2.3) L 08/15/19 04:42 Total Bilirubin 0.60 mg/dL (0.1-1.2) 08/07/19 21:45 Direct Bilirubin 0.4 mg/dL (0-0.2) H 08/07/19 21:45 Indirect Bilirubin 0.2 mg/dL 08/07/19 21:45 AST 21 units/L (5-40) 08/07/19 21:45 ALT 16 units/L (7-56) 08/07/19 21:45 Alkaline Phosphatase 128 units/L (35-129) 08/07/19 21:45 Total Creatine Kinase 38 units/L (55-170) L 08/07/19 21:45 Serum Total Protein 5.9 g/dL (6.1-8.1) L 08/08/19 16:13 Total Protein 6.2 g/dL (6.3-8.2) L 08/07/19 21:45 Albumin 1.8 g/dL (3.8-4.8) L 08/08/19 16:13 Albumin/Globulin Ratio 0.7 % 08/07/19 21:45 Prealbumin 0.030 g/L (0.200-0.400) L 08/08/19 06:59 Qfvxe-8-Ahlttcrhl 0.8 g/dL (0.2-0.3) H 08/08/19 16:13 Pkzyb-8-Muecklorf 1.2 g/dL (0.5-0.9) H 08/08/19 16:13 Beta Globulins 0.5 g/dL (0.2-0.5) 08/08/19 16:13 Gamma Globulins 1.2 g/dL (0.8-1.7) 08/08/19 16:13 Abnorm Protein Band 1 see below 08/08/19 16:13 Abnorm Protein Band 2 see below 08/08/19 16:13 PEP Interpretation see below H 08/08/19 16:13 Urine Color Veronika (Yellow) 08/07/19 20:05 Urine Turbidity Slightly cloudy (Clear) 08/07/19 20:05 Urine pH 5.0 (5.0-7.0) 08/07/19 20:05 Ur Specific [place] 1.018 (1.003-1.030) 08/07/19 20:05 Urine Protein 100 mg/dl mg/dL (Negative) 08/07/19 20:05 Urine Glucose (UA) Neg mg/dL (Negative) 08/07/19 20:05 Urine Ketones Neg mg/dL (Negative) 08/07/19 20:05 Urine Blood Mod (Negative) 08/07/19 20:05 Urine Nitrite Neg (Negative) 08/07/19 20:05 Urine Bilirubin Neg (Negative) 08/07/19 20:05 Urine Urobilinogen 4.0 mg/dL (<2.0) 08/07/19 20:05 Ur Leukocyte Esterase Neg (Negative) 08/07/19 20:05 Urine WBC (Auto) 20.0 /HPF (0.0-6.0) H 08/07/19 20:05 Urine RBC (Auto) 18.0 /HPF (0.0-6.0) 08/07/19 20:05 U Epithel Cells (Auto) 2.0 /HPF (0-13.0) 08/07/19 20:05 Random Vancomycin 9.7 ug/mL (0-40.0) 08/11/19 04:24 JUSTINA Screen Negative (Negative) 08/08/19 16:13 Proteinase 3 (PR3) Ab <1.0 AI (<1.0) 08/08/19 16:13 Myeloperoxidase Ab <1.0 AI (<1.0) 08/08/19 16:13 Complement C3 206 mg/dL (82-185) H 08/08/19 16:13 Complement C4 46 mg/dL (15-53) 08/08/19 16:13 Hep Bs Antigen Non-reactive (Negative) 08/08/19 16:13 Hepatitis C Antibody Non-reactive (NonReactive) 08/08/19 16:13 Blood Type O POSITIVE 08/16/19 09:32 Antibody Screen Negative 08/16/19 09:32 Crossmatch See Detail 08/16/19 09:32 Active Medications - Current Medications Current Medications: Generic Name Dose Route Start Last Admin Trade Name Freq PRN Reason Stop Dose Admin Acetaminophen 650 mg 08/07/19 23:29 08/14/19 16:52 Tylenol PO 650 mg Q4H PRN Administration Pain MILD(1-3)/Fever >100.5/MIRANDA Chlorpromazine HCl 10 mg 08/11/19 16:34 08/11/19 22:16 Thorazine PO 10 mg Q4H PRN Administration Hiccups Dextrose 0 ml 08/07/19 23:29 08/11/19 12:20 D50w (25gm) Syringe IV 20 ml Q30MIN PRN Administration Hypoglycemia Protocol Enoxaparin Sodium 40 mg 08/08/19 22:00 08/15/19 21:51 Enoxaparin SUB-Q 40 mg QDAY@2200 WILMER Administration Hydralazine HCl 25 mg 08/11/19 22:00 08/16/19 06:18 Apresoline PO 25 mg Q8HR WILMER Administration Hydralazine HCl 20 mg 08/11/19 16:31 08/16/19 16:10 Apresoline IV 20 mg Q4HR PRN Administration Hypertension Hydromorphone HCl 0.5 mg 08/16/19 16:25 08/16/19 16:32 Dilaudid IV 0.5 mg Q10MIN PRN Administration Pain , Severe (7-10) Metronidazole 500 mg in 100 mls @ 100 mls/hr 08/09/19 16:00 08/16/19 06:18 Flagyl 500 Mg/100 Ml IV 100 mls/hr Q8HR WILMER Administration Protocol Ceftriaxone Sodium 2 gm in 100 mls @ 200 mls/hr 08/12/19 15:00 08/16/19 10:36 Rocephin/Ns 2 Gm/100 Ml IV 08/25/19 10:29 200 mls/hr Q24HR WILMER Administration Protocol Sodium Bicarbonate 150 meq/ 1,150 mls @ 75 mls/hr 08/15/19 09:00 08/16/19 17:35 Dextrose IV 75 mls/hr DIRECT WILMER Administration Lactated Ringer's 1,000 mls @ 125 mls/hr 08/16/19 12:00 08/16/19 11:50 Lactated Ringers IV 125 mls/hr DIRECT WILMER Administration Insulin Human Lispro 0 unit 08/08/19 07:30 08/16/19 12:05 Humalog SUB-Q Not Given ACHS WILMER Protocol Morphine Sulfate 2 mg 08/07/19 23:29 08/16/19 17:35 Morphine IV 2 mg Q4H PRN Administration Pain, Moderate (4-6) Ondansetron HCl 4 mg 08/07/19 23:29 08/09/19 21:34 Zofran IV 4 mg Q8H PRN Administration Nausea And Vomiting Ondansetron HCl 4 mg 08/16/19 11:11 Zofran IV ONCE PRN Nausea And Vomiting Pantoprazole Sodium 40 mg 08/11/19 20:00 08/16/19 14:00 Protonix PO Not Given QDAY WILMER Sodium Bicarbonate 1,300 mg 08/08/19 12:00 08/16/19 12:05 Sodium Bicarbonate PO Not Given BID WILMER Sodium Chloride 10 ml 08/08/19 10:00 08/15/19 21:35 Sodium Chloride Flush Syringe 10 Ml IV 10 ml BID WILMER Administration Sodium Chloride 10 ml 08/07/19 23:29 Sodium Chloride Flush Syringe 10 Ml IV PRN PRN LINE FLUSH Sodium Hypochlorite 1 applic 08/08/19 13:19 08/13/19 17:57 Dakin's Half Strength TP 1 applicatio Q12H PRN Administration Wound Care Nutrition/Malnutrition Assess - Dietary Evaluation Nutrition/Malnutrition Findings: Nutrition Notes Start: 08/09/19 11:59 Freq: Status: Active Protocol: Document 08/12/19 12:34 AP (Rec: 08/12/19 12:42 AP [id number]) Co-Sign 08/12/19 12:34 LP Nutrition Notes Initial or Follow up Reassessment Current Diagnosis Acute Kidney Injury,CKD(stage I-IV),Diabetes,Sepsis, Hypertension Other Pertinent Diagnosis GERD Current Diet Cardiac/CC Labs/Tests Na 134 Cr 1.9 BUN 28 Pertinent Medications Reviewed Height 5 ft 8 in Weight 85.3 kg [place] Body Weight (kg) 70.00 BMI 28.5 Intake Prior to Admission Good Weight change and time frame Wt change noted. Noted slight edema in leg in pt chart. Weight Status Overweight Subjective/Other Information F/U for intakes. Pt ate 50% of dinner and 50% bfast. Noted pt did not drink glucerna, asked for a different flavor. Percent of energy/protein needs met: 47%/53% Burn Absent Trauma Absent GI Symptoms None Current % PO Fair (50-74%) Minimum of two criteria No physical signs of malnutrition #2 Nutrition Diagnosis Increased nutrient needs ( specify in comment below) Diagnosis Progress(for reassessment Continues documentation) #1 Nutrition Diagnosis Limited adherence to nutrition -related recommendations Diagnosis Progress(for reassessment Continues documentation) Is patient on ventilator? No Is Patient Ambulatory and/or Out of Bed Yes REE-([place]-ambulatory/OOB) [ 2226.250 [id number]] Calculation Used for Recommendations [place] Additional Notes PRO needs: 63-99 g/day (0.8-1. 25g) CKD/Wound healing Fluid needs: 1ml/kcal or per MD Nutrition Intervention Change Diet Order: Continue cardiac/cc. Add Supplement/Snack (indicate name/kcal Glucerna chocolate once a day /protein ) Provides kCal: 220 Provides Protein (gm) 10 Goal #1 Pt meet >80% of kcal/PRO needs via PO/ONS. Goal #2 wound healing Anticipated Discharge Needs: Cardiac/CC Follow-Up By: 08/17/19 Additional Comments F/U for stable PO/ONS intakes.
[2019-08-16] MEDS: ENOXAPARIN 40 MG/0.4 ML INJ SUB-Q SCH (21:38)
[2019-08-17] MEDS: LACTATED RINGERS 1,000 ML IV SCH ×2 (02:33→18:24)
[2019-08-17] MEDS: HYDROmorphone 1 MG/1 ML INJ IV PRN (04:56)
[2019-08-17 06:23] LABS: Hemoglobin 9.8 gm/dl (11.8-15.2); Mean Corpuscular HGB Conc 33 % (32-34); Mean Corpuscular Volume 83 fl (84-94); Platelet Count 505 K/mm3 (140-440); Red Cell Distribution Width 14.6 % (13.2-15.2)
[2019-08-17] MEDS: metroNIDAZOLE/NS 500 MG/100 ML 500 MG/100 ML BAG IV SCH (06:55)
[2019-08-17] MEDS: hydrALAZINE 25 MG TAB PO SCH ×3 (07:00→21:34)
[2019-08-17 07:25] LABS: Band Neutrophils # (Manual) 0.4 K/mm3; Basophils % (Manual) 0 % (0.0-1.8); Eosinophils % (Manual) 0 % (0.0-4.3); Total Cells Counted 100
[2019-08-17 07:27] LABS: Anisocytosis Few; Hypochromasia Rare; Macrocytosis Rare
[2019-08-17 07:28] LABS: Platelet Estimate Consistent w Auto
[2019-08-17] MEDS ORDERED: HYDROmorphone 1 MG/1 ML INJ IV PRN (09:12)
[2019-08-17] MEDS: PANTOPRAZOLE 40 MG TAB PO SCH (10:06)
[2019-08-17] MEDS: SODIUM BICARBONATE 650 MG TAB PO SCH ×4 (10:06→21:34)
[2019-08-17] MEDS: cefTRIAXone/NS 2 GM/100 ML 2 GM/100 ML BAG IV SCH (10:07)
[2019-08-17] MEDS: INSULIN LISPRO 100 UNIT/ML SUB-Q SCH ×4 (10:07→22:32)
--- NOTE | 2019-08-17 10:26 | Progress Note ---
Assessment and Plan - Patient Problems (1) Diabetic infection of left foot Current Visit: Yes Status: Acute Plan to address problem: 1) Satisfactory post-op course 2) Would continue IV antibiotics for now Subjective Date of service: 08/17/19 Patient Reports: Positive: no new complaints, pain is less Objective Vital Signs - 12hr 08/17/19 08/17/19 08/17/19 00:32 00:43 04:13 Temperature 98.4 F 98.3 F 98.2 F Pulse Rate 102 H 75 104 H Respiratory 18 18 18 Rate Blood Pressure 166/96 127/77 175/105 O2 Sat by Pulse 92 96 89 Oximetry 08/17/19 07:00 Temperature Pulse Rate Respiratory Rate Blood Pressure 175/99 O2 Sat by Pulse Oximetry - Musculoskeletal other (Left BKA stump dressing is dry.) - Labs 08/17/19 05:26 08/16/19 09:25
--- NOTE | 2019-08-17 13:06 | Progress Note ---
Assessment and Plan Assessment and plan: 43-year-old man with history of diabetes ,with left diabetic foot wound with osteomyelitis was admitted ,on IV antibiotics, s/p surgical debredement ,s/p Lt BKA . --Osteomyelitis left foot;s/p left BKA today. Pain management,Antibiotics per ID, patient is on Flagyl and Rocephin --Anemia : s/p 2 units PRBC transfusion Monitor H/H and transfuse additional PRBC as needed --Persistent fevers due to osteomyelitis, ID following, s/p surgical debridement on 08/08/2019 s/p BKA today, supportive care continue current antibiotics,Follow cultures, --Sepsis secondary to left foot osteomyelitis; Continue current antibiotics follow cultures TTE, no vegetation --Peripheral arterial disease;Vascular following, continue current management --Leukocytosis; secondary to sepsis due to osteomyelitis --Type 2 diabetes mellitus; uncontrolled Secondary to sepsis, Accu-Chek sliding scale coverage ADA diet Novolin 70/30 , A1c 9.6,Diabetic education, nutrition consult --Acute on chronic kidney disease stage III; Vasomotor nephropathy, closely monitor renal function Avoid nephrotoxins, nephrology following --Severe malnutrition; nutrition supplements Nutrition consult, supportive care --DVT prophylaxis; Lovenox Monitor closely and adjust management as needed Consults and recommendations noted and appreciated Disposition : physical therapy occupational therapy,rehab Discharge when medically stable History Interval history: Patient feels slightly better S/P Lt BKA, c/o pain in the leg. Received PRBC transfusion. Vital signs reviewed Hospitalist Physical - Constitutional Vitals: Temp Pulse Resp BP Pulse Ox 98.2 F 104 H 18 175/99 89 08/17/19 04:13 08/17/19 04:13 08/17/19 04:13 08/17/19 07:00 08/17/19 04:13 General appearance: Present: mild distress, well-nourished, other (Anxious) - EENT Eyes: Present: PERRL, EOM intact - Neck Neck: Present: supple, normal ROM - Respiratory Respiratory effort: normal Respiratory: bilateral: diminished, negative: rales, rhonchi, wheezing - Cardiovascular Rhythm: regular Heart Sounds: Present: S1 & S2 - Extremities Extremities: No edema, abnormal (Lt.BKA, dressing in place) - Abdominal General gastrointestinal: soft, non-tender, non-distended, normal bowel sounds - Integumentary Integumentary: Present: clear, warm - Psychiatric Psychiatric: appropriate mood/affect, cooperative - Neurologic Neurologic: moves all extremities Results - Labs CBC & Chem 7: 08/17/19 05:26 08/17/19 12:27 Labs: Laboratory Last Values WBC 21.1 K/mm3 (4.5-11.0) H 08/17/19 05:26 RBC 3.60 M/mm3 (3.65-5.03) L 08/17/19 05:26 Hgb 9.8 gm/dl (11.8-15.2) L 08/17/19 05:26 Hct 30.0 % (35.5-45.6) L D 08/17/19 05:26 MCV 83 fl (84-94) L 08/17/19 05:26 MCH 27 pg (28-32) L 08/17/19 05:26 MCHC 33 % (32-34) 08/17/19 05:26 RDW 14.6 % (13.2-15.2) 08/17/19 05:26 Plt Count 505 K/mm3 (140-440) H 08/17/19 05:26 Lymph % (Auto) 10.6 % (13.4-35.0) L 08/15/19 04:42 Hale % (Auto) 6.9 % (0.0-7.3) 08/15/19 04:42 Eos % (Auto) 2.5 % (0.0-4.3) 08/15/19 04:42 Baso % (Auto) 0.6 % (0.0-1.8) 08/15/19 04:42 Lymph # 2.1 K/mm3 (1.2-5.4) 08/15/19 04:42 Hale # 1.4 K/mm3 (0.0-0.8) H 08/15/19 04:42 Eos # 0.5 K/mm3 (0.0-0.4) H 08/15/19 04:42 Baso # 0.1 K/mm3 (0.0-0.1) 08/15/19 04:42 Add Manual Diff Complete 08/17/19 05:26 Total Counted 100 08/17/19 05:26 Seg Neutrophils % Life Enrichment Assistant 08/17/19 05:26 Seg Neuts % (Manual) 91.0 % (40.0-70.0) H 08/17/19 05:26 Band Neutrophils % 2.0 % 08/17/19 05:26 Lymphocytes % (Manual) 6.0 % (13.4-35.0) L 08/17/19 05:26 Reactive Lymphs % (Man) 0 % 08/17/19 05:26 Monocytes % (Manual) 1.0 % (0.0-7.3) 08/17/19 05:26 Eosinophils % (Manual) 0 % (0.0-4.3) 08/17/19 05:26 Basophils % (Manual) 0 % (0.0-1.8) 08/17/19 05:26 Metamyelocytes % 0 % 08/17/19 05:26 Myelocytes % 0 % 08/17/19 05:26 Promyelocytes % 0 % 08/17/19 05:26 Blast Cells % 0 % 08/17/19 05:26 Nucleated RBC % Not Reportable 08/17/19 05:26 Seg Neutrophils # 15.7 K/mm3 (1.8-7.7) H 08/15/19 04:42 Seg Neutrophils # Man 19.2 K/mm3 (1.8-7.7) H 08/17/19 05:26 Band Neutrophils # 0.4 K/mm3 08/17/19 05:26 Lymphocytes # (Manual) 1.3 K/mm3 (1.2-5.4) 08/17/19 05:26 Abs React Lymphs (Man) 0.0 K/mm3 08/17/19 05:26 Monocytes # (Manual) 0.2 K/mm3 (0.0-0.8) 08/17/19 05:26 Eosinophils # (Manual) 0.0 K/mm3 (0.0-0.4) 08/17/19 05:26 Basophils # (Manual) 0.0 K/mm3 (0.0-0.1) 08/17/19 05:26 Metamyelocytes # 0.0 K/mm3 08/17/19 05:26 Myelocytes # 0.0 K/mm3 08/17/19 05:26 Promyelocytes # 0.0 K/mm3 08/17/19 05:26 Blast Cells # 0.0 K/mm3 08/17/19 05:26 WBC Morphology Not Reportable 08/17/19 05:26 Hypersegmented Neuts Not Reportable 08/17/19 05:26 Hyposegmented Neuts Not Reportable 08/17/19 05:26 Hypogranular Neuts Not Reportable 08/17/19 05:26 Smudge Cells Not Reportable 08/17/19 05:26 Toxic Granulation Not Reportable 08/17/19 05:26 Toxic Vacuolation Not Reportable 08/17/19 05:26 Dohle Bodies Not Reportable 08/17/19 05:26 Pelger-Huet Anomaly Not Reportable 08/17/19 05:26 Arlene Rods Not Reportable 08/17/19 05:26 Platelet Estimate Consistent w auto 08/17/19 05:26 Clumped Platelets Not Reportable 08/17/19 05:26 Plt Clumps, EDTA Not Reportable 08/17/19 05:26 Large Platelets Not Reportable 08/17/19 05:26 Giant Platelets Not Reportable 08/17/19 05:26 Platelet Satelliting Not Reportable 08/17/19 05:26 Plt Morphology Comment Not Reportable 08/17/19 05:26 RBC Morphology Not Reportable 08/17/19 05:26 Dimorphic RBCs Not Reportable 08/17/19 05:26 Polychromasia Not Reportable 08/17/19 05:26 Hypochromasia Rare 08/17/19 05:26 Poikilocytosis Not Reportable 08/17/19 05:26 Anisocytosis Few 08/17/19 05:26 Microcytosis Not Reportable 08/17/19 05:26 Macrocytosis Rare 08/17/19 05:26 Spherocytes Not Reportable 08/17/19 05:26 Pappenheimer Bodies Not Reportable 08/17/19 05:26 Sickle Cells Not Reportable 08/17/19 05:26 Target Cells Not Reportable 08/17/19 05:26 Tear Drop Cells Not Reportable 08/17/19 05:26 Ovalocytes Not Reportable 08/17/19 05:26 Helmet Cells Not Reportable 08/17/19 05:26 [place] Bodies Not Reportable 08/17/19 05:26 [place] Rings Not Reportable 08/17/19 05:26 Marty Cells Not Reportable 08/17/19 05:26 Bite Cells Not Reportable 08/17/19 05:26 Crenated Cell Not Reportable 08/17/19 05:26 Elliptocytes Not Reportable 08/17/19 05:26 Acanthocytes (Spur) Not Reportable 08/17/19 05:26 Rouleaux Not Reportable 08/17/19 05:26 Hemoglobin C Crystals Not Reportable 08/17/19 05:26 Schistocytes Not Reportable 08/17/19 05:26 Malaria parasites Not Reportable 08/17/19 05:26 Ramos Bodies Not Reportable 08/17/19 05:26 Hem Pathologist Commnt No 08/17/19 05:26 PT 17.7 Sec. (12.2-14.9) H 08/08/19 06:59 INR 1.43 (0.87-1.13) H 08/08/19 06:59 APTT 43.4 Sec. (24.2-36.6) H 08/08/19 06:59 Sodium 134 mmol/L (137-145) L 08/16/19 09:25 Potassium 4.3 mmol/L (3.6-5.0) 08/16/19 09:25 Chloride 101.8 mmol/L (98-107) 08/16/19 09:25 Carbon Dioxide 20 mmol/L (22-30) L 08/16/19 09:25 Anion Gap 17 mmol/L 08/16/19 09:25 BUN 19 mg/dL (9-20) 08/16/19 09:25 Creatinine 1.5 mg/dL (0.8-1.5) 08/16/19 09:25 Estimated GFR > 60 ml/min 08/16/19 09:25 BUN/Creatinine Ratio 13 % 08/16/19 09:25 Glucose 191 mg/dL (75-100) H 08/16/19 09:25 POC Glucose 283 (70-105) H 08/17/19 08:34 Hemoglobin A1c 9.6 % (4-6) H 08/07/19 23:54 Lactic Acid 2.70 mmol/L (0.7-2.0) H* 08/07/19 22:48 Calcium 7.9 mg/dL (8.4-10.2) L 08/16/19 09:25 Magnesium 1.60 mg/dL (1.7-2.3) L 08/15/19 04:42 Total Bilirubin 0.60 mg/dL (0.1-1.2) 08/07/19 21:45 Direct Bilirubin 0.4 mg/dL (0-0.2) H 08/07/19 21:45 Indirect Bilirubin 0.2 mg/dL 08/07/19 21:45 AST 21 units/L (5-40) 08/07/19 21:45 ALT 16 units/L (7-56) 08/07/19 21:45 Alkaline Phosphatase 128 units/L (35-129) 08/07/19 21:45 Total Creatine Kinase 38 units/L (55-170) L 08/07/19 21:45 Serum Total Protein 5.9 g/dL (6.1-8.1) L 08/08/19 16:13 Total Protein 6.2 g/dL (6.3-8.2) L 08/07/19 21:45 Albumin 1.8 g/dL (3.8-4.8) L 08/08/19 16:13 Albumin/Globulin Ratio 0.7 % 08/07/19 21:45 Prealbumin 0.030 g/L (0.200-0.400) L 08/08/19 06:59 Qjict-9-[id number] 0.8 g/dL (0.2-0.3) H 08/08/19 16:13 Yzclz-7-Ytkjeyrew 1.2 g/dL (0.5-0.9) H 08/08/19 16:13 Beta Globulins 0.5 g/dL (0.2-0.5) 08/08/19 16:13 Gamma Globulins 1.2 g/dL (0.8-1.7) 08/08/19 16:13 Abnorm Protein Band 1 see below 08/08/19 16:13 Abnorm Protein Band 2 see below 08/08/19 16:13 PEP Interpretation see below H 08/08/19 16:13 Urine Color Veronika (Yellow) 08/07/19 20:05 Urine Turbidity Slightly cloudy (Clear) 08/07/19 20:05 Urine pH 5.0 (5.0-7.0) 08/07/19 20:05 Ur Specific [place] 1.018 (1.003-1.030) 08/07/19 20:05 Urine Protein 100 mg/dl mg/dL (Negative) 08/07/19 20:05 Urine Glucose (UA) Neg mg/dL (Negative) 08/07/19 20:05 Urine Ketones Neg mg/dL (Negative) 08/07/19 20:05 Urine Blood Mod (Negative) 08/07/19 20:05 Urine Nitrite Neg (Negative) 08/07/19 20:05 Urine Bilirubin Neg (Negative) 08/07/19 20:05 Urine Urobilinogen 4.0 mg/dL (<2.0) 08/07/19 20:05 Ur Leukocyte Esterase Neg (Negative) 08/07/19 20:05 Urine WBC (Auto) 20.0 /HPF (0.0-6.0) H 08/07/19 20:05 Urine RBC (Auto) 18.0 /HPF (0.0-6.0) 08/07/19 20:05 U Epithel Cells (Auto) 2.0 /HPF (0-13.0) 08/07/19 20:05 Random Vancomycin 9.7 ug/mL (0-40.0) 08/11/19 04:24 JUSTINA Screen Negative (Negative) 08/08/19 16:13 Proteinase 3 (PR3) Ab <1.0 AI (<1.0) 08/08/19 16:13 Myeloperoxidase Ab <1.0 AI (<1.0) 08/08/19 16:13 Complement C3 206 mg/dL (82-185) H 08/08/19 16:13 Complement C4 46 mg/dL (15-53) 08/08/19 16:13 Hep Bs Antigen Non-reactive (Negative) 08/08/19 16:13 Hepatitis C Antibody Non-reactive (NonReactive) 08/08/19 16:13 Blood Type O POSITIVE 08/16/19 09:32 Antibody Screen Negative 08/16/19 09:32 Crossmatch See Detail 08/16/19 09:32 Active Medications - Current Medications Current Medications: Generic Name Dose Route Start Last Admin Trade Name Freq PRN Reason Stop Dose Admin Acetaminophen 650 mg 08/07/19 23:29 08/14/19 16:52 Tylenol PO 650 mg Q4H PRN Administration Pain MILD(1-3)/Fever >100.5/MIRANDA Chlorpromazine HCl 10 mg 08/11/19 16:34 08/11/19 22:16 Thorazine PO 10 mg Q4H PRN Administration Hiccups Dextrose 0 ml 08/07/19 23:29 08/11/19 12:20 D50w (25gm) Syringe IV 20 ml Q30MIN PRN Administration Hypoglycemia Protocol Enoxaparin Sodium 40 mg 08/08/19 22:00 08/16/19 21:38 Enoxaparin SUB-Q 40 mg QDAY@2200 WILMER Administration Hydralazine HCl 25 mg 08/11/19 22:00 08/17/19 07:00 Apresoline PO 25 mg Q8HR WILMER Administration Hydralazine HCl 20 mg 08/11/19 16:31 08/16/19 16:10 Apresoline IV 20 mg Q4HR PRN Administration Hypertension Hydromorphone HCl 2 mg 08/17/19 09:12 Dilaudid IV Q4H PRN Pain , Severe (7-10) Metronidazole 500 mg in 100 mls @ 100 mls/hr 08/09/19 16:00 08/17/19 06:55 Flagyl 500 Mg/100 Ml IV 100 mls/hr Q8HR WILMER Administration Protocol Ceftriaxone Sodium 2 gm in 100 mls @ 200 mls/hr 08/12/19 15:00 08/17/19 10:07 Rocephin/Ns 2 Gm/100 Ml IV 08/25/19 10:29 200 mls/hr Q24HR WILMER Administration Protocol Lactated Ringer's 1,000 mls @ 125 mls/hr 08/16/19 12:00 08/17/19 02:33 Lactated Ringers IV 125 mls/hr DIRECT WILMER Administration Insulin Human Lispro 0 unit 08/08/19 07:30 08/17/19 12:51 Humalog SUB-Q 8 unit ACHS WILMER Administration Protocol Morphine Sulfate 2 mg 08/07/19 23:29 08/16/19 17:35 Morphine IV 2 mg Q4H PRN Administration Pain, Moderate (4-6) Ondansetron HCl 4 mg 08/07/19 23:29 08/09/19 21:34 Zofran IV 4 mg Q8H PRN Administration Nausea And Vomiting Oxycodone/Acetaminophen 1 tab 08/17/19 09:12 Percocet 5/325 PO Q4H PRN Pain, Moderate (4-6) Pantoprazole Sodium 40 mg 08/11/19 20:00 08/17/19 10:06 Protonix PO 40 mg QDAY WILMER Administration Sodium Bicarbonate 650 mg 08/16/19 20:00 08/17/19 10:06 Sodium Bicarbonate PO 650 mg TID WILMER Administration Sodium Chloride 10 ml 08/08/19 10:00 08/17/19 10:07 Sodium Chloride Flush Syringe 10 Ml IV 10 ml BID WILMER Administration Sodium Chloride 10 ml 08/07/19 23:29 Sodium Chloride Flush Syringe 10 Ml IV PRN PRN LINE FLUSH Sodium Hypochlorite 1 applic 08/08/19 13:19 08/13/19 17:57 Dakin's Half Strength TP 1 applicatio Q12H PRN Administration Wound Care Nutrition/Malnutrition Assess - Dietary Evaluation Nutrition/Malnutrition Findings: Nutrition Notes Start: 08/09/19 11:59 Freq: Status: Active Protocol: Document 08/17/19 09:39 AP (Rec: 08/17/19 09:47 AP [email or web address]) Co-Sign 08/17/19 09:39 LP Nutrition Notes Initial or Follow up Reassessment Current Diagnosis Acute Kidney Injury,CKD(stage I-IV),Diabetes,Sepsis, Hypertension Other Pertinent Diagnosis GERD Current Diet Cardiac/CC Labs/Tests Reviewed Pertinent Medications Reviewed Height 5 ft 8 in Weight 85.3 kg [place] Body Weight (kg) 70.00 BMI 28.5 Subjective/Other Information F/U for intakes. Pt consumed 50% of bfast, reports fair to good appetite in stay. Pt stated he would like the glucerna now that NPO status was lifted last night. Percent of energy/protein needs met: 47%/53% Burn Absent Trauma Absent Current % PO Fair (50-74%) Minimum of two criteria No physical signs of malnutrition #3 Nutrition Diagnosis Inadequate energy intake Etiology Pt states food preferences, doesn't tired of hospital food As Evidenced by Signs and Symptoms Pt consumes 50% of meals instay #2 Nutrition Diagnosis Increased nutrient needs ( specify in comment below) Diagnosis Progress(for reassessment Continues documentation) #1 Nutrition Diagnosis Limited adherence to nutrition -related recommendations Diagnosis Progress(for reassessment Continues documentation) Is patient on ventilator? No Is Patient Ambulatory and/or Out of Bed Yes REE-(H[place]-ambulatory/OOB) [ 2226.250 [id number]] Calculation Used for Recommendations [place] Additional Notes PRO needs: 63-99 g/day (0.8-1. 25g) CKD/Wound healing Fluid needs: 1ml/kcal or per MD. Nutrition Intervention Change Diet Order: Continue cardiac/cc. Add Supplement/Snack (indicate name/kcal Glucerna chocolate once a day /protein ) Provides kCal: 220 Provides Protein (gm) 10 Goal #1 Pt meet >80% of kcal/PRO needs via PO/ONS. Goal #2 wound healing Anticipated Discharge Needs: Cardiac/CC Follow-Up By: 08/24/19 Additional Comments F/U for stable PO/ONS intakes.
[2019-08-17 13:33] LABS: BUN/Creatinine Ratio 18; Blood Urea Nitrogen 27 mg/dL (9-20); Calcium 7.6 mg/dL (8.4-10.2); Hemolysis Index 0
--- NOTE | 2019-08-17 14:17 | Progress Note ---
Assessment and Plan Cultures: 08/07/2019 urine culture: no growth 08/07/2019 blood culture: Streptococcus anginosus 08/08/2019 surgical culture: in process, no growth thus far 08/11/2019 blood culture: in process A/P: 43-year-old male with longstanding diabetes mellitus admitted with: #Sepsis, leukemoid reaction, secondary to left foot necrotic wound and underlying osteomyelitis: s/p debridement of soft tissue. Leukocytosis likely now reactive to surgery, should begin to improve shortly. #Streptococcus anginosus bacteremia: secondary to above. TTE unremarkable for vegetations. Follow up repeat cultures. #Diabetes mellitus type 2, uncontrolled #Peripheral vascular disease: vascular following. #DULCE on CKD Recs: Continue IV Ceftriaxone 2 gm daily for 2 weeks s/p amputation. Stop date: 08/30/2019 stopped Flagyl. Ordered midline Case management consulted Follow WBC daily Will follow. Mahsa Dupree MD [facility] ([facility]) M: [phone] O: [phone] F: [phone] Subjective Date of service: 08/17/19 Principal diagnosis: pvd Interval history: Fevers resolved, s/p amputation yesterday Objective - Exam Narrative Exam: Constitutional: Alert, cooperative. No acute distress Head, Ears, Nose: Normocephalic, atraumatic. External ears, nose normal Eyes: Conjunctivae/corneas clear. Cardiovascular: S1, S2 normal Respiratory: Good air entry, clear to auscultation bilaterally GI: Soft, non-tender; bowel sounds normal. No peritoneal signs Musculoskeletal: L leg amputation site dressed Skin: No rash or abscess Hem/Lymphatic: No palpable cervical or supraclavicular nodes. No lymphangitis. Psych: Mood ok. Affect normal Neurological: Awake, alert, oriented. No gross abnormality - Constitutional Vitals: Vital Signs Temp Pulse Resp BP Pulse Ox 98.2 F 104 H 18 175/99 89 08/17/19 04:13 08/17/19 04:13 08/17/19 04:13 08/17/19 07:00 08/17/19 04:13 Temperature -Last 24 Hours Temperature 98.2 F Temperature 98.3 F Temperature 98.4 F Temperature 98.1 F Temperature 98.2 F Temperature 98.2 F Temperature 98.5 F Temperature 97.9 F - Labs CBC & Chem 7: 08/17/19 05:26 08/17/19 12:27 Labs: Abnormal lab results 08/16/19 08/16/19 08/16/19 Range/Units 09:32 15:54 20:13 WBC (4.5-11.0) K/mm3 RBC (3.65-5.03) M/mm3 Hgb (11.8-15.2) gm/dl Hct (35.5-45.6) % MCV (84-94) fl MCH (28-32) pg Plt Count (140-440) K/mm3 Seg Neuts % (Manual) (40.0-70.0) % Lymphocytes % (Manual) (13.4-35.0) % Seg Neutrophils # Man (1.8-7.7) K/mm3 Sodium (137-145) mmol/L Chloride (98-107) mmol/L Carbon Dioxide (22-30) mmol/L BUN (9-20) mg/dL Glucose (75-100) mg/dL POC Glucose 207 H 245 H (70-105) Calcium (8.4-10.2) mg/dL Crossmatch See Detail 08/17/19 08/17/19 08/17/19 Range/Units 05:26 08:34 12:27 WBC 21.1 H (4.5-11.0) K/mm3 RBC 3.60 L (3.65-5.03) M/mm3 Hgb 9.8 L (11.8-15.2) gm/dl Hct 30.0 L D (35.5-45.6) % MCV 83 L (84-94) fl MCH 27 L (28-32) pg Plt Count 505 H (140-440) K/mm3 Seg Neuts % (Manual) 91.0 H (40.0-70.0) % Lymphocytes % (Manual) 6.0 L (13.4-35.0) % Seg Neutrophils # Man 19.2 H (1.8-7.7) K/mm3 Sodium 132 L (137-145) mmol/L Chloride 97.4 L (98-107) mmol/L Carbon Dioxide 19 L (22-30) mmol/L BUN 27 H (9-20) mg/dL Glucose 407 H (75-100) mg/dL POC Glucose 283 H (70-105) Calcium 7.6 L (8.4-10.2) mg/dL Crossmatch 08/17/19 Range/Units 12:45 WBC (4.5-11.0) K/mm3 RBC (3.65-5.03) M/mm3 Hgb (11.8-15.2) gm/dl Hct (35.5-45.6) % MCV (84-94) fl MCH (28-32) pg Plt Count (140-440) K/mm3 Seg Neuts % (Manual) (40.0-70.0) % Lymphocytes % (Manual) (13.4-35.0) % Seg Neutrophils # Man (1.8-7.7) K/mm3 Sodium (137-145) mmol/L Chloride (98-107) mmol/L Carbon Dioxide (22-30) mmol/L BUN (9-20) mg/dL Glucose (75-100) mg/dL POC Glucose 389 H (70-105) Calcium (8.4-10.2) mg/dL Crossmatch
[2019-08-17] MEDS ORDERED: INSULIN NPH/REGULAR 70/30 INJ SUB-Q ONE (14:29)
[2019-08-17] MEDS: oxyCODONE /ACETAMINOPHEN 5-325MG TAB PO PRN (16:09)
--- NOTE | 2019-08-17 16:47 | Progress Note ---
Assessment and Plan - Patient Problems (1) Acute kidney failure Current Visit: Yes Status: Acute Plan to address problem: DULCE - BASELINE CREATININE : 1.0MG/DL CURRENT CREATININE : 1.5MG/DL - MONOCLONAL SPIKE - OBTAIN IMMUNOFIXATON RECENT UA WITH HEMATURIA renal function is fairly stable needs oncology follow up and Chronic kidney disease follow up on discharge. . We'll sign off (2) Monoclonal (M) protein disease, multiple 'M' protein Current Visit: Yes Status: Acute Plan to address problem: MONOCLONAL PROTEIN - NEEDS ONCOLOGY FOLLOW UP ON DISCHARGE - OBTAIN IMMUNOFIXATON. (3) HTN (hypertension) Current Visit: Yes Status: Acute Qualifiers: Hypertension type: essential hypertension Qualified Code(s): I10 - Essen tial (primary) hypertension Plan to address problem: hTN : controlled. continue current medications. (4) Diabetes mellitus Current Visit: Yes Status: Acute Plan to address problem: Diabetes Mellitus continue current medications (5) HTN (hypertension) Current Visit: Yes Status: Acute Plan to address problem: HTN; CONTINUE CURRENT MEDICATIONS. Subjective Principal diagnosis: pvd Interval history: 43 year old with medical history signficant for HTn and Dm type II admitted with acute kidney injury patient seen today Status post amputation Complaints of abdominal bloating denies any shortness of breath Objective - Vital Signs Vital signs: Vital Signs - 12hr 08/17/19 08/17/19 07:00 16:05 Pulse Rate 103 H Blood Pressure 175/99 153/86 - General Appearance General appearance: well-developed, well-nourished EENT: ATNC, PERRL Neck: no JVD Respiratory: Present: Decreased Breath Sounds Cardiology: regular, S1S2 Gastrointestinal: distended Integumentary: no rash Neurologic: alert and oriented x3, CN 3-12 intact Psychiatric: mood/affect appropriate - Lab 08/17/19 05:26 08/17/19 12:27 Most recent lab results Calcium 7.6 mg/dL (8.4-10.2) L 08/17/19 12:27 Magnesium 1.60 mg/dL (1.7-2.3) L 08/15/19 04:42 - Imaging Chest x-ray: image reviewed (chest x-ray without pulmonary edema) Medications & Allergies - Medications Allergies/Adverse Reactions: Allergies No Known Allergies Allergy (Verified 05/26/13 04:48) Home Medications: Home Medications Medication Instructions Recorded Confirmed Last Taken Type NovoLIN N 30 unit SUB-Q BID 08/07/19 08/07/19 Unknown History Novolin R 12 unit SUB-Q BID 08/07/19 08/07/19 Unknown History Active Medications: Generic Name Dose Route Start Last Admin Trade Name Freq PRN Reason Stop Dose Admin Acetaminophen 650 mg 08/07/19 23:29 08/14/19 16:52 Tylenol PO 650 mg Q4H PRN Administration Pain MILD(1-3)/Fever >100.5/MIRANDA Chlorpromazine HCl 10 mg 08/11/19 16:34 08/11/19 22:16 Thorazine PO 10 mg Q4H PRN Administration Hiccups Dextrose 0 ml 08/07/19 23:29 08/11/19 12:20 D50w (25gm) Syringe IV 20 ml Q30MIN PRN Administration Hypoglycemia Protocol Enoxaparin Sodium 40 mg 08/08/19 22:00 08/16/19 21:38 Enoxaparin SUB-Q 40 mg QDAY@2200 WILMER Administration Hydralazine HCl 25 mg 08/11/19 22:00 08/17/19 16:05 Apresoline PO 25 mg Q8HR WILMER Administration Hydralazine HCl 20 mg 08/11/19 16:31 08/16/19 16:10 Apresoline IV 20 mg Q4HR PRN Administration Hypertension Hydromorphone HCl 2 mg 08/17/19 09:12 Dilaudid IV Q4H PRN Pain , Severe (7-10) Ceftriaxone Sodium 2 gm in 100 mls @ 200 mls/hr 08/12/19 15:00 08/17/19 10:07 Rocephin/Ns 2 Gm/100 Ml IV 08/25/19 10:29 200 mls/hr Q24HR WILMER Administration Protocol Lactated Ringer's 1,000 mls @ 125 mls/hr 08/16/19 12:00 08/17/19 02:33 Lactated Ringers IV 125 mls/hr DIRECT WILMER Administration Insulin Human Isoph/Insulin Regular 15 unit 08/17/19 17:00 Humulin 70/30 SUB-Q BIDDIAB WILMER Insulin Human Lispro 0 unit 08/08/19 07:30 08/17/19 12:51 Humalog SUB-Q 8 unit ACHS WILMER Administration Protocol Morphine Sulfate 2 mg 08/07/19 23:29 08/16/19 17:35 Morphine IV 2 mg Q4H PRN Administration Pain, Moderate (4-6) Ondansetron HCl 4 mg 08/07/19 23:29 08/09/19 21:34 Zofran IV 4 mg Q8H PRN Administration Nausea And Vomiting Oxycodone/Acetaminophen 1 tab 08/17/19 09:12 08/17/19 16:09 Percocet 5/325 PO 1 tab Q4H PRN Administration Pain, Moderate (4-6) Pantoprazole Sodium 40 mg 08/11/19 20:00 08/17/19 10:06 Protonix PO 40 mg QDAY WILMER Administration Sodium Bicarbonate 650 mg 08/16/19 20:00 08/17/19 16:06 Sodium Bicarbonate PO 650 mg TID WILMER Administration Sodium Chloride 10 ml 08/08/19 10:00 08/17/19 10:07 Sodium Chloride Flush Syringe 10 Ml IV 10 ml BID WILMER Administration Sodium Chloride 10 ml 08/07/19 23:29 Sodium Chloride Flush Syringe 10 Ml IV PRN PRN LINE FLUSH Sodium Hypochlorite 1 applic 08/08/19 13:19 08/13/19 17:57 Dakin's Half Strength TP 1 applicatio Q12H PRN Administration Wound Care
[2019-08-17] MEDS ORDERED: INSULIN NPH/REGULAR 70/30 INJ SUB-Q SCH (17:00)
[2019-08-17] MEDS: ENOXAPARIN 40 MG/0.4 ML INJ SUB-Q SCH (21:34)
[2019-08-18] MEDS: LACTATED RINGERS 1,000 ML IV SCH ×3 (03:18→19:31)
[2019-08-18] MEDS: hydrALAZINE 25 MG TAB PO SCH ×3 (05:23→21:59)
[2019-08-18] MEDS: INSULIN LISPRO 100 UNIT/ML SUB-Q SCH ×3 (07:30→16:30)
[2019-08-18] MEDS: INSULIN NPH/REGULAR 70/30 INJ SUB-Q SCH ×2 (08:00→17:00)
[2019-08-18] MEDS: SODIUM BICARBONATE 650 MG TAB PO SCH ×3 (08:00→21:59)
[2019-08-18 08:16] LABS: Basophils % (Auto) 0.2 % (0.0-1.8); Eosinophils # (Auto) 0.1 K/mm3 (0.0-0.4); Eosinophils % (Auto) 0.3 % (0.0-4.3); Hemoglobin 8.9 gm/dl (11.8-15.2); Lymphocytes # (Auto) 1.4 K/mm3 (1.2-5.4); Lymphocytes % (Auto) 8.6 % (13.4-35.0); Mean Corpuscular HGB Conc 33 % (32-34); Mean Corpuscular Volume 83 fl (84-94); Monocytes # (Auto) 0.8 K/mm3 (0.0-0.8); Monocytes % (Auto) 4.7 % (0.0-7.3); Platelet Count 492 K/mm3 (140-440); Red Blood Count 3.26 M/mm3 (3.65-5.03); Red Cell Distribution Width 14.7 % (13.2-15.2)
[2019-08-18 08:35] LABS: BUN/Creatinine Ratio 23; Blood Urea Nitrogen 27 mg/dL (9-20); Calcium 7.5 mg/dL (8.4-10.2); Hemolysis Index 4
[2019-08-18] MEDS: cefTRIAXone/NS 2 GM/100 ML 2 GM/100 ML BAG IV SCH (09:27)
[2019-08-18] MEDS: PANTOPRAZOLE 40 MG TAB PO SCH (09:29)
--- NOTE | 2019-08-18 11:33 | Progress Note ---
Assessment and Plan Cultures: 08/07/2019 urine culture: no growth 08/07/2019 blood culture: Streptococcus anginosus 08/08/2019 surgical culture: in process, no growth thus far 08/11/2019 blood culture: in process A/P: 43-year-old male with longstanding diabetes mellitus admitted with: #Sepsis, leukemoid reaction, secondary to left foot necrotic wound and underlying osteomyelitis: s/p debridement of soft tissue. Leukocytosis likely now reactive to surgery, should begin to improve shortly. #Streptococcus anginosus bacteremia: secondary to above. TTE unremarkable for vegetations. Follow up repeat cultures. #Diabetes mellitus type 2, uncontrolled #Peripheral vascular disease: vascular following. #DULCE on CKD Recs: Continue IV Ceftriaxone 2 gm daily for 2 weeks s/p amputation. Stop date: 08/30/2019 Ordered midline Case management consulted Follow WBC daily Follow up in ID clinic within 2 weeks of discharge. WIll sign off for now. Please call me at the below number if any new concerns arise. Mahsa Dupree MD [facility] ([facility]) M: [phone] O: [phone] F: [phone] Subjective Date of service: 08/18/19 Principal diagnosis: pvd Interval history: Fevers resolved, improving white count. Objective - Exam Narrative Exam: Constitutional: Alert, cooperative. No acute distress Head, Ears, Nose: Normocephalic, atraumatic. External ears, nose normal Eyes: Conjunctivae/corneas clear. Cardiovascular: S1, S2 normal Respiratory: Good air entry, clear to auscultation bilaterally GI: Soft, non-tender; bowel sounds normal. No peritoneal signs Musculoskeletal: L leg BKA site dressed Skin: No rash or abscess Hem/Lymphatic: No palpable cervical or supraclavicular nodes. No lymphangitis. Psych: Mood ok. Affect normal Neurological: Awake, alert, oriented. No gross abnormality - Constitutional Vitals: Vital Signs Temp Pulse Resp BP Pulse Ox 99.0 F 99 H 20 172/98 90 08/18/19 05:47 08/18/19 05:47 08/18/19 05:47 08/18/19 05:47 08/18/19 05:47 Temperature -Last 24 Hours Temperature 99.0 F Temperature 97.9 F Temperature 98.0 F - Labs CBC & Chem 7: 02/06/20 07:47 08/18/19 07:47 Labs: Abnormal lab results 08/16/19 08/17/19 08/17/19 Range/Units 09:32 12:27 12:45 WBC (4.5-11.0) K/mm3 RBC (3.65-5.03) M/mm3 Hgb (11.8-15.2) gm/dl Hct (35.5-45.6) % MCV (84-94) fl MCH (28-32) pg Plt Count (140-440) K/mm3 Lymph % (Auto) (13.4-35.0) % Seg Neutrophils % (40.0-70.0) % Seg Neutrophils # (1.8-7.7) K/mm3 Sodium 132 L (137-145) mmol/L Chloride 97.4 L (98-107) mmol/L Carbon Dioxide 19 L (22-30) mmol/L BUN 27 H (9-20) mg/dL Glucose 407 H (75-100) mg/dL POC Glucose 389 H (70-105) Calcium 7.6 L (8.4-10.2) mg/dL Crossmatch See Detail 08/17/19 08/17/19 08/18/19 Range/Units 16:39 22:24 07:47 WBC 16.5 H (4.5-11.0) K/mm3 RBC 3.26 L (3.65-5.03) M/mm3 Hgb 8.9 L (11.8-15.2) gm/dl Hct 27.0 L (35.5-45.6) % MCV 83 L (84-94) fl MCH 27 L (28-32) pg Plt Count 492 H (140-440) K/mm3 Lymph % (Auto) 8.6 L (13.4-35.0) % Seg Neutrophils % 86.2 H (40.0-70.0) % Seg Neutrophils # 14.2 H (1.8-7.7) K/mm3 Sodium (137-145) mmol/L Chloride (98-107) mmol/L Carbon Dioxide (22-30) mmol/L BUN (9-20) mg/dL Glucose (75-100) mg/dL POC Glucose 384 H 314 H (70-105) Calcium (8.4-10.2) mg/dL Crossmatch 08/18/19 08/18/19 Range/Units 07:47 07:51 WBC (4.5-11.0) K/mm3 RBC (3.65-5.03) M/mm3 Hgb (11.8-15.2) gm/dl Hct (35.5-45.6) % MCV (84-94) fl MCH (28-32) pg Plt Count (140-440) K/mm3 Lymph % (Auto) (13.4-35.0) % Seg Neutrophils % (40.0-70.0) % Seg Neutrophils # (1.8-7.7) K/mm3 Sodium (137-145) mmol/L Chloride (98-107) mmol/L Carbon Dioxide 20 L (22-30) mmol/L BUN 27 H (9-20) mg/dL Glucose 237 H (75-100) mg/dL POC Glucose 254 H (70-105) Calcium 7.5 L (8.4-10.2) mg/dL Crossmatch
--- NOTE | 2019-08-18 15:31 | Progress Note ---
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 Stop date: 08/30/19 /Anemia : s/p 2 units PRBC transfusion Monitor H/H and transfuse additional PRBC as needed /-Persistent fevers due to osteomyelitis, resolved s/p surgical debridement on 08/08/19, s/p BKA 08/16/19, patient currently on empiric antibiotics /Sepsis secondary to left foot osteomyelitis and bacteremia Continue current antibiotics, TTE, no vegetation /Streptococcus anginosus bacteremia: secondary to left foot osteomyelitis. TTE unremarkable for vegetations. Follow up repeat cultures. Continue IV Ceftriaxone 2 gm daily for 2 weeks s/p amputation. Stop date: 08/30/19 /-Peripheral arterial disease;Vascular following, continue current management /-Leukocytosis; secondary to sepsis, trending down /-Type 2 diabetes mellitus; uncontrolled Secondary to sepsis, continue Accu-Chek sliding scale coverage ADA diet Patient currently on Novolin 70/30 , A1c 9.6, given Diabetic education, nutrition consulted /Acute on chronic kidney disease stage III; renal function now stable Vasomotor nephropathy, closely monitor renal function Avoid nephrotoxins, nephrology following /Severe malnutrition; nutrition supplements Nutrition consult, supportive care /-DVT prophylaxis; Lovenox Monitor closely and adjust management as needed Consults and recommendations noted and appreciated Disposition : physical therapy occupational therapy recommended acute rehab, patient also need IV antibiotics on discharge -valet manager consulted Brief History 43-year-old man with history of diabetes ,with left diabetic foot wound with osteomyelitis was admitted ,on IV antibiotics, s/p surgical debredement, s/p Lt BKA . Hospitalist Physical General appearance: Present: mild distress, well-nourished, other (Anxious) - EENT Eyes: Present: PERRL, EOM intact - Neck Neck: Present: supple, normal ROM - Respiratory Respiratory effort: normal Respiratory: bilateral: diminished, negative: rales, rhonchi, wheezing - Cardiovascular Rhythm: regular Heart Sounds: Present: S1 & S2 - Extremities Extremities: No edema, abnormal (Lt.BKA, dressing in place) - Abdominal General gastrointestinal: soft, non-tender, non-distended, normal bowel sounds - Integumentary Integumentary: Present: clear, warm - Psychiatric Psychiatric: appropriate mood/affect, cooperative - Neurologic Neurologic: moves all extremities Subjective Date of service: 08/18/19 Principal diagnosis: pvd Interval history: Patient seen and examined. Medical records and medication list reviewed. No acute event overnight noted by the RN. Patient denies any chest pain or difficulty breathing. Patient is tolerating diet. Discussed plan of care at bedside with patient. Objective - Constitutional Vitals: Vital Signs - 12hr 08/18/19 08/18/19 05:47 11:26 Temperature 99.0 F 98.0 F Pulse Rate 99 H 98 H Respiratory 20 20 Rate Blood Pressure 172/98 154/95 O2 Sat by Pulse 90 92 Oximetry - Labs CBC & Chem 7: 08/19/19 09:46 08/18/19 07:47 Labs: Abnormal lab results 08/17/19 08/17/19 08/18/19 Range/Units 16:39 22:24 07:47 WBC 16.5 H (4.5-11.0) K/mm3 RBC 3.26 L (3.65-5.03) M/mm3 Hgb 8.9 L (11.8-15.2) gm/dl Hct 27.0 L (35.5-45.6) % MCV 83 L (84-94) fl MCH 27 L (28-32) pg Plt Count 492 H (140-440) K/mm3 Lymph % (Auto) 8.6 L (13.4-35.0) % Seg Neutrophils % 86.2 H (40.0-70.0) % Seg Neutrophils # 14.2 H (1.8-7.7) K/mm3 Carbon Dioxide (22-30) mmol/L BUN (9-20) mg/dL Glucose (75-100) mg/dL POC Glucose 384 H 314 H (70-105) Calcium (8.4-10.2) mg/dL 08/18/19 08/18/19 08/18/19 Range/Units 07:47 07:51 11:40 WBC (4.5-11.0) K/mm3 RBC (3.65-5.03) M/mm3 Hgb (11.8-15.2) gm/dl Hct (35.5-45.6) % MCV (84-94) fl MCH (28-32) pg Plt Count (140-440) K/mm3 Lymph % (Auto) (13.4-35.0) % Seg Neutrophils % (40.0-70.0) % Seg Neutrophils # (1.8-7.7) K/mm3 Carbon Dioxide 20 L (22-30) mmol/L BUN 27 H (9-20) mg/dL Glucose 237 H (75-100) mg/dL POC Glucose 254 H 238 H (70-105) Calcium 7.5 L (8.4-10.2) mg/dL
[2019-08-18] MEDS: ENOXAPARIN 40 MG/0.4 ML INJ SUB-Q SCH (21:59)
[2019-08-19] MEDS: INSULIN LISPRO 100 UNIT/ML SUB-Q SCH ×3 (00:13→12:23)
[2019-08-19] MEDS: oxyCODONE /ACETAMINOPHEN 5-325MG TAB PO PRN (04:50)
[2019-08-19] MEDS: hydrALAZINE 25 MG TAB PO SCH ×2 (06:09→16:30)
[2019-08-19] MEDS: LACTATED RINGERS 1,000 ML IV SCH (06:16)
[2019-08-19] MEDS: cefTRIAXone/NS 2 GM/100 ML 2 GM/100 ML BAG IV SCH (09:27)
[2019-08-19] MEDS: PANTOPRAZOLE 40 MG TAB PO SCH (09:30)
[2019-08-19] MEDS: SODIUM BICARBONATE 650 MG TAB PO SCH ×2 (09:30→16:30)
[2019-08-19] MEDS: INSULIN NPH/REGULAR 70/30 INJ SUB-Q SCH (09:30)
[2019-08-19] MEDS ORDERED: MAGNESIUM SULFATE 2 GM/50 ML BAG IV ONE (11:00)
[2019-08-19 11:21] LABS: Hematocrit 27.8 % (35.5-45.6); Hemoglobin 9.4 gm/dl (11.8-15.2); Mean Corpuscular HGB Conc 34 % (32-34); Mean Corpuscular Volume 86 fl (84-94); Platelet Count 455 K/mm3 (140-440); Red Blood Count 3.23 M/mm3 (3.65-5.03); Red Cell Distribution Width 14.6 % (13.2-15.2)
[2019-08-19] MEDS: hydrALAZINE 20 MG/1 ML INJ IV PRN (12:28)
--- NOTE | 2019-08-19 12:34 | Progress Note ---
Assessment and Plan Cultures: 08/07/2019 urine culture: no growth 08/07/2019 blood culture: Streptococcus anginosus 08/08/2019 surgical culture: in process, no growth thus far 08/11/2019 blood culture: in process A/P: 43-year-old male with longstanding diabetes mellitus admitted with: #Sepsis, leukemoid reaction, secondary to left foot necrotic wound and underlying osteomyelitis: s/p debridement of soft tissue. Leukocytosis likely now reactive to surgery, should begin to improve shortly. #Streptococcus anginosus bacteremia: secondary to above. TTE unremarkable for vegetations. Follow up repeat cultures. #Diabetes mellitus type 2, uncontrolled #Peripheral vascular disease: vascular following. #DULCE on CKD Recs: Continue IV Ceftriaxone 2 gm daily for 2 weeks s/p amputation. Stop date: 08/30/2019 Ordered midline Case management consulted Follow WBC daily Follow up in ID clinic within 2 weeks of discharge. WIll sign off for now. Please call me at the below number if any new concerns arise. Mahsa Dupree MD [facility] ([facility]) M: [phone] O: [phone] F: [phone] Subjective Date of service: 08/19/19 Principal diagnosis: pvd Interval history: Fevers resolved, improving white count. No new issues, for discharge today and will come to clinic for teach and train on home infusion. Objective - Exam Narrative Exam: Constitutional: Alert, cooperative. No acute distress Head, Ears, Nose: Normocephalic, atraumatic. External ears, nose normal Cardiovascular: S1, S2 normal Respiratory: Good air entry, clear to auscultation bilaterally GI: Soft, non-tender; bowel sounds normal. No peritoneal signs Musculoskeletal: L leg BKA site dressed Skin: No rash or abscess Hem/Lymphatic: No palpable cervical or supraclavicular nodes. No lymphangitis. Psych: Mood ok. Affect normal Neurological: Awake, alert, oriented. No gross abnormality - Constitutional Vitals: Vital Signs Temp Pulse Resp BP Pulse Ox 98.1 F 80 22 177/107 94 08/19/19 12:01 08/19/19 12:28 08/19/19 12:01 08/19/19 12:28 08/19/19 12:01 Temperature -Last 24 Hours Temperature 98.1 F Temperature 97.6 F Temperature 98.6 F Temperature 98.1 F - Labs CBC & Chem 7: 08/19/19 09:46 08/18/19 07:47 Labs: Abnormal lab results 08/15/19 08/16/19 08/18/19 Range/Units 08:51 09:32 16:24 WBC (4.5-11.0) K/mm3 RBC (3.65-5.03) M/mm3 Hgb (11.8-15.2) gm/dl Hct (35.5-45.6) % Plt Count (140-440) K/mm3 POC Glucose 131 H (70-105) Immunofix Electrophor see below H Crossmatch See Detail 08/18/19 08/19/19 Range/Units 21:49 09:46 WBC 11.5 H (4.5-11.0) K/mm3 RBC 3.23 L (3.65-5.03) M/mm3 Hgb 9.4 L (11.8-15.2) gm/dl Hct 27.8 L (35.5-45.6) % Plt Count 455 H (140-440) K/mm3 POC Glucose 120 H (70-105) Immunofix Electrophor Crossmatch
--- NOTE | 2019-08-19 14:16 | Discharge Summary ---
Providers - Providers Date of Admission: 08/07/19 22:57 Date of discharge: 08/19/19 Attending physician: JESSICA CHANDLER 08/07/19 21:34 Consult to Physician [CONS] Urgent Comment: Consulting Provider: HERBERT GARCES Physician Instructions: Reason For Exam: infected foot sepsis 08/07/19 21:35 Consult to Physician [CONS] Urgent Comment: Consulting Provider: JOHN MANDUJANO Physician Instructions: Reason For Exam: PAD SEPSIS 08/08/19 05:26 Consult to Wound/ET Nurse [CONS] Routine Reason For Exam: wound eval on left foot 08/08/19 10:08 Consult to Dietitian/Nutrition [CONS] Routine Physician Instructions: Reason For Exam: diabetic wound, malnutrition, poorly managed DM Reason for Consult: Malnutrition Consult to Physician [CONS] Routine Comment: Consulting Provider: TAB CORRIGAN Physician Instructions: Reason For Exam: osteomyelitis, diabetic L foot wound 08/08/19 10:55 Consult to Physician [CONS] Routine Comment: Consulting Provider: ANNIE ANDRE Physician Instructions: Reason For Exam: lakshmi vs ckd 08/10/19 11:03 Consult to Physician [CONS] Routine Comment: Consulting Provider: GEOVANI GOSS Physician Instructions: Reason For Exam: second opinion. L foot wound 08/15/19 12:20 Physical Therapy Evaluation and Treat [CONS] Stat Comment: Reason For Exam: evaluate for gait weakness 08/17/19 14:18 Consult to Case Management [CONS] Routine Services Needed at Discharge: Home Health Services Notified:: cm Additional Physician Instructions: Mahsa Dupree MD [facility] [place] ([facility]) M: [phone] O: [phone] F: [phone] OUTPATIENT PARENTERAL ANTIBIOTIC THERAPY ORDERS Diagnosis: Strep anginosus bacteremia Antibiotic administration: ceftriaxone 2g q24h until 08/30/2019 Line: midline Lab monitoring: CBC with diff, BUN, creatinine, LFTs once per week preferably on Mondays For critical labs, call office: [phone]. Mahsa Dupree 08/17/19 14:19 Midline [Consult to PICC Line RN] [CONS] Routine Reason For Exam: snf antibiotics Type Line:: Midline Primary care physician: HOUSE NURSE Hospitalization Condition: Serious Pertinent studies: Renal ultrasound Lower extremity Doppler ultrasound Ankle-brachial index study Tibia-fibula x-ray Foot x-ray Lower extremity CT Chest x-ray Hospital course: Brief History 43-year-old man with history of diabetes presented with left diabetic foot wound , found to have osteomyelitis of the left foot, patient was was admitted placed on IV antibiotics. Orthopedics was consulted, s/p surgical debredement, s/p Lt BKA . Blood culture grew Streptococcus anginosus. ID was consulted and recommended to continue ceftriaxone 2 g daily for 2 weeks status post amputation. Patient was further evaluated by physical therapy and recommended acute rehab. But patient do not have any payer source. Patient was then discharged home under family supervision with home health with IV antibiotics set up and home health PT.. Discharge diagnosis and management: /Osteomyelitis left foot; s/p left BKA 08/16/19 Pain management, Antibiotics per ID, Continue IV Ceftriaxone 2 gm daily for 2 weeks s/p amputation. Stop date: 08/30/19 /Anemia : s/p 2 units PRBC transfusion Monitor H/H and transfuse additional PRBC as needed /-Persistent fevers due to osteomyelitis, resolved s/p surgical debridement on 08/08/19, s/p BKA 08/16/19, patient currently on empiric antibiotics /Sepsis secondary to left foot osteomyelitis and bacteremia Continue current antibiotics, TTE, no vegetation /Streptococcus anginosus bacteremia: secondary to left foot osteomyelitis. TTE unremarkable for vegetations. Follow up repeat cultures. Continue IV Ceftriaxone 2 gm daily for 2 weeks s/p amputation. Stop date: 08/30/19 /-Peripheral arterial disease;Vascular following, continue current management /-Leukocytosis; secondary to sepsis, trending down /-Type 2 diabetes mellitus; uncontrolled Secondary to sepsis, continue Accu-Chek sliding scale coverage ADA diet Patient currently on Novolin 70/30 , A1c 9.6, given Diabetic education, nutrition consulted /Acute on chronic kidney disease stage III; renal function now stable Vasomotor nephropathy, closely monitor renal function Avoid nephrotoxins, nephrology following /Severe malnutrition; nutrition supplements Nutrition consult, supportive care /-DVT prophylaxis; Lovenox Monitor closely and adjust management as needed Consults and recommendations noted and appreciated Disposition : Home with home health Hospitalist Physical General appearance: Present: mild distress, well-nourished, other (Anxious) - EENT Eyes: Present: PERRL, EOM intact - Neck Neck: Present: supple, normal ROM - Respiratory Respiratory effort: normal Respiratory: bilateral: diminished, negative: rales, rhonchi, wheezing - Cardiovascular Rhythm: regular Heart Sounds: Present: S1 & S2 - Extremities Extremities: No edema, abnormal (Lt.BKA, dressing in place) - Abdominal General gastrointestinal: soft, non-tender, non-distended, normal bowel sounds - Integumentary Integumentary: Present: clear, warm - Psychiatric Psychiatric: appropriate mood/affect, cooperative - Neurologic Neurologic: moves all extremities Disposition: [id number] HOME UNDER HOME [facility] Time spent for discharge: 34 minutes Core Measure Documentation - Palliative Care Palliative Care/ Comfort Measures: Not Applicable - Core Measures Any of the following diagnoses?: history only Exam - Constitutional Vitals: Temp Pulse Resp BP Pulse Ox 98.1 F 80 22 177/107 94 08/19/19 12:01 08/19/19 12:28 08/19/19 12:01 08/19/19 12:28 08/19/19 12:01 Plan Activity: up only with assistance, fall precautions Weight Bearing Status: Non-Weight Bearing Diet: diabetic Wound: per your surgeon's advice Special Instructions: record blood sugar diary Follow up with: PRIMARY CAREMD [Primary Care Provider] - 7 Days GEOVANI GOSS MD [Staff Physician] - 7 Days Prescriptions: hydrALAZINE [Apresoline TAB] 25 mg PO Q8HR #90 tablet Lispro Insulin [HumaLOG] 0 unit SUB-Q ACHS 30 Days Insulin NPH/Regular [NovoLIN 70/30] 20 unit SUB-Q BIDDIAB 30 Days oxyCODONE /ACETAMINOPHEN [Percocet 5/325 mg] 1 tab PO Q4H PRN #30 tablet PRN Reason: Pain, Moderate (4-6)
[2019-08-19 18:06] VITALS: BP 169/96
== END 2019-08-19 18:35 | disposition home health service (06) | DRG 853 ==
LOC: ED 18:35 → 4A 22:57 → 3A 08-17 12:15
PROVIDERS: ADMIT Internal Medicine Geriatric Medicine; ATTEND Internal Medicine
PROC: 0QBP0ZZ Excision of Left Metatarsal, Open Approach (ICD-10-PCS; principal; 2019-08-08)
PROC: 0Q5 Lower Bones, Destruction (ICD-10-PCS; 2019-08-08)
PROC: B44LZZZ Ultrasonography of Femoral Artery (ICD-10-PCS; 2019-08-08)
PROC: B41D1ZZ Fluoroscopy of Aorta and Bilateral Lower Extremity Arteries using Low Osmolar Contrast (ICD-10-PCS; 2019-08-08)
PROC: 0Y6J0Z1 Detachment at Left Lower Leg, High, Open Approach (ICD-10-PCS; 2019-08-16)
PROC: 30233N1 Transfusion of Nonautologous Red Blood Cells into Peripheral Vein, Percutaneous Approach (ICD-10-PCS; 2019-08-16)
PROC: 05HY33Z Insertion of Infusion Device into Upper Vein, Percutaneous Approach (ICD-10-PCS; 2019-08-18)
DX: A40.8 Other streptococcal sepsis (principal); E43 Unspecified severe protein-calorie malnutrition; N17.0 Acute kidney failure with tubular necrosis; M72.6 Necrotizing fasciitis; M86.8X7 Other osteomyelitis, ankle and foot; L03.116 Cellulitis of left lower limb; E86.0 Dehydration; E11.51 Type 2 diabetes mellitus with diabetic peripheral angiopathy without gangrene; D64.9 Anemia, unspecified; N18.3 Chronic kidney disease, stage 3 (moderate); E11.22 Type 2 diabetes mellitus with diabetic chronic kidney disease; K21.9 Gastro-esophageal reflux disease without esophagitis; E11.621 Type 2 diabetes mellitus with foot ulcer; E87.6 Hypokalemia; R31.29 Other microscopic hematuria; I12.9 Hypertensive chronic kidney disease with stage 1 through stage 4 chronic kidney disease, or unspecified chronic kidney disease; Z68.30 Body mass index [BMI] 30.0-30.9, adult; Z79.899 Other long term (current) drug therapy; Z79.4 Long term (current) use of insulin
CPT/HCPCS: 36247; 36415; 71045; 75625; 75710; 76770; 76857; 76937; 80048; 80076; 80202; 81001; 82140; 82550; 82962; 83036; 83735; 84132; 84134; 84165; 85007; 85025; 85027; 85610; 85730; 86021; 86038; 86160; 86334; 86706; 86803; 86850; 86900; 86901; 86920; 87040; 87075; 87086; 87116; 88307; 88311; 93005; 93010; 93306; 93922; 93925; 96365; G0378; A4217; A6260; C1769; C1887; J0360; J0692; J0696; J1100; J1170; J1644; J1650; J1815; J2250; J2270; J2405; J2543; J2704; J2710; J3010; J3370; J3475; J3480; J7030; J7040; J7050; J7070; J7120; P9016; Q0161; Q9967

== ENCOUNTER 2019-08-23 16:32 | Inpatient (IN) | payer OTHER ==
--- NOTE | 2019-08-23 18:59 | Event Note ---
ED Screening Note Date of service: 08/23/19 Time: 18:55 ED Screening Note: 43 y/o male comes in for abx treatment. Patient never completed his ceftriaxone regime as home health never followed up. Patient recently had a BKA 1 week ago. Patient c/o of testicle swelling and pain. Patient has a PICU Line. This initial assessment/diagnostic orders/clinical plan/treatment(s) is/are subject to change based on patients health status, clinical progression and re- assessment by fellow clinical providers in the ED. Further treatment and workup at subsequent clinical providers discretion. Patient/guardian urged not to elope from the ED as their condition may be serious if not clinically assessed and managed. Initial orders include:
[2019-08-23] MEDS ORDERED: HYDROcodone/ACETAMINOPHEN 10-325MG TAB PO ONE (19:02)
[2019-08-23 19:29] LABS: Basophils # (Auto) 0.1 K/mm3 (0.0-0.1); Basophils % (Auto) 0.5 % (0.0-1.8); Eosinophils # (Auto) 0.3 K/mm3 (0.0-0.4); Eosinophils % (Auto) 3.1 % (0.0-4.3); Hematocrit 31.9 % (35.5-45.6); Hemoglobin 10.3 gm/dl (11.8-15.2); Lymphocytes # (Auto) 1.5 K/mm3 (1.2-5.4); Lymphocytes % (Auto) 13.4 % (13.4-35.0); Mean Corpuscular HGB Conc 32 % (32-34); Mean Corpuscular Volume 86 fl (84-94); Monocytes # (Auto) 0.6 K/mm3 (0.0-0.8); Monocytes % (Auto) 5.3 % (0.0-7.3); Platelet Count 496 K/mm3 (140-440); Red Blood Count 3.71 M/mm3 (3.65-5.03); Red Cell Distribution Width 14.7 % (13.2-15.2)
[2019-08-23 19:51] LABS: Alanine Aminotransferase 13 units/L (7-56); Albumin 2.4 g/dL (3.9-5); BUN/Creatinine Ratio 10; Blood Urea Nitrogen 9 mg/dL (9-20); Calcium 8.1 mg/dL (8.4-10.2); Hemolysis Index 19
[2019-08-23] MEDS ORDERED: MORPHINE 4 MG/1 ML INJ IV ONE (21:53)
[2019-08-23] MEDS ORDERED: SODIUM CHLORIDE 0.9% 1000 ML 1,000 ML IV ONE (21:53)
--- NOTE | 2019-08-23 21:57 | Emergency Department Report ---
ED General Adult HPI - General Chief complaint: Medical Clearance Stated complaint: PIC LINE Time Seen by Provider: 08/23/19 18:48 Source: patient, EMS ( EMS documentation not available at time of chart dictation ), RN notes reviewed, old records reviewed Mode of arrival: Wheelchair Limitations: No Limitations, Physical Limitation - History of Present Illness Initial comments: Patient is a 43-year-old gentleman. I have not evaluated this patient this patient was recently admitted to this hospital. 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 He presents to the ER today because he has not receive d his antibiotics since he was discharged. He denies physical pain. He does have mild aching and throbbing over his left stump. He denies headache, neck pain, chest pain, abdominal pain, fevers, chills, nausea, vomiting or shortness of breath. He came in today because he has not been getting the services at home that are required to help him recover from his recent medical issues. Symptoms constant, do not radiate anywhere, do not have exacerbating or relieving factors. -: Gradual Severity scale (0 -10): 10 Improves with: none Worsens with: none - Related Data Previous Rx's Medication Instructions Recorded Last Taken Type Insulin NPH/Regular [NovoLIN 70/30] 20 unit SUB-Q BIDDIAB 30 Days 08/19/19 Unknown Rx Lispro Insulin [HumaLOG] 0 unit SUB-Q ACHS 30 Days 08/19/19 Unknown Rx hydrALAZINE [Apresoline TAB] 25 mg PO Q8HR #90 tablet 08/19/19 Unknown Rx oxyCODONE /ACETAMINOPHEN [Percocet 1 tab PO Q4H PRN #30 tablet 08/19/19 Unknown Rx 5/325 mg] Allergies Allergy/AdvReac Type Severity Reaction Status Date / Time No Known Allergies Allergy Verified 05/26/13 04:48 ED Review of Systems ROS: Stated complaint: PIC LINE Other details as noted in HPI Comment: All other systems reviewed and negative ED Past Medical Hx - Past Medical History Previous Medical History?: Yes Hx Hypertension: Yes Hx Diabetes: Yes Hx Deep Vein Thrombosis: No Additional medical history: GERD - Surgical History Past Surgical History?: Yes Hx Pacemaker: No Hx Internal Defibrillator: No Additional Surgical History: Surgery on appendix or Pancreas 2004, patient is unsure. Left BKA - Social History Smoking Status: Never Smoker Substance Use Type: None - Medications Home Medications: Home Medications Medication Instructions Recorded Confirmed Last Taken Type Insulin NPH/Regular [NovoLIN 70/30] 20 unit SUB-Q BIDDIAB 30 Days 08/19/19 Unknown Rx Lispro Insulin [HumaLOG] 0 unit SUB-Q ACHS 30 Days 08/19/19 Unknown Rx hydrALAZINE [Apresoline TAB] 25 mg PO Q8HR #90 tablet 08/19/19 Unknown Rx oxyCODONE /ACETAMINOPHEN [Percocet 1 tab PO Q4H PRN #30 tablet 08/19/19 Unknown Rx 5/325 mg] ED Physical Exam - General Limitations: Physical Limitation General appearance: alert, in no apparent distress - Head Head exam: Present: atraumatic, normocephalic - Eye Eye exam: Present: normal appearance, EOMI - ENT ENT exam: Present: normal exam, normal orophraynx, mucous membranes moist, normal external ear exam - Neck Neck exam: Present: normal inspection, full ROM. Absent: tenderness, m eningismus - Respiratory Respiratory exam: Present: normal lung sounds bilaterally. Absent: respiratory distress - Cardiovascular Cardiovascular Exam: Present: normal rhythm, tachycardia, normal heart sounds. Absent: systolic murmur, diastolic murmur, rubs, gallop - GI/Abdominal GI/Abdominal exam: Present: soft. Absent: distended, tenderness, guarding, rebound, rigid, pulsatile mass - Rectal Rectal exam: Present: deferred - Extremities Exam Extremities exam: Present: normal inspection, full ROM, other (2+ pulses noted in the bilateral upper extremities, and right lower extremity. Left lower ext remity below-knee amputation healing well, with no pus, streaking, redness, crepitus. [place] are noted to be in place.). Absent: calf tenderness - Back Exam Back exam: Present: normal inspection, full ROM. Absent: tenderness, CVA tenderness (R), CVA tenderness (L), paraspinal tenderness, vertebral tenderness - Neurological Exam Neurological exam: Present: alert, oriented X3, other (There is no facial droop. The tongue is midline. Extraocular movements are intact bilaterally. There is 5 out of 5 strength in bilateral upper and lower extremities. Sensation is intact to light touch bilateral upper and lower extremities. ). Absent: motor sensory deficit - Psychiatric Psychiatric exam: Present: anxious - Skin Skin exam: Present: warm, dry, intact, normal color. Absent: rash ED Course Vital Signs 08/23/19 08/23/19 08/23/19 16:41 18:53 22:50 Temperature 98.8 F 98.9 F 98.9 F Pulse Rate 104 H 103 H 97 H Respiratory 16 22 22 Rate Blood Pressure 148/89 Blood Pressure 194/104 [Right] O2 Sat by Pulse 92 93 97 Oximetry 08/23/19 08/23/19 23:03 23:31 Temperature Pulse Rate 98 H 97 H Respiratory 22 Rate Blood Pressure 201/114 Blood Pressure 171/98 [Right] O2 Sat by Pulse 96 Oximetry - Reevaluation(s) Reevaluation #1: 08/23/19 22:11 Differential diagnosis, including but not limited to: Case management patient, subacute bacteremia, pulmonary embolism, pneumonia, artifact, atelectasis Assessment and plan: 43-year-old gentleman who recently had complex hospitalization, requiring below- knee amputation, who presents to the ER with a complaint of needing his IV antibiotics. His medications have been reconciled. He does not endorse fevers, chills, Rigors His wound is healing well. We will continue his antibiotics. Medications have been reconciled. A case management consultation is requested. Incidentally, he is found to be tachycardic, and borderline hypoxic. Arterial blood gas, x-ray the chest, EKG ordered, d-dimer ordered, we will reassess after these data points have resulted. Reevaluation #2: 08/23/19 23:51 Arterial blood gas confirms acute hypoxemic respiratory failure. X-ray of the chest is reviewed and appreciated. Patient does not appear to be floridly fluid overloaded. Additional laboratory studies demonstrate elevated troponin and proBNP. Suspect submassive pulmonary embolism. Empirically started on unfracti onated heparin. CT scan of the chest is ordered. Patient meets criteria for hospitalization, given elevated troponin with normal renal function, this requires further investigation, and further management of acute hypoxemic respiratory failure, likely from a submassive pulmonary embolism. We will reassess once his CT scan has resulted. Reevaluation #3: 08/24/19 01:09 cta chest shows no pe b/l effusions noted Patient resting comfortably, in no acute distress at this time. Heparin drip canceled. Lasix and aspirin ordered. Hospital physician, Dr. Rodriguez to admit patient to the medical service ED Medical Decision Making - Lab Data Result diagrams: 08/23/19 19:06 08/23/19 19:06 Vital Signs 08/23/19 08/23/19 16:41 18:53 Temperature 98.8 F 98.9 F Pulse Rate 104 H 103 H Respiratory 16 22 Rate Blood Pressure 148/89 O2 Sat by Pulse 92 93 Oximetry Lab Results 08/23/19 08/23/19 08/23/19 Range/Units 19:06 19:06 19:06 WBC 11.1 H (4.5-11.0) K/mm3 RBC 3.71 (3.65-5.03) M/mm3 Hgb 10.3 L (11.8-15.2) gm/dl Hct 31.9 L (35.5-45.6) % MCV 86 (84-94) fl MCH 28 (28-32) pg MCHC 32 (32-34) % RDW 14.7 (13.2-15.2) % Plt Count 496 H (140-440) K/mm3 Lymph % (Auto) 13.4 (13.4-35.0) % [facility] % (Auto) 5.3 (0.0-7.3) % Eos % (Auto) 3.1 (0.0-4.3) % Baso % (Auto) 0.5 (0.0-1.8) % Lymph # 1.5 (1.2-5.4) K/mm3 [facility] # 0.6 (0.0-0.8) K/mm3 Eos # 0.3 (0.0-0.4) K/mm3 Baso # 0.1 (0.0-0.1) K/mm3 Seg Neutrophils % 77.7 H (40.0-70.0) % Seg Neutrophils # 8.6 H (1.8-7.7) K/mm3 Sodium 139 (137-145) mmol/L Potassium 4.1 (3.6-5.0) mmol/L Chloride 101.9 (98-107) mmol/L Carbon Dioxide 23 (22-30) mmol/L Anion Gap 18 mmol/L BUN 9 (9-20) mg/dL Creatinine 0.9 (0.8-1.5) mg/dL Estimated GFR > 60 ml/min BUN/Creatinine Ratio 10 % Glucose 186 H (75-100) mg/dL Lactic Acid 1.20 (0.7-2.0) mmol/L Calcium 8.1 L (8.4-10.2) mg/dL Total Bilirubin 0.20 (0.1-1.2) mg/dL AST 18 (5-40) units/L ALT 13 (7-56) units/L Alkaline Phosphatase 390 H (35-129) units/L Total Protein 6.9 (6.3-8.2) g/dL Albumin 2.4 L (3.9-5) g/dL Albumin/Globulin Ratio 0.5 % - EKG Data -: EKG Interpreted by In EKG shows normal: sinus rhythm Rate: normal - EKG Data 08/23/19 23:53 The EKG today shows a sinus rhythm, 99 bpm, normal axis, QTC is 479 ms, there is motion artifact, there is no endorsement of chest pain, the EKG is not consistent with ST elevation myocardial infarction. - Radiology Data Radiology results: pending, report reviewed, image reviewed Print Report Referring Physician: SARITA PUGH Patient Name: JOSÉ LUIS REYES Date of : 1975 Sex: Male Report Date: 2019-08-23 Report Status: Finalized Findings [address] [address] XRay Report Signed Patient: JOSÉ LUIS REYES MR#: [id number] : 1975 Acct:[id number] Age/Sex: 43 / M ADM Date: 08/23/19 Loc: ED Attending Dr: Ordering Physician: SARITA PUGH MD Date of Service: 08/23/19 Procedure(s): XR chest 1V ap Accession Number(s): [id number] cc: SARITA PUGH MD Fluoro Time In Minutes: CHEST 1 VIEW INDICATION: MAIN: hypoxia; Pt. presents with req uests for removal of PICC line to left upper arm that was placed on admission last week. Pt denies any current home health services for antibiotic therapy. . COMPARISON: 08/07/2019 FINDINGS: Support devices: None. Heart: Stable cardiomegaly. Lungs/Pleura: Small basilar effusions left greater than right. No significant infiltrate. Additional findings: None. IMPRESSION: 1. Stable cardiomegaly. 2. Small basilar effusions. Signer Name: Chase Regalado MD Signed: 08/23/2019 10:42 PM Workstation Name: [id number] Transcribed By: ES Dictated By: Chase Regalado MD Electronically Authenticated By: Chase Regalado MD Signed Date/Time: 08/23/192241 DD/ 40 Print Report Referring Physician: SARITA PUGH Patient Name: JOSÉ LUIS REYES Date of : 1975 Sex: Male Report Date: 2019-08-24 Report Status: [place] [address] Cat Scan Report Signed Patient: JOSÉ LUIS REYES MR#: [id number] : 1975 Acct:[id number] Age/Sex: 43 / M ADM Date: 08/23/19 Loc: ED Attending Dr: Ordering Physician: SARITA PUGH MD Date of Service: 08/23/19 Procedure(s): CT angio chest Accession Number(s): [id number] cc: SARITA PUGH MD CTA CHEST WITH IV CONTRAST INDICATION: Acute hypoxemia, respiratory failure, suspected PE. TECHNIQUE: Axial CT images were obtained through the chest after injection of 100 cc Omnipaque 350 IV contrast. 3 plane MIP reconstructions were produced. All CT scans at this location are performed using CT dose reduction for ALARA by means of automated exposure control. COMPARISON: One view of the chest from 08/23/2019. FINDINGS: PULMONARY ARTERIES: Good opacification without distinct thromboemboli. AORTA AND ARTERIES: No significant abnormality. MEDIASTINUM: The thyroid gland is unremarkable. The trachea and main bronchi are patent and normal in caliber. No mass or lymphadenopathy. Mild cardiomegaly without a significant pericardial effusion. LUNGS: Small pleural effusions are seen with b ilateral atelectasis/edema. No suspicious nodule/mass or pneumothorax. ADDITIONAL FINDINGS: None. UPPER ABDOMEN: No acute findings. BONES: No acute abnormality. Degenerative changes are seen throughout the spine. There are multiple old right rib fractures. Degenerative changes are also noted along the shoulders. IMPRESSION: 1. No CT evidence for pulmonary embolism. 2. Small pleural effusions with bilateral atelectasis/edema. 3. Additional findings as above. Signer Name: Carlos Watson MD Signed: 08/24/2019 12:54 AM Workstation Name: [id number] Transcribed By: ANA Dictated By: Carlos Watson MD Electronically Authenticated By: Carlos Watson MD Signed Date/Time: 08/24/1953 DD/ TD/TT: Critical Care Time: Yes Critical care time in (mins) excluding proc time.: 35 Critical care attestation.: If time is entered above; I have spent that time in minutes in the direct care of this critically ill patient, excluding procedure time. ED Disposition Clinical Impression: Acute hypoxemic respiratory failure, Elevated troponin, Case management patient, History of left below knee amputation Disposition: -09 OP ADMIT IP TO THIS HOSP Is pt being admited?: Yes Condition: Serious Referrals: PRIMARY CARE, [Primary Care Provider] - 3-5 Days
[2019-08-23] MEDS ORDERED: INSULIN LISPRO 100 UNIT/ML SUB-Q SCH (22:00)
[2019-08-23] MEDS ORDERED: cefTRIAXone/NS 2 GM/100 ML 2 GM/100 ML BAG IV SCH (22:00)
[2019-08-23 22:28] LABS: ABG Base Excess 1.3 mmol/L (-2.0-3.0); ABG HCO3 24.8 mmol/L (20.0-26.0); ABG Methemoglobin 0.5 % (0.0-1.5); ABG Oxygen Saturation 92.7 % (95.0-99.0); ABG PCO2 34.4 mm Hg; ABG PH 7.475 pH Units (7.350-7.450); ABG PO2 60.1 mm Hg (80.0-90.0)
[2019-08-23] MEDS: cefTRIAXone/NS 2 GM/100 ML 2 GM/100 ML BAG IV SCH (22:45)
--- NOTE | 2019-08-23 22:46 | XRay Report ---
CHEST 1 VIEW INDICATION: MAIN: hypoxia; Pt. presents with requests for removal of PICC line to left upper arm that was placed on admission last week. Pt denies any current home health services for antibiotic therapy. . COMPARISON: 08/07/2019 FINDINGS: Support devices: None. Heart: Stable cardiomegaly. Lungs/Pleura: Small basilar effusions left greater than right. No significant infiltrate. Additional findings: None. IMPRESSION: 1. Stable cardiomegaly. 2. Small basilar effusions. Signer Name: Chase Regalado MD Signed: 08/23/2019 10:42 PM Workstation Name: [id number]
[2019-08-23 22:47] LABS: INR 1.17 (0.87-1.13)
[2019-08-23] MEDS: hydrALAZINE 25 MG TAB PO SCH (23:03)
[2019-08-23] MEDS ORDERED: HEPARIN 10,000 UNITS/10 ML VIAL IV ONE (23:29)
[2019-08-23] MEDS ORDERED: HEPARIN/ 0.45% NACL DRIP 25,000 UNIT/500 ML BAG IV SCH (23:45)
--- NOTE | 2019-08-24 00:59 | Cat Scan Report ---
CTA CHEST WITH IV CONTRAST INDICATION: Acute hypoxemia, respiratory failure, suspected PE. TECHNIQUE: Axial CT images were obtained through the chest after injection of 100 cc Omnipaque 350 IV contrast. 3 plane MIP reconstructions were produced. All CT scans at this location are performed using CT dose reduction for ALARA by means of automated exposure control. COMPARISON: One view of the chest from 08/23/2019. FINDINGS: PULMONARY ARTERIES: Good opacification without distinct thromboemboli. AORTA AND ARTERIES: No significant abnormality. MEDIASTINUM: The thyroid gland is unremarkable. The trachea and main bronchi are patent and normal in caliber. No mass or lymphadenopathy. Mild cardiomegaly without a significant pericardial effusion. LUNGS: Small pleural effusions are seen with bilateral atelectasis/edema. No suspicious nodule/mass o r pneumothorax. ADDITIONAL FINDINGS: None. UPPER ABDOMEN: No acute findings. BONES: No acute abnormality. Degenerative changes are seen throughout the spine. There are multiple o ld right rib fractures. Degenerative changes are also noted along the shoulders. IMPRESSION: 1. No CT evidence for pulmonary embolism. 2. Small pleural effusions with bilateral atelectasis/edema. 3. Additional findings as above. Signer Name: Carlos Watson MD Signed: 08/24/2019 12:54 AM Workstation Name: [id number]
[2019-08-24] MEDS ORDERED: ASPIRIN 81 MG TAB CHEW PO ONE (01:04)
[2019-08-24] MEDS ORDERED: FUROSEMIDE 40 MG/4 ML INJ IV ONE (01:04)
[2019-08-24 01:06] LABS: Chol/HDL Ratio 4.67 %
[2019-08-24] MEDS ORDERED: DEXTROSE 50% IN WATER (25GM) 50 ML SYRINGE IV PRN (01:27)
[2019-08-24] MEDS ORDERED: ACETAMINOPHEN 325 MG TAB PO PRN (01:30)
[2019-08-24] MEDS ORDERED: ONDANSETRON 4 MG/2 ML INJ IV PRN (01:30)
[2019-08-24] MEDS ORDERED: hydrALAZINE 20 MG/1 ML INJ IV PRN (01:32)
--- NOTE | 2019-08-24 02:10 | History and Physical Report ---
<HALIMA ABBOTT - Last Filed: 08/24/19 02:28> History of Present Illness Date of examination: 08/24/19 Date of admission: 08/24/2019 Chief complaint: needs IV abx History of present illness: 43-year-old -[place] male with history of hypertension, diabetes, GERD, osteomyelitis, strep angiosis bacteremia and recent left BKA who presents to [facility] ED with complaints of missed doses of IV antibiotic administration. Of note patient was admitted to [facility] on 08/07/2019 diabetic infection of left foot and sepsis. He was later diagnosed with osteomyelitis and underwent left BKA on 08/16/2019. He was discharged on 08/19/2019 and was advised that he would need IV Rocephin 2 g every 24 hours until 08/30/2019. Patient was told that an outside company would come to his house to administer IV antibiotics. Since discharged patient has made several attempts to contact company with no success. He has not had any IV antibiotics since 08/19/2019 which is also date of discharge. Additionally he complains of phantom pain in his left leg. Denies nausea, fever, emesis, diarrhea, dyspnea, medication noncompliance. Patient is unsure whether or not he has health insurance. He recalls signing up for some type of insurance during open enrollment which was sometime between April and May 2019. Patient stated that he called his job to confirm coverage and was given the insurance [employer] number to call and follow-up. He is not sure if his lack or questionable insurance status has prevented him from receiving his IV antibiotics. A consult has been placed to case management, since they are the ones who supposedly set up outpatient IV administration. Upon arrival to the ED patient was found to be hypoxic and in hypertensive urgency. Will admit for further evaluation and treatment. Past History Past Medical History: diabetes (Uncontrolled), GERD, hypertension, other (Osteomyelitis, diabetic foot wound) Past Surgical History: Other (Left BKA 08/2019, Surgery on appendix or Pancreas 2004, patient is unsure) Social history: lives with family (Cousin) Family history: no significant family history Medications and Allergies Allergies Allergy/AdvReac Type Severity Reaction Status Date / Time No Known Allergies Allergy Verified 05/26/13 04:48 Home Medications Medication Instructions Recorded Confirmed Last Taken Type Insulin NPH/Regular [NovoLIN 70/30] 20 unit SUB-Q BIDDIAB 30 Days 08/19/19 Unknown Rx Lispro Insulin [HumaLOG] 0 unit SUB-Q ACHS 30 Days 08/19/19 Unknown Rx hydrALAZINE [Apresoline TAB] 25 mg PO Q8HR #90 tablet 08/19/19 Unknown Rx oxyCODONE /ACETAMINOPHEN [Percocet 1 tab PO Q4H PRN #30 tablet 08/19/19 Unknown Rx 5/325 mg] Active Meds: Active Medications Acetaminophen (Tylenol) 650 mg PO Q4H PRN PRN Reason: Pain MILD(1-3)/Fever >100.5/MIRANDA Dextrose (D50w (25gm) Syringe) 0 ml IV Q30MIN PRN; Protocol PRN Reason: Hypoglycemia Docusate Sodium (Colace) 100 mg PO BID [facility]IL[facility] Heparin Sodium (Porcine) (Heparin) 5,000 unit SUB-Q Q12HR [facility] Hydralazine HCl (Apresoline) 25 mg PO Q8HR [facility] Last Admin: 08/23/19 23:03 Dose: 25 mg Documented by: Hydralazine HCl (Apresoline) 10 mg IV Q4H PRN PRN Reason: Blood Pressure Ceftriaxone Sodium (Rocephin/Ns 2 Gm/100 Ml) 2 gm in 100 mls @ 200 mls/hr IV Q24H [facility] Stop: 08/30/19 22:29 Last Admin: 08/23/19 22:45 Dose: 200 mls/hr Documented by: Insulin Human Isoph/Insulin Regular (Humulin 70/30) 20 unit SUB-Q BIDDIAB [facility] Insulin Human Lispro (Humalog) 0 unit SUB-Q [facility]; Protocol Ondansetron HCl (Zofran) 4 mg IV Q8H PRN PRN Reason: Nausea And Vomiting Oxycodone/Acetaminophen (Percocet 5/325) 1 tab PO Q4H PRN PRN Reason: Pain, Moderate (4-6) Sodium Chloride (Sodium Chloride Flush Syringe 10 Ml) 10 ml IV BID [facility]IL[facility] Sodium Chloride (Sodium Chloride Flush Syringe 10 Ml) 10 ml IV PRN PRN PRN Reason: LINE FLUSH Review of Systems All systems: negative Constitutional: other (Discharged on 08/19/2019 was told that someone would come out to his house to administer IV antibiotics for treatment of osteomyelitis. No one has showed up. Currently patient has missed 4 days) Exam - Physical Exam Narrative exam: Physical exam General appearance: Present: No acute distress, alert and oriented 3, adult male - EENT Eyes: Present: PERRL, EOM intact ENT: hearing intact, normal dentition - Neck Neck: Present: supple, normal ROM - Respiratory Respiratory effort: Non-labored Respiratory: Clear throughout - Cardiovascular Heart rate: 97(bpm) Rhythm: Sinus rhythm Heart Sounds: Present: S1 & S2. Absent: rub, click - Extremities Extremities: no ischemia, pulses intact, left BKA, left upper arm single-lumen midline - Peripheral Assessment Peripheral Pulses: within normal limits - Abdominal General gastrointestinal: Obese, soft, non-tender, normal bowel sounds - Integumentary Integumentary: Present: warm, dry - Musculoskeletal Musculoskeletal: Able to move all extremities -Neurological Neurological: CN II-XII intact - Psychiatric Psychiatric:cooperative - Constitutional Vitals: Temp Pulse Resp BP Pulse Ox 98.9 F 98 H 20 166/96 96 08/23/19 22:50 08/24/19 01:45 08/24/19 01:45 08/24/19 01:45 08/24/19 01:45 CALIXTO score - Calixto Score Age > 65: (0) No Aspirin use within the Past 7 Days: (0) No 3 or more CAD Risk Factors: (1) Yes 2 or more Angina events in past 24 hrs: (0) No Known CAD with more than 50% Stenosis: (0) No Elevated Cardiac Markers: (1) Yes ST Deviation Greater than 0.5mm: (0) No CALIXTO Score: 2 Results - Labs CBC & Chem 7: 08/23/19 19:06 08/23/19 19:06 Labs: Laboratory Last Values WBC 11.1 K/mm3 (4.5-11.0) H 08/23/19 19:06 RBC 3.71 M/mm3 (3.65-5.03) 08/23/19 19:06 Hgb 10.3 gm/dl (11.8-15.2) L 08/23/19 19:06 Hct 31.9 % (35.5-45.6) L 08/23/19 19:06 MCV 86 fl (84-94) 08/23/19 19:06 MCH 28 pg (28-32) 08/23/19 19:06 MCHC 32 % (32-34) 08/23/19 19:06 RDW 14.7 % (13.2-15.2) 08/23/19 19:06 Plt Count 496 K/mm3 (140-440) H 08/23/19 19:06 Lymph % (Auto) 13.4 % (13.4-35.0) 08/23/19 19:06 [place] % (Auto) 5.3 % (0.0-7.3) 08/23/19 19:06 Eos % (Auto) 3.1 % (0.0-4.3) 08/23/19 19:06 Baso % (Auto) 0.5 % (0.0-1.8) 08/23/19 19:06 Lymph # 1.5 K/mm3 (1.2-5.4) 08/23/19 19:06 [place] # 0.6 K/mm3 (0.0-0.8) 08/23/19 19:06 Eos # 0.3 K/mm3 (0.0-0.4) 08/23/19 19:06 Baso # 0.1 K/mm3 (0.0-0.1) 08/23/19 19:06 Seg Neutrophils % 77.7 % (40.0-70.0) H 08/23/19 19:06 Seg Neutrophils # 8.6 K/mm3 (1.8-7.7) H 08/23/19 19:06 PT 15.1 Sec. (12.2-14.9) H 08/23/19 22:29 INR 1.17 (0.87-1.13) H 08/23/19 22:29 D-Dimer 7330.72 ng/mlDDU (0-234) H 08/23/19 22:29 ABG pH 7.475 pH Units (7.350-7.450) H 08/23/19 22:15 ABG pCO2 34.4 mm Hg 08/23/19 22:15 ABG pO2 60.1 mm Hg (80.0-90.0) L 08/23/19 22:15 ABG HCO3 24.8 mmol/L (20.0-26.0) 08/23/19 22:15 ABG O2 Saturation 92.7 % (95.0-99.0) L 08/23/19 22:15 ABG O2 Content 11.2 (0.0-44) 08/23/19 22:15 ABG Base Excess 1.3 mmol/L (-2.0-3.0) 08/23/19 22:15 ABG Hemoglobin 8.8 gm/dl (14.0-18.0) L 08/23/19 22:15 ABG Carboxyhemoglobin 2.0 % (0.0-5.0) 08/23/19 22:15 ABG Methemoglobin 0.5 % (0.0-1.5) 08/23/19 22:15 Oxyhemoglobin 90.4 % (95.0-99.0) L 08/23/19 22:15 FiO2 21 % 08/23/19 22:15 Sodium 139 mmol/L (137-145) 08/23/19 19:06 Potassium 4.1 mmol/L (3.6-5.0) 08/23/19 19:06 Chloride 101.9 mmol/L (98-107) 08/23/19 19:06 Carbon Dioxide 23 mmol/L (22-30) 08/23/19 19:06 Anion Gap 18 mmol/L 08/23/19 19:06 BUN 9 mg/dL (9-20) 08/23/19 19:06 Creatinine 0.9 mg/dL (0.8-1.5) 08/23/19 19:06 Estimated GFR > 60 ml/min 08/23/19 19:06 BUN/Creatinine Ratio 10 % 08/23/19 19:06 Glucose 186 mg/dL (75-100) H 08/23/19 19:06 POC Glucose 182 (70-105) H 08/23/19 23:25 Lactic Acid 1.20 mmol/L (0.7-2.0) 08/23/19 19:06 Calcium 8.1 mg/dL (8.4-10.2) L 08/23/19 19:06 Total Bilirubin 0.20 mg/dL (0.1-1.2) 08/23/19 19:06 AST 18 units/L (5-40) 08/23/19 19:06 ALT 13 units/L (7-56) 08/23/19 19:06 Alkaline Phosphatase 390 units/L (35-129) H 08/23/19 19:06 Troponin T 0.032 ng/mL (0.00-0.029) H 08/23/19 23:00 NT-Pro-B Natriuret Pep 1157 pg/mL (0-450) H 08/23/19 23:00 Total Protein 6.9 g/dL (6.3-8.2) 08/23/19 19:06 Albumin 2.4 g/dL (3.9-5) L 08/23/19 19:06 Albumin/Globulin Ratio 0.5 % 08/23/19 19:06 Triglycerides 166 mg/dL (2-149) H 08/23/19 23:00 Cholesterol 131 mg/dL (50-199) 08/23/19 23:00 LDL Cholesterol Direct 84 mg/dL (50-130) 08/23/19 23:00 HDL Cholesterol 28 mg/dL (40-59) L 08/23/19 23:00 Cholesterol/HDL Ratio 4.67 % 08/23/19 23:00 - Imaging and Cardiology Imaging and Cardiology: CT Angio Chest: FINDINGS: PULMONARY ARTERIES: Good opacification without distinct thromboemboli. AORTA AND ARTERIES: No significant abnormality. MEDIASTINUM: The thyroid gland is unremarkable. The trachea and main bronchi are patent and normal in caliber. No mass or lymphadenopathy. Mild cardiomegaly without a significant pericardial effusion. LUNGS: Small pleural effusions are seen with bilateral atelectasis/edema. No suspicious nodule/mass or pneumothorax. ADDITIONAL FINDINGS: None. UPPER ABDOMEN: No acute findings. BONES: No acute abnormality. Degenerative changes are seen throughout the spine. There are multiple old right rib fractures. Degenerative changes are also noted along the shoulders. IMPRESSION: 1. No CT evidence for pulmonary embolism. 2. Small pleural effusions with bilateral atelectasis/edema. 3. Additional findings as above. CXR: FINDINGS: Support devices: None. Heart: Stable cardiomegaly. Lungs/Pleura: Small basilar effusions left greater than right. No significant infiltrate. Additional findings: None. IMPRESSION: 1. Stable cardiomegaly. 2. Small basilar effusions. Assessment and Plan Assessment and plan: 43-year-old -[place] male with history of hypertension, diabetes, GERD, osteomyelitis, strep angiosis bacteremia and recent left BKA who presents to [facility] ED with complaints of missed doses of IV antibiotic administration. Hypertensive urgency -BP on admission 201/114 -Hx Hypertension -Continue to monitor BP -Resume home antihypertensive meds to optimize BP -IV antihypertensive when necessary Acute hypoxic respiratory failure -No Baseline home oxygen requirements -Initial ABG 7.47/34.4/60.1/24.8 -Currently on supplemental -Monitor saturations -Continue supplemental oxygen wean as tolerated Leukocytosis -WBC on admission 11.1 -Afebrile -Cultures pending -Recently diagnosed with osteomyelitis -History left foot wound, s/p left BKA (08/16/2019) -Scheduled to receive Rocephin 2 g every 24 hours until 08/30/2019 -Has not received Rocephin since 08/19/2019 (total of 4 missed doses) -Start IV Rocephin 2 g every 24 hours -Continue to monitor CBC -ID consulted -Case management consulted R/O PE -D-dimer elevated at 7330 -Hypoxia with PO2 60% -CT angiogram chest negative for PE Elevated Troponin -at 0.032 -BNP elevated at 1157 -Denies chest pain -Denies history of heart failure -CXR shows cardiomegaly small bibasilar pleural effusions -Cardiology consulted DM -POC BG monitoring -Schedule NPH and SSI coverage prn -HgbA1C 9.6 Anemia -Hemoglobin on admission 10.3 -No s/s of active bleeding -Continue to monitor hemoglobin -Transfuse as needed DVT PPX -On Heparin Advance Directives: No VTE prophylaxis?: Chemical Plan of care discussed with patient/family: Yes <ISAAC OSULLIVAN - Last Filed: 08/24/19 04:45> Medications and Allergies Active Meds: Active Medications Acetaminophen (Tylenol) 650 mg PO Q4H PRN PRN Reason: Pain MILD(1-3)/Fever >100.5/MIRANDA Dextrose (D50w (25gm) Syringe) 0 ml IV Q30MIN PRN; Protocol PRN Reason: Hypoglycemia Docusate Sodium (Colace) 100 mg PO BID [facility] Heparin Sodium (Porcine) (Heparin) 5,000 unit SUB-Q Q12HR [facility] Hydralazine HCl (Apresoline) 25 mg PO Q8HR [facility] Last Admin: 08/23/19 23:03 Dose: 25 mg Documented by: Hydralazine HCl (Apresoline) 10 mg IV Q4H PRN PRN Reason: Blood Pressure Ceftriaxone Sodium (Rocephin/Ns 2 Gm/100 Ml) 2 gm in 100 mls @ 200 mls/hr IV Q24H [facility] Stop: 08/30/19 22:29 Last Admin: 08/23/19 22:45 Dose: 200 mls/hr Documented by: Insulin Human Isoph/Insulin Regular (Humulin 70/30) 20 unit SUB-Q BIDDIAB [facility] Insulin Human Lispro (Humalog) 0 unit SUB-Q ACHS [facility]; Protocol Ondansetron HCl (Zofran) 4 mg IV Q8H PRN PRN Reason: Nausea And Vomiting Oxycodone/Acetaminophen (Percocet 5/325) 1 tab PO Q4H PRN PRN Reason: Pain, Moderate (4-6) Sodium Chloride (Sodium Chloride Flush Syringe 10 Ml) 10 ml IV BID [facility] Sodium Chloride (Sodium Chloride Flush Syringe 10 Ml) 10 ml IV PRN PRN PRN Reason: LINE FLUSH Exam - Constitutional Vitals: Temp Pulse Resp BP Pulse Ox 98.9 F 90 18 145/92 97 08/23/19 22:50 08/24/19 04:21 08/24/19 04:21 08/24/19 04:21 08/24/19 04:21 Results - Labs CBC & Chem 7: 08/23/19 19:06 08/23/19 19:06 Labs: Laboratory Last Values WBC 11.1 K/mm3 (4.5-11.0) H 08/23/19 19:06 RBC 3.71 M/mm3 (3.65-5.03) 08/23/19 19:06 Hgb 10.3 gm/dl (11.8-15.2) L 08/23/19 19:06 Hct 31.9 % (35.5-45.6) L 08/23/19 19:06 MCV 86 fl (84-94) 08/23/19 19:06 MCH 28 pg (28-32) 08/23/19 19:06 MCHC 32 % (32-34) 08/23/19 19:06 RDW 14.7 % (13.2-15.2) 08/23/19 19:06 Plt Count 496 K/mm3 (140-440) H 08/23/19 19:06 Lymph % (Auto) 13.4 % (13.4-35.0) 08/23/19 19:06 [place] % (Auto) 5.3 % (0.0-7.3) 08/23/19 19:06 Eos % (Auto) 3.1 % (0.0-4.3) 08/23/19 19:06 Baso % (Auto) 0.5 % (0.0-1.8) 08/23/19 19:06 Lymph # 1.5 K/mm3 (1.2-5.4) 08/23/19 19:06 [place] # 0.6 K/mm3 (0.0-0.8) 08/23/19 19:06 Eos # 0.3 K/mm3 (0.0-0.4) 08/23/19 19:06 Baso # 0.1 K/mm3 (0.0-0.1) 08/23/19 19:06 Seg Neutrophils % 77.7 % (40.0-70.0) H 08/23/19 19:06 Seg Neutrophils # 8.6 K/mm3 (1.8-7.7) H 08/23/19 19:06 PT 15.1 Sec. (12.2-14.9) H 08/23/19 22:29 INR 1.17 (0.87-1.13) H 08/23/19 22:29 D-Dimer 7330.72 ng/mlDDU (0-234) H 08/23/19 22:29 ABG pH 7.475 pH Units (7.350-7.450) H 08/23/19 22:15 ABG pCO2 34.4 mm Hg 08/23/19 22:15 ABG pO2 60.1 mm Hg (80.0-90.0) L 08/23/19 22:15 ABG HCO3 24.8 mmol/L (20.0-26.0) 08/23/19 22:15 ABG O2 Saturation 92.7 % (95.0-99.0) L 08/23/19 22:15 ABG O2 Content 11.2 (0.0-44) 08/23/19 22:15 ABG Base Excess 1.3 mmol/L (-2.0-3.0) 08/23/19 22:15 ABG Hemoglobin 8.8 gm/dl (14.0-18.0) L 08/23/19 22:15 ABG Carboxyhemoglobin 2.0 % (0.0-5.0) 08/23/19 22:15 ABG Methemoglobin 0.5 % (0.0-1.5) 08/23/19 22:15 Oxyhemoglobin 90.4 % (95.0-99.0) L 08/23/19 22:15 FiO2 21 % 08/23/19 22:15 Sodium 139 mmol/L (137-145) 08/23/19 19:06 Potassium 4.1 mmol/L (3.6-5.0) 08/23/19 19:06 Chloride 101.9 mmol/L (98-107) 08/23/19 19:06 Carbon Dioxide 23 mmol/L (22-30) 08/23/19 19:06 Anion Gap 18 mmol/L 08/23/19 19:06 BUN 9 mg/dL (9-20) 08/23/19 19:06 Creatinine 0.9 mg/dL (0.8-1.5) 08/23/19 19:06 Estimated GFR > 60 ml/min 08/23/19 19:06 BUN/Creatinine Ratio 10 % 08/23/19 19:06 Glucose 186 mg/dL (75-100) H 08/23/19 19:06 POC Glucose 182 (70-105) H 08/23/19 23:25 Lactic Acid 1.20 mmol/L (0.7-2.0) 08/23/19 19:06 Calcium 8.1 mg/dL (8.4-10.2) L 08/23/19 19:06 Total Bilirubin 0.20 mg/dL (0.1-1.2) 08/23/19 19:06 AST 18 units/L (5-40) 08/23/19 19:06 ALT 13 units/L (7-56) 08/23/19 19:06 Alkaline Phosphatase 390 units/L (35-129) H 08/23/19 19:06 Troponin T 0.032 ng/mL (0.00-0.029) H 08/24/19 01:50 NT-Pro-B Natriuret Pep 1157 pg/mL (0-450) H 08/23/19 23:00 Total Protein 6.9 g/dL (6.3-8.2) 08/23/19 19:06 Albumin 2.4 g/dL (3.9-5) L 08/23/19 19:06 Albumin/Globulin Ratio 0.5 % 08/23/19 19:06 Triglycerides 166 mg/dL (2-149) H 08/23/19 23:00 Cholesterol 131 mg/dL (50-199) 08/23/19 23:00 LDL Cholesterol Direct 84 mg/dL (50-130) 08/23/19 23:00 HDL Cholesterol 28 mg/dL (40-59) L 08/23/19 23:00 Cholesterol/HDL Ratio 4.67 % 08/23/19 23:00 Assessment and Plan Assessment and plan: Patient seen and examined, discussed with nurse practitioner, agree with plan as stated above. He is completely asymptomatic, no shortness of breath or chest pain, he is only here to receive his antibiotic
[2019-08-24] MEDS: oxyCODONE /ACETAMINOPHEN 5-325MG TAB PO PRN (06:34)
[2019-08-24] MEDS: hydrALAZINE 25 MG TAB PO SCH ×3 (06:35→21:27)
[2019-08-24] MEDS ORDERED: INSULIN NPH/REGULAR 70/30 INJ SUB-Q SCH (08:00)
--- NOTE | 2019-08-24 09:06 | Consultation ---
History of Present Illness Consult date: 08/24/19 Consult reason: elevated troponin History of present illness: This is a 43-year old male with hypertension, diabetes, peripheral vascular disease who was recently admitted this hospital with sepsis secondary to left foot necrotic wound and underlying osteomyelitis. Subsequently, the patient underwent a left [id number]-udb-foyd amputation. On discharged a PICC line was placed for recommended home intravenous antibiotics. Patient returns with reports that he has not received his home IV antibiotics, requests to have the PICC line removed. There was no complaints of chest pain, unusual shortness of breath or palpitations. A chest x-ray report is negative and a chest CTA reports no evidence of PE. Troponins were measured which showed mild elevation thus this cardiac consultation. His ECG is benign, normal sinus rhythm. There is no prior cardiac history. An echocardiogram done at this hospital a month ago reports a normal left ventricular systolic function, ejection fraction 50-55%. Past History Past Medical History: diabetes, hypertension, PVD Past Surgical History: Other (Left BKA 08/2019, Surgery on appendix or Pancreas 2004) Social history: lives with family (Cousin) Family history: no significant family history Medications and Allergies Allergies Allergy/AdvReac Type Severity Reaction Status Date / Time No Known Allergies Allergy Verified 05/26/13 04:48 Home Medications Medication Instructions Recorded Confirmed Last Taken Type Insulin NPH/Regular [NovoLIN 70/30] 20 unit SUB-Q BIDDIAB 30 Days 08/19/19 Unknown Rx Lispro Insulin [HumaLOG] 0 unit SUB-Q ACHS 30 Days 08/19/19 Unknown Rx hydrALAZINE [Apresoline TAB] 25 mg PO Q8HR #90 tablet 08/19/19 Unknown Rx oxyCODONE /ACETAMINOPHEN [Percocet 1 tab PO Q4H PRN #30 tablet 08/19/19 Unknown Rx 5/325 mg] Active Meds: Active Medications Acetaminophen (Tylenol) 650 mg PO Q4H PRN PRN Reason: Pain MILD(1-3)/Fever >100.5/MIRANDA Dextrose (D50w (25gm) Syringe) 0 ml IV Q30MIN PRN; Protocol PRN Reason: Hypoglycemia Docusate Sodium (Colace) 100 mg PO BID [facility] Heparin Sodium (Porcine) (Heparin) 5,000 unit SUB-Q Q12HR [facility] Hydralazine HCl (Apresoline) 25 mg PO Q8HR [facility] Last Admin: 02/12/20 06:35 Dose: 25 mg Documented by: Hydralazine HCl (Apresoline) 10 mg IV Q4H PRN PRN Reason: Blood Pressure Ceftriaxone Sodium (Rocephin/Ns 2 Gm/100 Ml) 2 gm in 100 mls @ 200 mls/hr IV Q24H [facility] Stop: 08/30/19 22:29 Last Admin: 08/23/19 22:45 Dose: 200 mls/hr Documented by: Insulin Human Isoph/Insulin Regular (Humulin 70/30) 20 unit SUB-Q BIDDIAB [facility] Insulin Human Lispro (Humalog) 0 unit SUB-Q ACHS [facility]; Protocol Ondansetron HCl (Zofran) 4 mg IV Q8H PRN PRN Reason: Nausea And Vomiting Oxycodone/Acetaminophen (Percocet 5/325) 1 tab PO Q4H PRN PRN Reason: Pain, Moderate (4-6) Last Admin: 08/24/19 06:34 Dose: 1 tab Documented by: Sodium Chloride (Sodium Chloride Flush Syringe 10 Ml) 10 ml IV BID [facility] Sodium Chloride (Sodium Chloride Flush Syringe 10 Ml) 10 ml IV PRN PRN PRN Reason: LINE FLUSH Physical Examination Vital Signs Temp Pulse Resp BP Pulse Ox 98.8 F 104 H 16 148/89 92 08/23/19 16:41 08/23/19 16:41 08/23/19 16:41 08/23/19 16:41 08/23/19 16:41 General appearance: no acute distress HEENT: Positive: PERRL Neck: Positive: trachea midline Cardiac: Positive: Reg Rate and Rhythm Lungs: Positive: Decreased Breath Sounds Extremities: Present: Other (left BKA) Results 08/23/19 19:06 08/23/19 19:06 Cardiac Enzymes 08/23/19 Range/Units 19:06 AST 18 (5-40) units/L Coagulation 08/23/19 Range/Units 22:29 PT 15.1 H (12.2-14.9) Sec. INR 1.17 H (0.87-1.13) Lipids 08/23/19 Range/Units 23:00 Triglycerides 166 H (2-149) mg/dL Cholesterol 131 (50-199) mg/dL HDL Cholesterol 28 L (40-59) mg/dL Cholesterol/HDL Ratio 4.67 % CBC 08/23/19 Range/Units 19:06 WBC 11.1 H (4.5-11.0) K/mm3 RBC 3.71 (3.65-5.03) M/mm3 Hgb 10.3 L (11.8-15.2) gm/dl Hct 31.9 L (35.5-45.6) % Plt Count 496 H (140-440) K/mm3 Lymph # 1.5 (1.2-5.4) K/mm3 [place] # 0.6 (0.0-0.8) K/mm3 Eos # 0.3 (0.0-0.4) K/mm3 Baso # 0.1 (0.0-0.1) K/mm3 Comprehensive Metabolic Panel 08/23/19 Range/Units 19:06 Sodium 139 (137-145) mmol/L Potassium 4.1 (3.6-5.0) mmol/L Chloride 101.9 (98-107) mmol/L Carbon Dioxide 23 (22-30) mmol/L BUN 9 (9-20) mg/dL Creatinine 0.9 (0.8-1.5) mg/dL Glucose 186 H (75-100) mg/dL Calcium 8.1 L (8.4-10.2) mg/dL AST 18 (5-40) units/L ALT 13 (7-56) units/L Alkaline Phosphatase 390 H (35-129) units/L Total Protein 6.9 (6.3-8.2) g/dL Albumin 2.4 L (3.9-5) g/dL Assessment and Plan - Patient Problems (1) Elevated troponin Current Visit: Yes Status: Acute
[2019-08-24] MEDS: INSULIN LISPRO 100 UNIT/ML SUB-Q SCH ×4 (09:31→21:34)
--- NOTE | 2019-08-24 10:26 | Event Note ---
Date: 08/24/19 Patient admitted because of missed doses of Antibiotics. I have seen and examined him.
[2019-08-24] MEDS: DOCUSATE SODIUM 100 MG CAP PO SCH ×2 (11:29→21:27)
[2019-08-24] MEDS: HEPARIN 5,000 UNIT/1 ML VIAL SUB-Q SCH ×2 (11:30→21:30)
--- NOTE | 2019-08-24 15:35 | Consultation ---
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 He had recently been admitted here for sepsis secondary to a gangrenous L foot, for which he underwent a L BKA on 08/16/2019. He was also noted to have an S anginosus bactermeia at the time, and we recommended he complete 2 weeks of ceftriaxone with stop date of 08/30/2019. He was supposed to come to our office for teach and train, however when my office called him his reports she was unable to get him into her vehicle to transport him here. He had his midline over the weekend without flushes. As we would be unable to get him in to our office, we recommended he needed to come back to the hospital to have the midline examined and to arrange from home health antibiotics. Complains of phantom pain in the leg. Was found to be hypoxic and hypertensive on admission. Afebrile, slightly elevated white count at 11.1. Blood cultures pending. Imaging personally reviewed: CXR: no acute infectious abnormality Review of Systems: Bold if positive, otherwise negative General: fevers, chills, rigors HEENT: visual disturbance, diplopia, eye pain Respiratory: cough, sputum, hemoptysis, shortness of breath Cardiovascular: chest pain, syncope Gastrointestinal: nausea, vomiting, diarrhea, abdominal pain Genitourinary: dysuria, hematuria, flank pain Musculoskeletal: neck pain, back pain, joint pain, edema Neurologic: headaches, seizures Hematologic: easy bruising or bleeding Endocrine: night sweats, acute weight loss Skin: rash, jaundice, redness Psychiatric: suicidal, homicidal ideation Past History Past Medical History: diabetes, hypertension, PVD Past Surgical History: Other (Left BKA 08/2019, Surgery on appendix or Pancreas 2004) Social history: lives with family (Cousin) Family history: no significant family history Medications and Allergies Allergies Allergy/AdvReac Type Severity Reaction Status Date / Time No Known Allergies Allergy Verified 05/26/13 04:48 Home Medications Medication Instructions Recorded Confirmed Last Taken Type Insulin NPH/Regular [NovoLIN 70/30] 20 unit SUB-Q BIDDIAB 30 Days 08/19/19 Unknown Rx Lispro Insulin [HumaLOG] 0 unit SUB-Q [facility] 30 Days 08/19/19 Unknown Rx hydrALAZINE [Apresoline TAB] 25 mg PO Q8HR #90 tablet 08/19/19 Unknown Rx oxyCODONE /ACETAMINOPHEN [Percocet 1 tab PO Q4H PRN #30 tablet 08/19/19 Unknown Rx 5/325 mg] Active Meds: Active Medications Acetaminophen (Tylenol) 650 mg PO Q4H PRN PRN Reason: Pain MILD(1-3)/Fever >100.5/MIRANDA Dextrose (D50w (25gm) Syringe) 0 ml IV Q30MIN PRN; Protocol PRN Reason: Hypoglycemia Docusate Sodium (Colace) 100 mg PO BID [facility] Last Admin: 08/24/19 11:29 Dose: 100 mg Documented by: Heparin Sodium (Porcine) (Heparin) 5,000 unit SUB-Q Q12HR [facility] Last Admin: 08/24/19 11:30 Dose: 5,000 unit Documented by: Hydralazine HCl (Apresoline) 25 mg PO Q8HR [facility] Last Admin: 08/24/19 06:35 Dose: 25 mg Documented by: Hydralazine HCl (Apresoline) 10 mg IV Q4H PRN PRN Reason: Blood Pressure Ceftriaxone Sodium (Rocephin/Ns 2 Gm/100 Ml) 2 gm in 100 mls @ 200 mls/hr IV Q24H [facility] Stop: 08/30/19 22:29 Last Admin: 08/23/19 22:45 Dose: 200 mls/hr Documented by: Insulin Human Isoph/Insulin Regular (Humulin 70/30) 20 unit SUB-Q BIDDIAB [facility] Last Admin: 08/24/19 11:35 Dose: 20 unit Documented by: Insulin Human Lispro (Humalog) 0 unit SUB-Q ACHS [facility]; Protocol Last Admin: 08/24/19 13:55 Dose: 3 unit Documented by: Ondansetron HCl (Zofran) 4 mg IV Q8H PRN PRN Reason: Nausea And Vomiting Oxycodone/Acetaminophen (Percocet 5/325) 1 tab PO Q4H PRN PRN Reason: Pain, Moderate (4-6) Last Admin: 08/24/19 06:34 Dose: 1 tab Documented by: Sodium Chloride (Sodium Chloride Flush Syringe 10 Ml) 10 ml IV BID [facility] Last Admin: 08/24/19 11:30 Dose: 10 ml Documented by: Sodium Chloride (Sodium Chloride Flush Syringe 10 Ml) 10 ml IV PRN PRN PRN Reason: LINE FLUSH Physical Examination - Physical Exam Narrative exam: Physical Exam: Constitutional: Alert, cooperative. No acute distress Head, Ears, Nose: Normocephalic, atraumatic. External ears, nose normal Eyes: Conjunctivae/corneas clear. No icterus. No ptosis. Neck: Supple, no meningeal signs Oral: dentition fair, no thrush Cardiovascular: S1, S2 normal. Respiratory: Good air entry, clear to auscultation bilaterally GI: Soft, non-tender; bowel sounds normal. No peritoneal signs. Musculoskeletal: L BKA. Wound no purulence, not red. Skin: No rash or abscess Hem/Lymphatic: No palpable cervical or supraclavicular nodes. No lymphangitis Psych: Mood ok. Affect normal Neurological: Awake, alert, oriented. No gross abnormality - Constitutional Vitals: Vital Signs Temp Pulse Resp BP Pulse Ox 98.1 F 89 18 134/93 98 08/24/19 11:49 08/24/19 11:49 08/24/19 11:49 08/24/19 11:49 08/24/19 11:49 Temperature -Last 24 Hours Temperature 98.1 F Temperature 98.2 F Temperature 98.1 F Temperature 98.9 F Temperature 98.9 F Temperature 98.8 F Results - Labs CBC & Chem 7: 08/23/19 19:06 08/23/19 19:06 Labs: Abnormal lab results 08/23/19 08/23/19 08/23/19 Range/Units 19:06 19:06 22:15 WBC 11.1 H (4.5-11.0) K/mm3 Hgb 10.3 L (11.8-15.2) gm/dl Hct 31.9 L (35.5-45.6) % Plt Count 496 H (140-440) K/mm3 Seg Neutrophils % 77.7 H (40.0-70.0) % Seg Neutrophils # 8.6 H (1.8-7.7) K/mm3 PT (12.2-14.9) Sec. INR (0.87-1.13) D-Dimer (0-234) ng/mlDDU ABG pH 7.475 H (7.350-7.450) pH Units ABG pO2 60.1 L (80.0-90.0) mm Hg ABG O2 Saturation 92.7 L (95.0-99.0) % ABG Hemoglobin 8.8 L (14.0-18.0) gm/dl Oxyhemoglobin 90.4 L (95.0-99.0) % Glucose 186 H (75-100) mg/dL POC Glucose (70-105) Calcium 8.1 L (8.4-10.2) mg/dL Alkaline Phosphatase 390 H (35-129) units/L Troponin T (0.00-0.029) ng/mL NT-Pro-B Natriuret Pep (0-450) pg/mL Albumin 2.4 L (3.9-5) g/dL Triglycerides (2-149) mg/dL HDL Cholesterol (40-59) mg/dL 08/23/19 08/23/19 08/23/19 Range/Units 22:29 23:00 23:25 WBC (4.5-11.0) K/mm3 Hgb (11.8-15.2) gm/dl Hct (35.5-45.6) % Plt Count (140-440) K/mm3 Seg Neutrophils % (40.0-70.0) % Seg Neutrophils # (1.8-7.7) K/mm3 PT 15.1 H (12.2-14.9) Sec. INR 1.17 H (0.87-1.13) D-Dimer 7330.72 H (0-234) ng/mlDDU ABG pH (7.350-7.450) pH Units ABG pO2 (80.0-90.0) mm Hg ABG O2 Saturation (95.0-99.0) % ABG Hemoglobin (14.0-18.0) gm/dl Oxyhemoglobin (95.0-99.0) % Glucose (75-100) mg/dL POC Glucose 182 H (70-105) Calcium (8.4-10.2) mg/dL Alkaline Phosphatase (35-129) units/L Troponin T 0.032 H (0.00-0.029) ng/mL NT-Pro-B Natriuret Pep 1157 H (0-450) pg/mL Albumin (3.9-5) g/dL Triglycerides 166 H (2-149) mg/dL HDL Cholesterol 28 L (40-59) mg/dL 08/24/19 08/24/19 08/24/19 Range/Units 01:50 08:51 09:08 WBC (4.5-11.0) K/mm3 Hgb (11.8-15.2) gm/dl Hct (35.5-45.6) % Plt Count (140-440) K/mm3 Seg Neutrophils % (40.0-70.0) % Seg Neutrophils # (1.8-7.7) K/mm3 PT (12.2-14.9) Sec. INR (0.87-1.13) D-Dimer (0-234) ng/mlDDU ABG pH (7.350-7.450) pH Units ABG pO2 (80.0-90.0) mm Hg ABG O2 Saturation (95.0-99.0) % ABG Hemoglobin (14.0-18.0) gm/dl Oxyhemoglobin (95.0-99.0) % Glucose (75-100) mg/dL POC Glucose 213 H (70-105) Calcium (8.4-10.2) mg/dL Alkaline Phosphatase (35-129) units/L Troponin T 0.032 H 0.036 H (0.00-0.029) ng/mL NT-Pro-B Natriuret Pep (0-450) pg/mL Albumin (3.9-5) g/dL Triglycerides (2-149) mg/dL HDL Cholesterol (40-59) mg/dL 08/24/19 Range/Units 11:19 WBC (4.5-11.0) K/mm3 Hgb (11.8-15.2) gm/dl Hct (35.5-45.6) % Plt Count (140-440) K/mm3 Seg Neutrophils % (40.0-70.0) % Seg Neutrophils # (1.8-7.7) K/mm3 PT (12.2-14.9) Sec. 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 Follow up current cultures. If they remain negative, ok to keep same stop date of 08/30/2019. If they turn positive, will obviously need to re-start the 2 week clock. #DM2 - tight glycemic control for optimal wound healing Recommendations: - continue ceftriaxone 2g q24h - follow up blood cultures. Thank you for the consult, will follow. MD Isabelle Narayanan [facility] ([facility]) M: [phone] O: [phone] F: [phone]
[2019-08-24] MEDS: cefTRIAXone/NS 2 GM/100 ML 2 GM/100 ML BAG IV SCH (22:07)
[2019-08-25] MEDS: oxyCODONE /ACETAMINOPHEN 5-325MG TAB PO PRN ×3 (04:08→23:34)
[2019-08-25 05:00] LABS: Basophils # (Auto) 0.1 K/mm3 (0.0-0.1); Basophils % (Auto) 1.5 % (0.0-1.8); Eosinophils # (Auto) 0.4 K/mm3 (0.0-0.4); Eosinophils % (Auto) 5.2 % (0.0-4.3); Hematocrit 26.1 % (35.5-45.6); Hemoglobin 8.6 gm/dl (11.8-15.2); Lymphocytes # (Auto) 1.4 K/mm3 (1.2-5.4); Lymphocytes % (Auto) 19.3 % (13.4-35.0); Mean Corpuscular HGB Conc 33 % (32-34); Mean Corpuscular Volume 84 fl (84-94); Monocytes # (Auto) 0.5 K/mm3 (0.0-0.8); Monocytes % (Auto) 6.6 % (0.0-7.3); Platelet Count 407 K/mm3 (140-440); Red Blood Count 3.12 M/mm3 (3.65-5.03); Red Cell Distribution Width 14.6 % (13.2-15.2)
[2019-08-25] MEDS: hydrALAZINE 25 MG TAB PO SCH ×3 (05:15→23:33)
[2019-08-25 05:20] LABS: BUN/Creatinine Ratio 11; Blood Urea Nitrogen 8 mg/dL (9-20); Calcium 7.5 mg/dL (8.4-10.2); Hemolysis Index 1
[2019-08-25] MEDS: INSULIN LISPRO 100 UNIT/ML SUB-Q SCH ×4 (07:40→23:35)
[2019-08-25] MEDS: INSULIN NPH/REGULAR 70/30 INJ SUB-Q SCH ×2 (09:29→17:28)
[2019-08-25] MEDS: HEPARIN 5,000 UNIT/1 ML VIAL SUB-Q SCH ×2 (09:31→23:36)
[2019-08-25] MEDS: DOCUSATE SODIUM 100 MG CAP PO SCH ×2 (09:31→23:34)
--- NOTE | 2019-08-25 14:01 | Progress Note ---
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 Follow up current cultures. If they remain negative, ok to keep same stop date of 08/30/2019. If they turn positive, will obviously need to re-start the 2 week clock. #DM2 - tight glycemic control for optimal wound healing Recommendations: - continue ceftriaxone 2g q24h - Assuming blood cuultures remain negative, keep stop date 08/30/2019 - follow up blood cultures. Thank you for the consult, will follow. Mahsa Dupree MD [facility] [place] [facility] ([facility]) M: [phone] O: [phone] F: [phone] Subjective Date of service: 08/25/19 Interval history: Afebrile, normal white count. No new complaints. Cultures negative for 24 hours. Objective - Exam Narrative Exam: Physical Exam: Constitutional: Alert, cooperative. No acute distress Oral: dentition fair, no thrush Cardiovascular: S1, S2 normal. Respiratory: Good air entry, clear to auscultation bilaterally GI: Soft, non-tender; bowel sounds normal. No peritoneal signs. Musculoskeletal: L BKA. Wound no purulence, not red. Skin: No rash or abscess Hem/Lymphatic: No palpable cervical or supraclavicular nodes. No lymphangitis Psych: Mood ok. Affect normal Neurological: Awake, alert, oriented. No gross abnormality - Constitutional Vitals: Vital Signs Temp Pulse Resp BP Pulse Ox 98.9 F 94 H 22 166/103 97 08/25/19 11:26 08/25/19 12:33 08/25/19 11:26 08/25/19 12:33 08/25/19 11:26 Temperature -Last 24 Hours Temperature 98.9 F Temperature 98.5 F Temperature 99.8 F Temperature 98.7 F - Labs CBC & Chem 7: 08/25/19 04:29 08/25/19 04:29 Labs: Abnormal lab results 08/24/19 08/24/19 08/24/19 Range/Units 16:34 17:07 19:01 RBC (3.65-5.03) M/mm3 Hgb (11.8-15.2) gm/dl Hct (35.5-45.6) % Eos % (Auto) (0.0-4.3) % BUN (9-20) mg/dL Creatinine (0.8-1.5) mg/dL Glucose (75-100) mg/dL POC Glucose < 40 L 46 L 167 H (70-105) Calcium (8.4-10.2) mg/dL 08/24/19 08/24/19 08/25/19 Range/Units 20:13 21:38 04:29 RBC 3.12 L (3.65-5.03) M/mm3 Hgb 8.6 L (11.8-15.2) gm/dl Hct 26.1 L (35.5-45.6) % Eos % (Auto) 5.2 H (0.0-4.3) % BUN (9-20) mg/dL Creatinine (0.8-1.5) mg/dL Glucose 183 H (75-100) mg/dL POC Glucose 173 H (70-105) Calcium (8.4-10.2) mg/dL 08/25/19 08/25/19 08/25/19 Range/Units 04:29 07:39 11:38 RBC (3.65-5.03) M/mm3 Hgb (11.8-15.2) gm/dl Hct (35.5-45.6) % Eos % (Auto) (0.0-4.3) % BUN 8 L (9-20) mg/dL Creatinine 0.7 L (0.8-1.5) mg/dL Glucose 130 H (75-100) mg/dL POC Glucose 124 H 204 H (70-105) Calcium 7.5 L (8.4-10.2) mg/dL
--- NOTE | 2019-08-25 14:22 | Progress Note ---
Assessment and Plan Assessment and plan: 43-year-old -[place] male with history of hypertension, diabetes, GERD, osteomyelitis, strep angiosis bacteremia and recent left BKA who presents to [facility] ED with complaints of missed doses of IV antibiotic administration. Hypertensive urgency -BP on admission 201/114 -Hx Hypertension -Continue to monitor BP -Resumed home antihypertensive meds to optimize BP -IV antihypertensive when necessary Acute hypoxic respiratory failure -Initial ABG 7.47/34.4/60.1/24.8 -Currently on supplemental -Monitor saturations -Continue supplemental oxygen wean as tolerated Leukocytosis -WBC on admission 11.1 -Afebrile -Cultures pending -Recently diagnosed with osteomyelitis -History left foot wound, s/p left BKA (08/16/2019) -Scheduled to receive Rocephin 2 g every 24 hours until 08/30/2019 -Had not received Rocephin since 08/19/2019 (total of 4 missed doses), therefore re-admitted - Cont IV Rocephin 2 g every 24 hours -Continue to monitor CBC -ID consulted, following -Case management consulted, following Elevated Troponin -at 0.032 -BNP elevated at 1157 -Denies chest pain -Denies history of heart failure -CXR shows cardiomegaly small bibasilar pleural effusions -Cardiology consulted Diabetes Mellitus type 2 -POC BG monitoring -Schedule NPH and SSI coverage prn -HgbA1C 9.6 Anemia -Hemoglobin on admission 10.3 -No s/s of active bleeding -Continue to monitor hemoglobin -Transfuse as needed DVT PPX -On Heparin 08/25/19; Still awaiting arrangements for iv Antibiotics. History Interval history: Patient admitted because he missed iv Antibiotics Hospitalist Physical - Physical exam Narrative exam: GEN: Not in acute distress, lying in bed, HEENT: Normocephalic, atraumatic, Neck: supple, No JVD Lungs: Clear to auscultation bilat, no wheeze, heart;S1 and S2 reg, no murmurs, rubs or gallop Abd:soft, non tender, non distended, normal bowel sounds Ext: Left BKA, stump covered with dressing, no clubbing, no cyanosis Neuro: Awake,alert, oriented X 3, - Constitutional Vitals: Temp Pulse Resp BP Pulse Ox 98.9 F 101 H 22 160/96 97 08/25/19 11:26 08/25/19 14:16 08/25/19 11:26 08/25/19 14:16 08/25/19 11:26 General appearance: Present: no acute distress BRADLY score - Bradly Score Age > 65: (0) No Aspirin use within the Past 7 Days: (0) No 3 or more CAD Risk Factors: (1) Yes 2 or more Angina events in past 24 hrs: (0) No Known CAD with more than 50% Stenosis: (0) No Elevated Cardiac Markers: (1) Yes ST Deviation Greater than 0.5mm: (0) No BRADLY Score: 2 Results - Labs CBC & Chem 7: 08/25/19 04:29 08/25/19 04:29 Labs: Laboratory Last Values WBC 7.2 K/mm3 (4.5-11.0) 08/25/19 04:29 RBC 3.12 M/mm3 (3.65-5.03) L 08/25/19 04:29 Hgb 8.6 gm/dl (11.8-15.2) L 08/25/19 04:29 Hct 26.1 % (35.5-45.6) L 08/25/19 04:29 MCV 84 fl (84-94) 08/25/19 04:29 MCH 28 pg (28-32) 08/25/19 04:29 MCHC 33 % (32-34) 08/25/19 04:29 RDW 14.6 % (13.2-15.2) 08/25/19 04:29 Plt Count 407 K/mm3 (140-440) 08/25/19 04:29 Lymph % (Auto) 19.3 % (13.4-35.0) 08/25/19 04:29 [place] % (Auto) 6.6 % (0.0-7.3) 08/25/19 04:29 Eos % (Auto) 5.2 % (0.0-4.3) H 08/25/19 04:29 Baso % (Auto) 1.5 % (0.0-1.8) 08/25/19 04:29 Lymph # 1.4 K/mm3 (1.2-5.4) 08/25/19 04:29 [place] # 0.5 K/mm3 (0.0-0.8) 08/25/19 04:29 Eos # 0.4 K/mm3 (0.0-0.4) 08/25/19 04:29 Baso # 0.1 K/mm3 (0.0-0.1) 08/25/19 04: Seg Neutrophils % 67.4 % (40.0-70.0) 08/25/19 04: Seg Neutrophils # 4.9 K/mm3 (1.8-7.7) 08/25/19 04:29 PT 15.1 Sec. (12.2-14.9) H 08/23/19 22:29 INR 1.17 (0.87-1.13) H 08/23/19 22: D-Dimer 7330.72 ng/mlDDU (0-234) H 08/23/19 22:29 ABG pH 7.475 pH Units (7.350-7.450) H 08/23/19 22:15 ABG pCO2 34.4 mm Hg 08/23/19 22:15 ABG pO2 60.1 mm Hg (80.0-90.0) L 08/23/19 22:15 ABG HCO3 24.8 mmol/L (20.0-26.0) 08/23/19 22:15 ABG O2 Saturation 92.7 % (95.0-99.0) L 08/23/19 22:15 ABG O2 Content 11.2 (0.0-44) 08/23/19 22:15 ABG Base Excess 1.3 mmol/L (-2.0-3.0) 08/23/19 22:15 ABG Hemoglobin 8.8 gm/dl (14.0-18.0) L 08/23/19 22:15 ABG Carboxyhemoglobin 2.0 % (0.0-5.0) 08/23/19 22:15 ABG Methemoglobin 0.5 % (0.0-1.5) 08/23/19: Oxyhemoglobin 90.4 % (95.0-99.0) L 08/23/19 22:15 FiO2 21 % 08/23/19 22: Sodium 139 mmol/L (137-145) 08/25/19: Potassium 3.6 mmol/L (3.6-5.0) 08/25/19 04:29 Chloride 102.5 mmol/L (98-107) 08/25/19 04:29 Carbon Dioxide 23 mmol/L (22-30) 08/25/19 04:29 Anion Gap 17 mmol/L 08/25/19 04:29 BUN 8 mg/dL (9-20) L 08/25/19 04:29 Creatinine 0.7 mg/dL (0.8-1.5) L 08/25/19 04:29 Estimated GFR > 60 ml/min 08/25/19 04:29 BUN/Creatinine Ratio 11 % 08/25/19 04:29 Glucose 130 mg/dL (75-100) H 08/25/19 04:29 POC Glucose 204 (70-105) H 08/25/19 11:38 Lactic Acid 1.20 mmol/L (0.7-2.0) 08/23/19 19:06 Calcium 7.5 mg/dL (8.4-10.2) L 08/25/19 04:29 Total Bilirubin 0.20 mg/dL (0.1-1.2) 08/23/19 19:06 AST 18 units/L (5-40) 08/23/19 19:06 ALT 13 units/L (7-56) 08/23/19 19:06 Alkaline Phosphatase 390 units/L (35-129) H 08/23/19 19:06 Troponin T 0.036 ng/mL (0.00-0.029) H 08/24/19 09:08 NT-Pro-B Natriuret Pep 1157 pg/mL (0-450) H 08/23/19 23:00 Total Protein 6.9 g/dL (6.3-8.2) 08/23/19 19:06 Albumin 2.4 g/dL (3.9-5) L 08/23/19 19:06 Albumin/Globulin Ratio 0.5 % 08/23/19 19:06 Triglycerides 166 mg/dL (2-149) H 08/23/19 23:00 Cholesterol 131 mg/dL (50-199) 08/23/19 23:00 LDL Cholesterol Direct 84 mg/dL (50-130) 08/23/19 23:00 HDL Cholesterol 28 mg/dL (40-59) L 08/23/19 23:00 Cholesterol/HDL Ratio 4.67 % 08/23/19 23:00 Active Medications - Current Medications Current Medications: Generic Name Dose Route Start Last Admin Trade Name Freq PRN Reason Stop Dose Admin Acetaminophen 650 mg 08/24/19 01:30 Tylenol PO Q4H PRN Pain MILD(1-3)/Fever >100.5/MIRANDA Dextrose 0 ml 08/24/19 01:27 08/24/19 17:00 D50w (25gm) Syringe IV 50 ml Q30MIN PRN Administration Hypoglycemia Protocol Docusate Sodium 100 mg 08/24/19 10:00 08/25/19 09:31 Colace PO 100 mg BID WILMER Administration Heparin Sodium (Porcine) 5,000 unit 08/24/19 10:00 08/25/19 09:31 Heparin SUB-Q 5,000 unit Q12HR WILMER Administration Hydralazine HCl 25 mg 08/23/19 22:00 08/25/19 14:16 Apresoline PO 25 mg Q8HR WILMER Administration Hydralazine HCl 10 mg 08/24/19 01:32 08/25/19 12:33 Apresoline IV 10 mg Q4H PRN Administration Blood Pressure Ceftriaxone Sodium 2 gm in 100 mls @ 200 mls/hr 08/23/19 22:00 08/24/19 22:07 Rocephin/Ns 2 Gm/100 Ml IV 08/30/19 22:29 200 mls/hr Q24H WILMER Administration Insulin Human Isoph/Insulin Regular 10 unit 08/25/19 08:00 08/25/19 09:29 Humulin 70/30 SUB-Q Not Given BIDDIAB WILMER Insulin Human Lispro 0 unit 08/24/19 07:30 08/25/19 12:28 Humalog SUB-Q 3 unit ACHS WILMER Administration Protocol Ondansetron HCl 4 mg 08/24/19 01:30 Zofran IV Q8H PRN Nausea And Vomiting Oxycodone/Acetaminophen 1 tab 08/23/19 21:55 08/25/19 14:18 Percocet 5/325 PO 1 tab Q4H PRN Administration Pain, Moderate (4-6) Sodium Chloride 10 ml 08/24/19 10:00 08/25/19 12:16 Sodium Chloride Flush Syringe 10 Ml IV Not Given BID WILMER Sodium Chloride 10 ml 08/24/19 01:30 Sodium Chloride Flush Syringe 10 Ml IV PRN PRN LINE FLUSH Nutrition/Malnutrition Assess - Dietary Evaluation Nutrition/Malnutrition Findings: Nutrition Notes Start: 08/24/19 10:09 Freq: Status: Active Protocol: Document 08/24/19 10:09 CC (Rec: 08/24/19 10:27 CC [id number]) Co-Sign 08/24/19 10:09 LP Nutrition Notes Need for Assessment generated from: MD Order,Education Initial or Follow up Assessment Current Diagnosis Diabetes,Hypertension Other Pertinent Diagnosis osteomyelitis, L BKA Current Diet Consistent CHO Labs/Tests BG 188 Pertinent Medications Percocet Height 5 ft 8 in Weight 72.575 kg [place] Body Weight (kg) 70.00 BMI 24.3 Intake Prior to Admission Fair Weight Status Appropriate Subjective/Other Information MD consult for diet education. Pt reported his appetite was less than normal since his L BKA 2 weeks ago. Pt reported he has not had any unitentional wt loss but has gained wt d/t fluid. Pt reported no previous diet education for DM or HTN. Burn Absent Trauma Absent GI Symptoms None Food Allergy No Current % PO Fair (50-74%) Minimum of two criteria No #2 Nutrition Diagnosis Increased nutrient needs ( specify in comment below) Comments: Protein Etiology L BKA wound healing As Evidenced by Signs and Symptoms s/p L BKA 08/2019 #1 Nutrition Diagnosis Food and nutrition-related knowledge deficit Etiology no previous diet education As Evidenced by Signs and Symptoms BG 188, pt report of no prior diet education Is patient on ventilator? No Is Patient Ambulatory and/or Out of Bed Yes REE-([facility]-ambulatory/OOB) [ 2059.82 [id number]] Calculation Used for Recommendations [facility] Additional Notes Protein: 90-108g/day (1.25-1. 5g/kg) Fluid: 1ml/kcal or per MD Nutrition Intervention Change Diet Order: cardiac/ consistent CHO Add Supplement/Snack (indicate name/kcal Xavier BID /protein ) Provides kCal: 190 Provides Protein (gm) 5 Teaching Recipient Patient Learning Readiness Good Teaching Methods Discussion,Handout Response to Teaching Verbalize understanding Education Handouts Provided Heart Healthy Consistent CHO Barriers to Learning No Barriers RD phone number provided Yes Patient aware of follow up options Yes Goal #1 Meet at least 80% of energy and protein needs Goal #2 Wound healing Anticipated Discharge Needs: cardiac/ consistent CHO Follow-Up By: 08/26/19 Additional Comments F/U for PO, Xavier intakes
[2019-08-25] MEDS: cefTRIAXone/NS 2 GM/100 ML 2 GM/100 ML BAG IV SCH (23:34)
[2019-08-26] MEDS: hydrALAZINE 25 MG TAB PO SCH ×2 (05:28→14:58)
[2019-08-26] MEDS: INSULIN LISPRO 100 UNIT/ML SUB-Q SCH ×3 (08:00→17:04)
[2019-08-26] MEDS: INSULIN NPH/REGULAR 70/30 INJ SUB-Q SCH ×2 (08:05→17:04)
[2019-08-26] MEDS: DOCUSATE SODIUM 100 MG CAP PO SCH (09:02)
[2019-08-26] MEDS: HEPARIN 5,000 UNIT/1 ML VIAL SUB-Q SCH (09:02)
[2019-08-26 14:58] VITALS: BP 164/100
--- NOTE | 2019-08-26 16:25 | Discharge Summary ---
Providers - Providers Date of Admission: 08/24/19 01:30 Date of discharge: 08/26/19 Attending physician: SARITA WARREN 08/23/19 21:54 Consult to Case Management [CONS] Stat Services Needed at Discharge: [facility] Notified:: awaiting call back 08/24/19 01:18 Consult to Physician [CONS] Routine Comment: Consulting Provider: PANKAJ ALVAREZ Physician Instructions: Reason For Exam: est pt hx osteomyelitis Staphylococcus anginosis 08/24/19 01:27 Consult to Dietitian/Nutrition [CONS] Routine Physician Instructions: Reason For Exam: Reason for Consult: Diet education 08/24/19 01:32 Consult to Wound/ET Nurse [CONS] Routine Reason For Exam: wound eval 08/24/19 11:19 Occupational Therapy Evaluate and Treat [CONS] Routine Comment: Reason For Exam: Eval and treat. Physical Therapy Evaluation and Treat [CONS] Routine Comment: Reason For Exam: Eval and Treat 08/25/19 16:02 Consult to Case Management [CONS] Routine Services Needed at Discharge: Home Health Services Notified:: cm notified Additional Physician Instructions: Mahsa Alvarez MD [facility], [place], [facility] M: [phone] O: [phone] F: [phone] Outpatient parenteral antibiotic therapy orders Diagnosis: S anginosus bacteremia Antibiotic administration: ceftriaxone 2g q24h until 08/30/2019 Line: midline Lab monitoring: CBC with differential, BUN, creatinine, LFTs once per week preferably on Thursday or Thursday For critical labs, call office: [phone] Mahsa Alvarez Primary care physician: EDITOR BOOK Hospitalization Condition: Fair Disposition: DC/[place]-06 HOME UNDER HOME [facility] Exam - Constitutional Vitals: Temp Pulse Resp BP Pulse Ox 99.2 F 76 18 164/100 92 08/26/19 12:30 08/26/19 14:58 08/26/19 12:30 08/26/19 14:58 08/26/19 12:30 Plan Activity: advance as tolerated Diet: low fat, low cholesterol, low salt Special Instructions: home health RN Plan of Treatment: 1.Follow up with PCP or [facility] in 1 week. 2.Follow up with Dr. Alvarez, ID in 3-5 days 3.Ceftriaxone 2g iv daily with stop date 08/30/19 Follow up with: PRIMARY CARE, [Primary Care Provider] - 3-5 Days
== END 2019-08-26 18:00 | disposition home or self-care (01) | DRG 189 ==
LOC: ED 16:32 → 3A 08-24 01:30
PROVIDERS: ADMIT Internal Medicine; ATTEND Internal Medicine
PROC: 4A033R1 Measurement of Arterial Saturation, Peripheral, Percutaneous Approach (ICD-10-PCS; principal; 2019-08-23)
DX: J96.01 Acute respiratory failure with hypoxia (principal); M86.9 Osteomyelitis, unspecified; I10 Essential (primary) hypertension; E11.9 Type 2 diabetes mellitus without complications; K21.9 Gastro-esophageal reflux disease without esophagitis; R79.89 Other specified abnormal findings of blood chemistry; I16.0 Hypertensive urgency; D72.829 Elevated white blood cell count, unspecified; D64.9 Anemia, unspecified; I73.9 Peripheral vascular disease, unspecified; Z89.512 Acquired absence of left leg below knee; Z79.4 Long term (current) use of insulin; Z90.49 Acquired absence of other specified parts of digestive tract
CPT/HCPCS: 36415; 71045; 71275; 80048; 80053; 80061; 82140; 82803; 82947; 82962; 83880; 84484; 85025; 85379; 85610; 87040; 93005; 93010; 96374; G0378; J0360; J0696; J1644; J1815; J1940; J2270; J7030; Q9967

== ENCOUNTER 2019-09-01 08:29 | Emergency (ER) | payer SELFPAY ==
[2019-09-01 08:36] VITALS: BP 196/116
--- NOTE | 2019-09-01 10:32 | Emergency Department Report ---
Chief Complaint: Medical Clearance Stated Complaint: PIC LINE REMOVAL Time Seen by Provider: 09/01/19 09:41 - HPI History of Present Illness: This is a 43-year-old male with a history of diabetes who presents to the ED 2 to 3 weeks status post left leg amputation requesting to have his PICC line removed. Patient was initially seen here and had surgery done here PICC line was placed and here about 2 to 3 weeks ago. Patient was seen by Dr. Barry who after finishing treatment was sent here to have his PICC line removed. Patient denies any issues such as redness swelling or pain to the arm. Patient does state that he has good follow-up and has no other complaints. - ROS Review of Systems: As noted in HPI - Exam Vital Signs: Vital Signs 09/01/19 08:35 Temperature 98.8 F Pulse Rate 96 H Respiratory 18 Rate Blood Pressure 196/116 O2 Sat by Pulse 98 Oximetry Physical Exam: GENERAL: Alert and oriented x3, no apparent distress, Normal Gait, atraumatic. HEAD: Head is normocephalic and a-traumatic. EXTREMITIES/MUSCULOSKELETAL: No cyanosis, clubbing, rash, lesions or edema. Full ROM bilaterally. UE Pulses 2+ bilaterally. PICC line noted, no redness, no swelling to the area SKIN: Warm and dry, No lesions, No ulceration or induration present. MSE screening note: Focused history and physical exam performed. Due to findings the following was ordered: ED Medical Decision Making - Medical Decision Making 43-year-old male presents for PICC line removal. PICC line nurse with paged. PICC line nurse took out Arm looks fine well wrapped in gauze Discussed with patient to follow-up with primary care physician ED Disposition for MSE Clinical Impression: PIC line (peripherally inserted central catheter) removal Disposition: DC-01 TO HOME OR SELFCARE Is pt being admited?: No Does the pt Need Aspirin: No Condition: Stable Instructions: Peripherally Inserted Central Catheters and Midline Catheters (ED) Additional Instructions: Make sure to follow up with the primary care physician as discussed. If you have any worsening symptoms or develop new symptoms please return to ED immediately. Referrals: PRIMARY CARE, [Primary Care Provider] - 3-5 Days Forms: Work/School Release Form(ED) Time of Disposition: 10:33
== END 2019-09-01 11:22 | disposition home or self-care (01) ==
LOC: ED 08:29
DX: T82.898A Other specified complication of vascular prosthetic devices, implants and grafts, initial encounter (principal); X58.XXXA Exposure to other specified factors, initial encounter
CPT/HCPCS: 99282

== ENCOUNTER 2020-12-23 14:32 | Inpatient (IN) | payer MEDICAID, SELFPAY ==
--- NOTE | 2020-12-23 17:03 | Event Note ---
ED Screening Note Date of service: 12/23/20 Time: 17:02 ED Screening Note: C/o R great toe infection x 1 month, worsening x 2 week hx of DM denies fever This initial assessment/diagnostic orders/clinical plan/treatment(s) is/are subject to change based on patients health status, clinical progression and re- assessment by fellow clinical providers in the ED. Further treatment and workup at subsequent clinical providers discretion. Patient/guardian urged not to elope from the ED as their condition may be serious if not clinically assessed and managed. Initial orders include: xr labs
[2020-12-23 17:34] LABS: Basophils # (Auto) 0.1 K/mm3 (0.0-0.1); Basophils % (Auto) 0.5 % (0.0-1.8); Eosinophils # (Auto) 0.1 K/mm3 (0.0-0.4); Eosinophils % (Auto) 1.4 % (0.0-4.3); Hematocrit 28.7 % (35.5-45.6); Hemoglobin 9.7 gm/dl (11.8-15.2); Lymphocytes # (Auto) 1.5 K/mm3 (1.2-5.4); Lymphocytes % (Auto) 14.3 % (13.4-35.0); Mean Corpuscular HGB Conc 34 % (32-34); Mean Corpuscular Volume 80 fl (84-94); Monocytes # (Auto) 0.7 K/mm3 (0.0-0.8); Platelet Count 304 K/mm3 (140-440); Red Cell Distribution Width 13.7 % (13.2-15.2)
[2020-12-23 17:40] LABS: Albumin 3.4 g/dL (3.9-5); Calcium 9.5 mg/dL (8.4-10.2)
--- NOTE | 2020-12-23 18:17 | XRay Report ---
RIGHT FOOT RADIOGRAPH, 4 VIEWS INDICATION / CLINICAL INFORMATION: great toe infection/sore; hx of DM COMPARISON: None available. FINDINGS: The bones appear diffusely demineralized. There is soft tissue swelling and irregularity of the great toe. There is questionable underlying cortical irregularity involving the proximal aspect of the gre at toe distal phalanx, raising the possibility of osteomyelitis. There is mild to moderate degenerati ve change of the foot. Vascular calcifications are noted. IMPRESSION: 1. Soft tissue swelling and irregularity of the great toe. There is questionable underlying cortical irregularity of the great toe distal phalanx, raising the possibility of osteomyelitis. MRI could be performed for confirmation as clinically warranted. Signer Name: Karen Mejias MD Signed: 12/23/2020 6:12 PM Workstation Name: [id number]
--- NOTE | 2020-12-23 22:32 | Emergency Department Report ---
ED General Adult HPI - General Chief complaint: Wound/Laceration Stated complaint: OPEN AFFECTION SORE Time Seen by Provider: 12/23/20 17:01 Source: patient Mode of arrival: Wheelchair Limitations: Physical Limitation - History of Present Illness Initial comments: 45-year-old -[place]ish male diabetic with a left lower extremity AKA and stage III renal disease [facility] emergency department complaining of about a 2 to 3-week history of infection/wound to the right foot/hallux region which has continued to progress since the onset. - Related Data Previous Rx's Medication Instructions Recorded Last Taken Type Insulin NPH/Regular [NovoLIN 70/30] 20 unit SUB-Q BIDDIAB 30 Days 08/19/19 Unknown Rx Lispro Insulin [HumaLOG] 0 unit SUB-Q ACHS 30 Days 08/19/19 Unknown Rx hydrALAZINE [Apresoline TAB] 25 mg PO Q8HR #90 tablet 08/19/19 Unknown Rx oxyCODONE /ACETAMINOPHEN [Percocet 1 tab PO Q4H PRN #30 tablet 08/19/19 Unknown Rx 5/325 mg] Allergies Allergy/AdvReac Type Severity Reaction Status Date / Time No Known Allergies Allergy Verified 12/23/20 17:00 ED Review of Systems ROS: Stated complaint: OPEN AFFECTION SORE Other details as noted in HPI Comment: All other systems reviewed and negative ED Past Medical Hx - Past Medical History Hx Hypertension: Yes Hx Congestive Heart Failure: No Hx Diabetes: Yes Hx Deep Vein Thrombosis: No Hx Asthma: No Hx COPD: No Additional medical history: GERD - Surgical History Hx Pacemaker: No Hx Internal Defibrillator: No Additional Surgical History: Surgery on appendix or Pancreas 2004, patient is unsure. LEFT FOOT AMPUTATED. Left BKA - Social History Smoking Status: Never Smoker Substance Use Type: None - Medications Home Medications: Home Medications Medication Instructions Recorded Confirmed Last Taken Type Insulin NPH/Regular [NovoLIN 70/30] 20 unit SUB-Q BIDDIAB 30 Days 08/19/19 Unknown Rx Lispro Insulin [HumaLOG] 0 unit SUB-Q ACHS 30 Days 08/19/19 Unknown Rx hydrALAZINE [Apresoline TAB] 25 mg PO Q8HR #90 tablet 08/19/19 Unknown Rx oxyCODONE /ACETAMINOPHEN [Percocet 1 tab PO Q4H PRN #30 tablet 08/19/19 Unknown Rx 5/325 mg] ED Physical Exam - General Limitations: Physical Limitation General appearance: alert, in no apparent distress - Head Head exam: Present: atraumatic, normocephalic - Eye Eye exam: Present: normal appearance - ENT ENT exam: Present: mucous membranes moist - Neck Neck exam: Present: normal inspection - Respiratory Respiratory exam: Present: normal lung sounds bilaterally. Absent: respiratory distress - Cardiovascular Cardiovascular Exam: Present: regular rate, normal rhythm. Absent: systolic murmur, diastolic murmur, rubs, gallop - GI/Abdominal GI/Abdominal exam: Present: soft, normal bowel sounds - Rectal Rectal exam: Present: deferred - Extremities Exam Extremities exam: Present: normal inspection, tenderness, other (Wound to the right hallux pulses 2+ to the popliteal region.) - Back Exam Back exam: Present: normal inspection. Absent: CVA tenderness (R), CVA tendern ess (L) - Neurological Exam Neurological exam: Present: alert, oriented X3, CN II-XII intact, normal gait - Psychiatric Psychiatric exam: Present: normal affect, normal mood - Skin Skin exam: Present: warm, other. Absent: rash ED Course Vital Signs 12/23/20 12/23/20 16:58 21:02 Temperature 98.4 F 98.5 F Pulse Rate 96 H 94 H Respiratory 13 18 Rate Blood Pressure 120/78 132/76 O2 Sat by Pulse 100 99 Oximetry - Consultations Consultation #1: 12/23/20 22:46 Case discussed with the attending who agrees with the need for admission for further treatment of osteomyelitis Consultation #2: 12/23/20 22:46 Case was discussed with the hospitalist was aware of the findings of the x-ray and laboratory data data plan is to admit to [facility] for further evaluation and treatment options ED Medical Decision Making - Lab Data Result diagrams: 12/23/20 17:07 12/23/20 17:07 Critical care attestation.: If time is entered above; I have spent that time in minutes in the direct care of this critically ill patient, excluding procedure time. ED Disposition Clinical Impression: Diabetes mellitus, Osteomyelitis due to type 2 diabetes mellitus Disposition: OP ADMIT IP TO THIS HOSP Is pt being admited?: Yes Does the pt Need Aspirin: No Condition: Stable Instructions: Diabetes Mellitus Type 2 in Adults (ED) Referrals: PRIMARY CARE, [Primary Care Provider] - 3-5 Days
[2020-12-23] MEDS ORDERED: ONDANSETRON 4 MG/2 ML INJ IV PRN (22:33)
[2020-12-23] MEDS ORDERED: DEXTROSE 50% IN WATER (25GM) 50 ML SYRINGE IV PRN (22:33)
[2020-12-23] MEDS ORDERED: MAGNESIUM HYDROXIDE (MOM) ORAL LIQD UDC PO PRN (22:33)
[2020-12-23] MEDS ORDERED: ACETAMINOPHEN 325 MG TAB PO PRN (22:33)
[2020-12-23] MEDS ORDERED: SODIUM CHLORIDE 0.9% 1000 ML 1,000 ML IV SCH (22:45)
--- NOTE | 2020-12-23 22:49 | History and Physical Report ---
History of Present Illness Date of examination: 12/23/20 Date of admission: 12/23/20 22:18 Chief complaint: Right Foot wound History of present illness: 45-year-old -[place] male with known history of diabetes mellitus , left AKA and chronic kidney disease presenting to the emergency room today complaining of 2 to 3 weeks history of infection over the right big toe. Patient has been trying to nurse wound at home with warm soaks without any significant improvement. He has had occasional pain on the right foot. Denies any drainage from the wound. Patient denies any fever or chills, no chest pain or shortness of breath. He denies any recent injury to the foot. Work-up in the emergency room today, x-ray of the foot reveals soft tissue swelling with irregularity of the great toe. There is also possibility of underlying osteomyelitis. Labs were significant for hyperglycemia of 304. Patient is being admitted with cellulitis of the right great toe with possible underlying osteomyelitis. Past History Past Medical History: diabetes, GERD, hypertension Past Surgical History: Other (Surgery on appendix or Pancreas 2004. LEFT FOOT AMPUTATED. Left BKA) Social history: no significant social history Family history: no significant family history Medications and Allergies Allergies Allergy/AdvReac Type Severity Reaction Status Date / Time No Known Allergies Allergy Verified 12/23/20 17:00 Home Medications Medication Instructions Recorded Confirmed Last Taken Type Insulin NPH/Regular [NovoLIN 70/30] 20 unit SUB-Q BIDDIAB 30 Days 08/19/19 Unknown Rx Lispro Insulin [HumaLOG] 0 unit SUB-Q ACHS 30 Days 08/19/19 Unknown Rx hydrALAZINE [Apresoline TAB] 25 mg PO Q8HR #90 tablet 08/19/19 Unknown Rx oxyCODONE /ACETAMINOPHEN [Percocet 1 tab PO Q4H PRN #30 tablet 08/19/19 Unknown Rx 5/325 mg] Active Meds: Active Medications Acetaminophen (Acetaminophen 325 Mg Tab) 650 mg PO Q4H PRN PRN Reason: Pain MILD(1-3)/Fever >100.5/MIRANDA Dextrose (Dextrose 50% In Water (25gm) 50 Ml Syringe) 50 ml IV Q30MIN PRN; Protocol PRN Reason: Hypoglycemia Dextrose (Dextrose 50% In Water (25gm) 50 Ml Syringe) 50 ml IV Q30MIN PRN; Protocol PRN Reason: Hypoglycemia Sodium Chloride (Nacl 0.9% 1000 Ml) 1,000 mls @ 125 mls/hr IV DIRECT WILMER Insulin Human Lispro (Insulin Lispro 100 Unit/Ml) 0 unit SUB-Q ACHS WILMER; Protocol Magnesium Hydroxide (Magnesium Hydroxide (Mom) Oral Liqd Udc) 30 ml PO Q4H PRN PRN Reason: Constipation Morphine Sulfate (Morphine 2 Mg/1 Ml Inj) 2 mg IV Q4H PRN PRN Reason: Pain, Moderate (4-6) Ondansetron HCl (Ondansetron 4 Mg/2 Ml Inj) 4 mg IV Q8H PRN PRN Reason: Nausea And Vomiting Sodium Chloride (Sodium Chloride 0.9% 10 Ml Flush Syringe) 10 ml IV BID WILMER Sodium Chloride (Sodium Chloride 0.9% 10 Ml Flush Syringe) 10 ml IV PRN PRN PRN Reason: LINE FLUSH Review of Systems Constitutional: no fever, no chills Ears, nose, mouth and throat: no nasal congestion, no sore throat Cardiovascular: no chest pain, no palpitations Respiratory: no cough, no shortness of breath Gastrointestinal: no abdominal pain, no nausea, no vomiting, no diarrhea Genitourinary Male: no dysuria, no hematuria, no flank pain, no nocturia Musculoskeletal: no neck pain, no low back pain Integumentary: foot/leg ulcers (On right foot), no rash, no pruritis Neurological: no headaches, no confusion Psychiatric: no anxiety, no depression Endocrine: no polyphagia, no polydipsia, no polyuria, no nocturia Exam - Constitutional Vitals: Temp Pulse Resp BP Pulse Ox 98.5 F 94 H 18 132/76 99 12/23/20 21:02 12/23/20 21:02 12/23/20 21:02 12/23/20 21:02 12/23/20 21:02 General appearance: Present: no acute distress, well-nourished - EENT Eyes: Present: PERRL, EOM intact. Absent: scleral icterus ENT: hearing intact, clear oral mucosa, dentition normal - Neck Neck: Present: supple, normal ROM - Respiratory Respiratory effort: normal Respiratory: bilateral: CTA - Cardiovascular Rhythm: regular Heart Sounds: Present: S1 & S2. Absent: gallop, systolic murmur, diastolic murmur, rub, click - Extremities Extremities: no ischemia, No edema, normal temperature, normal color, Full ROM Extremity abnormal: ulceration (On right big toe. No obvious discharge), pulses diminished, tenderness, other (Left AKA) Peripheral Pulses: within normal limits - Abdominal General gastrointestinal: Present: soft, non-tender, non-distended, normal bowel sounds. Absent: mass - Integumentary Integumentary: Present: clear, warm, dry, normal turgor. Absent: rash - Musculoskeletal Musculoskeletal: strength equal bilaterally - Psychiatric Psychiatric: appropriate mood/affect, intact judgment & insight, memory intact, cooperative - Neurologic Neurologic: CNII-XII intact, no focal deficits, moves all extremities Results - Labs CBC & Chem 7: 12/24/20 05:12 12/24/20 05:12 Labs: Abnormal lab results 12/23/20 12/23/20 Range/Units 17:07 17:07 RBC 3.60 L (3.65-5.03) M/mm3 Hgb 9.7 L (11.8-15.2) gm/dl Hct 28.7 L (35.5-45.6) % MCV 80 L (84-94) fl MCH 27 L (28-32) pg Seg Neutrophils % 76.8 H (40.0-70.0) % Seg Neutrophils # 8.1 H (1.8-7.7) K/mm3 Sodium 127 L (137-145) mmol/L Chloride 93.7 L (98-107) mmol/L Carbon Dioxide 14 L (22-30) mmol/L BUN 70 H (9-20) mg/dL Creatinine 3.0 H (0.8-1.3) mg/dL Glucose 304 H (75-100) mg/dL Albumin 3.4 L (3.9-5) g/dL Assessment and Plan - Patient Problems (1) Diabetic foot ulcer with osteomyelitis Current Visit: Yes Status: Acute Plan to address problem: Patient commenced on empiric IV antibiotics. We await culture results and also place consult to infectious disease. (2) Acute on chronic kidney failure Current Visit: Yes Status: Acute Plan to address problem: We will request evaluation by nephrology. We will monitor BUN and creatinine. (3) Diabetes mellitus Current Visit: No Status: Acute Plan to address problem: We will place patient on sliding scale insulin and monitor Accu-Cheks closely. (4) DVT prophylaxis Current Visit: Yes Status: Acute Plan to address problem: Patient placed on subcutaneous heparin. (5) Full code status Current Visit: No Status: Acute Plan to address problem: Patient is full code.
[2020-12-23] MEDS: MORPHINE 2 MG/1 ML INJ IV PRN (22:59)
[2020-12-23] MEDS ORDERED: VANCOMYCIN 1,500 MG in SODIUM CHLORIDE 0.9% 500 ML 500 ML IV ONE (23:45)
[2020-12-23] MEDS ORDERED: PIPERACIL/TAZOBACTA 4.5/NS 100 4.5 GM/100 ML VIAL IV SCH (23:45)
[2020-12-23] MEDS ORDERED: VANCOMYCIN PHARMACY TO DOSE IV SCH (23:45)
[2020-12-24] MEDS: PIPERACIL-TAZO 2.25 GM/50 ML 2.25 GM/50 ML BAG IV SCH ×2 (01:05→06:20)
[2020-12-24 05:41] LABS: Hematocrit 26.6 % (35.5-45.6); Hemoglobin 9.4 gm/dl (11.8-15.2); Mean Corpuscular HGB Conc 35 % (32-34); Mean Corpuscular Volume 79 fl (84-94); Platelet Count 309 K/mm3 (140-440); Red Blood Count 3.37 M/mm3 (3.65-5.03); Red Cell Distribution Width 13.5 % (13.2-15.2)
[2020-12-24 05:50] LABS: INR 1.13 (0.87-1.13)
[2020-12-24 05:57] LABS: Calcium 10.3 mg/dL (8.4-10.2)
[2020-12-24 05:59] LABS: Chol/HDL Ratio 5.42 %
[2020-12-24 06:34] LABS: Anisocytosis 1+; Band Neutrophils # (Manual) 0.1 K/mm3; Platelet Estimate Consistent w Auto; Total Cells Counted 100
[2020-12-24] MEDS: INSULIN LISPRO 100 UNIT/ML SUB-Q SCH ×5 (09:23→21:44)
--- NOTE | 2020-12-24 11:30 | Progress Note ---
Assessment and Plan Assessment and plan: 45-year-old -[place] male with known history of diabetes mellitus , left AKA and chronic kidney disease presenting to the emergency room today complaining of 2 to 3 weeks history of infection over the right big toe. Patient has been trying to nurse wound at home with warm soaks without any signi ficant improvement. He has had occasional pain on the right foot. Denies any drainage from the wound. Patient denies any fever or chills, no chest pain or shortness of breath. He denies any recent injury to the foot. Work-up in the emergency room today, x-ray of the foot reveals soft tissue swe lling with irregularity of the great toe. There is also possibility of underlying osteomyelitis. Labs were significant for hyperglycemia of 304. Patient is being admitted with cellulites of the right great toe with possible underlying osteomyelitis. 12/24: Due to poor healing wound we will ask vascular to evaluate the patient in addition to continue management for osteomyelitis. Will adjust insulin management for better control. Counseling provided to the patient patient was rounded on with case management. Also continue to monitor for metabolic acidosis and and anticipate improvement. (1) Diabetic foot ulcer with osteomyelitis Current Visit: Yes Status: Acute Plan to address problem: Patient commenced on empiric IV antibiotics. We await culture results and also place consult to infectious disease. (2) Acute on chronic kidney failure Current Visit: Yes Status: Acute Plan to address problem: We will request evaluation by nephrology. We will monitor BUN and creatinine. (3) Diabetes mellitus Current Visit: No Status: Acute Plan to address problem: We will place patient on sliding scale insulin and monitor Accu-Cheks closely. (4) diabetic foot ulcer (5) acute metabolic acidosis (6) left BKA (7) DVT prophylaxis Current Visit: Yes Status: Acute Plan to address problem: Patient placed on subcutaneous heparin. (8) Full code status Current Visit: No Status: Acute Plan to address problem: Patient is full code. History Interval history: Patient seen and examined no new complaints. Hospitalist Physical - Physical exam Narrative exam: General appearance: Present: no acute distress, well-nourished - EENT Eyes: Present: PERRL, EOM intact. Absent: scleral icterus ENT: hearing intact, clear oral mucosa, dentition normal - Neck Neck: Present: supple, normal ROM - Respiratory Respiratory effort: normal Respiratory: bilateral: CTA - Cardiovascular Rhythm: regular Heart Sounds: Present: S1 & S2. Absent: gallop, systolic murmur, diastolic murmur, rub, click - Extremities Extremities: no ischemia, No edema, normal temperature, normal color, Full ROM Extremity abnormal: ulceration (On right big toe. No obvious discharge), pulses diminished, tenderness, other (Left AKA) Peripheral Pulses: within normal limits - Abdominal General gastrointestinal: Present: soft, non-tender, non-distended, normal bowel sounds. Absent: mass - Integumentary Integumentary: Present: clear, warm, dry, normal turgor. Absent: rash - Musculoskeletal Musculoskeletal: strength equal bilaterally - Psychiatric Psychiatric: appropriate mood/affect, intact judgment & insight, memory intact, cooperative - Neurologic Neurologic: CNII-XII intact, no focal deficits, moves all extremities - Constitutional Vitals: Temp Pulse Resp BP Pulse Ox 98.5 F 101 H 20 131/90 99 12/23/20 21:02 12/24/20 08:22 12/24/20 04:33 12/24/20 04:33 12/24/20 04:33 General appearance: Present: no acute distress, well-nourished Results - Labs CBC & Chem 7: 12/24/20 05:12 12/24/20 05:12 Labs: Laboratory Last Values WBC 8.7 K/mm3 (4.5-11.0) 12/24/20 05:12 RBC 3.37 M/mm3 (3.65-5.03) L 12/24/20 05:12 Hgb 9.4 gm/dl (11.8-15.2) L 12/24/20 05:12 Hct 26.6 % (35.5-45.6) L 12/24/20 05:12 MCV 79 fl (84-94) L 12/24/20 05:12 MCH 28 pg (28-32) 12/24/20 05:12 MCHC 35 % (32-34) H 12/24/20 05:12 RDW 13.5 % (13.2-15.2) 12/24/20 05:12 Plt Count 309 K/mm3 (140-440) 12/24/20 05:12 Lymph % (Auto) 14.3 % (13.4-35.0) 12/23/20 17:07 [place] % (Auto) 7.0 % (0.0-7.3) 12/23/20 17:07 Eos % (Auto) 1.4 % (0.0-4.3) 12/23/20 17:07 Baso % (Auto) 0.5 % (0.0-1.8) 12/23/20 17:07 Lymph # (Auto) 1.5 K/mm3 (1.2-5.4) 12/23/20 17:07 [place] # (Auto) 0.7 K/mm3 (0.0-0.8) 12/23/20 17:07 Eos # (Auto) 0.1 K/mm3 (0.0-0.4) 12/23/20 17:07 Baso # (Auto) 0.1 K/mm3 (0.0-0.1) 12/23/20 17:07 Add Manual Diff Complete 12/24/20 05:12 Total Counted 100 12/24/20 05:12 Seg Neutrophils % 76.8 % (40.0-70.0) H 12/23/20 17:07 Seg Neuts % (Manual) 75.0 % (40.0-70.0) H 12/24/20 05:12 Band Neutrophils % 1.0 % 12/24/20 05:12 Lymphocytes % (Manual) 10.0 % (13.4-35.0) L 12/24/20 05:12 Monocytes % (Manual) 5.0 % (0.0-7.3) 12/24/20 05:12 Eosinophils % (Manual) 9.0 % (0.0-4.3) H 12/24/20 05:12 Nucleated RBC % Not Reportable 12/24/20 05:12 Seg Neutrophils # 8.1 K/mm3 (1.8-7.7) H 12/23/20 17:07 Seg Neutrophils # Man 6.5 K/mm3 (1.8-7.7) 12/24/20 05:12 Band Neutrophils # 0.1 K/mm3 12/24/20 05:12 Lymphocytes # (Manual) 0.9 K/mm3 (1.2-5.4) L 12/24/20 05:12 Abs React Lymphs (Man) 0.0 K/mm3 12/24/20 05:12 Monocytes # (Manual) 0.4 K/mm3 (0.0-0.8) 12/24/20 05:12 Eosinophils # (Manual) 0.8 K/mm3 (0.0-0.4) H 12/24/20 05:12 Basophils # (Manual) 0.0 K/mm3 (0.0-0.1) 12/24/20 05:12 Metamyelocytes # 0.0 K/mm3 12/24/20 05:12 Myelocytes # 0.0 K/mm3 12/24/20 05:12 Promyelocytes # 0.0 K/mm3 12/24/20 05:12 Blast Cells # 0.0 K/mm3 12/24/20 05:12 WBC Morphology Not Reportable 12/24/20 05:12 Hypersegmented Neuts Not Reportable 12/24/20 05:12 Hyposegmented Neuts Not Reportable 12/24/20 05:12 Hypogranular Neuts Not Reportable 12/24/20 05:12 Smudge Cells Not Reportable 12/24/20 05:12 Toxic Granulation Not Reportable 12/24/20 05:12 Toxic Vacuolation Not Reportable 12/24/20 05:12 Dohle Bodies Not Reportable 12/24/20 05:12 Pelger-Huet Anomaly Not Reportable 12/24/20 05:12 Arlene Rods Not Reportable 12/24/20 05:12 Platelet Estimate Consistent w auto 12/24/20 05:12 Clumped Platelets Not Reportable 12/24/20 05:12 Plt Clumps, EDTA Not Reportable 12/24/20 05:12 Large Platelets Not Reportable 12/24/20 05:12 Giant Platelets Not Reportable 12/24/20 05:12 Platelet Satelliting Not Reportable 12/24/20 05:12 Plt Morphology Comment Not Reportable 12/24/20 05:12 RBC Morphology Not Reportable 12/24/20 05:12 Dimorphic RBCs Not Reportable 12/24/20 05:12 Polychromasia Not Reportable 12/24/20 05:12 Hypochromasia Not Reportable 12/24/20 05:12 Poikilocytosis Not Reportable 12/24/20 05:12 Anisocytosis 1+ 12/24/20 05:12 Microcytosis Not Reportable 12/24/20 05:12 Macrocytosis Not Reportable 12/24/20 05:12 Spherocytes Not Reportable 12/24/20 05:12 Pappenheimer Bodies Not Reportable 12/24/20 05:12 Sickle Cells Not Reportable 12/24/20 05:12 Target Cells Not Reportable 12/24/20 05:12 Tear Drop Cells Not Reportable 12/24/20 05:12 Ovalocytes Not Reportable 12/24/20 05:12 Helmet Cells Not Reportable 12/24/20 05:12 [place] Bodies Not Reportable 12/24/20 05:12 Rogers Rings Not Reportable 12/24/20 05:12 Negra Cells Not Reportable 12/24/20 05:12 Bite Cells Not Reportable 12/24/20 05:12 Crenated Cell Not Reportable 12/24/20 05:12 Elliptocytes Not Reportable 12/24/20 05:12 Acanthocytes (Spur) Not Reportable 12/24/20 05:12 Rouleaux Not Reportable 12/24/20 05:12 Hemoglobin C Crystals Not Reportable 12/24/20 05:12 Schistocytes Not Reportable 12/24/20 05:12 Malaria parasites Not Reportable 12/24/20 05:12 Ramos Bodies Not Reportable 12/24/20 05:12 Hem Pathologist Commnt No 12/24/20 05:12 PT 15.1 Sec. (12.2-14.9) H 12/24/20 05:12 INR 1.13 (0.87-1.13) 12/24/20 05:12 Sodium 131 mmol/L (137-145) L 12/24/20 05:12 Potassium 4.6 mmol/L (3.6-5.0) 12/24/20 05:12 Chloride 96.1 mmol/L (98-107) L 12/24/20 05:12 Carbon Dioxide 16 mmol/L (22-30) L 12/24/20 05:12 Anion Gap 24 mmol/L 12/24/20 05:12 BUN 71 mg/dL (9-20) H 12/24/20 05:12 Creatinine 2.7 mg/dL (0.8-1.3) H 12/24/20 05:12 Estimated GFR 31 ml/min 12/24/20 05:12 BUN/Creatinine Ratio 26 % 12/24/20 05:12 Glucose 294 mg/dL (75-100) H 12/24/20 05:12 POC Glucose 278 mg/dL (70-105) H 12/24/20 07:42 Calcium 10.3 mg/dL (8.4-10.2) H 12/24/20 05:12 Total Bilirubin 0.30 mg/dL (0.1-1.2) 12/23/20 17:07 AST 31 units/L (5-40) 12/23/20 17:07 ALT 33 units/L (7-56) 12/23/20 17:07 Alkaline Phosphatase 88 units/L (35-129) 12/23/20 17:07 Total Protein 8.1 g/dL (6.3-8.2) 12/23/20 17:07 Albumin 3.4 g/dL (3.9-5) L 12/23/20 17:07 Albumin/Globulin Ratio 0.7 % 12/23/20 17:07 Triglycerides 169 mg/dL (2-149) H 12/24/20 05:12 Cholesterol 152 mg/dL (50-199) 12/24/20 05:12 LDL Cholesterol Direct 90 mg/dL (50-130) 12/24/20 05:12 HDL Cholesterol 28 mg/dL (40-59) L 12/24/20 05:12 Cholesterol/HDL Ratio 5.42 % 12/24/20 05:12 Benedict/IV: Voiding Method Urinal Active Medications - Current Medications Current Medications: Generic Name Dose Route Start Last Admin Trade Name Freq PRN Reason Stop Dose Admin Acetaminophen 650 mg 12/23/20 22:33 Acetaminophen 325 Mg Tab PO Q4H PRN Pain MILD(1-3)/Fever >100.5/MIRANDA Dextrose 0 ml 12/23/20 22:33 Dextrose 50% In Water (25gm) 50 Ml Syringe IV Q30MIN PRN Hypoglycemia Protocol Sodium Chloride 1,000 mls @ 125 mls/hr 12/23/20 22:45 Nacl 0.9% 1000 Ml IV DIRECT WILMER Piperacillin Sod/Tazobactam Sod 2.25 gm in 50 mls @ 100 mls/hr 12/24/20 12:00 Zosyn/Ns 2.25 Gm/50ml IV Q6HR WILMER Insulin Human Isoph/Insulin Regular 20 unit 12/24/20 17:00 Insulin Nph/Regular 70/30 Inj SUB-Q BIDDIAB WILMER Insulin Human Lispro 0 unit 12/24/20 07:30 12/24/20 09:23 Insulin Lispro 100 Unit/Ml SUB-Q 4 unit ACHS [facility] Administration Protocol Magnesium Hydroxide 30 ml 12/23/20 22:33 Magnesium Hydroxide (Mom) Oral Liqd Udc PO Q4H PRN Constipation Morphine Sulfate 2 mg 12/23/20 22:33 12/23/20 22:59 Morphine 2 Mg/1 Ml Inj IV 2 mg Q4H PRN Administration Pain, Moderate (4-6) Ondansetron HCl 4 mg 12/23/20 22:33 12/23/20 22:59 Ondansetron 4 Mg/2 Ml Inj IV 4 mg Q8H PRN Administration Nausea And Vomiting Sodium Bicarbonate 1,300 mg 12/24/20 14:00 Sodium Bicarbonate 650 Mg Tab PO TID WILMER Sodium Chloride 10 ml 12/24/20 10:00 12/24/20 09:23 Sodium Chloride 0.9% 10 Ml Flush Syringe IV 10 ml BID WILMER Administration Sodium Chloride 10 ml 12/23/20 22:33 Sodium Chloride 0.9% 10 Ml Flush Syringe IV PRN PRN LINE FLUSH
[2020-12-24] MEDS ORDERED: PIPERACIL-TAZO 2.25 GM/50 ML 2.25 GM/50 ML BAG IV SCH ×2 (12:00→14:00)
--- NOTE | 2020-12-24 12:10 | Consultation ---
History of Present Illness - Reason for Consult Consult date: 12/24/20 - History of Present Illness 45-year-old man past medical history diabetes, left BKA, CKD presented to hospital with 3-week history of right big toe wound infection. Denies any acute drainage from the wound, and denies any symptoms of systemic illness. He is unclear how the wound developed. He is known to me from August when he had left foot osteomyelitis with strep sanguinous bacteremia. At that time he had his BKA done, and continued for 2 weeks of antibiotics with ceftriaxone for the bacteremia. Afebrile with normal white count. Estimated GFR 31. Imaging personally reviewed: Foot x-ray: Possible osteomyelitis of the right great toe Review of Systems: Bold if positive, otherwise negative General: fevers, chills, rigors HEENT: visual disturbance, diplopia, eye pain Respiratory: cough, sputum, hemoptysis, shortness of breath Cardiovascular: chest pain, syncope Gastrointestinal: nausea, vomiting, diarrhea, abdominal pain Genitourinary: dysuria, hematuria, flank pain Musculoskeletal: neck pain, back pain, joint pain, edema Neurologic: headaches, seizures Hematologic: easy bruising or bleeding Endocrine: night sweats, acute weight loss Skin: rash, jaundice, redness Psychiatric: suicidal, homicidal ideation Past History Past Medical History: diabetes, GERD, hypertension Past Surgical History: Other (Surgery on appendix or Pancreas 2004. LEFT FOOT AMPUTATED. Left BKA) Social history: no significant social history Family history: no significant family history Medications and Allergies Allergies Allergy/AdvReac Type Severity Reaction Status Date / Time No Known Allergies Allergy Verified 12/23/20 17:00 Home Medications Medication Instructions Recorded Confirmed Last Taken Type Cholecalciferol (Vitamin D3) 50 mcg PO QWEEK 12/24/20 12/24/20 10/11/20 History [Vitamin D3] Fenofibrate [Tricor] 145 mg PO QDAY 12/24/20 12/24/20 12/23/20 History Gabapentin [Neurontin] 600 mg PO Q8H 12/24/20 12/24/20 12/23/20 History Insulin Degludec [Tresiba] 20 units SQ QHS 12/24/20 12/24/20 Unknown History Insulin NPH/Regular [NovoLIN 70/30] 30 unit SQ BIDAC 12/24/20 12/24/20 Unknown History Lisinopril/Hydrochlorothiazide 1 each PO 12/24/20 12/23/20 History [Zestoretic 10-12.5 mg Tablet] NIFEdipine [Nifedipine ER] 30 mg PO DAILY 12/24/20 12/24/20 12/23/20 History Active Meds: Active Medications Acetaminophen (Acetaminophen 325 Mg Tab) 650 mg PO Q4H PRN PRN Reason: Pain MILD(1-3)/Fever >100.5/MIRANDA Dextrose (Dextrose 50% In Water (25gm) 50 Ml Syringe) 0 ml IV Q30MIN PRN; Protocol PRN Reason: Hypoglycemia Sodium Chloride (Nacl 0.9% 1000 Ml) 1,000 mls @ 125 mls/hr IV DIRECT WILMER Piperacillin Sod/Tazobactam Sod (Zosyn/Ns 2.25 Gm/50ml) 2.25 gm in 50 mls @ 100 mls/hr IV Q6HR WILMER Insulin Human Isoph/Insulin Regular (Insulin Nph/Regular 70/30 Inj) 20 unit SUB-Q BIDDIAB WILMER Insulin Human Lispro (Insulin Lispro 100 Unit/Ml) 0 unit SUB-Q ACHS WILMER; Protocol Last Admin: 12/24/20 09:23 Dose: 4 unit Documented by: Magnesium Hydroxide (Magnesium Hydroxide (Mom) Oral Liqd Udc) 30 ml PO Q4H PRN PRN Reason: Constipation Morphine Sulfate (Morphine 2 Mg/1 Ml Inj) 2 mg IV Q4H PRN PRN Reason: Pain, Moderate (4-6) Last Admin: 12/23/20 22:59 Dose: 2 mg Documented by: Ondansetron HCl (Ondansetron 4 Mg/2 Ml Inj) 4 mg IV Q8H PRN PRN Reason: Nausea And Vomiting Last Admin: 12/23/20 22:59 Dose: 4 mg Documented by: Sodium Bicarbonate (Sodium Bicarbonate 650 Mg Tab) 1,300 mg PO TID WILMER Sodium Chloride (Sodium Chloride 0.9% 10 Ml Flush Syringe) 10 ml IV BID WILMER Last Admin: 12/24/20 09:23 Dose: 10 ml Documented by: Sodium Chloride (Sodium Chloride 0.9% 10 Ml Flush Syringe) 10 ml IV PRN PRN PRN Reason: LINE FLUSH Physical Examination - Physical Exam Narrative exam: Physical Exam: Constitutional: Alert, cooperative. No acute distress Head, Ears, Nose: Normocephalic, atraumatic. External ears, nose normal Eyes: Conjunctivae/corneas clear. No icterus. No ptosis. Neck: Supple, no meningeal signs Oral: dentition fair, no thrush Cardiovascular: S1, S2 normal. Respiratory: Good air entry, clear to auscultation bilaterally GI: Soft, non-tender; bowel sounds normal. No peritoneal signs. Musculoskeletal: L BKA, r great toe with ulcer Skin: No rash or abscess Hem/Lymphatic: No palpable cervical or supraclavicular nodes. No lymphangitis Psych: Mood ok. Affect normal Neurological: Awake, alert, oriented. No gross abnormality - Constitutional Vitals: Vital Signs Temp Pulse Resp BP Pulse Ox 98.3 F 109 H 20 120/102 97 12/24/20 11:49 12/24/20 11:49 12/24/20 11:49 12/24/20 11:49 12/24/20 11:49 Temperature -Last 24 Hours Temperature 98.3 F Temperature 98.8 F Temperature 98.5 F Temperature 98.4 F Results - Labs CBC & Chem 7: 12/24/20 05:12 12/24/20 05:12 Labs: Abnormal lab results 12/23/20 12/23/20 12/24/20 Range/Units 17:07 17:07 05:12 RBC 3.60 L (3.65-5.03) M/mm3 Hgb 9.7 L (11.8-15.2) gm/dl Hct 28.7 L (35.5-45.6) % MCV 80 L (84-94) fl MCH 27 L (28-32) pg MCHC (32-34) % Seg Neutrophils % 76.8 H (40.0-70.0) % Seg Neuts % (Manual) (40.0-70.0) % Lymphocytes % (Manual) (13.4-35.0) % Eosinophils % (Manual) (0.0-4.3) % Seg Neutrophils # 8.1 H (1.8-7.7) K/mm3 Lymphocytes # (Manual) (1.2-5.4) K/mm3 Eosinophils # (Manual) (0.0-0.4) K/mm3 PT (12.2-14.9) Sec. Sodium 127 L (137-145) mmol/L Chloride 93.7 L (98-107) mmol/L Carbon Dioxide 14 L (22-30) mmol/L BUN 70 H (9-20) mg/dL Creatinine 3.0 H (0.8-1.3) mg/dL Glucose 304 H (75-100) mg/dL POC Glucose (70-105) mg/dL Calcium (8.4-10.2) mg/dL Albumin 3.4 L (3.9-5) g/dL Triglycerides 169 H (2-149) mg/dL HDL Cholesterol 28 L (40-59) mg/dL 12/24/20 12/24/20 12/24/20 Range/Units 05:12 05:12 05:12 RBC 3.37 L (3.65-5.03) M/mm3 Hgb 9.4 L (11.8-15.2) gm/dl Hct 26.6 L (35.5-45.6) % MCV 79 L (84-94) fl MCH (28-32) pg MCHC 35 H (32-34) % Seg Neutrophils % (40.0-70.0) % Seg Neuts % (Manual) 75.0 H (40.0-70.0) % Lymphocytes % (Manual) 10.0 L (13.4-35.0) % Eosinophils % (Manual) 9.0 H (0.0-4.3) % Seg Neutrophils # (1.8-7.7) K/mm3 Lymphocytes # (Manual) 0.9 L (1.2-5.4) K/mm3 Eosinophils # (Manual) 0.8 H (0.0-0.4) K/mm3 PT 15.1 H (12.2-14.9) Sec. Sodium 131 L (137-145) mmol/L Chloride 96.1 L (98-107) mmol/L Carbon Dioxide 16 L (22-30) mmol/L BUN 71 H (9-20) mg/dL Creatinine 2.7 H (0.8-1.3) mg/dL Glucose 294 H (75-100) mg/dL POC Glucose (70-105) mg/dL Calcium 10.3 H (8.4-10.2) mg/dL Albumin (3.9-5) g/dL Triglycerides (2-149) mg/dL HDL Cholesterol (40-59) mg/dL 12/24/20 Range/Units 07:42 RBC (3.65-5.03) M/mm3 Hgb (11.8-15.2) gm/dl Hct (35.5-45.6) % MCV (84-94) fl MCH (28-32) pg MCHC (32-34) % Seg Neutrophils % (40.0-70.0) % Seg Neuts % (Manual) (40.0-70.0) % Lymphocytes % (Manual) (13.4-35.0) % Eosinophils % (Manual) (0.0-4.3) % Seg Neutrophils # (1.8-7.7) K/mm3 Lymphocytes # (Manual) (1.2-5.4) K/mm3 Eosinophils # (Manual) (0.0-0.4) K/mm3 PT (12.2-14.9) Sec. Sodium (137-145) mmol/L Chloride (98-107) mmol/L Carbon Dioxide (22-30) mmol/L BUN (9-20) mg/dL Creatinine (0.8-1.3) mg/dL Glucose (75-100) mg/dL POC Glucose 278 H (70-105) mg/dL Calcium (8.4-10.2) mg/dL Albumin (3.9-5) g/dL Triglycerides (2-149) mg/dL HDL Cholesterol (40-59) mg/dL Assessment and Plan Cultures: None A/P: 45-year-old man past medical history diabetes, left BKA admitted with right toe ulcer and probable osteomyelitis. #Right great toe ulcer: X-ray with likely osteomyelitis, will obtain MRI. Likely secondary to his diabetes. Await surgical opinion regarding possible amputation. #Diabetes: tight glycemic control for best outcomes. #History of left BKA: Secondary to osteomyelitis, cultures from the blood at that time grew strep sanguinous Recs: -Continue vancomycin dosed per pharmacy, goal trough 10-20 -Stop Zosyn -Obtain MRI of the right foot -Consult surgery for possible amputation. Thank you for the consult, we will continue to follow. MD Alyssa Narayanan [facility] O: [phone] F: [phone]
--- NOTE | 2020-12-24 12:45 | Ultrasound Report ---
ULTRASOUND RENAL INDICATION / CLINICAL INFORMATION: Ariel. COMPARISON: Renal ultrasound 08/08/2019. FINDINGS: RIGHT KIDNEY: Length = 10.3 cm. - Echogenicity: Normal. - Cortical Thickness: Normal. - Hydronephrosis: None. - Cyst / Mass: None. - Stones: None seen. LEFT KIDNEY: Length = 11.7 cm. - Echogenicity: Normal. - Cortical Thickness: Normal. - Hydronephrosis: None. - Cyst / Mass: None. - Stones: None seen. URINARY BLADDER: Distended. FREE FLUID: None. ADDITIONAL FINDINGS: None. IMPRESSION: 1. No significant abnormality. Scribed by: Debbi Ramos RDMS, RVT Scribed: 12/24/2020 11:27 AM Signer Name: Ilan Winter MD Signed: 12/24/2020 12:41 PM Workstation Name: [id number]
[2020-12-24] MEDS: SODIUM BICARBONATE 650 MG TAB PO SCH ×2 (14:08→21:18)
--- NOTE | 2020-12-24 16:45 | Magnetic Resonance Report ---
MRI RIGHT FOOT WITHOUT CONTRAST INDICATION / CLINICAL INFORMATION: right great toe osteomyelitis. TECHNIQUE: Multiplanar, multisequence MR images were obtained. [id number] is limited to the forefo ot. COMPARISON: Radiograph stated 12/23/20 FINDINGS: BONES: Moderate bone marrow edema and low T1 signal within the proximal and distal phalanges of great toe. There is cortical irregularity of the distal portion of the proximal phalanx and the proximal p ortion of the distal phalanx. Elsewhere no abnormal bone marrow signal. No osseous lesion. JOINTS: Moderate destructive change of the interphalangeal joint of the great toe as seen on radiogra phs. No other significant joint abnormality. MUSCLES: Atrophy and increased T2 signal of the intrinsic muscles of the foot characteristic of neuro sherwin. FLEXOR TENDONS: No significant abnormality. EXTENSOR TENDONS: No significant abnormality. PERONEAL TENDONS: No significant abnormality. LIGAMENTS: No significant abnormality. SOFT TISSUES: Soft tissue ulceration and edema of the great toe with moderate soft tissue gas which c an be seen in retrospect on radiographs. No soft tissue abscess. ADDITIONAL FINDINGS: None. IMPRESSION: 1. Soft tissue ulceration of the right great toe with osteomyelitis of the proximal and distal phalan ges. Signer Name: Aiden Campa MD Signed: 12/24/2020 4:40 PM Workstation Name: [id number]
[2020-12-24] MEDS: INSULIN NPH/REGULAR 70/30 INJ SUB-Q SCH (17:50)
--- NOTE | 2020-12-24 17:51 | Consultation ---
History of Present Illness - Reason for Consult Consult date: 12/25/20 rle osteomyelitis Requesting physician: VÍCTOR KEE - History of Present Illness 45-year-old man past medical history diabetes, left BKA, CKD presented to hospital with 3-week history of right big toe wound infection. Denies any acute drainage from the wound, and denies any symptoms of systemic illness. He is unclear how the wound developed. He is known to me from August when he had left foot osteomyelitis with strep sanguinous bacteremia. At that time he had his BKA done, and continued for 2 weeks of antibiotics with ceftriaxone for the bacteremia. Afebrile with normal white count. Estimated GFR 31. Vascular was consulted for right first digit osteomyelitis. Patient has osteomyelitis of the right first digit. He has a weakly palpable right dorsalis pedis pulse and a nonpalpable posterior tibial pulse. This may be due to partial calcification of the vessels due to the patient's uncontrolled diabetes, but given his first digit ulceration, discussed diagnostic angiography and possible intervention with the patient. Past History Past Medical History: diabetes, GERD, hypertension Past Surgical History: Other (Surgery on appendix or Pancreas 2004. LEFT FOOT AMPUTATED. Left BKA) Social history: no significant social history Family history: no significant family history Medications and Allergies Allergies Allergy/AdvReac Type Severity Reaction Status Date / Time No Known Allergies Allergy Verified 12/23/20 17:00 Home Medications Medication Instructions Recorded Confirmed Last Taken Type Cholecalciferol (Vitamin D3) 50 mcg PO QWEEK 12/24/20 12/24/20 10/11/20 History [Vitamin D3] Fenofibrate [Tricor] 145 mg PO QDAY 12/24/20 12/24/20 12/23/20 History Gabapentin [Neurontin] 600 mg PO Q8H 12/24/20 12/24/20 12/23/20 History Insulin Degludec [Tresiba] 20 units SQ QHS 12/24/20 12/24/20 Unknown History Insulin NPH/Regular [NovoLIN 70/30] 30 unit SQ BIDAC 12/24/20 12/24/20 Unknown History Lisinopril/Hydrochlorothiazide 1 each PO DAILY 12/24/20 12/24/20 12/23/20 History [Zestoretic 10-12.5 mg Tablet] NIFEdipine [Nifedipine ER] 30 mg PO DAILY 12/24/20 12/24/20 12/23/20 History Active Meds: Active Medications Acetaminophen (Acetaminophen 325 Mg Tab) 650 mg PO Q4H PRN PRN Reason: Pain MILD(1-3)/Fever >100.5/MIRANDA Dextrose (Dextrose 50% In Water (25gm) 50 Ml Syringe) 0 ml IV Q30MIN PRN; Protocol PRN Reason: Hypoglycemia Sodium Chloride (Nacl 0.9% 1000 Ml) 1,000 mls @ 125 mls/hr IV DIRECT [facility] Insulin Human Isoph/Insulin Regular (Insulin Nph/Regular 70/30 Inj) 20 unit SUB-Q BIDDIAB [facility] Insulin Human Lispro (Insulin Lispro 100 Unit/Ml) 0 unit SUB-Q ACHS [facility]; Protocol Last Admin: 12/24/20 12:19 Dose: 8 unit Documented by: Magnesium Hydroxide (Magnesium Hydroxide (Mom) Oral Liqd Udc) 30 ml PO Q4H PRN PRN Reason: Constipation Morphine Sulfate (Morphine 2 Mg/1 Ml Inj) 2 mg IV Q4H PRN PRN Reason: Pain, Moderate (4-6) Last Admin: 12/23/20 22:59 Dose: 2 mg Documented by: Ondansetron HCl (Ondansetron 4 Mg/2 Ml Inj) 4 mg IV Q8H PRN PRN Reason: Nausea And Vomiting Last Admin: 12/23/20 22:59 Dose: 4 mg Documented by: Sodium Bicarbonate (Sodium Bicarbonate 650 Mg Tab) 1,300 mg PO TID [facility] Last Admin: 12/24/20 14:08 Dose: 1,300 mg Documented by: Sodium Chloride (Sodium Chloride 0.9% 10 Ml Flush Syringe) 10 ml IV BID [facility] Last Admin: 12/24/20 09:23 Dose: 10 ml Documented by: Sodium Chloride (Sodium Chloride 0.9% 10 Ml Flush Syringe) 10 ml IV PRN PRN PRN Reason: LINE FLUSH Review of Systems All systems: negative (see HPI) Exam - Constitutional Vitals: Temp Pulse Resp BP Pulse Ox 99.9 F H 96 H 18 141/80 98 12/24/20 16:15 12/24/20 16:15 12/24/20 16:15 12/24/20 16:15 12/24/20 16:15 General appearance: Present: no acute distress - EENT Eyes: Present: EOM intact ENT: hearing intact - Respiratory Respiratory effort: normal - Extremities Extremities: abnormal (see HPI, left BKA) - Abdominal General gastrointestinal: Present: soft, non-tender - Psychiatric Psychiatric: appropriate mood/affect, cooperative Results - Labs CBC & Chem 7: 12/25/20 05:42 12/25/20 05:42 Labs: Abnormal lab results 12/24/20 12/24/20 12/24/20 Range/Units 05:12 05:12 05:12 RBC 3.37 L (3.65-5.03) M/mm3 Hgb 9.4 L (11.8-15.2) gm/dl Hct 26.6 L (35.5-45.6) % MCV 79 L (84-94) fl MCHC 35 H (32-34) % Seg Neuts % (Manual) 75.0 H (40.0-70.0) % Lymphocytes % (Manual) 10.0 L (13.4-35.0) % Eosinophils % (Manual) 9.0 H (0.0-4.3) % Lymphocytes # (Manual) 0.9 L (1.2-5.4) K/mm3 Eosinophils # (Manual) 0.8 H (0.0-0.4) K/mm3 PT 15.1 H (12.2-14.9) Sec. Sodium (137-145) mmol/L Chloride (98-107) mmol/L Carbon Dioxide (22-30) mmol/L BUN (9-20) mg/dL Creatinine (0.8-1.3) mg/dL Glucose (75-100) mg/dL POC Glucose (70-105) mg/dL Calcium (8.4-10.2) mg/dL Triglycerides 169 H (2-149) mg/dL HDL Cholesterol 28 L (40-59) mg/dL 12/24/20 12/24/20 12/24/20 Range/Units 05:12 07:42 11:39 RBC (3.65-5.03) M/mm3 Hgb (11.8-15.2) gm/dl Hct (35.5-45.6) % MCV (84-94) fl MCHC (32-34) % Seg Neuts % (Manual) (40.0-70.0) % Lymphocytes % (Manual) (13.4-35.0) % Eosinophils % (Manual) (0.0-4.3) % Lymphocytes # (Manual) (1.2-5.4) K/mm3 Eosinophils # (Manual) (0.0-0.4) K/mm3 PT (12.2-14.9) Sec. Sodium 131 L (137-145) mmol/L Chloride 96.1 L (98-107) mmol/L Carbon Dioxide 16 L (22-30) mmol/L BUN 71 H (9-20) mg/dL Creatinine 2.7 H (0.8-1.3) mg/dL Glucose 294 H (75-100) mg/dL POC Glucose 278 H 305 H (70-105) mg/dL Calcium 10.3 H (8.4-10.2) mg/dL Triglycerides (2-149) mg/dL HDL Cholesterol (40-59) mg/dL 12/24/20 Range/Units 16:15 RBC (3.65-5.03) M/mm3 Hgb (11.8-15.2) gm/dl Hct (35.5-45.6) % MCV (84-94) fl MCHC (32-34) % Seg Neuts % (Manual) (40.0-70.0) % Lymphocytes % (Manual) (13.4-35.0) % Eosinophils % (Manual) (0.0-4.3) % Lymphocytes # (Manual) (1.2-5.4) K/mm3 Eosinophils # (Manual) (0.0-0.4) K/mm3 PT (12.2-14.9) Sec. Sodium (137-145) mmol/L Chloride (98-107) mmol/L Carbon Dioxide (22-30) mmol/L BUN (9-20) mg/dL Creatinine (0.8-1.3) mg/dL Glucose (75-100) mg/dL POC Glucose 340 H (70-105) mg/dL Calcium (8.4-10.2) mg/dL Triglycerides (2-149) mg/dL HDL Cholesterol (40-59) mg/dL Assessment and Plan 45-year-old -[place] male with known history of uncontrolled diabetes me llitus, left BKA and chronic kidney disease presenting to the emergency room today complaining of 2 to 3 weeks history of infection over the right big toe. Imaging demonstrates osteomyelitis. Has weakly palpable right DP, and nonpalpable right PT. Given the underlying wound, discussed the risks, benefits, and alternatives of endovascular revascularization. Patient agrees with procedure. Plan to use limited amount of contrast/CO2 due to CKD. Waiting for CKD to improve would place the patient at high risk for limb loss. Patient understands. Started aspirin. May further add cilostazol and plavix based on angiography and if intervention is required.
--- NOTE | 2020-12-24 18:01 | Consultation ---
History of Present Illness - Reason for Consult Consult date: 12/24/20 acute renal failure - History of Present Illness This is a 45-year-old -[place] man with chronic kidney disease, diabetes mellitus, peripheral vascular disease, status post left AKA who presented to the emergency department with 3 week history of right big toe infection. He was nursing the wound at home with warm soaks but due to lack of improvement and intermittent pain presented to the emergency department. Nephrology was consulted for acute kidney injury. Patient denies dysuria, hematuria, urinary retention, chest pain, shortness of breath and swelling. Past History Past Medical History: diabetes, GERD, hypertension Past Surgical History: Other (Surgery on appendix or Pancreas 2004. LEFT FOOT AMPUTATED. Left BKA) Social history: no significant social history Family history: no significant family history Medications and Allergies Allergies Allergy/AdvReac Type Severity Reaction Status Date / Time No Known Allergies Allergy Verified 12/23/20 17:00 Home Medications Medication Instructions Recorded Confirmed Last Taken Type Cholecalciferol (Vitamin D3) 50 mcg PO QWEEK 12/24/20 12/24/20 10/11/20 History [Vitamin D3] Fenofibrate [Tricor] 145 mg PO QDAY 12/24/20 12/24/20 12/23/20 History Gabapentin [Neurontin] 600 mg PO Q8H 12/24/20 12/24/20 12/23/20 History Insulin Degludec [Tresiba] 20 units SQ QHS 12/24/20 12/24/20 Unknown History Insulin NPH/Regular [NovoLIN 70/30] 30 unit SQ BIDAC 12/24/20 12/24/20 Unknown History Lisinopril/Hydrochlorothiazide 1 each PO DAILY 12/24/20 12/24/20 12/23/20 History [Zestoretic 10-12.5 mg Tablet] NIFEdipine [Nifedipine ER] 30 mg PO DAILY 12/24/20 12/24/20 12/23/20 History Active Meds: Active Medications Acetaminophen (Acetaminophen 325 Mg Tab) 650 mg PO Q4H PRN PRN Reason: Pain MILD(1-3)/Fever >100.5/MIRANDA Dextrose (Dextrose 50% In Water (25gm) 50 Ml Syringe) 0 ml IV Q30MIN PRN; Protocol PRN Reason: Hypoglycemia Sodium Chloride (Nacl 0.9% 1000 Ml) 1,000 mls @ 125 mls/hr IV DIRECT [facility] Insulin Human Isoph/Insulin Regular (Insulin Nph/Regular 70/30 Inj) 20 unit SUB-Q BIDDIAB [facility] Last Admin: 12/24/20 17:50 Dose: 20 unit Documented by: Insulin Human Lispro (Insulin Lispro 100 Unit/Ml) 0 unit SUB-Q ACHS [facility]; Protocol Last Admin: 12/24/20 17:50 Dose: 8 unit Documented by: Magnesium Hydroxide (Magnesium Hydroxide (Mom) Oral Liqd Udc) 30 ml PO Q4H PRN PRN Reason: Constipation Morphine Sulfate (Morphine 2 Mg/1 Ml Inj) 2 mg IV Q4H PRN PRN Reason: Pain, Moderate (4-6) Last Admin: 12/23/20 22:59 Dose: 2 mg Documented by: Ondansetron HCl (Ondansetron 4 Mg/2 Ml Inj) 4 mg IV Q8H PRN PRN Reason: Nausea And Vomiting Last Admin: 12/23/20 22:59 Dose: 4 mg Documented by: Sodium Bicarbonate (Sodium Bicarbonate 650 Mg Tab) 1,300 mg PO TID [facility] Last Admin: 12/24/20 14:08 Dose: 1,300 mg Documented by: Sodium Chloride (Sodium Chloride 0.9% 10 Ml Flush Syringe) 10 ml IV BID [facility] Last Admin: 12/24/20 09:23 Dose: 10 ml Documented by: Sodium Chloride (Sodium Chloride 0.9% 10 Ml Flush Syringe) 10 ml IV PRN PRN PRN Reason: LINE FLUSH Review of Systems Constitutional: no fever, no chills Ears, nose, mouth and throat: no nasal congestion, no nasal discharge Cardiovascular: no chest pain, no orthopnea Respiratory: no cough, no shortness of breath Gastrointestinal: no nausea, no vomiting Genitourinary Male: no dysuria, no hematuria Musculoskeletal: no muscle weakness, no muscle cramps Integumentary: no rash, no pruritis Neurological: no weakness, no parathesias Psychiatric: no anxiety, no paranoia Endocrine: no polydipsia, no polyuria Hematologic/Lymphatic: no easy bruising, no easy bleeding Allergic/Immunologic: no wheezing Exam - Vital Signs Vital signs: Vital Signs Temp Pulse Resp BP Pulse Ox 98.4 F 96 H 13 120/78 100 12/23/20 16:58 12/23/20 16:58 12/23/20 16:58 12/23/20 16:58 12/23/20 16:58 - Physical Exam Narrative exam: General: No acute distress HEENT: ATNC Neck: Supple, no JVD Chest: Clear to auscultation bilaterally Heart: RRR, S1 and S2, no pericardial rub Abdomen: Soft, nontender, no renal bruit Extremity: No peripheral cyanosis, left BKA, right big toe wound Neurological: Alert, awake, no asterixis Dermatology: No skin rash Psych: No agitation Musculoskeletal: No joint effusion Results - Lab Results 12/24/20 05:12 12/24/20 05:12 Most recent lab results Calcium 10.3 mg/dL (8.4-10.2) H 12/24/20 05:12 Assessment and Plan Assessment Acute kidney injury. Renal u/s negative for acute pathology. Hyponatremia Acidosis Osteomyelitis Recommendations No immediate indication for dialysis Start sodium bicarb tabs Continue IVF Monitor vanc levels Renally dose medications Avoid nephrotoxins Renal diet
[2020-12-24] MEDS: MORPHINE 2 MG/1 ML INJ IV PRN (18:04)
[2020-12-24] MEDS ORDERED: VANCOMYCIN 1,250 MG in SODIUM CHLORIDE 0.9% 250ML 250 ML IV SCH (22:00)
[2020-12-25 06:04] LABS: Hematocrit 26.8 % (35.5-45.6); Hemoglobin 8.8 gm/dl (11.8-15.2); Mean Corpuscular HGB Conc 33 % (32-34); Mean Corpuscular Volume 79 fl (84-94); Platelet Count 333 K/mm3 (140-440); Red Blood Count 3.38 M/mm3 (3.65-5.03); Red Cell Distribution Width 13.6 % (13.2-15.2)
[2020-12-25 06:20] LABS: Calcium 9.4 mg/dL (8.4-10.2)
[2020-12-25] MEDS: INSULIN LISPRO 100 UNIT/ML SUB-Q SCH ×4 (07:24→22:29)
[2020-12-25] MEDS ORDERED: HEPARIN/NS 5000 UNIT/500ML 1,000 ML IR ONE (08:42)
[2020-12-25] MEDS ORDERED: HEPARIN 10,000 UNITS/10 ML VIAL ONE (08:43)
[2020-12-25] MEDS ORDERED: LIDOCAINE 1%/EPINEPHRINE 1:100,000 VIAL (20 ML) INFILTRATI ONE (08:43)
[2020-12-25] MEDS ORDERED: SODIUM CHLORIDE 0.9% 500 ML 500 ML ONE (08:43)
[2020-12-25] MEDS: SODIUM BICARBONATE 650 MG TAB PO SCH ×3 (09:22→21:40)
[2020-12-25] MEDS ORDERED: ceFAZolin/Water 2 GM/20 ML 2 GM/20 ML SYRINGE IV ONE (09:30)
[2020-12-25] MEDS: fentaNYL 100 MCG/2 ML INJ ONE ×2 (09:41→10:03)
[2020-12-25] MEDS: MIDAZOLAM 2 MG/2 ML INJ ONE ×2 (09:41→10:03)
[2020-12-25] MEDS ORDERED: fentaNYL 100 MCG/2 ML INJ ONE (10:12)
--- NOTE | 2020-12-25 10:36 | Operative Report ---
Operative Report Operative Report: EXAM: 1. Ultrasound-guided access of the left common femoral artery. 2. Angiography of the left lower extremity. 3. Selection of the abdominal aorta with CO2 angiography. 4. Selection of the right external iliac artery, common femoral artery, superficial femoral artery, and popliteal artery with angiography of the right lower extremity 5. Pressure held in the left groin until hemostasis achieved DATE: 12/25/2020 MENTAL HEALTH DIRECTOR: JOHN MANDUJANO MD INDICATION: Gangrene of the right first digit with abnormal pulse exam MEDICATIONS: Please see nursing report for full details. DEVICES: None CONTRAST: 14 mL of nonionic contrast, CO2 angiography PROCEDURE: The risks, benefits, and alternatives were discussed with the patient; written informed consent was obtained. Patient was brought to the angiography suite and prepped and draped in sterile fashion with both groins prepped. Ultrasound was used to evaluate the left common femoral artery which was patent. Under direct ultrasound guidance, the left common femoral artery was accessed with a 21-gauge micropuncture needle. 0.018 inch wire was passed into the aorta. Needle was exchanged for transitional dilator. Wire was exchanged for a 0.035 inch wire. Transitional dilator was exchanged for 5 Fijian sheath. Digital subtraction angiography was performed demonstrating appropriate puncture, above the bifurcation and below the inferior epigastric artery. The abdominal aorta was selected. The right external iliac artery was selected. The right common femoral artery was selected. The right superficial femoral artery and popliteal artery were selected. Intermittent angiography was performed. After performing diagnostic angiography, I determined the intervention was not required. After reviewing the images, all wires, catheters, and sheaths were removed and pressure was held until hemostasis was achieved. Pressure bandage applied. No immediate postprocedural complications. FINDINGS: Aorta: The infrarenal abdominal aorta, bilateral common iliac arteries, internal iliac arteries, and external iliac arteries are patent. Right lower extremity: The right common femoral artery, profunda femoral artery, and superficial femoral artery are patent. The popliteal artery is patent. High takeoff of some of the tibial vessels noted. All vessels are patent to the level of the ankle. The dorsalis pedis is patent. The medial plantar artery is patent. The lateral plantar artery has a 90% narrowing at its ostium of uncertain significance given the intact pedal arch and the first digit gangrene. Left lower extremity: The left common femoral artery, proximal superficial femoral artery, and profunda femoral artery were patent. 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 IMPRESSION: Successful third order selection with angiography of the right lower extremity
--- NOTE | 2020-12-25 10:36 | Post Operative Note ---
Date of procedure: 12/25/20 Pre-op diagnosis: Right 1st digit osteomyelitis with abnormal pulse exam Post-op diagnosis: same Findings: Three-vessel runoff of the right lower extremity with only mild stenosis except for a high-grade stenosis at the origin of the right medial plantar artery (this is a pedal vessel). This vessel does not supply the area of osteomyelitis which is supplied by other vasculature. 14 mL of contrast used and CO2 used Procedure: 1. Ultrasound-guided access of the left common femoral artery. 2. Angiography of the left lower extremity. 3. Selection of the abdominal aorta with CO2 angiography 4. Selection of the right external iliac artery, common femoral artery, superficial femoral artery, and popliteal artery with angiography of the right lower extremity 5. Manual compression held on the left common femoral artery until hemostasis achieved Anesthesia: local (With conscious sedation) Surgeon: JOHN MANDUJANO Estimated blood loss: minimal Condition: stable Disposition: floor
--- NOTE | 2020-12-25 11:58 | Progress Note ---
Assessment and Plan Cultures: None A/P: 45-year-old man past medical history diabetes, left BKA admitted with right toe ulcer and probable osteomyelitis. #Right great toe ulcer with osteomyelitis: As seen on MRI. Likely secondary to his diabetes. Await surgical opinion regarding possible amputation. #Diabetes: tight glycemic control for best outcomes. #History of left BKA: Secondary to osteomyelitis, cultures from the blood at that time grew strep sanguinous Recs: -Continue vancomycin dosed per pharmacy, goal trough 10-20 -Consult surgery for possible amputation. -wound care of the ulcer Thank you for the consult, we will continue to follow. Mahsa Dupree MD [facility] ([facility]) O: [phone] F: [phone] Subjective Date of service: 12/25/20 Interval history: Afebrile, normal white count. Imaging personally reviewed: Lower extremity MRI: osteomyelitis of the proximal and distal phalanges. Objective - Exam Narrative Exam: Physical Exam: Constitutional: Alert, cooperative. No acute distress Head, Ears, Nose: Normocephalic, atraumatic. Eyes: Conjunctivae/corneas clear. No icterus. No ptosis. Neck: Supple, no meningeal signs Oral: dentition fair, no thrush Cardiovascular: S1, S2 normal. Respiratory: Good air entry, clear to auscultation bilaterally GI: Soft, non-tender; bowel sounds normal. No peritoneal signs. Musculoskeletal: L BKA, r great toe with ulcer Skin: No rash or abscess Hem/Lymphatic: No palpable cervical or supraclavicular nodes. No lymphangitis Psych: Mood ok. Affect normal Neurological: Awake, alert, oriented. No gross abnormality - Constitutional Vitals: Vital Signs Temp Pulse Resp BP Pulse Ox 99.6 F 93 H 20 108/72 99 12/25/20 04:36 12/25/20 04:36 12/25/20 04:36 12/25/20 04:36 12/25/20 04:36 Temperature -Last 24 Hours Temperature 99.6 F Temperature 99.3 F Temperature 99.9 F - Labs CBC & Chem 7: 12/25/20 05:42 12/25/20 05:42 Labs: Abnormal lab results 12/24/20 12/24/20 12/24/20 Range/Units 11:39 16:15 21:18 RBC (3.65-5.03) M/mm3 Hgb (11.8-15.2) gm/dl Hct (35.5-45.6) % MCV (84-94) fl MCH (28-32) pg Sodium (137-145) mmol/L Chloride (98-107) mmol/L Carbon Dioxide (22-30) mmol/L BUN (9-20) mg/dL Creatinine (0.8-1.3) mg/dL Glucose (75-100) mg/dL POC Glucose 305 H 340 H 388 H (70-105) mg/dL 12/25/20 12/25/20 12/25/20 Range/Units 05:42 05:42 07:57 RBC 3.38 L (3.65-5.03) M/mm3 Hgb 8.8 L (11.8-15.2) gm/dl Hct 26.8 L (35.5-45.6) % MCV 79 L (84-94) fl MCH 26 L (28-32) pg Sodium 131 L (137-145) mmol/L Chloride 96.9 L (98-107) mmol/L Carbon Dioxide 17 L (22-30) mmol/L BUN 63 H (9-20) mg/dL Creatinine 2.5 H (0.8-1.3) mg/dL Glucose 193 H (75-100) mg/dL POC Glucose 198 H (70-105) mg/dL 12/25/20 Range/Units 11:29 RBC (3.65-5.03) M/mm3 Hgb (11.8-15.2) gm/dl Hct (35.5-45.6) % MCV (84-94) fl MCH (28-32) pg Sodium (137-145) mmol/L Chloride (98-107) mmol/L Carbon Dioxide (22-30) mmol/L BUN (9-20) mg/dL Creatinine (0.8-1.3) mg/dL Glucose (75-100) mg/dL POC Glucose 214 H (70-105) mg/dL
[2020-12-25] MEDS: SODIUM BICARBONATE 150 MEQ in WATER FOR INJECTION (PF) 1,000 ML IV SCH (13:00)
--- NOTE | 2020-12-25 14:29 | Progress Note ---
Assessment and Plan Assessment and plan: Assessment: 45-year-old -[place] male with a past medical history of diabetes mellitus type 2 who presents with right foot first toe diabetic ulceration. Work-up so far shows osteomyelitis, currently on antibiotics. Diabetic foot ulcer with osteomyelitis Current Visit: Yes Status: Acute Plan to address problem: Patient commenced on empiric IV antibiotics. Wound cultures Infectious disease managing antibiotics Surgical intervention/amputation versus 6 weeks of antibiotics, pending rec ommendations Acute on chronic kidney failure Current Visit: Yes Status: Acute Plan to address problem: We will request evaluation by nephrology. We will monitor BUN and creatinine. Diabetes mellitus Current Visit: No Status: Acute Plan to address problem: We will place patient on sliding scale insulin and monitor Accu-Cheks closely. Acute metabolic acidosis Nephrology consulted Patient currently on bicarb History of left BKA No intervention at this time DVT prophylaxis Current Visit: Yes Status: Acute Plan to address problem: Patient placed on subcutaneous heparin. Full code status Current Visit: No Status: Acute Plan to address problem: Patient is full code. History Interval history: 12/24: Due to poor healing wound we will ask vascular to evaluate the patient in addition to continue management for osteomyelitis. Will adjust insulin management for better control. Counseling provided to the patient patient was rounded on with case management. Also continue to monitor for metabolic acidosis and and anticipate improvement. 12/25: Patient with mild pain in his right toe, no fevers or chills, currently on antibiotics, revascularization report reviewed Hospitalist Physical - Physical exam Narrative exam: General appearance: no acute distress, well-nourished EENT: PERRL, EOM intact, hearing intact, clear oral mucosa Neck: Present: supple, normal ROM Respiratory: bilateral CTA, negative: rales, rhonchi, wheezing Cardiovascular: Regular rate/rhythm, Normal S1 & S2. No gallop, rub Extremities: Left BKA, right foot first toe with dorsal hallux ulceration, malodorous, decreased sensation Abdominal: soft, no tenderness, non-distended, normal bowel sounds Integumentary: Present: clear, warm, dry no wounds, no erythema noted Psychiatric: appropriate mood/affect, intact judgment & insight Neurologic: CNII-XII intact, moves all extremities, no sensory or motor abnormalities - Constitutional Vitals: Temp Pulse Resp BP Pulse Ox 99.6 F 93 H 20 108/72 99 12/25/20 04:36 12/25/20 04:36 12/25/20 04:36 12/25/20 04:36 12/25/20 04:36 Results - Labs CBC & Chem 7: 12/25/20 05:42 12/25/20 05:42 Labs: Laboratory Last Values WBC 9.3 K/mm3 (4.5-11.0) 12/25/20 05:42 RBC 3.38 M/mm3 (3.65-5.03) L 12/25/20 05:42 Hgb 8.8 gm/dl (11.8-15.2) L 12/25/20 05:42 Hct 26.8 % (35.5-45.6) L 12/25/20 05:42 MCV 79 fl (84-94) L 12/25/20 05:42 MCH 26 pg (28-32) L 12/25/20 05:42 MCHC 33 % (32-34) 12/25/20 05:42 RDW 13.6 % (13.2-15.2) 12/25/20 05:42 Plt Count 333 K/mm3 (140-440) 12/25/20 05:42 Lymph % (Auto) 14.3 % (13.4-35.0) 12/23/20 17:07 [place] % (Auto) 7.0 % (0.0-7.3) 12/23/20 17:07 Eos % (Auto) 1.4 % (0.0-4.3) 12/23/20 17:07 Baso % (Auto) 0.5 % (0.0-1.8) 12/23/20 17:07 Lymph # (Auto) 1.5 K/mm3 (1.2-5.4) 12/23/20 17:07 [place] # (Auto) 0.7 K/mm3 (0.0-0.8) 12/23/20 17:07 Eos # (Auto) 0.1 K/mm3 (0.0-0.4) 12/23/20 17:07 Baso # (Auto) 0.1 K/mm3 (0.0-0.1) 12/23/20 17:07 Add Manual Diff Complete 12/24/20 05:12 Total Counted 100 12/24/20 05:12 Seg Neutrophils % 76.8 % (40.0-70.0) H 12/23/20 17:07 Seg Neuts % (Manual) 75.0 % (40.0-70.0) H 12/24/20 05:12 Band Neutrophils % 1.0 % 12/24/20 05:12 Lymphocytes % (Manual) 10.0 % (13.4-35.0) L 12/24/20 05:12 Monocytes % (Manual) 5.0 % (0.0-7.3) 12/24/20 05:12 Eosinophils % (Manual) 9.0 % (0.0-4.3) H 12/24/20 05:12 Nucleated RBC % Not Reportable 12/24/20 05:12 Seg Neutrophils # 8.1 K/mm3 (1.8-7.7) H 12/23/20 17:07 Seg Neutrophils # Man 6.5 K/mm3 (1.8-7.7) 12/24/20 05:12 Band Neutrophils # 0.1 K/mm3 12/24/20 05:12 Lymphocytes # (Manual) 0.9 K/mm3 (1.2-5.4) L 12/24/20 05:12 Abs React Lymphs (Man) 0.0 K/mm3 12/24/20 05:12 Monocytes # (Manual) 0.4 K/mm3 (0.0-0.8) 12/24/20 05:12 Eosinophils # (Manual) 0.8 K/mm3 (0.0-0.4) H 12/24/20 05:12 Basophils # (Manual) 0.0 K/mm3 (0.0-0.1) 12/24/20 05:12 Metamyelocytes # 0.0 K/mm3 12/24/20 05:12 Myelocytes # 0.0 K/mm3 12/24/20 05:12 Promyelocytes # 0.0 K/mm3 12/24/20 05:12 Blast Cells # 0.0 K/mm3 12/24/20 05:12 WBC Morphology Not Reportable 12/24/20 05:12 Hypersegmented Neuts Not Reportable 12/24/20 05:12 Hyposegmented Neuts Not Reportable 12/24/20 05:12 Hypogranular Neuts Not Reportable 12/24/20 05:12 Smudge Cells Not Reportable 12/24/20 05:12 Toxic Granulation Not Reportable 12/24/20 05:12 Toxic Vacuolation Not Reportable 12/24/20 05:12 Dohle Bodies Not Reportable 12/24/20 05:12 Pelger-Huet Anomaly Not Reportable 12/24/20 05:12 Arlene Rods Not Reportable 12/24/20 05:12 Platelet Estimate Consistent w auto 12/24/20 05:12 Clumped Platelets Not Reportable 12/24/20 05:12 Plt Clumps, EDTA Not Reportable 12/24/20 05:12 Large Platelets Not Reportable 12/24/20 05:12 Giant Platelets Not Reportable 12/24/20 05:12 Platelet Satelliting Not Reportable 12/24/20 05:12 Plt Morphology Comment Not Reportable 12/24/20 05:12 RBC Morphology Not Reportable 12/24/20 05:12 Dimorphic RBCs Not Reportable 12/24/20 05:12 Polychromasia Not Reportable 12/24/20 05:12 Hypochromasia Not Reportable 12/24/20 05:12 Poikilocytosis Not Reportable 12/24/20 05:12 Anisocytosis 1+ 12/24/20 05:12 Microcytosis Not Reportable 12/24/20 05:12 Macrocytosis Not Reportable 12/24/20 05:12 Spherocytes Not Reportable 12/24/20 05:12 Pappenheimer Bodies Not Reportable 12/24/20 05:12 Sickle Cells Not Reportable 12/24/20 05:12 Target Cells Not Reportable 12/24/20 05:12 Tear Drop Cells Not Reportable 12/24/20 05:12 Ovalocytes Not Reportable 12/24/20 05:12 Helmet Cells Not Reportable 12/24/20 05:12 [place] Bodies Not Reportable 12/24/20 05:12 [place] Rings Not Reportable 12/24/20 05:12 [place] Cells Not Reportable 12/24/20 05:12 Bite Cells Not Reportable 12/24/20 05:12 Crenated Cell Not Reportable 12/24/20 05:12 Elliptocytes Not Reportable 12/24/20 05:12 Acanthocytes (Spur) Not Reportable 12/24/20 05:12 Rouleaux Not Reportable 12/24/20 05:12 Hemoglobin C Crystals Not Reportable 12/24/20 05:12 Schistocytes Not Reportable 12/24/20 05:12 Malaria parasites Not Reportable 12/24/20 05:12 Ramos Bodies Not Reportable 12/24/20 05:12 Hem Pathologist Commnt No 12/24/20 05:12 PT 15.1 Sec. (12.2-14.9) H 12/24/20 05:12 INR 1.13 (0.87-1.13) 12/24/20 05:12 Sodium 131 mmol/L (137-145) L 12/25/20 05:42 Potassium 5.0 mmol/L (3.6-5.0) 12/25/20 05:42 Chloride 96.9 mmol/L (98-107) L 12/25/20 05:42 Carbon Dioxide 17 mmol/L (22-30) L 12/25/20 05:42 Anion Gap 22 mmol/L 12/25/20 05:42 BUN 63 mg/dL (9-20) H 12/25/20 05:42 Creatinine 2.5 mg/dL (0.8-1.3) H 12/25/20 05:42 Estimated GFR 34 ml/min 12/25/20 05:42 BUN/Creatinine Ratio 25 % 12/25/20 05:42 Glucose 193 mg/dL (75-100) H 12/25/20 05:42 POC Glucose 214 mg/dL (70-105) H 12/25/20 11:29 Calcium 9.4 mg/dL (8.4-10.2) 12/25/20 05:42 Total Bilirubin 0.30 mg/dL (0.1-1.2) 12/23/20 17:07 AST 31 units/L (5-40) 12/23/20 17:07 ALT 33 units/L (7-56) 12/23/20 17:07 Alkaline Phosphatase 88 units/L (35-129) 12/23/20 17:07 Total Protein 8.1 g/dL (6.3-8.2) 12/23/20 17:07 Albumin 3.4 g/dL (3.9-5) L 12/23/20 17:07 Albumin/Globulin Ratio 0.7 % 12/23/20 17:07 Triglycerides 169 mg/dL (2-149) H 12/24/20 05:12 Cholesterol 152 mg/dL (50-199) 12/24/20 05:12 LDL Cholesterol Direct 90 mg/dL (50-130) 12/24/20 05:12 HDL Cholesterol 28 mg/dL (40-59) L 12/24/20 05:12 Cholesterol/HDL Ratio 5.42 % 12/24/20 05:12 Benedict/IV: Voiding Method Urinal Active Medications - Current Medications Current Medications: Generic Name Dose Route Start Last Admin Trade Name Freq PRN Reason Stop Dose Admin Acetaminophen 650 mg 12/23/20 22:33 Acetaminophen 325 Mg Tab PO Q4H PRN Pain MILD(1-3)/Fever >100.5/MIRANDA Aspirin 81 mg 12/25/20 10:00 Aspirin Ec 81 Mg Tab PO QDAY WILMER Dextrose 0 ml 12/23/20 22:33 Dextrose 50% In Water (25gm) 50 Ml Syringe IV Q30MIN PRN Hypoglycemia Protocol Sodium Chloride 1,000 mls @ 125 mls/hr 12/23/20 22:45 Nacl 0.9% 1000 Ml IV DIRECT WILMER Sodium Bicarbonate 150 meq/ 1,150 mls @ 150 mls/hr 12/25/20 11:00 Sterile Water IV 12/27/20 18:39 DIRECT WILMER Insulin Human Isoph/Insulin Regular 20 unit 12/24/20 17:00 12/24/20 17:50 Insulin Nph/Regular 70/30 Inj SUB-Q 20 unit BIDDIAB WILMER Administration Insulin Human Lispro 0 unit 12/24/20 07:30 12/24/20 21:44 Insulin Lispro 100 Unit/Ml SUB-Q 10 unit ACHS WILMER Administration Protocol Magnesium Hydroxide 30 ml 12/23/20 22:33 Magnesium Hydroxide (Mom) Oral Liqd Udc PO Q4H PRN Constipation Morphine Sulfate 2 mg 12/23/20 22:33 12/24/20 18:04 Morphine 2 Mg/1 Ml Inj IV 2 mg Q4H PRN Administration Pain, Moderate (4-6) Ondansetron HCl 4 mg 12/23/20 22:33 12/23/20 22:59 Ondansetron 4 Mg/2 Ml Inj IV 4 mg Q8H PRN Administration Nausea And Vomiting Sodium Bicarbonate 1,300 mg 12/24/20 14:00 12/24/20 21:18 Sodium Bicarbonate 650 Mg Tab PO 1,300 mg TID WILMER Administration Sodium Chloride 10 ml 12/24/20 10:00 12/24/20 21:18 Sodium Chloride 0.9% 10 Ml Flush Syringe IV 10 ml BID WILMER Administration Sodium Chloride 10 ml 12/23/20 22:33 Sodium Chloride 0.9% 10 Ml Flush Syringe IV PRN PRN LINE FLUSH Sodium Hypochlorite 1 applic 12/25/20 12:00 Sodium Hypochlorite, Dakin's 1/2 Strength (0.25%) 473 Ml Topical Soln TP BID WILMER Nutrition/Malnutrition Assess - Dietary Evaluation Nutrition/Malnutrition Findings: Nutrition Notes Start: 12/24/20 12:52 Freq: Status: Active Protocol: Document 12/25/20 12:31 (Rec: 12/25/20 12:34 [email or web address]) Nutrition Notes Initial or Follow up Brief Note Current Diagnosis CKD(stage I-IV),Diabetes Other Pertinent Diagnosis R foot wound Current Diet Cardiac, Consistent CHO Subjective/Other Information FU for diet education. Pt given DM education on past two visits. Pt has no questions and states no trouble managing his BG via diet. Pt accepted handout. Encouraged pt to review and ask any questions. Pt educated on need for protein to heal wounds and high BG decrease wound healing . Pt eating 75-100% of meals. Pt currently NPO for procedure. Nutrition Intervention Revisit per MD consult or patient Sign Off request:
[2020-12-25] MEDS: ASPIRIN EC 81 MG TAB PO SCH (15:00)
--- NOTE | 2020-12-25 15:45 | Progress Note ---
Assessment and Plan Assessment Acute kidney injury. Renal u/s negative for acute pathology. Hyponatremia Acidosis Osteomyelitis Recommendations No immediate indication for dialysis Start IV bicarb fluids Continue sodium bicarb tabs Monitor vanc levels Check labs daily Strict I/O Renally dose medications Avoid nephrotoxins Renal diet Subjective Date of service: 12/25/20 Principal diagnosis: Toe osteomyelitis Interval history: Notes toe pain. Acceptable urine output. Objective - Exam Narrative Exam: General: No acute distress HEENT: ATNC Neck: Supple, no JVD Chest: Clear to auscultation bilaterally Heart: RRR, S1 and S2, no pericardial rub Abdomen: Soft, nontender, no renal bruit Extremity: No peripheral cyanosis, left BKA, right big toe wound Neurological: Alert, awake, no asterixis Dermatology: No skin rash Psych: No agitation Musculoskeletal: No joint effusion - Vital Signs Vital signs: Vital Signs - 12hr 12/25/20 04:36 Temperature 99.6 F Pulse Rate 93 H Respiratory 20 Rate Blood Pressure 108/72 O2 Sat by Pulse 99 Oximetry - Lab 12/25/20 05:42 12/25/20 05:42 Most recent lab results Calcium 9.4 mg/dL (8.4-10.2) 12/25/20 05:42 Medications & Allergies - Medications Allergies/Adverse Reactions: Allergies No Known Allergies Allergy (Verified 12/23/20 17:00) Home Medications: Home Medications Medication Instructions Recorded Confirmed Last Taken Type Cholecalciferol (Vitamin D3) 50 mcg PO QWEEK 12/24/20 12/24/20 10/11/20 History [Vitamin D3] Fenofibrate [Tricor] 145 mg PO QDAY 12/24/20 12/24/20 12/23/20 History Gabapentin [Neurontin] 600 mg PO Q8H 12/24/20 12/24/20 12/23/20 History Insulin Degludec [Tresiba] 20 units SQ QHS 12/24/20 12/24/20 Unknown History Insulin NPH/Regular [NovoLIN 70/30] 30 unit SQ BIDAC 12/24/20 12/24/20 Unknown History Lisinopril/Hydrochlorothiazide 1 each PO DAILY 12/24/20 12/24/20 12/23/20 History [Zestoretic 10-12.5 mg Tablet] NIFEdipine [Nifedipine ER] 30 mg PO DAILY 06/12/24/20 12/23/20 History Active Medications: Generic Name Dose Route Start Last Admin Trade Name Freq PRN Reason Stop Dose Admin Acetaminophen 650 mg 12/23/20 22:33 Acetaminophen 325 Mg Tab PO Q4H PRN Pain MILD(1-3)/Fever >100.5/MIRANDA Aspirin 81 mg 12/25/20 10:00 Aspirin Ec 81 Mg Tab PO QDAY WILMER Dextrose 0 ml 12/23/20 22:33 Dextrose 50% In Water (25gm) 50 Ml Syringe IV Q30MIN PRN Hypoglycemia Protocol Sodium Bicarbonate 150 meq/ 1,150 mls @ 150 mls/hr 12/25/20 11:00 Sterile Water IV 12/27/20 18:39 DIRECT WILMER Insulin Human Isoph/Insulin Regular 30 unit 12/25/20 17:00 Insulin Nph/Regular 70/30 Inj SUB-Q BIDDIAB [facility] Insulin Human Lispro 0 unit 12/24/20 07:30 12/24/20 21:44 Insulin Lispro 100 Unit/Ml SUB-Q 10 unit ACHS [facility] Administration Protocol Magnesium Hydroxide 30 ml 12/23/20 22:33 Magnesium Hydroxide (Mom) Oral Liqd Udc PO Q4H PRN Constipation Morphine Sulfate 2 mg 12/23/20 22:33 12/24/20 18:04 Morphine 2 Mg/1 Ml Inj IV 2 mg Q4H PRN Administration Pain, Moderate (4-6) Ondansetron HCl 4 mg 12/23/20 22:33 12/23/20 22:59 Ondansetron 4 Mg/2 Ml Inj IV 4 mg Q8H PRN Administration Nausea And Vomiting Sodium Bicarbonate 1,300 mg 12/24/20 14:00 12/24/20 21:18 Sodium Bicarbonate 650 Mg Tab PO 1,300 mg TID WILMER Administration Sodium Chloride 10 ml 12/24/20 10:00 12/24/20 21:18 Sodium Chloride 0.9% 10 Ml Flush Syringe IV 10 ml BID WILMER Administration Sodium Chloride 10 ml 12/23/20 22:33 Sodium Chloride 0.9% 10 Ml Flush Syringe IV PRN PRN LINE FLUSH Sodium Hypochlorite 1 applic 12/25/20 12:00 Sodium Hypochlorite, Dakin's 1/2 Strength (0.25%) 473 Ml Topical Soln TP BID [facility]
[2020-12-25] MEDS: SODIUM HYPOCHLORITE, DAKIN'S 1/2 STRENGTH (0.25%) 473 ML TOPICAL SOLN TP SCH ×2 (18:23→22:57)
[2020-12-25] MEDS: INSULIN NPH/REGULAR 70/30 INJ SUB-Q SCH ×2 (18:23→22:58)
[2020-12-26 07:20] LABS: Hematocrit 26.3 % (35.5-45.6); Hemoglobin 8.7 gm/dl (11.8-15.2); Mean Corpuscular HGB Conc 33 % (32-34); Mean Corpuscular Volume 79 fl (84-94); Platelet Count 355 K/mm3 (140-440); Red Blood Count 3.34 M/mm3 (3.65-5.03); Red Cell Distribution Width 13.6 % (13.2-15.2)
[2020-12-26 07:39] LABS: Calcium 9.7 mg/dL (8.4-10.2)
[2020-12-26] MEDS ORDERED: VANCOMYCIN 1,500 MG in SODIUM CHLORIDE 0.9% 500 ML 500 ML IV SCH (10:00)
--- NOTE | 2020-12-26 10:22 | Progress Note ---
Assessment and Plan Assessment and plan: Assessment: 45-year-old -[place] male with a past medical history of diabetes mellitus type 2 who presents with right foot first toe diabetic ulceration. Work-up so far shows osteomyelitis, currently on antibiotics. Diabetic foot ulcer with osteomyelitis Current Visit: Yes Status: Acute Plan to address problem: Patient commenced on empiric IV antibiotics. Wound cultures Infectious disease managing antibiotics Surgical intervention/amputation versus 6 weeks of antibiotics, patient states that he would like to proceed with surgery/amputation Acute on chronic kidney failure Current Visit: Yes Status: Acute Plan to address problem: We will request evaluation by nephrology. We will monitor BUN and creatinine. Diabetes mellitus Current Visit: No Status: Acute Plan to address problem: We will place patient on sliding scale insulin and monitor Accu-Cheks closely. Acute metabolic acidosis Nephrology consulted Patient currently on bicarb History of left BKA No intervention at this time DVT prophylaxis Current Visit: Yes Status: Acute Plan to address problem: Patient placed on subcutaneous heparin. Full code status Current Visit: No Status: Acute Plan to address problem: Patient is full code. History Interval history: 12/24: Due to poor healing wound we will ask vascular to evaluate the patient in addition to continue management for osteomyelitis. Will adjust insulin management for better control. Counseling provided to the patient patient was rounded on with case management. Also continue to monitor for metabolic acidosis and and anticipate improvement. 12/25: Patient with mild pain in his right toe, no fevers or chills, currently on antibiotics, revascularization report reviewed 12/26: Patient seen and examined, no overnight events, pain controlled. Patient states that he would like to have surgery Hospitalist Physical - Physical exam Narrative exam: General appearance: no acute distress, well-nourished EENT: PERRL, EOM intact, hearing intact, clear oral mucosa Neck: Present: supple, normal ROM Respiratory: bilateral CTA, negative: rales, rhonchi, wheezing Cardiovascular: Regular rate/rhythm, Normal S1 & S2. No gallop, rub Extremities: Left BKA, first toe of right foot with ulceration on the dorsal aspect Abdominal: soft, no tenderness, non-distended, normal bowel sounds Integumentary: Present: clear, warm, dry no wounds, no erythema noted Psychiatric: appropriate mood/affect, intact judgment & insight Neurologic: CNII-XII intact, moves all extremities, no sensory or motor abnormalities - Constitutional Vitals: Temp Pulse Resp BP Pulse Ox 99.7 F H 92 H 20 129/82 98 12/26/20 06:34 12/26/20 06:34 12/26/20 06:34 12/26/20 06:34 12/26/20 06:34 General appearance: Present: no acute distress Results - Labs CBC & Chem 7: 12/26/20 06:41 12/26/20 06:41 Labs: Laboratory Last Values WBC 9.0 K/mm3 (4.5-11.0) 12/26/20 06:41 RBC 3.34 M/mm3 (3.65-5.03) L 12/26/20 06:41 Hgb 8.7 gm/dl (11.8-15.2) L 12/26/20 06:41 Hct 26.3 % (35.5-45.6) L 12/26/20 06:41 MCV 79 fl (84-94) L 12/26/20 06:41 MCH 26 pg (28-32) L 12/26/20 06:41 MCHC 33 % (32-34) 12/26/20 06:41 RDW 13.6 % (13.2-15.2) 12/26/20 06:41 Plt Count 355 K/mm3 (140-440) 12/26/20 06:41 Lymph % (Auto) 14.3 % (13.4-35.0) 12/23/20 17:07 [place] % (Auto) 7.0 % (0.0-7.3) 12/23/20 17:07 Eos % (Auto) 1.4 % (0.0-4.3) 12/23/20 17:07 Baso % (Auto) 0.5 % (0.0-1.8) 12/23/20 17:07 Lymph # (Auto) 1.5 K/mm3 (1.2-5.4) 12/23/20 17:07 [place] # (Auto) 0.7 K/mm3 (0.0-0.8) 12/23/20 17:07 Eos # (Auto) 0.1 K/mm3 (0.0-0.4) 12/23/20 17:07 Baso # (Auto) 0.1 K/mm3 (0.0-0.1) 12/23/20 17:07 Add Manual Diff Complete 12/24/20 05:12 Total Counted 100 12/24/20 05:12 Seg Neutrophils % 76.8 % (40.0-70.0) H 12/23/20 17:07 Seg Neuts % (Manual) 75.0 % (40.0-70.0) H 12/24/20 05:12 Band Neutrophils % 1.0 % 12/24/20 05:12 Lymphocytes % (Manual) 10.0 % (13.4-35.0) L 12/24/20 05:12 Monocytes % (Manual) 5.0 % (0.0-7.3) 12/24/20 05:12 Eosinophils % (Manual) 9.0 % (0.0-4.3) H 12/24/20 05:12 Nucleated RBC % Not Reportable 12/24/20 05:12 Seg Neutrophils # 8.1 K/mm3 (1.8-7.7) H 12/23/20 17:07 Seg Neutrophils # Man 6.5 K/mm3 (1.8-7.7) 12/24/20 05:12 Band Neutrophils # 0.1 K/mm3 12/24/20 05:12 Lymphocytes # (Manual) 0.9 K/mm3 (1.2-5.4) L 12/24/20 05:12 Abs React Lymphs (Man) 0.0 K/mm3 12/24/20 05:12 Monocytes # (Manual) 0.4 K/mm3 (0.0-0.8) 12/24/20 05:12 Eosinophils # (Manual) 0.8 K/mm3 (0.0-0.4) H 12/24/20 05:12 Basophils # (Manual) 0.0 K/mm3 (0.0-0.1) 12/24/20 05:12 Metamyelocytes # 0.0 K/mm3 12/24/20 05:12 Myelocytes # 0.0 K/mm3 12/24/20 05:12 Promyelocytes # 0.0 K/mm3 12/24/20 05:12 Blast Cells # 0.0 K/mm3 12/24/20 05:12 WBC Morphology Not Reportable 12/24/20 05:12 Hypersegmented Neuts Not Reportable 12/24/20 05:12 Hyposegmented Neuts Not Reportable 12/24/20 05:12 Hypogranular Neuts Not Reportable 12/24/20 05:12 Smudge Cells Not Reportable 12/24/20 05:12 Toxic Granulation Not Reportable 12/24/20 05:12 Toxic Vacuolation Not Reportable 12/24/20 05:12 Dohle Bodies Not Reportable 12/24/20 05:12 Pelger-Huet Anomaly Not Reportable 12/24/20 05:12 Arlene Rods Not Reportable 12/24/20 05:12 Platelet Estimate Consistent w auto 12/24/20 05:12 Clumped Platelets Not Reportable 12/24/20 05:12 Plt Clumps, EDTA Not Reportable 12/24/20 05:12 Large Platelets Not Reportable 12/24/20 05:12 Giant Platelets Not Reportable 12/24/20 05:12 Platelet Satelliting Not Reportable 12/24/20 05:12 Plt Morphology Comment Not Reportable 12/24/20 05:12 RBC Morphology Not Reportable 12/24/20 05:12 Dimorphic RBCs Not Reportable 12/24/20 05:12 Polychromasia Not Reportable 12/24/20 05:12 Hypochromasia Not Reportable 12/24/20 05:12 Poikilocytosis Not Reportable 12/24/20 05:12 Anisocytosis 1+ 12/24/20 05:12 Microcytosis Not Reportable 12/24/20 05:12 Macrocytosis Not Reportable 12/24/20 05:12 Spherocytes Not Reportable 12/24/20 05:12 Pappenheimer Bodies Not Reportable 12/24/20 05:12 Sickle Cells Not Reportable 12/24/20 05:12 Target Cells Not Reportable 12/24/20 05:12 Tear Drop Cells Not Reportable 12/24/20 05:12 Ovalocytes Not Reportable 12/24/20 05:12 Helmet Cells Not Reportable 12/24/20 05:12 [place] Bodies Not Reportable 12/24/20 05:12 [place] Rings Not Reportable 12/24/20 05:12 Negra Cells Not Reportable 12/24/20 05:12 Bite Cells Not Reportable 12/24/20 05:12 Crenated Cell Not Reportable 12/24/20 05:12 Elliptocytes Not Reportable 12/24/20 05:12 Acanthocytes (Spur) Not Reportable 12/24/20 05:12 Rouleaux Not Reportable 12/24/20 05:12 Hemoglobin C Crystals Not Reportable 12/24/20 05:12 Schistocytes Not Reportable 12/24/20 05:12 Malaria parasites Not Reportable 12/24/20 05:12 Ramos Bodies Not Reportable 12/24/20 05:12 Hem Pathologist Commnt No 12/24/20 05:12 PT 15.1 Sec. (12.2-14.9) H 12/24/20 05:12 INR 1.13 (0.87-1.13) 12/24/20 05:12 Sodium 134 mmol/L (137-145) L 12/26/20 06:41 Potassium 4.2 mmol/L (3.6-5.0) 12/26/20 06:41 Chloride 96.4 mmol/L (98-107) L 12/26/20 06:41 Carbon Dioxide 21 mmol/L (22-30) L 12/26/20 06:41 Anion Gap 21 mmol/L 12/26/20 06:41 BUN 54 mg/dL (9-20) H 12/26/20 06:41 Creatinine 1.6 mg/dL (0.8-1.3) H 12/26/20 06:41 Estimated GFR 56 ml/min 12/26/20 06:41 BUN/Creatinine Ratio 34 % 12/26/20 06:41 Glucose 125 mg/dL (75-100) H 12/26/20 06:41 POC Glucose 130 mg/dL (70-105) H 12/26/20 08:07 Hemoglobin A1c 14.9 % (4-6) H 12/26/20 06:41 Calcium 9.7 mg/dL (8.4-10.2) 12/26/20 06:41 Total Bilirubin 0.30 mg/dL (0.1-1.2) 12/23/20 17:07 AST 31 units/L (5-40) 12/23/20 17:07 ALT 33 units/L (7-56) 12/23/20 17:07 Alkaline Phosphatase 88 units/L (35-129) 12/23/20 17:07 Total Protein 8.1 g/dL (6.3-8.2) 12/23/20 17:07 Albumin 3.4 g/dL (3.9-5) L 12/23/20 17:07 Albumin/Globulin Ratio 0.7 % 12/23/20 17:07 Triglycerides 169 mg/dL (2-149) H 12/24/20 05:12 Cholesterol 152 mg/dL (50-199) 12/24/20 05:12 LDL Cholesterol Direct 90 mg/dL (50-130) 12/24/20 05:12 HDL Cholesterol 28 mg/dL (40-59) L 12/24/20 05:12 Cholesterol/HDL Ratio 5.42 % 12/24/20 05:12 Random Vancomycin 7.2 ug/mL (0-40.0) 12/26/20 06:41 Benedict/IV: Voiding Method Urinal Active Medications - Current Medications Current Medications: Generic Name Dose Route Start Last Admin Trade Name Freq PRN Reason Stop Dose Admin Acetaminophen 650 mg 12/23/20 22:33 Acetaminophen 325 Mg Tab PO Q4H PRN Pain MILD(1-3)/Fever >100.5/MIRANDA Aspirin 81 mg 12/25/20 10:00 12/25/20 15:00 Aspirin Ec 81 Mg Tab PO 81 mg QDAY WILMER Administration Dextrose 0 ml 12/23/20 22:33 Dextrose 50% In Water (25gm) 50 Ml Syringe IV Q30MIN PRN Hypoglycemia Protocol Sodium Bicarbonate 150 meq/ 1,150 mls @ 150 mls/hr 12/25/20 11:00 12/25/20 21:38 Sterile Water IV 12/27/20 18:39 Infused DIRECT WILMER Infusion Vancomycin HCl 1,500 mg/ 530 mls @ 333.333 mls/hr 12/26/20 10:00 Sodium Chloride IV Q24HR WILMER Insulin Human Isoph/Insulin Regular 30 unit 12/25/20 17:00 12/25/20 18:23 Insulin Nph/Regular 70/30 Inj SUB-Q 30 unit BIDDIAB WILMER Administration Insulin Human Lispro 0 unit 12/24/20 07:30 12/25/20 22:29 Insulin Lispro 100 Unit/Ml SUB-Q 3 unit ACHS WILMER Administration Protocol Magnesium Hydroxide 30 ml 12/23/20 22:33 Magnesium Hydroxide (Mom) Oral Liqd Udc PO Q4H PRN Constipation Morphine Sulfate 2 mg 12/23/20 22:33 12/24/20 18:04 Morphine 2 Mg/1 Ml Inj IV 2 mg Q4H PRN Administration Pain, Moderate (4-6) Ondansetron HCl 4 mg 12/23/20 22:33 12/23/20 22:59 Ondansetron 4 Mg/2 Ml Inj IV 4 mg Q8H PRN Administration Nausea And Vomiting Oxycodone/Acetaminophen 2 tab 12/26/20 08:40 Oxycodone /Acetaminophen 5-325mg Tab PO Q6H PRN Pain, Moderate (4-6) Sodium Bicarbonate 1,300 mg 12/24/20 14:00 12/25/20 21:40 Sodium Bicarbonate 650 Mg Tab PO 1,300 mg TID WILMER Administration Sodium Chloride 10 ml 12/24/20 10:00 12/25/20 21:41 Sodium Chloride 0.9% 10 Ml Flush Syringe IV 10 ml BID WILMER Administration Sodium Chloride 10 ml 12/23/20 22:33 Sodium Chloride 0.9% 10 Ml Flush Syringe IV PRN PRN LINE FLUSH Sodium Hypochlorite 1 applic 12/25/20 12:00 12/25/20 22:57 Sodium Hypochlorite, Dakin's 1/2 Strength (0.25%) 473 Ml Topical Soln TP 1 1000units BID WILMER Administration Nutrition/Malnutrition Assess - Dietary Evaluation Nutrition/Malnutrition Findings: Nutrition Notes Start: 12/24/20 12:52 Freq: Status: Active Protocol: Document 12/25/20 12:31 (Rec: 12/25/20 12:34 [email or web address]) Nutrition Notes Initial or Follow up Brief Note Current Diagnosis CKD(stage I-IV),Diabetes Other Pertinent Diagnosis R foot wound Current Diet Cardiac, Consistent CHO Subjective/Other Information FU for diet education. Pt given DM education on past two visits. Pt has no questions and states no trouble managing his BG via diet. Pt accepted handout. Encouraged pt to review and ask any questions. Pt educated on need for protein to heal wounds and high BG decrease wound healing . Pt eating 75-100% of meals. Pt currently NPO for procedure. Nutrition Intervention Revisit per MD consult or patient Sign Off request:
[2020-12-26] MEDS: INSULIN LISPRO 100 UNIT/ML SUB-Q SCH ×4 (10:26→21:45)
[2020-12-26] MEDS: SODIUM BICARBONATE 650 MG TAB PO SCH ×3 (10:27→19:48)
[2020-12-26] MEDS: INSULIN NPH/REGULAR 70/30 INJ SUB-Q SCH (10:27)
[2020-12-26] MEDS: ASPIRIN EC 81 MG TAB PO SCH (10:27)
[2020-12-26] MEDS: SODIUM BICARBONATE 150 MEQ in WATER FOR INJECTION (PF) 1,000 ML IV SCH (10:33)
--- NOTE | 2020-12-26 10:48 | Consultation ---
History of Present Illness Consult date: 12/26/20 Chief complaint: Right great toe DFU with osteomyelitis - History of present illness History of present illness: 45 yo male with right great toe ulcer and osteomyelitis on MRI. Past History Past Medical History: diabetes, GERD, hypertension Past Surgical History: Other (Surgery on appendix or Pancreas 2005. LEFT FOOT AMPUTATED. Left BKA) Social history: no significant social history Family history: no significant family history Medications and Allergies Allergies Allergy/AdvReac Type Severity Reaction Status Date / Time No Known Allergies Allergy Verified 12/23/20 17:00 Home Medications Medication Instructions Recorded Confirmed Last Taken Type Cholecalciferol (Vitamin D3) 50 mcg PO QWEEK 12/24/20 12/24/20 10/11/20 History [Vitamin D3] Fenofibrate [Tricor] 145 mg PO QDAY 12/24/20 12/24/20 12/23/20 History Gabapentin [Neurontin] 600 mg PO Q8H 12/24/20 12/24/20 12/23/20 History Insulin Degludec [Tresiba] 20 units SQ QHS 12/24/20 12/24/20 Unknown History Insulin NPH/Regular [NovoLIN 70/30] 30 unit SQ BIDAC 12/24/20 12/24/20 Unknown History Lisinopril/Hydrochlorothiazide 1 each PO DAILY 12/24/20 12/24/20 12/23/20 History [Zestoretic 10-12.5 mg Tablet] NIFEdipine [Nifedipine ER] 30 mg PO DAILY 12/24/20 12/24/20 12/23/20 History Active Meds: Active Medications Acetaminophen (Acetaminophen 325 Mg Tab) 650 mg PO Q4H PRN PRN Reason: Pain MILD(1-3)/Fever >100.5/MIRANDA Aspirin (Aspirin Ec 81 Mg Tab) 81 mg PO QDAY WILMER Last Admin: 12/26/20 10:27 Dose: 81 mg Documented by: Dextrose (Dextrose 50% In Water (25gm) 50 Ml Syringe) 0 ml IV Q30MIN PRN; Protocol PRN Reason: Hypoglycemia Sodium Bicarbonate 150 meq/ (Sterile Water) 1,150 mls @ 150 mls/hr IV DIRECT WILMER Stop: 12/27/20 18:39 Last Infusion: 12/25/20 21:38 Dose: Infused Documented by: Vancomycin HCl 1,500 mg/ (Sodium Chloride) 530 mls @ 333.333 mls/hr IV Q24HR [facility] Insulin Human Isoph/Insulin Regular (Insulin Nph/Regular 70/30 Inj) 30 unit SUB-Q BIDDIAB [facility] Last Admin: 12/26/20 10:27 Dose: Not Given Documented by: Insulin Human Lispro (Insulin Lispro 100 Unit/Ml) 0 unit SUB-Q ACHS [facility]; Protocol Last Admin: 12/26/20 10:26 Dose: Not Given Documented by: Magnesium Hydroxide (Magnesium Hydroxide (Mom) Oral Liqd Udc) 30 ml PO Q4H PRN PRN Reason: Constipation Morphine Sulfate (Morphine 2 Mg/1 Ml Inj) 2 mg IV Q4H PRN PRN Reason: Pain, Moderate (4-6) Last Admin: 12/24/20 18:04 Dose: 2 mg Documented by: Ondansetron HCl (Ondansetron 4 Mg/2 Ml Inj) 4 mg IV Q8H PRN PRN Reason: Nausea And Vomiting Last Admin: 12/23/20 22:59 Dose: 4 mg Documented by: Oxycodone/Acetaminophen (Oxycodone /Acetaminophen 5-325mg Tab) 2 tab PO Q6H PRN PRN Reason: Pain, Moderate (4-6) Sodium Bicarbonate (Sodium Bicarbonate 650 Mg Tab) 1,300 mg PO TID [facility] Last Admin: 12/26/20 10:27 Dose: 1,300 mg Documented by: Sodium Chloride (Sodium Chloride 0.9% 10 Ml Flush Syringe) 10 ml IV BID [facility] Last Admin: 12/26/20 10:29 Dose: 10 ml Documented by: Sodium Chloride (Sodium Chloride 0.9% 10 Ml Flush Syringe) 10 ml IV PRN PRN PRN Reason: LINE FLUSH Sodium Hypochlorite (Sodium Hypochlorite, Dakin's 1/2 Strength (0.25%) 473 Ml Topical Soln) 1 applic TP BID [facility] Last Admin: 12/25/20 22:57 Dose: 1 1000units Documented by: Review of Systems All systems: negative (none) Exam Vital Signs Temp Pulse Resp BP Pulse Ox 98.4 F 96 H 13 120/78 100 12/23/20 16:58 12/23/20 16:58 12/23/20 16:58 12/23/20 16:58 06/13/21 16:58 - General physical appearance Positive: well developed, well nourished, no distress - Eyes Positive: PERRL, normal occular movement - ENT Positive: normal pinna, normal nares, normal mucosa, no hearing loss, no congestion - Neck Positive: no masses, no bruits, trachea midline, no venous distension - Respiratory Positive: normal expansion, normal respiratory effort, clear to auscultation - Cardiovascular Rhythm: regular Heart Sounds: Present: S1 & S2. Absent: rub, click - Extremities Extremities: no ischemia, pulses symmetrical, No edema - Breasts Breasts: normal, no mass, no skin changes - Abdomen Abdomen: Present: soft, bowel sounds normal. Absent: tender, distended Hernia: none - Genitourinary Male Genitourinary: normal Female Genitourinary: normal - Integumentary no rash, no growths, no abnormal pigmentation, other (See wound care nurse photographs.) - Neurologic Neurologic: alert and oriented to time, place and person, motor strength and sensation are grossly intact - Musculoskeletal normal gait, normal posture - Psychiatric Psychiatric: appropriate mood/affect, intact judgment & insight Results - Labs 12/26/20 06:41 12/26/20 06:41 Abnormal lab results 12/25/20 12/25/20 12/25/20 Range/Units 11:29 16:47 22:08 RBC (3.65-5.03) M/mm3 Hgb (11.8-15.2) gm/dl Hct (35.5-45.6) % MCV (84-94) fl MCH (28-32) pg Sodium (137-145) mmol/L Chloride (98-107) mmol/L Carbon Dioxide (22-30) mmol/L BUN (9-20) mg/dL Creatinine (0.8-1.3) mg/dL Glucose (75-100) mg/dL POC Glucose 214 H 226 H 217 H (70-105) mg/dL Hemoglobin A1c (4-6) % 12/26/20 12/26/20 12/26/20 Range/Units 06:41 06:41 06:41 RBC 3.34 L (3.65-5.03) M/mm3 Hgb 8.7 L (11.8-15.2) gm/dl Hct 26.3 L (35.5-45.6) % MCV 79 L (84-94) fl MCH 26 L (28-32) pg Sodium 134 L (137-145) mmol/L Chloride 96.4 L (98-107) mmol/L Carbon Dioxide 21 L (22-30) mmol/L BUN 54 H (9-20) mg/dL Creatinine 1.6 H (0.8-1.3) mg/dL Glucose 125 H (75-100) mg/dL POC Glucose (70-105) mg/dL Hemoglobin A1c 14.9 H (4-6) % 12/26/20 Range/Units 08:07 RBC (3.65-5.03) M/mm3 Hgb (11.8-15.2) gm/dl Hct (35.5-45.6) % MCV (84-94) fl MCH (28-32) pg Sodium (137-145) mmol/L Chloride (98-107) mmol/L Carbon Dioxide (22-30) mmol/L BUN (9-20) mg/dL Creatinine (0.8-1.3) mg/dL Glucose (75-100) mg/dL POC Glucose 130 H (70-105) mg/dL Hemoglobin A1c (4-6) % Diabetes panel 12/26/20 12/26/20 Range/Units 06:41 06:41 Sodium 134 L (137-145) mmol/L Potassium 4.2 (3.6-5.0) mmol/L Chloride 96.4 L (98-107) mmol/L Carbon Dioxide 21 L (22-30) mmol/L BUN 54 H (9-20) mg/dL Creatinine 1.6 H (0.8-1.3) mg/dL Glucose 125 H (75-100) mg/dL Hemoglobin A1c 14.9 H (4-6) % Calcium 9.7 (8.4-10.2) mg/dL Calcium panel 12/26/20 Range/Units 06:41 Calcium 9.7 (8.4-10.2) mg/dL Pituitary panel 12/26/20 Range/Units 06:41 Sodium 134 L (137-145) mmol/L Potassium 4.2 (3.6-5.0) mmol/L Chloride 96.4 L (98-107) mmol/L Carbon Dioxide 21 L (22-30) mmol/L BUN 54 H (9-20) mg/dL Creatinine 1.6 H (0.8-1.3) mg/dL Glucose 125 H (75-100) mg/dL Calcium 9.7 (8.4-10.2) mg/dL Adrenal panel 12/26/20 Range/Units 06:41 Sodium 134 L (137-145) mmol/L Potassium 4.2 (3.6-5.0) mmol/L Chloride 96.4 L (98-107) mmol/L Carbon Dioxide 21 L (22-30) mmol/L BUN 54 H (9-20) mg/dL Creatinine 1.6 H (0.8-1.3) mg/dL Glucose 125 H (75-100) mg/dL Calcium 9.7 (8.4-10.2) mg/dL - Imaging Additional studies: MRI of right foot reviewed. Dr. Minor's notes reviewed. Assessment and Plan - Patient Problems (1) Osteomyelitis due to type 2 diabetes mellitus Current Visit: Yes Status: Acute Plan to address problem: 1) Discussed options with pt including 6 weeks of IV antibiotics +HBOT vs right great toe amputation. Pt does not want to consider toe amputation. He is aware that non-operative therapy may fail. Pt desires to proceed with IV antibiotic therapy only.
[2020-12-26] MEDS: SODIUM HYPOCHLORITE, DAKIN'S 1/2 STRENGTH (0.25%) 473 ML TOPICAL SOLN TP SCH ×2 (10:56→21:47)
--- NOTE | 2020-12-26 13:19 | Progress Note ---
Assessment and Plan Assessment Acute kidney injury. Renal u/s negative for acute pathology. Hyponatremia Acidosis Osteomyelitis Recommendations No immediate indication for dialysis Continue IV bicarb fluids Continue sodium bicarb tabs Monitor vanc levels Check labs daily Strict I/O Renally dose medications Avoid nephrotoxins Renal diet Subjective Date of service: 12/26/20 Principal diagnosis: Toe osteomyelitis Interval history: Refusing amputation. Objective - Exam Narrative Exam: General: No acute distress HEENT: ATNC Neck: Supple, no JVD Chest: Clear to auscultation bilaterally Heart: RRR, S1 and S2, no pericardial rub Abdomen: Soft, nontender, no renal bruit Extremity: No peripheral cyanosis, left BKA, right big toe wound Neurological: Alert, awake, no asterixis Dermatology: No skin rash Psych: No agitation Musculoskeletal: No joint effusion - Vital Signs Vital signs: Vital Signs - 12hr 12/26/20 06:34 Temperature 99.7 F H Pulse Rate 92 H Respiratory 20 Rate Blood Pressure 129/82 O2 Sat by Pulse 98 Oximetry - Lab 12/26/20 06:41 12/26/20 06:41 Most recent lab results Calcium 9.7 mg/dL (8.4-10.2) 12/26/20 06:41 Medications & Allergies - Medications Allergies/Adverse Reactions: Allergies No Known Allergies Allergy (Verified 12/23/20 17:00) Home Medications: Home Medications Medication Instructions Recorded Confirmed Last Taken Type Cholecalciferol (Vitamin D3) 50 mcg PO QWEEK 12/24/20 12/24/20 10/11/20 History [Vitamin D3] Fenofibrate [Tricor] 145 mg PO QDAY 12/24/20 12/24/20 12/23/20 History Gabapentin [Neurontin] 600 mg PO Q8H 12/24/20 12/24/20 12/23/20 History Insulin Degludec [Tresiba] 20 units SQ QHS 12/24/20 12/24/20 Unknown History Insulin NPH/Regular [NovoLIN 70/30] 30 unit SQ BIDAC 12/24/20 12/24/20 Unknown History Lisinopril/Hydrochlorothiazide 1 each PO DAILY 12/24/20 12/24/20 12/23/20 History [Zestoretic 10-12.5 mg Tablet] NIFEdipine [Nifedipine ER] 30 mg PO DAILY 12/24/20 12/24/20 12/23/20 History Active Medications: Generic Name Dose Route Start Last Admin Trade Name Freq PRN Reason Stop Dose Admin Acetaminophen 650 mg 12/23/20 22:33 Acetaminophen 325 Mg Tab PO Q4H PRN Pain MILD(1-3)/Fever >100.5/MIRANDA Aspirin 81 mg 12/25/20 10:00 12/26/20 10:27 Aspirin Ec 81 Mg Tab PO 81 mg QDAY WILMER Administration Dextrose 0 ml 12/23/20 22:33 Dextrose 50% In Water (25gm) 50 Ml Syringe IV Q30MIN PRN Hypoglycemia Protocol Sodium Bicarbonate 150 meq/ 1,150 mls @ 150 mls/hr 12/25/20 11:00 12/26/20 10:33 Sterile Water IV 12/27/20 18:39 150 mls/hr DIRECT WILMER Administration Vancomycin HCl 1,500 mg/ 530 mls @ 333.333 mls/hr 12/26/20 10:00 12/26/20 10:33 Sodium Chloride IV 333.333 mls/hr Q24HR WILMER Administration Insulin Human Isoph/Insulin Regular 30 unit 12/25/20 17:00 12/26/20 10:27 Insulin Nph/Regular 70/30 Inj SUB-Q Not Given BIDDIAB WILMER Insulin Human Lispro 0 unit 12/24/20 07:30 12/26/20 12:20 Insulin Lispro 100 Unit/Ml SUB-Q Not Given ACHS [facility] Protocol Magnesium Hydroxide 30 ml 12/23/20 22:33 Magnesium Hydroxide (Mom) Oral Liqd Udc PO Q4H PRN Constipation Morphine Sulfate 2 mg 12/23/20 22:33 12/24/20 18:04 Morphine 2 Mg/1 Ml Inj IV 2 mg Q4H PRN Administration Pain, Moderate (4-6) Ondansetron HCl 4 mg 12/23/20 22:33 12/23/20 22:59 Ondansetron 4 Mg/2 Ml Inj IV 4 mg Q8H PRN Administration Nausea And Vomiting Oxycodone/Acetaminophen 2 tab 12/26/20 08:40 Oxycodone /Acetaminophen 5-325mg Tab PO Q6H PRN Pain, Moderate (4-6) Sodium Bicarbonate 1,300 mg 12/24/20 14:00 12/26/20 10:27 Sodium Bicarbonate 650 Mg Tab PO 1,300 mg TID WILMER Administration Sodium Chloride 10 ml 12/24/20 10:00 12/26/20 10:29 Sodium Chloride 0.9% 10 Ml Flush Syringe IV 10 ml BID WILMER Administration Sodium Chloride 10 ml 12/23/20 22:33 Sodium Chloride 0.9% 10 Ml Flush Syringe IV PRN PRN LINE FLUSH Sodium Hypochlorite 1 applic 12/25/20 12:00 12/26/20 10:56 Sodium Hypochlorite, Dakin's 1/2 Strength (0.25%) 473 Ml Topical Soln TP Not Given BID WILMER
--- NOTE | 2020-12-26 14:11 | Progress Note ---
Assessment and Plan Cultures: None A/P: 45-year-old man past medical history diabetes, left BKA admitted with right toe ulcer and probable osteomyelitis. #Right great toe ulcer with osteomyelitis: As seen on MRI. Likely secondary to his diabetes. Await surgical opinion regarding possible amputation. #Diabetes: tight glycemic control for best outcomes. #History of left BKA: Secondary to osteomyelitis, cultures from the blood at that time grew strep sanguinous Recs: -refusing amputation, will do PICC + antibiotics, will base on previous cultures of S anginosus -Case management consulted for ceftriaxone 2g q24h until 02/04/2021 -changed inpatient therapy to ceftriaxone today -Orderd CRP for baseline -May still need amputation in the future. -wound care of the ulcer Thank you for the consult, we will continue to follow. Mahsa Dupree MD [facility] ([facility]) O: [phone] F: [phone] Subjective Date of service: 12/26/20 Principal diagnosis: Toe osteomyelitis Interval history: Afebrile, normal white count. Refusing amputation. Objective - Exam Narrative Exam: Physical Exam: Constitutional: Alert, cooperative. No acute distress Head, Ears, Nose: Normocephalic, atraumatic. Eyes: Conjunctivae/corneas clear. No icterus. No ptosis. Neck: Supple, no meningeal signs Oral: dentition fair, no thrush Cardiovascular: S1, S2 normal. Respiratory: Good air entry, clear to auscultation bilaterally GI: Soft, non-tender; bowel sounds normal. No peritoneal signs. Musculoskeletal: L BKA, r great toe with ulcer Skin: No rash or abscess Hem/Lymphatic: No palpable cervical or supraclavicular nodes. No lymphangitis Psych: Mood ok. Affect normal Neurological: Awake, alert, oriented. No gross abnormality - Constitutional Vitals: Vital Signs Temp Pulse Resp BP Pulse Ox 98.9 F 91 H 20 143/83 95 12/26/20 12:49 12/26/20 12:49 12/26/20 12:49 12/26/20 12:49 12/26/20 12:49 Temperature -Last 24 Hours Temperature 98.9 F Temperature 99.7 F Temperature 99.7 F - Labs CBC & Chem 7: 12/26/20 06:41 12/26/20 06:41 Labs: Abnormal lab results 12/25/20 12/25/20 12/26/20 Range/Units 16:47 22:08 06:41 RBC 3.34 L (3.65-5.03) M/mm3 Hgb 8.7 L (11.8-15.2) gm/dl Hct 26.3 L (35.5-45.6) % MCV 79 L (84-94) fl MCH 26 L (28-32) pg Sodium (137-145) mmol/L Chloride (98-107) mmol/L Carbon Dioxide (22-30) mmol/L BUN (9-20) mg/dL Creatinine (0.8-1.3) mg/dL Glucose (75-100) mg/dL POC Glucose 226 H 217 H (70-105) mg/dL Hemoglobin A1c (4-6) % 12/26/20 12/26/20 12/26/20 Range/Units 06:41 06:41 08:07 RBC (3.65-5.03) M/mm3 Hgb (11.8-15.2) gm/dl Hct (35.5-45.6) % MCV (84-94) fl MCH (28-32) pg Sodium 134 L (137-145) mmol/L Chloride 96.4 L (98-107) mmol/L Carbon Dioxide 21 L (22-30) mmol/L BUN 54 H (9-20) mg/dL Creatinine 1.6 H (0.8-1.3) mg/dL Glucose 125 H (75-100) mg/dL POC Glucose 130 H (70-105) mg/dL Hemoglobin A1c 14.9 H (4-6) % 12/26/20 Range/Units 12:18 RBC (3.65-5.03) M/mm3 Hgb (11.8-15.2) gm/dl Hct (35.5-45.6) % MCV (84-94) fl MCH (28-32) pg Sodium (137-145) mmol/L Chloride (98-107) mmol/L Carbon Dioxide (22-30) mmol/L BUN (9-20) mg/dL Creatinine (0.8-1.3) mg/dL Glucose (75-100) mg/dL POC Glucose 227 H (70-105) mg/dL Hemoglobin A1c (4-6) %
[2020-12-26] MEDS: cefTRIAXone/NS 2 GM/100 ML 2 GM/100 ML BAG IV SCH (16:34)
[2020-12-27] MEDS: MORPHINE 2 MG/1 ML INJ IV PRN (00:23)
[2020-12-27] MEDS: SODIUM BICARBONATE 150 MEQ in WATER FOR INJECTION (PF) 1,000 ML IV SCH (00:24)
[2020-12-27 06:27] LABS: Hematocrit 25.4 % (35.5-45.6); Hemoglobin 8.7 gm/dl (11.8-15.2); Mean Corpuscular HGB Conc 34 % (32-34); Mean Corpuscular Volume 79 fl (84-94); Platelet Count 338 K/mm3 (140-440); Red Blood Count 3.23 M/mm3 (3.65-5.03); Red Cell Distribution Width 13.5 % (13.2-15.2)
[2020-12-27 06:49] LABS: BUN/Creatinine Ratio 27; Blood Urea Nitrogen 30 mg/dL (9-20); Calcium 9.4 mg/dL (8.4-10.2); Hemolysis Index 0
--- NOTE | 2020-12-27 09:58 | Progress Note ---
Assessment and Plan Assessment and plan: Assessment: 45-year-old -Nepalese male with a past medical history of diabetes mellitus type 2 who presents with right foot first toe diabetic ulceration. Work-up so far shows osteomyelitis, currently on antibiotics. Diabetic foot ulcer with osteomyelitis Current Visit: Yes Status: Acute Plan to address problem: Patient commenced on empiric IV antibiotics. Wound cultures Infectious disease managing antibiotics Spoke with patient today, states that he would still like to have surgery, spoke with surgery, will place patient on schedule tomorrow. Acute on chronic kidney failure Current Visit: Yes Status: Acute Plan to address problem: We will request evaluation by nephrology. We will monitor BUN and creatinine. Diabetes mellitus Current Visit: No Status: Acute Plan to address problem: We will place patient on sliding scale insulin and monitor Accu-Cheks closely. Acute metabolic acidosis Nephrology consulted Patient currently on bicarb History of left BKA No intervention at this time DVT prophylaxis Current Visit: Yes Status: Acute Plan to address problem: Patient placed on subcutaneous heparin. Full code status Current Visit: No Status: Acute Plan to address problem: Patient is full code. Disposition: Patient to have amputation of first toe right foot tomorrow. History Interval history: 12/24: Due to poor healing wound we will ask vascular to evaluate the patient in addition to continue management for osteomyelitis. Will adjust insulin management for better control. Counseling provided to the patient patient was rounded on with case management. Also continue to monitor for metabolic acidosis and and anticipate improvement. 12/25: Patient with mild pain in his right toe, no fevers or chills, currently on antibiotics, revascularization report reviewed 12/26: Patient seen and examined, no overnight events, pain controlled. Patient states that he would like to have surgery 12/27/2020: Patient would like to have surgery, spoke with surgery, will place patient on schedule. Hospitalist Physical - Physical exam Narrative exam: General appearance: no acute distress, well-nourished EENT: PERRL, EOM intact, hearing intact, clear oral mucosa Neck: Present: supple, normal ROM Respiratory: bilateral CTA, negative: rales, rhonchi, wheezing Cardiovascular: Regular rate/rhythm, Normal S1 & S2. No gallop, rub Extremities: Left BKA, first toe of right foot with ulceration on the dorsal aspect Abdominal: soft, no tenderness, non-distended, normal bowel sounds Integumentary: Present: clear, warm, dry no wounds, no erythema noted Psychiatric: appropriate mood/affect, intact judgment & insight Neurologic: CNII-XII intact, moves all extremities, no sensory or motor abnormalities - Constitutional Vitals: Temp Pulse Resp BP Pulse Ox 99.8 F H 91 H 20 151/86 94 12/26/20 23:35 12/26/20 23:35 12/26/20 23:35 12/26/20 23:35 12/26/20 23:35 General appearance: Present: no acute distress Results - Labs CBC & Chem 7: 12/27/20 06:05 12/27/20 06:05 Labs: Laboratory Last Values WBC 8.6 K/mm3 (4.5-11.0) 12/27/20 06:05 RBC 3.23 M/mm3 (3.65-5.03) L 12/27/20 06:05 Hgb 8.7 gm/dl (11.8-15.2) L 12/27/20 06:05 Hct 25.4 % (35.5-45.6) L 12/27/20 06:05 MCV 79 fl (84-94) L 12/27/20 06:05 MCH 27 pg (28-32) L 12/27/20 06:05 MCHC 34 % (32-34) 12/27/20 06:05 RDW 13.5 % (13.2-15.2) 12/27/20 06:05 Plt Count 338 K/mm3 (140-440) 12/27/20 06:05 Lymph % (Auto) 14.3 % (13.4-35.0) 12/23/20 17:07 Conway % (Auto) 7.0 % (0.0-7.3) 12/23/20 17:07 Eos % (Auto) 1.4 % (0.0-4.3) 12/23/20 17:07 Baso % (Auto) 0.5 % (0.0-1.8) 12/23/20 17:07 Lymph # (Auto) 1.5 K/mm3 (1.2-5.4) 12/23/20 17:07 Conway # (Auto) 0.7 K/mm3 (0.0-0.8) 12/23/20 17:07 Eos # (Auto) 0.1 K/mm3 (0.0-0.4) 12/23/20 17:07 Baso # (Auto) 0.1 K/mm3 (0.0-0.1) 12/23/20 17:07 Add Manual Diff Complete 12/24/20 05:12 Total Counted 100 12/24/20 05:12 Seg Neutrophils % 76.8 % (40.0-70.0) H 12/23/20 17:07 Seg Neuts % (Manual) 75.0 % (40.0-70.0) H 12/24/20 05:12 Band Neutrophils % 1.0 % 12/24/20 05:12 Lymphocytes % (Manual) 10.0 % (13.4-35.0) L 12/24/20 05:12 Monocytes % (Manual) 5.0 % (0.0-7.3) 12/24/20 05:12 Eosinophils % (Manual) 9.0 % (0.0-4.3) H 12/24/20 05:12 Nucleated RBC % Not Reportable 12/24/20 05:12 Seg Neutrophils # 8.1 K/mm3 (1.8-7.7) H 12/23/20 17:07 Seg Neutrophils # Man 6.5 K/mm3 (1.8-7.7) 12/24/20 05:12 Band Neutrophils # 0.1 K/mm3 12/24/20 05:12 Lymphocytes # (Manual) 0.9 K/mm3 (1.2-5.4) L 12/24/20 05:12 Abs React Lymphs (Man) 0.0 K/mm3 12/24/20 05:12 Monocytes # (Manual) 0.4 K/mm3 (0.0-0.8) 12/24/20 05:12 Eosinophils # (Manual) 0.8 K/mm3 (0.0-0.4) H 12/24/20 05:12 Basophils # (Manual) 0.0 K/mm3 (0.0-0.1) 12/24/20 05:12 Metamyelocytes # 0.0 K/mm3 12/24/20 05:12 Myelocytes # 0.0 K/mm3 12/24/20 05:12 Promyelocytes # 0.0 K/mm3 12/24/20 05:12 Blast Cells # 0.0 K/mm3 12/24/20 05:12 WBC Morphology Not Reportable 12/24/20 05:12 Hypersegmented Neuts Not Reportable 12/24/20 05:12 Hyposegmented Neuts Not Reportable 12/24/20 05:12 Hypogranular Neuts Not Reportable 12/24/20 05:12 Smudge Cells Not Reportable 12/24/20 05:12 Toxic Granulation Not Reportable 12/24/20 05:12 Toxic Vacuolation Not Reportable 12/24/20 05:12 Dohle Bodies Not Reportable 12/24/20 05:12 Pelger-Huet Anomaly Not Reportable 12/24/20 05:12 Arlene Rods Not Reportable 12/24/20 05:12 Platelet Estimate Consistent w auto 12/24/20 05:12 Clumped Platelets Not Reportable 12/24/20 05:12 Plt Clumps, EDTA Not Reportable 12/24/20 05:12 Large Platelets Not Reportable 12/24/20 05:12 Giant Platelets Not Reportable 12/24/20 05:12 Platelet Satelliting Not Reportable 12/24/20 05:12 Plt Morphology Comment Not Reportable 12/24/20 05:12 RBC Morphology Not Reportable 12/24/20 05:12 Dimorphic RBCs Not Reportable 12/24/20 05:12 Polychromasia Not Reportable 12/24/20 05:12 Hypochromasia Not Reportable 12/24/20 05:12 Poikilocytosis Not Reportable 12/24/20 05:12 Anisocytosis 1+ 12/24/20 05:12 Microcytosis Not Reportable 12/24/20 05:12 Macrocytosis Not Reportable 12/24/20 05:12 Spherocytes Not Reportable 12/24/20 05:12 Pappenheimer Bodies Not Reportable 12/24/20 05:12 Sickle Cells Not Reportable 12/24/20 05:12 Target Cells Not Reportable 12/24/20 05:12 Tear Drop Cells Not Reportable 12/24/20 05:12 Ovalocytes Not Reportable 12/24/20 05:12 Helmet Cells Not Reportable 12/24/20 05:12 [place] Bodies Not Reportable 12/24/20 05:12 Colora Rings Not Reportable 12/24/20 05:12 Waka Cells Not Reportable 12/24/20 05:12 Bite Cells Not Reportable 12/24/20 05:12 Crenated Cell Not Reportable 12/24/20 05:12 Elliptocytes Not Reportable 12/24/20 05:12 Acanthocytes (Spur) Not Reportable 12/24/20 05:12 Rouleaux Not Reportable 12/24/20 05:12 Hemoglobin C Crystals Not Reportable 12/24/20 05:12 Schistocytes Not Reportable 12/24/20 05:12 Malaria parasites Not Reportable 12/24/20 05:12 Ramos Bodies Not Reportable 12/24/20 05:12 Hem Pathologist Commnt No 12/24/20 05:12 PT 15.1 Sec. (12.2-14.9) H 12/24/20 05:12 INR 1.13 (0.87-1.13) 12/24/20 05:12 Sodium 136 mmol/L (137-145) L 12/27/20 06:05 Potassium 3.9 mmol/L (3.6-5.0) 12/27/20 06:05 Chloride 93.5 mmol/L (98-107) L 12/27/20 06:05 Carbon Dioxide 29 mmol/L (22-30) D 12/27/20 06:05 Anion Gap 17 mmol/L 12/27/20 06:05 BUN 30 mg/dL (9-20) H 12/27/20 06:05 Creatinine 1.1 mg/dL (0.8-1.3) 12/27/20 06:05 Estimated GFR > 60 ml/min 12/27/20 06:05 BUN/Creatinine Ratio 27 % 12/27/20 06:05 Glucose 203 mg/dL (75-100) H 12/27/20 06:05 POC Glucose 189 mg/dL (70-105) H 12/27/20 07:50 Hemoglobin A1c 14.9 % (4-6) H 12/26/20 06:41 Calcium 9.4 mg/dL (8.4-10.2) 12/27/20 06:05 Total Bilirubin 0.30 mg/dL (0.1-1.2) 12/23/20 17:07 AST 31 units/L (5-40) 12/23/20 17:07 ALT 33 units/L (7-56) 12/23/20 17:07 Alkaline Phosphatase 88 units/L (35-129) 12/23/20 17:07 Total Protein 8.1 g/dL (6.3-8.2) 12/23/20 17:07 Albumin 3.4 g/dL (3.9-5) L 12/23/20 17:07 Albumin/Globulin Ratio 0.7 % 12/23/20 17:07 Triglycerides 169 mg/dL (2-149) H 12/24/20 05:12 Cholesterol 152 mg/dL (50-199) 12/24/20 05:12 LDL Cholesterol Direct 90 mg/dL (50-130) 12/24/20 05:12 HDL Cholesterol 28 mg/dL (40-59) L 12/24/20 05:12 Cholesterol/HDL Ratio 5.42 % 12/24/20 05:12 Random Vancomycin 7.2 ug/mL (0-40.0) 12/26/20 06:41 Benedict/IV: Voiding Method Urinal Active Medications - Current Medications Current Medications: Generic Name Dose Route Start Last Admin Trade Name Freq PRN Reason Stop Dose Admin Acetaminophen 650 mg 12/23/20 22:33 Acetaminophen 325 Mg Tab PO Q4H PRN Pain MILD(1-3)/Fever >100.5/MIRANDA Aspirin 81 mg 12/25/20 10:00 12/26/20 10:27 Aspirin Ec 81 Mg Tab PO 81 mg QDAY WILMER Administration Dextrose 0 ml 12/23/20 22:33 Dextrose 50% In Water (25gm) 50 Ml Syringe IV Q30MIN PRN Hypoglycemia Protocol Sodium Bicarbonate 150 meq/ 1,150 mls @ 150 mls/hr 12/25/20 11:00 12/27/20 00:24 Sterile Water IV 12/27/20 18:39 150 mls/hr DIRECT WILMER Administration Ceftriaxone Sodium 2 gm in 100 mls @ 200 mls/hr 12/26/20 15:00 12/26/20 16:34 Rocephin/Ns 2 Gm/100 Ml IV 200 mls/hr Q24H WILMER Administration Protocol Insulin Human Isoph/Insulin Regular 30 unit 12/25/20 17:00 12/26/20 10:27 Insulin Nph/Regular 70/30 Inj SUB-Q Not Given BIDDIAB WILMER Insulin Human Lispro 0 unit 12/24/20 07:30 12/26/20 21:45 Insulin Lispro 100 Unit/Ml SUB-Q 6 unit ACHS WILMER Administration Protocol Magnesium Hydroxide 30 ml 12/23/20 22:33 Magnesium Hydroxide (Mom) Oral Liqd Udc PO Q4H PRN Constipation Morphine Sulfate 2 mg 12/23/20 22:33 12/27/20 00:23 Morphine 2 Mg/1 Ml Inj IV 2 mg Q4H PRN Administration Pain, Moderate (4-6) Ondansetron HCl 4 mg 12/23/20 22:33 12/23/20 22:59 Ondansetron 4 Mg/2 Ml Inj IV 4 mg Q8H PRN Administration Nausea And Vomiting Oxycodone/Acetaminophen 2 tab 12/26/20 08:40 Oxycodone /Acetaminophen 5-325mg Tab PO Q6H PRN Pain, Moderate (4-6) Sodium Bicarbonate 1,300 mg 12/24/20 14:00 12/26/20 19:48 Sodium Bicarbonate 650 Mg Tab PO 1,300 mg TID WILMER Administration Sodium Chloride 10 ml 12/24/20 10:00 12/26/20 21:44 Sodium Chloride 0.9% 10 Ml Flush Syringe IV 10 ml BID WILMER Administration Sodium Chloride 10 ml 12/23/20 22:33 Sodium Chloride 0.9% 10 Ml Flush Syringe IV PRN PRN LINE FLUSH Sodium Hypochlorite 1 applic 12/25/20 12:00 12/26/20 21:47 Sodium Hypochlorite, Dakin's 1/2 Strength (0.25%) 473 Ml Topical Soln TP 1 1000units BID WILMER Administration Nutrition/Malnutrition Assess - Dietary Evaluation Nutrition/Malnutrition Findings: Nutrition Notes Start: 12/24/20 12:52 Freq: Status: Active Protocol: Document 12/25/20 12:31 (Rec: 12/25/20 12:34 [email or web address]) Nutrition Notes Initial or Follow up Brief Note Current Diagnosis CKD(stage I-IV),Diabetes Other Pertinent Diagnosis R foot wound Current Diet Cardiac, Consistent CHO Subjective/Other Information FU for diet education. Pt given DM education on past two visits. Pt has no questions and states no trouble managing his BG via diet. Pt accepted handout. Encouraged pt to review and ask any questions. Pt educated on need for protein to heal wounds and high BG decrease wound healing . Pt eating 75-100% of meals. Pt currently NPO for procedure. Nutrition Intervention Revisit per MD consult or patient Sign Off request:
[2020-12-27] MEDS: INSULIN NPH/REGULAR 70/30 INJ SUB-Q SCH ×3 (11:40→18:59)
[2020-12-27] MEDS: oxyCODONE /ACETAMINOPHEN 5-325MG TAB PO PRN (12:55)
[2020-12-27] MEDS: SODIUM BICARBONATE 650 MG TAB PO SCH (12:57)
[2020-12-27] MEDS: ASPIRIN EC 81 MG TAB PO SCH (12:57)
[2020-12-27] MEDS: INSULIN LISPRO 100 UNIT/ML SUB-Q SCH ×4 (13:00→22:44)
--- NOTE | 2020-12-27 14:29 | Progress Note ---
Assessment and Plan Cultures: None A/P: 45-year-old man past medical history diabetes, left BKA admitted with right toe ulcer and probable osteomyelitis. #Right great toe ulcer with osteomyelitis: As seen on MRI. Likely secondary to his diabetes. Await surgical opinion regarding possible amputation. #Diabetes: tight glycemic control for best outcomes. #History of left BKA: Secondary to osteomyelitis, cultures from the blood at that time grew strep sanguinous Recs: -refusing amputation, will do PICC + antibiotics, will base on previous cultures of S anginosus -Case management consulted for ceftriaxone 2g q24h until 02/04/2021 -changed inpatient therapy to ceftriaxone today -May still need amputation in the future. -wound care of the ulcer -OK for DC when PICC and home antibiotics arranged. Thank you for the consult, we will continue to follow. Mahsa Dupree MD [facility] ([facility]) O: [phone] F: [phone] Subjective Date of service: 12/27/20 Principal diagnosis: Toe osteomyelitis Interval history: Afebrile, normal white count. Objective - Exam Narrative Exam: Physical Exam: Constitutional: Alert, cooperative. No acute distress Head, Ears, Nose: Normocephalic, atraumatic. Eyes: Conjunctivae/corneas clear. No icterus. No ptosis. Neck: Supple, no meningeal signs Oral: dentition fair, no thrush Cardiovascular: S1, S2 normal. Respiratory: Good air entry, clear to auscultation bilaterally GI: Soft, non-tender; bowel sounds normal. No peritoneal signs. Musculoskeletal: L BKA, r great toe with ulcer Skin: No rash or abscess Hem/Lymphatic: No palpable cervical or supraclavicular nodes. Psych: Mood ok. Affect normal Neurological: Awake, alert, oriented. No gross abnormality - Constitutional Vitals: Vital Signs Temp Pulse Resp BP Pulse Ox 99.8 F H 91 H 20 151/86 94 12/26/20 23:35 12/26/20 23:35 12/26/20 23:35 12/26/20 23:35 12/26/20 23:35 Temperature -Last 24 Hours Temperature 99.8 F Temperature 98.9 F - Labs CBC & Chem 7: 12/27/20 06:05 12/27/20 06:05 Labs: Abnormal lab results 12/26/20 12/26/20 12/27/20 Range/Units 16:36 21:00 06:05 RBC 3.23 L (3.65-5.03) M/mm3 Hgb 8.7 L (11.8-15.2) gm/dl Hct 25.4 L (35.5-45.6) % MCV 79 L (84-94) fl MCH 27 L (28-32) pg Sodium (137-145) mmol/L Chloride (98-107) mmol/L BUN (9-20) mg/dL Glucose (75-100) mg/dL POC Glucose 226 H 257 H (70-105) mg/dL 12/27/20 12/27/20 Range/Units 06:05 07:50 RBC (3.65-5.03) M/mm3 Hgb (11.8-15.2) gm/dl Hct (35.5-45.6) % MCV (84-94) fl MCH (28-32) pg Sodium 136 L (137-145) mmol/L Chloride 93.5 L (98-107) mmol/L BUN 30 H (9-20) mg/dL Glucose 203 H (75-100) mg/dL POC Glucose 189 H (70-105) mg/dL
--- NOTE | 2020-12-27 16:18 | Progress Note ---
Assessment and Plan Assessment Acute kidney injury. Renal u/s negative for acute pathology. Hyponatremia Acidosis Osteomyelitis Recommendations S/p IV bicarb fluids D/c sodium bicarb tabs Check labs daily Strict I/O Renally dose medications Avoid nephrotoxins Renal diet Will monitor peripherally and see prn Subjective Date of service: 12/27/20 Principal diagnosis: Toe osteomyelitis Interval history: Receiving IV antibiotics. Tolerating diet. Objective - Exam Narrative Exam: General: No acute distress HEENT: ATNC Neck: Supple, no JVD Chest: Clear to auscultation bilaterally Heart: RRR, S1 and S2, no pericardial rub Abdomen: Soft, nontender, no renal bruit Extremity: No peripheral cyanosis, left BKA, right big toe wound Neurological: Alert, awake, no asterixis Dermatology: No skin rash Psych: No agitation Musculoskeletal: No joint effusion - Lab 12/27/20 06:05 12/27/20 06:05 Most recent lab results Calcium 9.4 mg/dL (8.4-10.2) 12/27/20 06:05 Medications & Allergies - Medications Allergies/Adverse Reactions: Allergies No Known Allergies Allergy (Verified 12/23/20 17:00) Home Medications: Home Medications Medication Instructions Recorded Confirmed Last Taken Type Cholecalciferol (Vitamin D3) 50 mcg PO QWEEK 12/24/20 12/24/20 10/11/20 History [Vitamin D3] Fenofibrate [Tricor] 145 mg PO QDAY 12/24/20 12/24/20 12/23/20 History Gabapentin [Neurontin] 600 mg PO Q8H 12/24/20 12/24/20 12/23/20 History Insulin Degludec [Tresiba] 20 units SQ QHS 12/24/20 12/24/20 Unknown History Insulin NPH/Regular [NovoLIN 70/30] 30 unit SQ BIDAC 12/24/20 12/24/20 Unknown History Lisinopril/Hydrochlorothiazide 1 each PO DAILY 12/24/20 12/24/20 12/23/20 History [Zestoretic 10-12.5 mg Tablet] NIFEdipine [Nifedipine ER] 30 mg PO DAILY 12/24/20 12/24/20 12/23/20 History Active Medications: Generic Name Dose Route Start Last Admin Trade Name Freq PRN Reason Stop Dose Admin Acetaminophen 650 mg 12/23/20 22:33 Acetaminophen 325 Mg Tab PO Q4H PRN Pain MILD(1-3)/Fever >100.5/MIRANDA Aspirin 81 mg 12/25/20 10:00 12/27/20 12:57 Aspirin Ec 81 Mg Tab PO 81 mg QDAY WILMER Administration Dextrose 0 ml 12/23/20 22:33 Dextrose 50% In Water (25gm) 50 Ml Syringe IV Q30MIN PRN Hypoglycemia Protocol Sodium Bicarbonate 150 meq/ 1,150 mls @ 150 mls/hr 12/25/20 11:00 12/27/20 00:24 Sterile Water IV 12/27/20 18:39 150 mls/hr DIRECT WILMER Administration Ceftriaxone Sodium 2 gm in 100 mls @ 200 mls/hr 12/26/20 15:00 12/26/20 16:34 Rocephin/Ns 2 Gm/100 Ml IV 02/04/21 15:29 200 mls/hr Q24H WILMER Administration Protocol Insulin Human Isoph/Insulin Regular 40 unit 12/27/20 10:15 12/27/20 12:59 Insulin Nph/Regular 70/30 Inj SUB-Q 40 unit BIDDIAB WILMER Administration Insulin Human Lispro 0 unit 12/24/20 07:30 12/27/20 13:00 Insulin Lispro 100 Unit/Ml SUB-Q 3 unit ACHS WILMER Administration Protocol Magnesium Hydroxide 30 ml 12/23/20 22:33 Magnesium Hydroxide (Mom) Oral Liqd Udc PO Q4H PRN Constipation Morphine Sulfate 2 mg 12/23/20 22:33 12/27/20 00:23 Morphine 2 Mg/1 Ml Inj IV 2 mg Q4H PRN Administration Pain, Moderate (4-6) Ondansetron HCl 4 mg 12/23/20 22:33 12/23/20 22:59 Ondansetron 4 Mg/2 Ml Inj IV 4 mg Q8H PRN Administration Nausea And Vomiting Oxycodone/Acetaminophen 2 tab 12/26/20 08:40 12/27/20 12:55 Oxycodone /Acetaminophen 5-325mg Tab PO 2 tab Q6H PRN Administration Pain, Moderate (4-6) Sodium Bicarbonate 1,300 mg 12/24/20 14:00 12/27/20 12:57 Sodium Bicarbonate 650 Mg Tab PO 1,300 mg TID WILMER Administration Sodium Chloride 10 ml 12/24/20 10:00 12/27/20 12:58 Sodium Chloride 0.9% 10 Ml Flush Syringe IV 10 ml BID WILMER Administration Sodium Chloride 10 ml 12/23/20 22:33 Sodium Chloride 0.9% 10 Ml Flush Syringe IV PRN PRN LINE FLUSH Sodium Hypochlorite 1 applic 12/25/20 12:00 12/26/20 21:47 Sodium Hypochlorite, Dakin's 1/2 Strength (0.25%) 473 Ml Topical Soln TP 1 1000units BID WILMER Administration
--- NOTE | 2020-12-27 18:04 | Progress Note ---
Assessment and Plan - Patient Problems (1) Osteomyelitis due to type 2 diabetes mellitus Current Visit: Yes Status: Acute Plan to address problem: 1) NPO after MN 2) TMA of right great toe at 2 pm tomorrow. Subjective Date of service: 12/27/20 Patient Reports: Positive: no new complaints (Now gives consent for right great toe amputation) Objective Vital Signs - 12hr 12/27/20 12/27/20 11:52 16:56 Temperature 99.4 F 99.1 F Pulse Rate 91 H 85 Respiratory 18 20 Rate Blood Pressure 151/82 134/84 O2 Sat by Pulse 97 97 Oximetry - Labs 12/27/20 06:05 12/27/20 06:05 Diabetes panel 12/27/20 Range/Units 06:05 Sodium 136 L (137-145) mmol/L Potassium 3.9 (3.6-5.0) mmol/L Chloride 93.5 L (98-107) mmol/L Carbon Dioxide 29 D (22-30) mmol/L BUN 30 H (9-20) mg/dL Creatinine 1.1 (0.8-1.3) mg/dL Glucose 203 H (75-100) mg/dL Calcium 9.4 (8.4-10.2) mg/dL Calcium panel 12/27/20 Range/Units 06:05 Calcium 9.4 (8.4-10.2) mg/dL Pituitary panel 12/27/20 Range/Units 06:05 Sodium 136 L (137-145) mmol/L Potassium 3.9 (3.6-5.0) mmol/L Chloride 93.5 L (98-107) mmol/L Carbon Dioxide 29 D (22-30) mmol/L BUN 30 H (9-20) mg/dL Creatinine 1.1 (0.8-1.3) mg/dL Glucose 203 H (75-100) mg/dL Calcium 9.4 (8.4-10.2) mg/dL Adrenal panel 12/27/20 Range/Units 06:05 Sodium 136 L (137-145) mmol/L Potassium 3.9 (3.6-5.0) mmol/L Chloride 93.5 L (98-107) mmol/L Carbon Dioxide 29 D (22-30) mmol/L BUN 30 H (9-20) mg/dL Creatinine 1.1 (0.8-1.3) mg/dL Glucose 203 H (75-100) mg/dL Calcium 9.4 (8.4-10.2) mg/dL - Imaging Additional Studies: MRI of right foot reviewed again.
[2020-12-27] MEDS: SODIUM HYPOCHLORITE, DAKIN'S 1/2 STRENGTH (0.25%) 473 ML TOPICAL SOLN TP SCH ×2 (18:59→22:40)
[2020-12-27] MEDS: cefTRIAXone/NS 2 GM/100 ML 2 GM/100 ML BAG IV SCH (19:02)
[2020-12-28 08:02] LABS: BUN/Creatinine Ratio 15; Blood Urea Nitrogen 18 mg/dL (9-20); Calcium 9.3 mg/dL (8.4-10.2); Hemolysis Index 1
[2020-12-28] MEDS: INSULIN LISPRO 100 UNIT/ML SUB-Q SCH ×4 (08:33→22:43)
[2020-12-28] MEDS: INSULIN NPH/REGULAR 70/30 INJ SUB-Q SCH ×3 (08:34→17:10)
[2020-12-28] MEDS: SODIUM BICARBONATE 650 MG TAB PO SCH (08:42)
[2020-12-28 08:52] LABS: Hematocrit 25.4 % (35.5-45.6); Hemoglobin 8.5 gm/dl (11.8-15.2); Mean Corpuscular HGB Conc 33 % (32-34); Mean Corpuscular Volume 79 fl (84-94); Platelet Count 338 K/mm3 (140-440); Red Blood Count 3.21 M/mm3 (3.65-5.03); Red Cell Distribution Width 13.5 % (13.2-15.2)
[2020-12-28] MEDS: SODIUM HYPOCHLORITE, DAKIN'S 1/2 STRENGTH (0.25%) 473 ML TOPICAL SOLN TP SCH ×2 (10:22→22:45)
[2020-12-28] MEDS: ASPIRIN EC 81 MG TAB PO SCH (10:22)
[2020-12-28] MEDS: MORPHINE 2 MG/1 ML INJ IV PRN (10:26)
--- NOTE | 2020-12-28 11:45 | Progress Note ---
Assessment and Plan Assessment and plan: Assessment: 45-year-old -[place] male with a past medical history of diabetes mellitus type 2 who presents with right foot first toe diabetic ulceration. Work-up so far shows osteomyelitis, currently on antibiotics. Diabetic foot ulcer with osteomyelitis Current Visit: Yes Status: Acute Plan to address problem: Patient commenced on empiric IV antibiotics. Wound cultures Infectious disease managing antibiotics Surgery for amputation of right foot first toe scheduled today at 2 PM Acute on chronic kidney failure Current Visit: Yes Status: Acute Plan to address problem: We will request evaluation by nephrology. We will monitor BUN and creatinine. Diabetes mellitus Current Visit: No Status: Acute Plan to address problem: We will place patient on sliding scale insulin and monitor Accu-Cheks closely. Acute metabolic acidosis Nephrology consulted Patient currently on bicarb History of left BKA No intervention at this time DVT prophylaxis Current Visit: Yes Status: Acute Plan to address problem: Patient placed on subcutaneous heparin. Full code status Current Visit: No Status: Acute Plan to address problem: Patient is full code. Disposition: Patient had amputation today. History Interval history: 12/24: Due to poor healing wound we will ask vascular to evaluate the patient in addition to continue management for osteomyelitis. Will adjust insulin management for better control. Counseling provided to the patient patient was rounded on with case management. Also continue to monitor for metabolic acidosis and and anticipate improvement. 12/25: Patient with mild pain in his right toe, no fevers or chills, currently on antibiotics, revascularization report reviewed 12/26: Patient seen and examined, no overnight events, pain controlled. Patient states that he would like to have surgery 12/27/2020: Patient would like to have surgery, spoke with surgery, will place patient on schedule. 12/28/2020: Patient to have surgery today, patient n.p.o., no complaints overnight Hospitalist Physical - Physical exam Narrative exam: General appearance: no acute distress, well-nourished EENT: PERRL, EOM intact, hearing intact, clear oral mucosa Neck: Present: supple, normal ROM Respiratory: bilateral CTA, negative: rales, rhonchi, wheezing Cardiovascular: Regular rate/rhythm, Normal S1 & S2. No gallop, rub Extremities: Left BKA, first toe of the right foot wrapped in gauze, malodorous Abdominal: soft, no tenderness, non-distended, normal bowel sounds Integumentary: Present: clear, warm, dry no wounds, no erythema noted Psychiatric: appropriate mood/affect, intact judgment & insight Neurologic: CNII-XII intact, moves all extremities, no sensory or motor abnormalities - Constitutional Vitals: Temp Pulse Resp BP Pulse Ox 99.0 F 89 18 142/85 96 12/28/20 04:32 12/28/20 04:32 12/28/20 04:32 12/28/20 04:32 12/28/20 04:32 General appearance: Present: no acute distress Results - Labs CBC & Chem 7: 12/28/20 07:29 12/28/20 07:29 Labs: Laboratory Last Values WBC 8.9 K/mm3 (4.5-11.0) 12/28/20 07:29 RBC 3.21 M/mm3 (3.65-5.03) L 12/28/20 07:29 Hgb 8.5 gm/dl (11.8-15.2) L 12/28/20 07:29 Hct 25.4 % (35.5-45.6) L 12/28/20 07:29 MCV 79 fl (84-94) L 12/28/20 07:29 MCH 27 pg (28-32) L 12/28/20 07:29 MCHC 33 % (32-34) 12/28/20 07:29 RDW 13.5 % (13.2-15.2) 12/28/20 07:29 Plt Count 338 K/mm3 (140-440) 12/28/20 07:29 Lymph % (Auto) 14.3 % (13.4-35.0) 12/23/20 17:07 [place] % (Auto) 7.0 % (0.0-7.3) 12/23/20 17:07 Eos % (Auto) 1.4 % (0.0-4.3) 12/23/20 17:07 Baso % (Auto) 0.5 % (0.0-1.8) 12/23/20 17:07 Lymph # (Auto) 1.5 K/mm3 (1.2-5.4) 12/23/20 17:07 [place] # (Auto) 0.7 K/mm3 (0.0-0.8) 12/23/20 17:07 Eos # (Auto) 0.1 K/mm3 (0.0-0.4) 12/23/20 17:07 Baso # (Auto) 0.1 K/mm3 (0.0-0.1) 12/23/20 17:07 Add Manual Diff Complete 12/24/20 05:12 Total Counted 100 12/24/20 05:12 Seg Neutrophils % 76.8 % (40.0-70.0) H 12/23/20 17:07 Seg Neuts % (Manual) 75.0 % (40.0-70.0) H 12/24/20 05:12 Band Neutrophils % 1.0 % 12/24/20 05:12 Lymphocytes % (Manual) 10.0 % (13.4-35.0) L 12/24/20 05:12 Monocytes % (Manual) 5.0 % (0.0-7.3) 12/24/20 05:12 Eosinophils % (Manual) 9.0 % (0.0-4.3) H 12/24/20 05:12 Nucleated RBC % Not Reportable 12/24/20 05:12 Seg Neutrophils # 8.1 K/mm3 (1.8-7.7) H 12/23/20 17:07 Seg Neutrophils # Man 6.5 K/mm3 (1.8-7.7) 12/24/20 05:12 Band Neutrophils # 0.1 K/mm3 12/24/20 05:12 Lymphocytes # (Manual) 0.9 K/mm3 (1.2-5.4) L 12/24/20 05:12 Abs React Lymphs (Man) 0.0 K/mm3 12/24/20 05:12 Monocytes # (Manual) 0.4 K/mm3 (0.0-0.8) 12/24/20 05:12 Eosinophils # (Manual) 0.8 K/mm3 (0.0-0.4) H 12/24/20 05:12 Basophils # (Manual) 0.0 K/mm3 (0.0-0.1) 12/24/20 05:12 Metamyelocytes # 0.0 K/mm3 12/24/20 05:12 Myelocytes # 0.0 K/mm3 12/24/20 05:12 Promyelocytes # 0.0 K/mm3 12/24/20 05:12 Blast Cells # 0.0 K/mm3 12/24/20 05:12 WBC Morphology Not Reportable 12/24/20 05:12 Hypersegmented Neuts Not Reportable 12/24/20 05:12 Hyposegmented Neuts Not Reportable 12/24/20 05:12 Hypogranular Neuts Not Reportable 12/24/20 05:12 Smudge Cells Not Reportable 12/24/20 05:12 Toxic Granulation Not Reportable 12/24/20 05:12 Toxic Vacuolation Not Reportable 12/24/20 05:12 Dohle Bodies Not Reportable 12/24/20 05:12 Pelger-Huet Anomaly Not Reportable 12/24/20 05:12 Arlene Rods Not Reportable 12/24/20 05:12 Platelet Estimate Consistent w auto 12/24/20 05:12 Clumped Platelets Not Reportable 12/24/20 05:12 Plt Clumps, EDTA Not Reportable 12/24/20 05:12 Large Platelets Not Reportable 12/24/20 05:12 Giant Platelets Not Reportable 12/24/20 05:12 Platelet Satelliting Not Reportable 12/24/20 05:12 Plt Morphology Comment Not Reportable 12/24/20 05:12 RBC Morphology Not Reportable 12/24/20 05:12 Dimorphic RBCs Not Reportable 12/24/20 05:12 Polychromasia Not Reportable 12/24/20 05:12 Hypochromasia Not Reportable 12/24/20 05:12 Poikilocytosis Not Reportable 12/24/20 05:12 Anisocytosis 1+ 12/24/20 05:12 Microcytosis Not Reportable 12/24/20 05:12 Macrocytosis Not Reportable 12/24/20 05:12 Spherocytes Not Reportable 12/24/20 05:12 Pappenheimer Bodies Not Reportable 12/24/20 05:12 Sickle Cells Not Reportable 12/24/20 05:12 Target Cells Not Reportable 12/24/20 05:12 Tear Drop Cells Not Reportable 12/24/20 05:12 Ovalocytes Not Reportable 12/24/20 05:12 Helmet Cells Not Reportable 12/24/20 05:12 Del Valle-Schubert Bodies Not Reportable 12/24/20 05:12 [place]brook Rings Not Reportable 12/24/20 05:12 Negra Cells Not Reportable 12/24/20 05:12 Bite Cells Not Reportable 12/24/20 05:12 Crenated Cell Not Reportable 12/24/20 05:12 Elliptocytes Not Reportable 12/24/20 05:12 Acanthocytes (Spur) Not Reportable 12/24/20 05:12 Rouleaux Not Reportable 12/24/20 05:12 Hemoglobin C Crystals Not Reportable 12/24/20 05:12 Schistocytes Not Reportable 12/24/20 05:12 Malaria parasites Not Reportable 12/24/20 05:12 Ramos Bodies Not Reportable 12/24/20 05:12 Hem Pathologist Commnt No 12/24/20 05:12 PT 15.1 Sec. (12.2-14.9) H 12/24/20 05:12 INR 1.13 (0.87-1.13) 12/24/20 05:12 Sodium 137 mmol/L (137-145) 12/28/20 07:29 Potassium 3.9 mmol/L (3.6-5.0) 12/28/20 07:29 Chloride 92.9 mmol/L (98-107) L 12/28/20 07:29 Carbon Dioxide 29 mmol/L (22-30) 12/28/20 07:29 Anion Gap 19 mmol/L 12/28/20 07:29 BUN 18 mg/dL (9-20) 12/28/20 07:29 Creatinine 1.2 mg/dL (0.8-1.3) 12/28/20 07:29 Estimated GFR > 60 ml/min 12/28/20 07:29 BUN/Creatinine Ratio 15 % 12/28/20 07:29 Glucose 137 mg/dL (75-100) H 12/28/20 07:29 POC Glucose 146 mg/dL (70-105) H 12/28/20 07:28 Hemoglobin A1c 14.9 % (4-6) H 12/26/20 06:41 Calcium 9.3 mg/dL (8.4-10.2) 12/28/20 07:29 Total Bilirubin 0.30 mg/dL (0.1-1.2) 12/23/20 17:07 AST 31 units/L (5-40) 12/23/20 17:07 ALT 33 units/L (7-56) 12/23/20 17:07 Alkaline Phosphatase 88 units/L (35-129) 12/23/20 17:07 Total Protein 8.1 g/dL (6.3-8.2) 12/23/20 17:07 Albumin 3.4 g/dL (3.9-5) L 12/23/20 17:07 Albumin/Globulin Ratio 0.7 % 12/23/20 17:07 Triglycerides 169 mg/dL (2-149) H 12/24/20 05:12 Cholesterol 152 mg/dL (50-199) 12/24/20 05:12 LDL Cholesterol Direct 90 mg/dL (50-130) 12/24/20 05:12 HDL Cholesterol 28 mg/dL (40-59) L 12/24/20 05:12 Cholesterol/HDL Ratio 5.42 % 12/24/20 05:12 Random Vancomycin 7.2 ug/mL (0-40.0) 12/26/20 06:41 Benedict/IV: Voiding Method Urinal Active Medications - Current Medications Current Medications: Generic Name Dose Route Start Last Admin Trade Name Freq PRN Reason Stop Dose Admin Acetaminophen 650 mg 12/23/20 22:33 Acetaminophen 325 Mg Tab PO Q4H PRN Pain MILD(1-3)/Fever >100.5/MIRANDA Aspirin 81 mg 12/25/20 10:00 12/28/20 10:22 Aspirin Ec 81 Mg Tab PO Not Given QDAY WILMER Dextrose 0 ml 12/23/20 22:33 Dextrose 50% In Water (25gm) 50 Ml Syringe IV Q30MIN PRN Hypoglycemia Protocol Ceftriaxone Sodium 2 gm in 100 mls @ 200 mls/hr 12/26/20 15:00 12/27/20 19:02 Rocephin/Ns 2 Gm/100 Ml IV 02/04/21 15:29 200 mls/hr Q24H WILMER Administration Protocol Insulin Human Isoph/Insulin Regular 40 unit 12/27/20 10:15 12/28/20 08:34 Insulin Nph/Regular 70/30 Inj SUB-Q Not Given BIDDIAB WILMER Insulin Human Lispro 0 unit 12/24/20 07:30 12/28/20 08:33 Insulin Lispro 100 Unit/Ml SUB-Q Not Given ACHS WILMER Protocol Magnesium Hydroxide 30 ml 12/23/20 22:33 Magnesium Hydroxide (Mom) Oral Liqd Udc PO Q4H PRN Constipation Morphine Sulfate 2 mg 12/23/20 22:33 12/28/20 10:26 Morphine 2 Mg/1 Ml Inj IV 2 mg Q4H PRN Administration Pain, Moderate (4-6) Ondansetron HCl 4 mg 12/23/20 22:33 12/23/20 22:59 Ondansetron 4 Mg/2 Ml Inj IV 4 mg Q8H PRN Administration Nausea And Vomiting Oxycodone/Acetaminophen 2 tab 12/26/20 08:40 12/27/20 12:55 Oxycodone /Acetaminophen 5-325mg Tab PO 2 tab Q6H PRN Administration Pain, Moderate (4-6) Sodium Chloride 10 ml 12/24/20 10:00 12/28/20 10:22 Sodium Chloride 0.9% 10 Ml Flush Syringe IV 10 ml BID WILMER Administration Sodium Chloride 10 ml 12/23/20 22:33 Sodium Chloride 0.9% 10 Ml Flush Syringe IV PRN PRN LINE FLUSH Sodium Hypochlorite 1 applic 12/25/20 12:00 12/28/20 10:22 Sodium Hypochlorite, Dakin's 1/2 Strength (0.25%) 473 Ml Topical Soln TP 1 1000units BID WILMER Administration Nutrition/Malnutrition Assess - Dietary Evaluation Nutrition/Malnutrition Findings: Nutrition Notes Start: 12/24/20 12:52 Freq: Status: Active Protocol: Document 12/25/20 12:31 (Rec: 12/25/20 12:34 [email or web address]) Nutrition Notes Initial or Follow up Brief Note Current Diagnosis CKD(stage I-IV),Diabetes Other Pertinent Diagnosis R foot wound Current Diet Cardiac, Consistent CHO Subjective/Other Information FU for diet education. Pt given DM education on past two visits. Pt has no questions and states no trouble managing his BG via diet. Pt accepted handout. Encouraged pt to review and ask any questions. Pt educated on need for protein to heal wounds and high BG decrease wound healing . Pt eating 75-100% of meals. Pt currently NPO for procedure. Nutrition Intervention Revisit per MD consult or patient Sign Off request:
[2020-12-28] MEDS ORDERED: propofoL 200 MG/20 ML VIAL IV ONE ×2 (13:06→13:48)
--- NOTE | 2020-12-28 13:14 | Anesthesia Consultation ---
Anesthesia Consult and Med Hx Date of service: 12/28/20 - Airway Anesthetic Teeth Evaluation: Good ROM Head & Neck: Adequate Mental/Hyoid Distance: Adequate Mallampati Class: Class I Intubation Access Assessment: Good - Pulmonary Exam CTA: No - Cardiac Exam Cardiac Exam: RRR - Pre-Operative Health Status ASA Pre-Surgery Classification: ASA3 Proposed Anesthetic Plan: General - Pulmonary Hx Smoking: No Hx Asthma: No COPD: No Hx Pneumonia: No Hx Sleep Apnea: No - Cardiovascular System Hx Hypertension: Yes Hx Pacemaker: No Hx Internal Defibrillator: No - Gastrointestinal Hx Gastroesophageal Reflux Disease: Yes (Controlled) - Endocrine Hx End Stage Renal Disease: No Hx Insulin Dependent Diabetes: Yes (PM dose insulin held, AM glucose 152) - Hematic Hx Anemia: Yes
[2020-12-28] MEDS ORDERED: SODIUM CHLORIDE 0.9% IRR 1,500 ML BOTTLE IR ONE (13:34)
--- NOTE | 2020-12-28 13:51 | Progress Note ---
Assessment and Plan Cultures: None A/P: 45-year-old man past medical history diabetes, left BKA admitted with right toe ulcer and probable osteomyelitis. #Right great toe ulcer with osteomyelitis: As seen on MRI. Likely secondary to his diabetes. For TMA of digit today. #Diabetes: tight glycemic control for best outcomes. #History of left BKA: Secondary to osteomyelitis, cultures from the blood at that time grew strep sanguinous Recs: -Recommend cultures and proximal margin sample to be obtained from surgery today. -changed inpatient therapy to ceftriaxone -wound care of the ulcer -No need for PICC and home IV antibiotics on discharge. -After surgery can discahrge with cefdinir 300mg q12h for 7 days. -Follow up with me in clinic in 1-2 weeks to follow up pathology. Thank you for the consult, we will continue to follow. Mahsa Dupree MD [facility] ([facility]) O: [phone] F: [phone] Subjective Date of service: 12/28/20 Principal diagnosis: Toe osteomyelitis Interval history: Afebrile, normal white count. Gave consent for amutation yesterday, will be performed today. Objective - Exam Narrative Exam: Physical Exam: Constitutional: Alert, cooperative. No acute distress Head, Ears, Nose: Normocephalic, atraumatic. Eyes: Conjunctivae/corneas clear. No icterus. No ptosis. Neck: Supple, no meningeal signs Oral: dentition fair, no thrush Cardiovascular: S1, S2 normal. Respiratory: Good air entry, clear to auscultation bilaterally GI: Soft, non-tender; bowel sounds normal. No peritoneal signs. Musculoskeletal: L BKA, r great toe with ulcer Skin: No rash or abscess Hem/Lymphatic: No palpable cervical or supraclavicular nodes. Psych: Mood ok. Affect normal Neurological: Awake, alert, oriented. No gross abnormality - Constitutional Vitals: Vital Signs Temp Pulse Resp BP Pulse Ox 100.5 F H 97 H 20 150/91 94 12/28/20 12:09 12/28/20 12:09 12/28/20 12:09 12/28/20 12:09 12/28/20 12:09 Temperature -Last 24 Hours Temperature 100.5 F Temperature 99.0 F Temperature 98.7 F Temperature 99.1 F - Labs CBC & Chem 7: 12/28/20 07:29 12/28/20 07:29 Labs: Abnormal lab results 12/27/20 12/27/20 12/28/20 Range/Units 10:59 22:43 07:28 RBC (3.65-5.03) M/mm3 Hgb (11.8-15.2) gm/dl Hct (35.5-45.6) % MCV (84-94) fl MCH (28-32) pg Chloride (98-107) mmol/L Glucose (75-100) mg/dL POC Glucose 235 H 134 H 146 H (70-105) mg/dL 12/28/20 12/28/20 12/28/20 Range/Units 07:29 07:29 11:42 RBC 3.21 L (3.65-5.03) M/mm3 Hgb 8.5 L (11.8-15.2) gm/dl Hct 25.4 L (35.5-45.6) % MCV 79 L (84-94) fl MCH 27 L (28-32) pg Chloride 92.9 L (98-107) mmol/L Glucose 137 H (75-100) mg/dL POC Glucose 126 H (70-105) mg/dL
--- NOTE | 2020-12-28 14:15 | Procedure Note ---
Date of procedure: 12/28/20 Pre-op diagnosis: Osteomyelitis of right great toe Post-op diagnosis: same Procedure: TMA of right great toe Description of procedure: Pt was placed supine on the OR table. General anesthesia was administered. Right leg and foot were prepped and draped. A tear drop incision was made about the right great toe. Right great toe was amputated at the MTP joint. Periosteum was elevated off of the metatarsal head and shaft and the distal shaft amputated with a bone saw. A bleeding digital artery was ligated with a stick tie of 3-0 silk. Other hemostasis was obtained with the Bovie. Wound was irrigated. Wound was packed open with a dilute Betadine moistened Kerlix roll followed by Kerlix and Coban wraps. Pt tolerated the procedure well. Pt was taken to PACU in stable condition. Anesthesia: JOHN Surgeon: GEOVANI GOSS Estimated blood loss: 50-100ml Pathology: list (1) Right great toe 2) Right 1st metatarsal head) Specimen disposition: to lab Condition: stable Disposition: PACU
[2020-12-28] MEDS ORDERED: SUCCINYLCHOLINE CHLORIDE 200 MG/10 ML INJ MDV ONE (14:30)
[2020-12-28] MEDS ORDERED: ONDANSETRON 4 MG/2 ML INJ ONE (14:30)
[2020-12-28] MEDS ORDERED: hydrALAZINE 20 MG/1 ML INJ IV ONE (15:14)
[2020-12-28] MEDS ORDERED: hydrALAZINE 20 MG/1 ML INJ ONE (15:15)
[2020-12-28] MEDS ORDERED: hydrALAZINE 20 MG/1 ML INJ IV PRN (16:52)
[2020-12-28] MEDS: cefTRIAXone/NS 2 GM/100 ML 2 GM/100 ML BAG IV SCH (17:13)
[2020-12-29] MEDS ORDERED: INSULIN LISPRO 100 UNIT/ML SUB-Q ONE ×2 (01:39→13:43)
[2020-12-29 07:36] LABS: Hematocrit 27.1 % (35.5-45.6); Hemoglobin 8.6 gm/dl (11.8-15.2); Mean Corpuscular HGB Conc 32 % (32-34); Mean Corpuscular Volume 80 fl (84-94); Platelet Count 390 K/mm3 (140-440); Red Blood Count 3.39 M/mm3 (3.65-5.03); Red Cell Distribution Width 13.1 % (13.2-15.2)
[2020-12-29 07:52] LABS: BUN/Creatinine Ratio 17; Blood Urea Nitrogen 20 mg/dL (9-20); Calcium 9.5 mg/dL (8.4-10.2); Hemolysis Index 1
[2020-12-29] MEDS: INSULIN LISPRO 100 UNIT/ML SUB-Q SCH ×6 (08:25→21:07)
[2020-12-29] MEDS: INSULIN NPH/REGULAR 70/30 INJ SUB-Q SCH ×2 (08:25→19:01)
[2020-12-29] MEDS: ASPIRIN EC 81 MG TAB PO SCH (09:19)
--- NOTE | 2020-12-29 12:30 | Progress Note ---
Assessment and Plan Cultures: None A/P: 45-year-old man past medical history diabetes, left BKA admitted with right toe ulcer and probable osteomyelitis. #Right great toe ulcer with osteomyelitis: As seen on MRI. Likely secondary to his diabetes. Status post right great toe TMA. #Sepsis: Noted fever and leukocytosis yesterday. Possibly reactive to surgery. #Diabetes: tight glycemic control for best outcomes. #History of left BKA: Secondary to osteomyelitis, cultures from the blood at that time grew strep sanguinous Recs: -Monitor fever and leukocytosis -Follow OR cultures and proximal margin and pathology -Continue ceftriaxone -wound care of the ulcer -After surgery can discharge with cefdinir 300mg q12h for [address] Dupree recommendations -Follow up with Dr. Dupree clinic in 1-2 weeks to follow up pathology. will follow MD [facility] ([facility]) Office [phone] Subjective Date of service: 12/29/20 Principal diagnosis: Toe osteomyelitis Interval history: Patient feels great. Denies any complaints. No fever overnight. Went to the OR yesterday. Objective - Exam Narrative Exam: General appearance: Alert in NAD pleasant Eyes: anicteric sclerae, moist conjunctivae; no lid-lag; PERRLA HENT: Normocephalic, Atraumatic; normal external ears, nares open, oropharynx clear with moist mucous membranes and no oral thrush Neck: supple, tracheal midline, no JVD Lungs: CTA, with normal respiratory effort and no intercostal retractions CV: RRR no murmur Abdomen: Soft, non-tender; no masses or hepatosplenomegaly Extremities: Left below-knee amputation stump okay, right foot covered with surgical dressing. Skin: No rash. Psych: no agitated Neuro: alert and oriented x 3. Moving all extermities - Constitutional Vitals: Vital Signs Temp Pulse Resp BP Pulse Ox 98.8 F 94 H 18 198/97 93 12/29/20 11:05 12/29/20 11:05 12/29/20 11:05 12/29/20 11:05 12/29/20 11:05 Temperature -Last 24 Hours Temperature 98.8 F Temperature 98 F Temperature 99.3 F Temperature 98.6 F Temperature 97.4 F Temperature 97.4 F - Labs CBC & Chem 7: 12/29/20 Unknown 12/29/20 Unknown Labs: Abnormal lab results 12/28/20 12/28/20 12/28/20 Range/Units 14:17 16:42 21:04 WBC (4.5-11.0) K/mm3 RBC (3.65-5.03) M/mm3 Hgb (11.8-15.2) gm/dl Hct (35.5-45.6) % MCV (84-94) fl MCH (28-32) pg RDW (13.2-15.2) % Sodium (137-145) mmol/L Chloride (98-107) mmol/L Carbon Dioxide (22-30) mmol/L Glucose (75-100) mg/dL POC Glucose 150 H 216 H 457 H (70-105) mg/dL 12/29/20 12/29/20 12/29/20 Range/Units 01:06 07:31 Unknown WBC 14.2 H (4.5-11.0) K/mm3 RBC 3.39 L (3.65-5.03) M/mm3 Hgb 8.6 L (11.8-15.2) gm/dl Hct 27.1 L (35.5-45.6) % MCV 80 L (84-94) fl MCH 25 L (28-32) pg RDW 13.1 L (13.2-15.2) % Sodium (137-145) mmol/L Chloride (98-107) mmol/L Carbon Dioxide (22-30) mmol/L Glucose (75-100) mg/dL POC Glucose 394 H 276 H (70-105) mg/dL 12/29/20 Range/Units Unknown WBC (4.5-11.0) K/mm3 RBC (3.65-5.03) M/mm3 Hgb (11.8-15.2) gm/dl Hct (35.5-45.6) % MCV (84-94) fl MCH (28-32) pg RDW (13.2-15.2) % Sodium 134 L (137-145) mmol/L Chloride 92.0 L (98-107) mmol/L Carbon Dioxide 31 H (22-30) mmol/L Glucose 268 H (75-100) mg/dL POC Glucose (70-105) mg/dL
[2020-12-29] MEDS: cefTRIAXone/NS 2 GM/100 ML 2 GM/100 ML BAG IV SCH (15:23)
--- NOTE | 2020-12-29 15:53 | Progress Note ---
Assessment and Plan Assessment and plan: Assessment: 45-year-old -[place] male with a past medical history of diabetes mellitus type 2 who presents with right foot first toe diabetic ulceration. Work-up so far shows osteomyelitis, currently on antibiotics. Diabetic foot ulcer with osteomyelitis Current Visit: Yes Status: Acute Plan to address problem: Patient commenced on empiric IV antibiotics. Wound cultures Infectious disease managing antibiotics Surgery for amputation of right foot first toe scheduled today at 2 PM Acute on chronic kidney failure Current Visit: Yes Status: Acute Plan to address problem: We will request evaluation by nephrology. We will monitor BUN and creatinine. Diabetes mellitus with hyperglycemia, poorly controlled Current Visit: No Status: Acute Plan to address problem: NPH 40 units twice daily Insulin sliding scale with AC insulin Acute metabolic acidosis Nephrology consulted Patient currently on bicarb History of left BKA No intervention at this time DVT prophylaxis Current Visit: Yes Status: Acute Plan to address problem: Patient placed on subcutaneous heparin. Full code status Current Visit: No Status: Acute Plan to address problem: Patient is full code. Disposition: Continue treatment for amputation of first toe right foot. Continue IV antibiotics, after surgery clears patient, will discharge in the a.m. History Interval history: 12/24: Due to poor healing wound we will ask vascular to evaluate the patient in addition to continue management for osteomyelitis. Will adjust insulin management for better control. Counseling provided to the patient patient was rounded on with case management. Also continue to monitor for metabolic acidosis and and anticipate improvement. 12/25: Patient with mild pain in his right toe, no fevers or chills, currently on antibiotics, revascularization report reviewed 12/26: Patient seen and examined, no overnight events, pain controlled. Patient states that he would like to have surgery 12/27/2020: Patient would like to have surgery, spoke with surgery, will place patient on schedule. 12/28/2020: Patient to have surgery today, patient n.p.o., no complaints overnight 12/29/2020: Patient seen today, post surgery, pain is controlled. Continue to receive IV antibiotics. Hospitalist Physical - Physical exam Narrative exam: General appearance: no acute distress, well-nourished EENT: PERRL, EOM intact, hearing intact, clear oral mucosa Neck: Present: supple, normal ROM Respiratory: bilateral CTA, negative: rales, rhonchi, wheezing Cardiovascular: Regular rate/rhythm, Normal S1 & S2. No gallop, rub Extremities: Left BKA, surgical dressing around right foot. Abdominal: soft, no tenderness, non-distended, normal bowel sounds Integumentary: Present: clear, warm, dry no wounds, no erythema noted Psychiatric: appropriate mood/affect, intact judgment & insight Neurologic: CNII-XII intact, moves all extremities, no sensory or motor abnormalities - Constitutional Vitals: Temp Pulse Resp BP Pulse Ox 98.8 F 94 H 18 198/97 93 12/29/20 11:05 12/29/20 11:05 12/29/20 11:05 12/29/20 11:05 12/29/20 11:05 General appearance: Present: no acute distress Results - Labs CBC & Chem 7: 12/29/20 Unknown 12/29/20 Unknown Labs: Laboratory Last Values WBC 14.2 K/mm3 (4.5-11.0) H 12/29/20 Unknown RBC 3.39 M/mm3 (3.65-5.03) L 12/29/20 Unknown Hgb 8.6 gm/dl (11.8-15.2) L 12/29/20 Unknown Hct 27.1 % (35.5-45.6) L 12/29/20 Unknown MCV 80 fl (84-94) L 12/29/20 Unknown MCH 25 pg (28-32) L 12/29/20 Unknown MCHC 32 % (32-34) 12/29/20 Unknown RDW 13.1 % (13.2-15.2) L 12/29/20 Unknown Plt Count 390 K/mm3 (140-440) 12/29/20 Unknown Lymph % (Auto) 14.3 % (13.4-35.0) 12/23/20 17:07 [place] % (Auto) 7.0 % (0.0-7.3) 12/23/20 17:07 Eos % (Auto) 1.4 % (0.0-4.3) 12/23/20 17:07 Baso % (Auto) 0.5 % (0.0-1.8) 12/23/20 17:07 Lymph # (Auto) 1.5 K/mm3 (1.2-5.4) 12/23/20 17:07 [place] # (Auto) 0.7 K/mm3 (0.0-0.8) 12/23/20 17:07 Eos # (Auto) 0.1 K/mm3 (0.0-0.4) 12/23/20 17:07 Baso # (Auto) 0.1 K/mm3 (0.0-0.1) 12/23/20 17:07 Add Manual Diff Complete 12/24/20 05:12 Total Counted 100 12/24/20 05:12 Seg Neutrophils % 76.8 % (40.0-70.0) H 12/23/20 17:07 Seg Neuts % (Manual) 75.0 % (40.0-70.0) H 12/24/20 05:12 Band Neutrophils % 1.0 % 12/24/20 05:12 Lymphocytes % (Manual) 10.0 % (13.4-35.0) L 12/24/20 05:12 Monocytes % (Manual) 5.0 % (0.0-7.3) 12/24/20 05:12 Eosinophils % (Manual) 9.0 % (0.0-4.3) H 12/24/20 05:12 Nucleated RBC % Not Reportable 12/24/20 05:12 Seg Neutrophils # 8.1 K/mm3 (1.8-7.7) H 12/23/20 17:07 Seg Neutrophils # Man 6.5 K/mm3 (1.8-7.7) 12/24/20 05:12 Band Neutrophils # 0.1 K/mm3 12/24/20 05:12 Lymphocytes # (Manual) 0.9 K/mm3 (1.2-5.4) L 12/24/20 05:12 Abs React Lymphs (Man) 0.0 K/mm3 12/24/20 05:12 Monocytes # (Manual) 0.4 K/mm3 (0.0-0.8) 12/24/20 05:12 Eosinophils # (Manual) 0.8 K/mm3 (0.0-0.4) H 12/24/20 05:12 Basophils # (Manual) 0.0 K/mm3 (0.0-0.1) 12/24/20 05:12 Metamyelocytes # 0.0 K/mm3 12/24/20 05:12 Myelocytes # 0.0 K/mm3 12/24/20 05:12 Promyelocytes # 0.0 K/mm3 12/24/20 05:12 Blast Cells # 0.0 K/mm3 12/24/20 05:12 WBC Morphology Not Reportable 12/24/20 05:12 Hypersegmented Neuts Not Reportable 12/24/20 05:12 Hyposegmented Neuts Not Reportable 12/24/20 05:12 Hypogranular Neuts Not Reportable 12/24/20 05:12 Smudge Cells Not Reportable 12/24/20 05:12 Toxic Granulation Not Reportable 12/24/20 05:12 Toxic Vacuolation Not Reportable 12/24/20 05:12 Dohle Bodies Not Reportable 12/24/20 05:12 Pelger-Huet Anomaly Not Reportable 12/24/20 05:12 Arlene Rods Not Reportable 12/24/20 05:12 Platelet Estimate Consistent w auto 12/24/20 05:12 Clumped Platelets Not Reportable 12/24/20 05:12 Plt Clumps, EDTA Not Reportable 12/24/20 05:12 Large Platelets Not Reportable 12/24/20 05:12 Giant Platelets Not Reportable 12/24/20 05:12 Platelet Satelliting Not Reportable 12/24/20 05:12 Plt Morphology Comment Not Reportable 12/24/20 05:12 RBC Morphology Not Reportable 12/24/20 05:12 Dimorphic RBCs Not Reportable 12/24/20 05:12 Polychromasia Not Reportable 12/24/20 05:12 Hypochromasia Not Reportable 12/24/20 05:12 Poikilocytosis Not Reportable 12/24/20 05:12 Anisocytosis 1+ 12/24/20 05:12 Microcytosis Not Reportable 12/24/20 05:12 Macrocytosis Not Reportable 12/24/20 05:12 Spherocytes Not Reportable 12/24/20 05:12 Pappenheimer Bodies Not Reportable 12/24/20 05:12 Sickle Cells Not Reportable 12/24/20 05:12 Target Cells Not Reportable 12/24/20 05:12 Tear Drop Cells Not Reportable 12/24/20 05:12 Ovalocytes Not Reportable 12/24/20 05:12 Helmet Cells Not Reportable 12/24/20 05:12 [place] Bodies Not Reportable 12/24/20 05:12 [place] Rings Not Reportable 12/24/20 05:12 [place] Cells Not Reportable 12/24/20 05:12 Bite Cells Not Reportable 12/24/20 05:12 Crenated Cell Not Reportable 12/24/20 05:12 Elliptocytes Not Reportable 12/24/20 05:12 Acanthocytes (Spur) Not Reportable 12/24/20 05:12 Rouleaux Not Reportable 12/24/20 05:12 Hemoglobin C Crystals Not Reportable 12/24/20 05:12 Schistocytes Not Reportable 12/24/20 05:12 Malaria parasites Not Reportable 12/24/20 05:12 Ramos Bodies Not Reportable 12/24/20 05:12 Hem Pathologist Commnt No 12/24/20 05:12 PT 15.1 Sec. (12.2-14.9) H 12/24/20 05:12 INR 1.13 (0.87-1.13) 12/24/20 05:12 Sodium 134 mmol/L (137-145) L 12/29/20 Unknown Potassium 3.8 mmol/L (3.6-5.0) 12/29/20 Unknown Chloride 92.0 mmol/L (98-107) L 12/29/20 Unknown Carbon Dioxide 31 mmol/L (22-30) H 12/29/20 Unknown Anion Gap 15 mmol/L 12/29/20 Unknown BUN 20 mg/dL (9-20) 12/29/20 Unknown Creatinine 1.2 mg/dL (0.8-1.3) 12/29/20 Unknown Estimated GFR > 60 ml/min 12/29/20 Unknown BUN/Creatinine Ratio 17 % 12/29/20 Unknown Glucose 268 mg/dL (75-100) H 12/29/20 Unknown POC Glucose 305 mg/dL (70-105) H 12/29/20 11:02 Hemoglobin A1c 14.9 % (4-6) H 12/26/20 06:41 Calcium 9.5 mg/dL (8.4-10.2) 12/29/20 Unknown Total Bilirubin 0.30 mg/dL (0.1-1.2) 12/23/20 17:07 AST 31 units/L (5-40) 12/23/20 17:07 ALT 33 units/L (7-56) 12/23/20 17:07 Alkaline Phosphatase 88 units/L (35-129) 12/23/20 17:07 Total Protein 8.1 g/dL (6.3-8.2) 12/23/20 17:07 Albumin 3.4 g/dL (3.9-5) L 12/23/20 17:07 Albumin/Globulin Ratio 0.7 % 12/23/20 17:07 Triglycerides 169 mg/dL (2-149) H 12/24/20 05:12 Cholesterol 152 mg/dL (50-199) 12/24/20 05:12 LDL Cholesterol Direct 90 mg/dL (50-130) 12/24/20 05:12 HDL Cholesterol 28 mg/dL (40-59) L 12/24/20 05:12 Cholesterol/HDL Ratio 5.42 % 12/24/20 05:12 Random Vancomycin 7.2 ug/mL (0-40.0) 12/26/20 06:41 Benedict/IV: Voiding Method Urinal Active Medications - Current Medications Current Medications: Generic Name Dose Route Start Last Admin Trade Name Freq PRN Reason Stop Dose Admin Acetaminophen 650 mg 12/23/20 22:33 Acetaminophen 325 Mg Tab PO Q4H PRN Pain MILD(1-3)/Fever >100.5/MIRANDA Aspirin 81 mg 12/25/20 10:00 12/29/20 09:19 Aspirin Ec 81 Mg Tab PO 81 mg QDAY WILMER Administration Dextrose 0 ml 12/23/20 22:33 Dextrose 50% In Water (25gm) 50 Ml Syringe IV Q30MIN PRN Hypoglycemia Protocol Hydralazine HCl 10 mg 12/28/20 16:52 Hydralazine 20 Mg/1 Ml Inj IV Q2HR PRN Blood Pressure Ceftriaxone Sodium 2 gm in 100 mls @ 200 mls/hr 12/26/20 15:00 12/29/20 15:23 Rocephin/Ns 2 Gm/100 Ml IV 02/04/21 15:29 200 mls/hr Q24H WILMER Administration Protocol Insulin Human Isoph/Insulin Regular 40 unit 12/27/20 10:15 12/29/20 08:25 Insulin Nph/Regular 70/30 Inj SUB-Q 40 unit BIDDIAB WILMER Administration Insulin Human Lispro 0 unit 12/24/20 07:30 12/29/20 13:09 Insulin Lispro 100 Unit/Ml SUB-Q 8 unit [facility] Administration Protocol Insulin Human Lispro 10 unit 12/29/20 16:30 Insulin Lispro 100 Unit/Ml SUB-Q ACHS REPLACED BY [facility] Magnesium Hydroxide 30 ml 12/23/20 22:33 Magnesium Hydroxide (Mom) Oral Liqd Udc PO Q4H PRN Constipation Morphine Sulfate 2 mg 12/23/20 22:33 12/28/20 10:26 Morphine 2 Mg/1 Ml Inj IV 2 mg Q4H PRN Administration Pain, Moderate (4-6) Ondansetron HCl 4 mg 12/23/20 22:33 12/23/20 22:59 Ondansetron 4 Mg/2 Ml Inj IV 4 mg Q8H PRN Administration Nausea And Vomiting Oxycodone/Acetaminophen 2 tab 12/26/20 08:40 12/27/20 12:55 Oxycodone /Acetaminophen 5-325mg Tab PO 2 tab Q6H PRN Administration Pain, Moderate (4-6) Sodium Chloride 10 ml 12/24/20 10:00 12/29/20 09:19 Sodium Chloride 0.9% 10 Ml Flush Syringe IV 10 ml BID IWLMER Administration Sodium Chloride 10 ml 12/23/20 22:33 Sodium Chloride 0.9% 10 Ml Flush Syringe IV PRN PRN LINE FLUSH Sodium Hypochlorite 1 applic 12/25/20 12:00 12/28/20 22:45 Sodium Hypochlorite, Dakin's 1/2 Strength (0.25%) 473 Ml Topical Soln TP Not Given BID REPLACED BY [facility] Nutrition/Malnutrition Assess - Dietary Evaluation Nutrition/Malnutrition Findings: Nutrition Notes Start: 12/24/20 12:52 Freq: Status: Active Protocol: Document 12/25/20 12:31 (Rec: 12/25/20 12:34 [id number]) Nutrition Notes Initial or Follow up Brief Note Current Diagnosis CKD(stage I-IV),Diabetes Other Pertinent Diagnosis R foot wound Current Diet Cardiac, Consistent CHO Subjective/Other Information FU for diet education. Pt given DM education on past two visits. Pt has no questions and states no trouble managing his BG via diet. Pt accepted handout. Encouraged pt to review and ask any questions. Pt educated on need for protein to heal wounds and high BG decrease wound healing . Pt eating 75-100% of meals. Pt currently NPO for procedure. Nutrition Intervention Revisit per MD consult or patient Sign Off request:
[2020-12-29] MEDS: oxyCODONE /ACETAMINOPHEN 5-325MG TAB PO PRN (19:27)
[2020-12-29] MEDS: SODIUM HYPOCHLORITE, DAKIN'S 1/2 STRENGTH (0.25%) 473 ML TOPICAL SOLN TP SCH ×2 (19:33→21:08)
[2020-12-30 07:39] LABS: BUN/Creatinine Ratio 19; Blood Urea Nitrogen 23 mg/dL (9-20); Hemolysis Index 0
[2020-12-30] MEDS ORDERED: INSULIN NPH/REGULAR 70/30 INJ SUB-Q SCH (08:00)
[2020-12-30] MEDS: INSULIN LISPRO 100 UNIT/ML SUB-Q SCH ×2 (08:05→09:44)
[2020-12-30] MEDS: ASPIRIN EC 81 MG TAB PO SCH (09:41)
[2020-12-30] MEDS: SODIUM HYPOCHLORITE, DAKIN'S 1/2 STRENGTH (0.25%) 473 ML TOPICAL SOLN TP SCH (09:45)
[2020-12-30] MEDS ORDERED: INSULIN LISPRO 100 UNIT/ML SUB-Q SCH ×2 (11:30)
[2020-12-30 11:45] LABS: Basophils # (Auto) 0.1 K/mm3 (0.0-0.1); Basophils % (Auto) 0.5 % (0.0-1.8); Eosinophils # (Auto) 0.1 K/mm3 (0.0-0.4); Eosinophils % (Auto) 1.1 % (0.0-4.3); Hematocrit 24.2 % (35.5-45.6); Lymphocytes % (Auto) 18.7 % (13.4-35.0); Mean Corpuscular HGB Conc 33 % (32-34); Mean Corpuscular Volume 80 fl (84-94); Monocytes # (Auto) 0.5 K/mm3 (0.0-0.8); Monocytes % (Auto) 4.8 % (0.0-7.3); Platelet Count 355 K/mm3 (140-440); Red Blood Count 3.01 M/mm3 (3.65-5.03); Red Cell Distribution Width 13.5 % (13.2-15.2)
--- NOTE | 2020-12-30 11:54 | Discharge Summary ---
Providers - Providers Date of Admission: 12/23/20 22:18 Date of discharge: 12/30/20 Attending physician: ZAKIA ROJAS MD 12/23/20 22:33 Consult to Dietitian/Nutrition [CONS] Routine Physician Instructions: Reason For Exam: Reason for Consult: Diet education Consult to Physician [CONS] Routine Comment: Consulting Provider: TAB CORRIGAN Physician Instructions: Reason For Exam: Cellulitis/Osteomyelitis right foot 12/23/20 23:22 Consult to Physician [CONS] Routine Comment: Consulting Provider: ALDO CAMPOVERDE Physician Instructions: Reason For Exam: Acute on chronic kidney failure 12/24/20 06:29 Consult to Wound/ET Nurse [CONS] Routine Reason For Exam: wound eval on right great toe 12/24/20 11:37 Consult to Physician [CONS] Routine Comment: Consulting Provider: JOHN MANDUJANO Physician Instructions: Reason For Exam: right poor healing diabetic wound 12/25/20 11:17 Consult to Physician [CONS] Routine Comment: Consulting Provider: GEOVANI GOSS Physician Instructions: evaluate right great/web Reason For Exam: Right great toe diabetic ulcer 12/28/20 15:10 Consult to Case Management [CONS] Routine Services Needed at Discharge: Home Health Services Notified:: CM Additional Physician Instructions: OK to cancel home IV antibiotics as patient now had amputation after previously refusing. Call me [phone] with any questions. Primary care physician: [facility] Hospitalization Reason for admission: Diabetic foot ulcer on right foot first toe Condition: Good Hospital course: Assessment: 45-year-old -[place] male with a past medical history of diabetes mellitus type 2 who presents with right foot first toe diabetic ulceration. Work-up so far shows osteomyelitis, currently on antibiotics. Diabetic foot ulcer with osteomyelitis Current Visit: Yes Status: Acute Plan to address problem: Patient commenced on empiric IV antibiotics. Wound cultures Infectious disease managing antibiotics Surgery for amputation of right foot first toe scheduled today at 2 PM Acute on chronic kidney failure Current Visit: Yes Status: Acute Plan to address problem: We will request evaluation by nephrology. We will monitor BUN and creatinine. Diabetes mellitus with hyperglycemia, poorly controlled Current Visit: No Status: Acute Plan to address problem: NPH 40 units twice daily Insulin sliding scale with AC insulin Acute metabolic acidosis Nephrology consulted Patient currently on bicarb History of left BKA No intervention at this time DVT prophylaxis Current Visit: Yes Status: Acute Plan to address problem: Patient placed on subcutaneous heparin. History 12/24: Due to poor healing wound we will ask vascular to evaluate the patient in addition to continue management for osteomyelitis. Will adjust insulin management for better control. Counseling provided to the patient patient was rounded on with case management. Also continue to monitor for metabolic acidosis and and anticipate improvement. 12/25: Patient with mild pain in his right toe, no fevers or chills, currently on antibiotics, revascularization report reviewed 12/26: Patient seen and examined, no overnight events, pain controlled. Patient states that he would like to have surgery 12/27/2020: Patient would like to have surgery, spoke with surgery, will place patient on schedule. 12/28/2020: Patient to have surgery today, patient n.p.o., no complaints overnight 12/29/2020: Patient seen today, post surgery, pain is controlled. Continue to receive IV antibiotics. 12/30/2020: Patient seen and examined, no complaints, pain is controlled. I spoke with general surgery, patient can be discharged and follow-up in wound clinic in 2 to 3 weeks. Orders for wound care are wet-to-dry dressings to right foot first metatarsal amputation area daily. 0.5% Dakin solution. I have written a prescription for this. Advised patient to be taught by the nurses for wound care. Patient is able to have activity over the foot with heel walking. Disposition: [id number] HOME UNDER [facility] Final Discharge Diagnosis (Prints w/discharge instructions): Diabetic foot ulcer. Right foot first toe osteomyelitis. Acute on chronic kidney failure. Diabetes mellitus type 2 with hyperglycemia. Acute metabolic acidosis. History of left BKA. Hypertension Time spent for discharge: 35 minutes Core Measure Documentation - Palliative Care Palliative Care/ Comfort Measures: Not Applicable - Core Measures Any of the following diagnoses?: none Exam - Physical Exam Narrative exam: General appearance: no acute distress, well-nourished EENT: PERRL, EOM intact, hearing intact, clear oral mucosa Neck: Present: supple, normal ROM Respiratory: bilateral CTA, negative: rales, rhonchi, wheezing Cardiovascular: Regular rate/rhythm, Normal S1 & S2. No gallop, rub Extremities: Left BKA, surgical dressing around right foot. Abdominal: soft, no tenderness, non-distended, normal bowel sounds Integumentary: Present: clear, warm, dry no wounds, no erythema noted Psychiatric: appropriate mood/affect, intact judgment & insight Neurologic: CNII-XII intact, moves all extremities, no sensory or motor abnormalities - Constitutional Vitals: Temp Pulse Resp BP Pulse Ox 98.6 F 85 18 133/89 96 12/29/20 21:45 12/29/20 21:45 12/29/20 22:00 12/29/20 21:45 12/29/20 21:45 Plan Activity: no restrictions Weight Bearing Status: Partial Weight Bearing (Heel walking on right foot.) Diet: diabetic Wound: other (Wet-to-dry dressing changes to amputation area on right foot daily. Use 0.5 Dakin's solution to clean the area) Follow up with: PANKAJ ALVAREZ MD [Staff Physician] - (follow up in 1-2 weeks. Please call to make an appointment.) PRIMARY CARE, [Primary Care Provider] - 3-5 Days GEOVANI GOSS MD [Staff Physician] - 14 Days (Please follow-up with the surgeon. Please call and make an appointment to follow-up at wound care clinic) Prescriptions: Cefdinir 300 mg PO BID 7 Days #14 capsule Sodium Hypochlorite [Dakin's Half Strength] 473 ml IR DAILY #1 bottle oxyCODONE /ACETAMINOPHEN [Percocet 5/325] 1 tab PO Q6HR PRN #30 tablet PRN Reason: Pain
[2020-12-30] MEDS: oxyCODONE /ACETAMINOPHEN 5-325MG TAB PO PRN (12:03)
[2020-12-30] MEDS ORDERED: NEOMY 3.5 MG/BACIT 400 UNITS/POLY B 5000 UNITS/GM OINT PACKET TP ONE (14:00)
[2020-12-30] MEDS: cefTRIAXone/NS 2 GM/100 ML 2 GM/100 ML BAG IV SCH (14:23)
[2020-12-30 16:04] VITALS: BP 119/80
== END 2020-12-30 15:55 | disposition home health service (06) | DRG 616 ==
LOC: ED 14:32 → 3A 22:18
PROVIDERS: ADMIT Internal Medicine Geriatric Medicine; ATTEND Family Medicine
PROC: B44LZZZ Ultrasonography of Femoral Artery (ICD-10-PCS; 2020-12-25)
PROC: B41G1ZZ Fluoroscopy of Left Lower Extremity Arteries using Low Osmolar Contrast (ICD-10-PCS; 2020-12-25)
PROC: B4101ZZ Fluoroscopy of Abdominal Aorta using Low Osmolar Contrast (ICD-10-PCS; 2020-12-25)
PROC: B41F1ZZ Fluoroscopy of Right Lower Extremity Arteries using Low Osmolar Contrast (ICD-10-PCS; 2020-12-25)
PROC: B41J1ZZ Fluoroscopy of Other Lower Arteries using Low Osmolar Contrast (ICD-10-PCS; 2020-12-25)
PROC: 02HV33Z Insertion of Infusion Device into Superior Vena Cava, Percutaneous Approach (ICD-10-PCS; 2020-12-27)
PROC: 0Y6P0Z0 Detachment at Right 1st Toe, Complete, Open Approach (ICD-10-PCS; principal; 2020-12-28)
DX: E11.69 Type 2 diabetes mellitus with other specified complication (principal); A41.9 Sepsis, unspecified organism; E87.2 Acidosis; M86.171 Other acute osteomyelitis, right ankle and foot; E87.1 Hypo-osmolality and hyponatremia; L97.518 Non-pressure chronic ulcer of other part of right foot with other specified severity; E11.621 Type 2 diabetes mellitus with foot ulcer; I12.9 Hypertensive chronic kidney disease with stage 1 through stage 4 chronic kidney disease, or unspecified chronic kidney disease; Z79.4 Long term (current) use of insulin; E11.22 Type 2 diabetes mellitus with diabetic chronic kidney disease; N18.9 Chronic kidney disease, unspecified; K21.9 Gastro-esophageal reflux disease without esophagitis; Z79.899 Other long term (current) drug therapy; E11.51 Type 2 diabetes mellitus with diabetic peripheral angiopathy without gangrene; Z89.612 Acquired absence of left leg above knee; N17.0 Acute kidney failure with tubular necrosis
CPT/HCPCS: 36247; 36415; 75625; 75716; 76770; 80048; 80053; 80061; 80202; 82962; 83036; 85007; 85025; 85027; 85610; 88302; 88305; 88311; 96365; 96367; 96375; G0378; A6250; A6260; C1769; C1887; J0330; J0360; J0690; J0696; J1644; J1815; J2250; J2270; J2405; J2543; J2704; J3010; J3370; J7040; Q9967

== ENCOUNTER 2021-01-23 08:17 | Outpatient (CLI) | payer MEDICAID ==
[2021-01-23] MEDS ORDERED: LIDOCAINE (4%) 40 MG/ML TOPICAL SOLN 50 ML BOTTLE TP ONE (08:40)
== END 2021-01-23 08:18 | disposition home or self-care (01) ==
LOC: WOUND 08:17
PROVIDERS: ATTEND Surgery
DX: T87.89 Other complications of amputation stump (principal); E11.621 Type 2 diabetes mellitus with foot ulcer; L97.512 Non-pressure chronic ulcer of other part of right foot with fat layer exposed; E11.69 Type 2 diabetes mellitus with other specified complication; M86.8X8 Other osteomyelitis, other site; I10 Essential (primary) hypertension; K21.9 Gastro-esophageal reflux disease without esophagitis; Z89.512 Acquired absence of left leg below knee; Z79.4 Long term (current) use of insulin; Y83.5 Amputation of limb(s) as the cause of abnormal reaction of the patient, or of later complication, without mention of misadventure at the time of the procedure; Y92.238 Other place in hospital as the place of occurrence of the external cause
CPT/HCPCS: 11042; G0463; 99214

== ENCOUNTER 2021-02-06 08:18 | Outpatient (CLI) | payer MEDICAID ==
[2021-02-06] MEDS ORDERED: LIDOCAINE (4%) 40 MG/ML TOPICAL SOLN 50 ML BOTTLE TP ONE (08:50)
== END 2021-02-06 08:19 | disposition home or self-care (01) ==
LOC: WOUND 08:18
PROVIDERS: ATTEND Surgery
DX: T87.89 Other complications of amputation stump (principal); E11.621 Type 2 diabetes mellitus with foot ulcer; L97.512 Non-pressure chronic ulcer of other part of right foot with fat layer exposed; E11.69 Type 2 diabetes mellitus with other specified complication; M86.8X8 Other osteomyelitis, other site; I10 Essential (primary) hypertension; K21.9 Gastro-esophageal reflux disease without esophagitis; Z89.512 Acquired absence of left leg below knee; Z79.4 Long term (current) use of insulin; Y83.5 Amputation of limb(s) as the cause of abnormal reaction of the patient, or of later complication, without mention of misadventure at the time of the procedure

== ENCOUNTER 2021-02-13 08:40 | Outpatient (CLI) | payer MEDICAID ==
[2021-02-13] MEDS ORDERED: LIDOCAINE (4%) 40 MG/ML TOPICAL SOLN 50 ML BOTTLE TP ONE (08:43)
[2021-02-13] MEDS ORDERED: VITAMIN A & D OINT 56.7 GM TP SCH (10:00)
== END 2021-02-13 08:41 | disposition home or self-care (01) ==
LOC: WOUND 08:40
PROVIDERS: ATTEND Surgery
DX: T87.89 Other complications of amputation stump (principal); E11.621 Type 2 diabetes mellitus with foot ulcer; L97.512 Non-pressure chronic ulcer of other part of right foot with fat layer exposed; E11.69 Type 2 diabetes mellitus with other specified complication; M86.8X8 Other osteomyelitis, other site; L84 Corns and callosities; I10 Essential (primary) hypertension; K21.9 Gastro-esophageal reflux disease without esophagitis; Z89.512 Acquired absence of left leg below knee; Z79.4 Long term (current) use of insulin; Y83.5 Amputation of limb(s) as the cause of abnormal reaction of the patient, or of later complication, without mention of misadventure at the time of the procedure
CPT/HCPCS: 11042; A6250

== ENCOUNTER 2021-02-20 08:23 | Outpatient (CLI) | payer MEDICAID ==
[2021-02-20] MEDS ORDERED: LIDOCAINE (4%) 40 MG/ML TOPICAL SOLN 50 ML BOTTLE TP SCH (09:00)
== END 2021-02-20 08:24 | disposition home or self-care (01) ==
LOC: WOUND 08:23
PROVIDERS: ATTEND Surgery
DX: T87.89 Other complications of amputation stump (principal); E11.621 Type 2 diabetes mellitus with foot ulcer; L97.512 Non-pressure chronic ulcer of other part of right foot with fat layer exposed; E11.69 Type 2 diabetes mellitus with other specified complication; M86.8X8 Other osteomyelitis, other site; L84 Corns and callosities; I10 Essential (primary) hypertension; K21.9 Gastro-esophageal reflux disease without esophagitis; Z89.512 Acquired absence of left leg below knee; Z79.4 Long term (current) use of insulin; Y83.5 Amputation of limb(s) as the cause of abnormal reaction of the patient, or of later complication, without mention of misadventure at the time of the procedure

== ENCOUNTER 2021-02-27 08:29 | Outpatient (CLI) | payer MEDICAID | END 2021-02-27 08:30 | disposition home or self-care (01) | LOC: WOUND 08:29 | PROVIDERS: ATTEND Surgery | DX: T87.89 Other complications of amputation stump (principal); E11.621 Type 2 diabetes mellitus with foot ulcer; L97.512 Non-pressure chronic ulcer of other part of right foot with fat layer exposed; E11.69 Type 2 diabetes mellitus with other specified complication; M86.8X8 Other osteomyelitis, other site; L84 Corns and callosities; I10 Essential (primary) hypertension; K21.9 Gastro-esophageal reflux disease without esophagitis; Z89.512 Acquired absence of left leg below knee; Z79.4 Long term (current) use of insulin; Y83.5 Amputation of limb(s) as the cause of abnormal reaction of the patient, or of later complication, without mention of misadventure at the time of the procedure ==

== ENCOUNTER 2021-07-24 08:12 | Outpatient (CLI) | payer MEDICAID ==
[2021-07-24] MEDS ORDERED: LIDOCAINE (4%) 40 MG/ML TOPICAL SOLN 50 ML BOTTLE TP ONE (08:23)
[2021-07-24] MEDS ORDERED: SODIUM HYPOCHLORITE, DAKIN'S FULL STRENGTH (0.5%) 473 ML TOPICAL SOLN TP ONE (15:54)
== END 2021-07-24 08:13 | disposition home or self-care (01) ==
LOC: WOUND 08:12
PROVIDERS: ATTEND Surgery
DX: E11.621 Type 2 diabetes mellitus with foot ulcer (principal); L97.516 Non-pressure chronic ulcer of other part of right foot with bone involvement without evidence of necrosis; E11.69 Type 2 diabetes mellitus with other specified complication; M86.671 Other chronic osteomyelitis, right ankle and foot; E11.40 Type 2 diabetes mellitus with diabetic neuropathy, unspecified; I10 Essential (primary) hypertension; K21.9 Gastro-esophageal reflux disease without esophagitis; Z89.512 Acquired absence of left leg below knee; Z89.411 Acquired absence of right great toe

== ENCOUNTER 2021-08-07 08:32 | Outpatient (CLI) | payer MEDICAID ==
[2021-08-07] MEDS ORDERED: LIDOCAINE (4%) 40 MG/ML TOPICAL SOLN 50 ML BOTTLE TP ONE (08:42)
[2021-08-07] MEDS ORDERED: SODIUM HYPOCHLORITE, DAKIN'S FULL STRENGTH (0.5%) 473 ML TOPICAL SOLN TP ONE (08:49)
== END 2021-08-07 08:33 | disposition home or self-care (01) ==
LOC: WOUND 08:32
PROVIDERS: ATTEND Surgery
DX: E11.621 Type 2 diabetes mellitus with foot ulcer (principal); L97.516 Non-pressure chronic ulcer of other part of right foot with bone involvement without evidence of necrosis; E11.69 Type 2 diabetes mellitus with other specified complication; M86.671 Other chronic osteomyelitis, right ankle and foot; I10 Essential (primary) hypertension; K21.9 Gastro-esophageal reflux disease without esophagitis; Z89.512 Acquired absence of left leg below knee; Z89.411 Acquired absence of right great toe